=== PATIENT | male | born 1940 | race Caucasian/White ===

== ENCOUNTER → 2016-05-10 | Outpatient (CLI) | payer BC ==
[~2016-05-10] MED LIST: BIMA0.01 OPB; DORZ1SOL6 OP; GABA1CAP5 PO; OXCA300T PO; TIMO0.2528 OPB; TRAM-453 PO
== END | disposition home or self-care (01) ==
LOC: C.LAB 08:26
PROVIDERS: ATTEND Urology
DX: Z00.00 Encounter for general adult medical examination without abnormal findings (principal); R97.20 Elevated prostate specific antigen [PSA]; C61 Malignant neoplasm of prostate

== ENCOUNTER → 2016-10-04 | Outpatient (CLI) | payer BC | END | disposition home or self-care (01) | LOC: C.LAB 07:47 | PROVIDERS: ATTEND Urology | DX: C61 Malignant neoplasm of prostate (principal) ==

== ENCOUNTER 2016-10-20 19:51 | Emergency (ER) | payer BC ==
[~2016-10-20] VITALS: Ht 190.5 cm; Wt 106.5 kg
[~2016-10-20 19:51] MED LIST changes: -BIMA0.01 OPB; -TRAM-453 PO
[2016-10-20 19:54] VITALS: TEMP 36.3; Ht 190.5 cm; Wt 106.5 kg
[2016-10-20] MEDS ORDERED: BIMA0.01 OPB (20:19)
--- NOTE | 2016-10-20 21:03 | DIAGNOSTIC IMAGING REPORT ---
ULTRASOUND LEFT LOWER EXTREMITY VENOUS CLINICAL HISTORY: Left leg pain. COMPARISON STUDY: No priors. TECHNIQUE: Real-time, grayscale, and color Doppler sonography of the deep veins of the left lower extremity was performed from the inguinal crease to the calf. Compression and augmentation were utilized. FINDINGS: There is no sonographic evidence of deep venous thrombosis identified in the left lower extremity. The common femoral, superficial femoral, and popliteal veins are patent and normally compressible. The greater saphenous vein and the profunda femoris vein at the junction with the common femoral vein are clear. The visualized calf veins are patent. IMPRESSION: There is no sonographic evidence of deep venous thrombosis identified in the left lower extremity. Electronically signed by: Osmin Ferguson M.D. 10/20/2016 9:02 PM Dictated Date/Time: 10/20/2016 9:02 PM
--- NOTE | 2016-10-20 21:33 | DIAGNOSTIC IMAGING REPORT ---
LEFT FEMUR 3 VIEWS CLINICAL HISTORY: Atraumatic left leg pain. FINDINGS: AP, frog-leg, and lateral views of the left femur are obtained. No prior studies are available for comparison at the time of dictation. The skeletal structures are osteopenic. There is no radiographic evidence of left femoral fracture. Minimal arthritic change is seen in the left hip. The visualized left hemipelvis appears intact. The overlying soft tissues are within normal limits. Numerous phleboliths are identified in the pelvis. IMPRESSION: Osteopenia with no radiographic evidence of left femoral fracture. Electronically signed by: Osmin Ferguson M.D. 10/20/2016 9:31 PM Dictated Date/Time: 10/20/2016 9:31 PM
--- NOTE | 2016-10-20 21:34 | DIAGNOSTIC IMAGING REPORT ---
LEFT TIBIA AND FIBULA 2 VIEWS CLINICAL HISTORY: Atraumatic left leg pain. FINDINGS: AP and lateral views of the left tibia and fibula are obtained. No prior studies are available for comparison at the time of dictation. The skeletal structures are osteopenic. There is no radiographic evidence of left tibial or fibular fracture. The knee and ankle joints are grossly maintained. The overlying soft tissues are within normal limits. IMPRESSION: There is no radiographic evidence of left tibial or fibular fracture. Electronically signed by: Osmin Ferguson M.D. 10/20/2016 9:32 PM Dictated Date/Time: 10/20/2016 9:32 PM
--- NOTE | 2016-10-20 21:46 | EMERGENCY ROOM VISIT NOTE ---
History First contact with patient: 20:02 Chief Complaint: LEG PAIN,LEG INJURY Stated Complaint: L KNEE PAIN, LEG PAIN History of Present Illness The patient is a 76 year old male who presents to the Emergency Room with complaints of left leg pain. The patient states that he had a sudden onset of left leg pain earlier today. The pain is located in the anterior thigh and radiates down to the calf. He denies any injury, but states that the pain has been gradually worsening throughout the day. He rates his current discomfort is 7/10 and states his pain is worse with weightbearing or walking. He denies any previous history of similar symptoms. The patient has a history of prostate cancer. He denies the pain in the back. He denies any numbness or weakness in the leg. Denies any redness, swelling or warmth. The patient is not a smoker and denies recent travel. Review of Systems A complete 10 point review of systems was reviewed with the patient with pertinent positives and negatives as per history of present illness. All else were negative. Past Medical/Surgical History Medical Problems: (1) Hypertension (2) S/P hernia repair Surgical Problems: (1) H/O hernia repair Family History Cancer Social History Smoking Status: Never Smoker Alcohol Use: occasionally Marital Status: Housing Status: lives with family Occupation Status: employed Current/Historical Medications Scheduled Bimatoprost (Lumigan), 1 DROP OPB HS Dorzolamide Hcl-Timolol Maleat (Cosopt Oph), 1 DROPS OP BID Gabapentin (Neurontin), 400 MG PO BID Oxcarbazepine (Trileptal), 300 MG PO BID Timolol Maleate 0.25% Oph (Timoptic 0.25% Oph), 1 DROP OPB HS Tramadol Hcl (Ultram), 50 MG PO Q4H Physical Exam Vital Signs Date Time Temp Pulse Resp B/P (MAP) Pulse Ox O2 Delivery O2 Flow Rate FiO2 10/20/16 21:49 71 16 147/97 95 Room Air 10/20/16 19:54 36.3 84 16 157/77 97 Room Air Physical Exam VITALS: Vitals are noted on the nurse's note and reviewed by myself. Vital signs stable. GENERAL: This is a 76-year-old male, in no acute distress, nondiaphoretic, well- developed well-nourished. HEART: Regular rate and rhythm without murmurs gallops or rubs. LUNGS: Clear to auscultation bilaterally without wheezes, rales or rhonchi. EXTREMITIES: No erythema, edema or warmth of the left leg. Full range of motion and strength 5/5 in the left leg. Results pedis pulse 2+. The foot is warm and well-perfused. Patient is able to wiggle all toes without difficulty. Sensation is intact. NEURO: Patient was alert and oriented to person place and time. 2+ patellar reflexes bilaterally. Medical Decision & Procedures ER Provider Diagnostic Interpretation: ULTRASOUND LEFT LOWER EXTREMITY VENOUS FINDINGS: There is no sonographic evidence of deep venous thrombosis identified in the left lower extremity. The common femoral, superficial femoral, and popliteal veins are patent and normally compressible. The greater saphenous vein and the profunda femoris vein at the junction with the common femoral vein are clear. The visualized calf veins are patent. IMPRESSION: There is no sonographic evidence of deep venous thrombosis identified in the left lower extremity. LEFT FEMUR 3 VIEWS FINDINGS: AP, frog-leg, and lateral views of the left femur are obtained. No prior studies are available for comparison at the time of dictation. The skeletal structures are osteopenic. There is no radiographic evidence of left femoral fracture. Minimal arthritic change is seen in the left hip. The visualized left hemipelvis appears intact. The overlying soft tissues are within normal limits. Numerous phleboliths are identified in the pelvis. IMPRESSION: Osteopenia with no radiographic evidence of left femoral fracture. LEFT TIBIA AND FIBULA 2 VIEWS FINDINGS: AP and lateral views of the left tibia and fibula are obtained. No prior studies are available for comparison at the time of dictation. The skeletal structures are osteopenic. There is no radiographic evidence of left tibial or fibular fracture. The knee and ankle joints are grossly maintained. The overlying soft tissues are within normal limits. IMPRESSION: There is no radiographic evidence of left tibial or fibular fracture. Medications Administered Medications (Trade) Dose Ordered Sig/Dulce Route Start Time Stop Time Status Last Admin Dose Admin Tramadol HCl (Ultram Home Pack) 1 homepack UD ONCE PO 10/20/16 22:00 10/20/16 22:01 DC 10/20/16 21:58 1 HOMEPACK Medical Decision Differential diagnosis includes DVT, superficial thrombosis, muscular strain, lumbar radiculopathy, arterial occlusion, among others. Patient was evaluated as above. His exam is unremarkable. Ultrasound of the leg was performed and shows no evidence of DVT. X-rays of the femur and tibia/ fibula were performed and were unremarkable. The etiology of the patient's discomfort is unclear. He was very relieved to hear the negative results of his testing. He was given a prescription for tramadol to be taken for more severe pain. He will follow-up with his primary care provider for further evaluation and was encouraged to return here as needed for any worsening or new/ concerning symptoms. He verbalized understanding of my assessment and treatment plan and was discharged home in good condition. The patient was independently evaluated by Dr. Mccarthy, ED attending physician, who agreed with my assessment and treatment plan. Medication Reconcilliation Current Medication List: was personally reviewed by me Blood Pressure Screening Patient's blood pressure: Elevated blood pressure Blood pressure disposition: Elevated BP felt to be situational Impression Primary Impression: Leg pain, left Departure Information Dispostion Home / Self-Care Condition GOOD Prescriptions Tramadol Hcl (ULTRAM) 50 Mg Tab 50 MG PO Q4H for Pain, #12 TABS For Initial Treatment Prov: Elana Brooke .KARUNA 10/20/16 Referrals Rylee Mohr M.D. (PCP) Patient Instructions My [facility] Additional Instructions Tramadol as needed for severe pain. Do not drive or drink alcohol while taking this medication. For pain control, you can use the following [id number] medicines (if >12 yo): - Regular strength (325mg/tab) Tylenol (acetaminophen) 2 tabs every 4-6 hours as needed. Do not exceed 12 tablets in a 24 hour period. Avoid taking more than 4 grams (4000 mg) of Tylenol per day. This includes any other sources of acetaminophen you may take on a regular basis. - Regular strength (200 mg/tab) Advil (ibuprofen) 1-2 tabs every 4-6 hours as needed. Do not exceed a dose of 3200 mg per day. Follow-up with her primary care provider early next week for reevaluation. Return to the emergency with worsening pain or any new/concerning symptoms.
--- NOTE | 2016-10-20 21:47 | EMERGENCY ROOM VISIT NOTE ---
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 I was involved in the patient's care and did evaluate the patient myself. I was involved in the care throughout the ER stay. The patient presents with leg pain, the bones look unremarkable-no lytic lesions or fractures. There is no DVT by ultrasound. There is no evidence for neurovascular compromise. The patient was reassured. The patient is being discharged with outpatient follow-up. If worsening, he can return. The cause for the pain is not clear.
[2016-10-20] MEDS ORDERED: TRAM-453 PO (21:48)
[2016-10-20 21:49] VITALS: BP 147/97; PULSE 71; O2SAT 95
[2016-10-20] MEDS ORDERED: TRAMADOL HCL 50 MG HOME PACK PO ONE (22:00)
== END 2016-10-20 22:00 | disposition home or self-care (01) ==
LOC: C.EDB 19:52 → C.EDD 22:00
DX: M79.605 Pain in left leg (principal); Z85.46 Personal history of malignant neoplasm of prostate; I10 Essential (primary) hypertension; Z80.9 Family history of malignant neoplasm, unspecified; Z79.899 Other long term (current) drug therapy

== ENCOUNTER → 2016-12-04 | Outpatient (CLI) | payer BC ==
[~2016-12-04] MED LIST changes: +BIMA0.01 OPB
[2016-12-04 10:09] LABS: BLOOD UREA NITROGEN 24 mg/dl (7-18); BUN/CREATININE RATIO 20.1 (10-20)
== END | disposition home or self-care (01) ==
LOC: C.LAB 07:56
PROVIDERS: ATTEND Urology
DX: C61 Malignant neoplasm of prostate (principal)

== ENCOUNTER → 2016-12-12 | Outpatient (CLI) | payer BC ==
[~2016-12-12] MED LIST changes: +GADAVIST IV PRN
--- NOTE | 2016-12-12 09:27 | DIAGNOSTIC IMAGING REPORT ---
PROSTATE MRI COMBO CLINICAL HISTORY: 76 years-old Male presenting with ELEVATED PSA, history of PROSTATE CA at the left mid and bilateral apex as well as left anterior gland (Martina 3+3). PSA 7.56 ng/mL. TECHNIQUE: Multisequence, multiplanar MR imaging of the prostate was performed before and after the administration of intravenous contrast. Additional postprocessing was performed on a separate [employer] workstation by the radiologist for 3-D volumetric segmentation of the prostate and contouring of region(s) of interest (ELLEN) for targeting. IV contrast: 10 mL of Gadavist. COMPARISON: None. FINDINGS: Prostate: The prostate measures 5.4 x 4.4 x 4.4 cm (DynaCAD prostate boundary segmentation volume 49 mL). Moderate changes of benign prostatic hyperplasia. Hyperplasia of the interface of the transition or peripheral zones also noted, most prominently along the right posterior lateral aspect at the base. Precontrast T1 weighted imaging demonstrates no evidence of intrinsic T1 hyperintensity to suggest hemorrhage. Seminal vesicles normal. Atrophy of the peripheral zone. Several exophytic BPH nodules noted at the base protruding into the peripheral zone. Suspicious lesion(s) described below: Lesion (DynaCAD ELLEN) 1: Location: Left posterolateral peripheral zone at the base to mid gland. The lesion does not extend across the midline. Size: 18 mm (as measured on ADC for PZ lesion and T2WI for TZ lesion) T2W: 3. Heterogeneous ill-defined hypodensity abutting the surgical capsule. No evidence of extraprostatic extension. DWI: 3. Focal mildly/moderately hypointense on ADC and isointense/mildly hyperintense on high b-value DWI. DCE: Positive. Focal enhancement corresponding to a suspicious finding, earlier or contemporaneous with adjacent normal tissue. PI-RADS: 4. Clinically significant cancer is likely to be present. No additional lesion is evident. Specifically, no focal lesion at the apex or in the transition zone. Bladder: Multiple bladder diverticula noted. Trabeculation of the bladder likely suggests chronic outlet obstruction. Bowel: Visualized portion of the rectum normal. Peritoneum: Small fat-containing right inguinal hernia. No free fluid in the pelvis. Lymph nodes: Few subcentimeter external iliac lymph nodes, nonspecific. No pathologically enlarged lymph nodes in the visualized portion of the pelvis. Vasculature: Iliac vessels patent. Multiple phleboliths noted. Osseous structures: Normal bone marrow signal intensity. IMPRESSION: 1. 18 mm lesion in the left posterolateral peripheral zone at the base to mid gland. PI-RADS 4. Clinically significant cancer is likely to be present. This lesion has been segmented for targeted biopsy. 2. Benign prostatic hyperplasia. Electronically signed by: Roni Cao M.D. 12/12/2016 9:25 AM Dictated Date/Time: 12/12/2016 9:05 AM
== END | disposition home or self-care (01) ==
LOC: C.MRIBC 07:38
PROVIDERS: ATTEND Urology
DX: R97.20 Elevated prostate specific antigen [PSA] (principal); C61 Malignant neoplasm of prostate; N42.89 Other specified disorders of prostate; N40.0 Benign prostatic hyperplasia without lower urinary tract symptoms

== ENCOUNTER → 2017-02-02 | Outpatient (CLI) | payer BC ==
[~2017-02-02] MED LIST changes: -GADAVIST IV PRN
[2017-02-02 12:45] LABS: BLOOD UREA NITROGEN 22 mg/dl (7-18); CREATININE 1.15 mg/dl (0.60-1.40)
== END | disposition home or self-care (01) ==
LOC: C.LAB 09:59
PROVIDERS: ATTEND Psychiatry & Neurology Neurology
DX: H53.469 Homonymous bilateral field defects, unspecified side (principal)

== ENCOUNTER → 2017-02-07 | Outpatient (CLI) | payer BC ==
[~2017-02-07] MED LIST changes: +GADAVIST IV PRN
--- NOTE | 2017-02-07 14:42 | DIAGNOSTIC IMAGING REPORT ---
MRI OF THE BRAIN WITHOUT AND WITH IV CONTRAST CLINICAL HISTORY: CEREBRAL CAVERNOMA, STROKE SYNDROME,HOMONYMOUS HEMIANOPSIA. PROSTATE CARCINOMA. COMPARISON STUDY: 08/06/2015 TECHNIQUE: MRI of the brain was performed from the vertex to the skull base utilizing various T1 and T2 weighted sequences. Following the IV administration of 10 mL of Gadavist contrast, additional enhanced images were obtained. FINDINGS: Sagittal T1, axial diffusion, proton density and T2 weighted axial, coronal FLAIR, and pre and post axial T1-weighted images were acquired. These were supplemented with post gadolinium coronal T1 weighted images. No intra or extra-axial mass lesions are visualized. There is a 4.5 mm focus of restricted water diffusion within the right frontal lobe consistent with acute/subacute infarct. There is equivocal additional punctate focus of restricted water diffusion within the anterior right frontal cortex. There is no evidence of ventricular dilatation. Proton density T2-weighted and FLAIR images reveal scattered foci of increased T2 signal within the white matter, likely on a small vessel basis. There are no abnormal flow voids. There is diffuse dural thickening and enhancement most pronounced frontally. There is a stable developmental venous anomaly within the left cerebellar hemisphere Inflammatory changes are evident within the left maxillary sinus IMPRESSION: 1. Tiny 4.5 mm focus of restricted water diffusion within the right frontal lobe consistent with acute/subacute infarct 2. 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 Probable old 5 mm cavernoma within the left cerebellar peduncle 4. Persistent diffuse dural enhancement. This has a wide differential, including intracranial hypotension, idiopathic pachymeningitis, underlying malignancy, as well as in patients status post subdural hematomas. Electronically signed by: Jhony Snyder M.D. 02/07/2017 2:40 PM Dictated Date/Time: 02/07/2017 2:28 PM
== END | disposition home or self-care (01) ==
LOC: C.MRIBC 13:34
PROVIDERS: ATTEND Psychiatry & Neurology Neurology
DX: Q28.3 Other malformations of cerebral vessels (principal); H53.469 Homonymous bilateral field defects, unspecified side; I63.9 Cerebral infarction, unspecified

== ENCOUNTER → 2017-04-19 | Outpatient (CLI) | payer BC ==
[~2017-04-19] MED LIST changes: +GABA-1220 PO; -GABA1CAP5 PO; -GADAVIST IV PRN
== END | disposition home or self-care (01) ==
LOC: C.PATHSPEC 18:56
PROVIDERS: ATTEND Urology
DX: C61 Malignant neoplasm of prostate (principal)

== ENCOUNTER → 2017-06-19 | Outpatient (CLI) | payer BC ==
[~2017-06-19] MED LIST changes: +ASPCH81X PO; -BIMA0.01 OPB; +GADAVIST IV PRN
--- NOTE | 2017-06-19 11:20 | DIAGNOSTIC IMAGING REPORT ---
PROSTATE MRI COMBO CLINICAL HISTORY: 77 years-old Male presenting with prostate cancer. Preradiation treatment study.. TECHNIQUE: Multisequence, multiplanar MR imaging of the prostate was performed before and after the administration of intravenous contrast. Additional postprocessing was performed on a separate [employer] workstation by the radiologist for 3-D volumetric segmentation of the prostate and contouring of region(s) of interest (ELLEN) for targeting. IV contrast: 10 cc Gadavist. COMPARISON: Prostate MRI 12/12/2016. FINDINGS: Prostate: The prostate measures 5.7 x 4.7 x 4.6 cm (DynaCAD prostate boundary segmentation volume 57.6 mL). Moderate changes of benign prostatic hyperplasia. Precontrast T1 weighted imaging demonstrates few small foci of T1 hyperintensity within the left posterior lateral peripheral zone consistent with sites of hemorrhage. This is likely due to the prior biopsy. Suspicious lesion(s) described below: Lesion (DynaCAD ELLEN) 1: Location: The previously described lesion within the left posterior lateral peripheral zone at the base to the mid gland is not well delineated on this examination and is therefore likely improved. No evidence for extraprostatic extension. Seminal vesicles normal. Bladder: A few small bladder diverticula. Bowel: Visualized portion of the rectum normal. Peritoneum: The hydrogel appears in good position between the prostate gland and the rectum and measures between 6 and 10 mm in thickness. Lymph nodes: No lymphadenopathy in the visualized portion of the pelvis. Vasculature: Iliac vessels patent. Abdominal wall: Small fat-containing right inguinal hernia. Osseous structures: Normal bone marrow signal intensity. Degenerative changes at the lower lumbar spine. IMPRESSION: 1. The previously identified lesion within the left posterior lateral peripheral zone is not well delineated on this examination. This could be due to the lesion being obscured by post biopsy changes or possibly improvement if the patient has had recent treatment. 2. Benign prostatic hyperplasia. 3. The hydrogel appears in good position between the prostate gland and the rectum and measures between 6 and 10 mm in thickness. Electronically signed by: Yasmany Kelly M.D. 06/19/2017 11:19 AM Dictated Date/Time: 06/19/2017 10:55 AM
== END | disposition home or self-care (01) ==
LOC: C.MRIBC 08:53
PROVIDERS: ATTEND Physician Assistant Medical
DX: C61 Malignant neoplasm of prostate (principal)

== ENCOUNTER 2021-06-13 18:14 | Inpatient (IN) ==
[2021-06-13 19:28] LABS: Basophils # (auto) 0.03 K/uL (0-0.2); Basophils % (auto) 0.7 %; Eosinophils # (auto) 0.09 K/uL (0-0.5); Hematocrit (blood only) 41.7 % (42-52); Hemoglobin 14.4 g/dL (14.0-18.0); Immature Granulocytes # (auto) 0.03 K/uL (0.00-0.02); Immature Granulocytes % (auto) 0.7 %; Lymphocytes # (auto) 1.32 K/uL (1.2-3.4); Mean Corpuscular Hemoglobin 31.6 pg (25-34); Mean Corpuscular Hgb Conc 34.5 g/dL (32-36); Mean Corpuscular Volume 91.4 fL (80-100); Mean Platelet Volume 9.1 fL (7.4-10.4); Monocytes # (auto) 0.41 K/uL (0.11-0.59); Neutrophils # (auto) 2.67 K/uL (1.4-6.5); Neutrophils % (auto) 58.6 %; Platelet Count 146 K/uL (130-400); RDW Coefficient of Variation 13.9 % (11.5-14.5); RDW Standard Deviation 46.3 fL (36.4-46.3); Red Blood Count 4.56 M/uL (4.7-6.1); White Blood Count 4.55 K/uL (4.8-10.8)
--- NOTE | 2021-06-13 19:48 | CT Scan Report ---
CT head/brain wo con CLINICAL HISTORY: 81 years-old Male with H/o SDH - now AMS. Acutely altered mental status. Follow-up study in a patient with prior subdural hematoma TECHNIQUE: Multiple axial CT images of the head were obtained without contrast. A dose lowering tech nique was utilized adhering to the principles of ALARA. CT DOSE: 614.27 mGy.cm COMPARISON: Head CT 07/19/2015, brain MRI 01/14/2019, head CT 09/04/2014. FINDINGS: No intra-axial hemorrhage, midline shift, intracranial mass, hydrocephalus, territorial ischemia or a bnormal extra-axial collection. Age-related involutional changes. White matter hypodensities suggest chronic microvascular ischemic disease. Subtle area of increased density within the extra-axial space adjacent to left frontal lobe is seen on image 12 series 2 measuring up to 1.5 mm in transverse dime nsion. 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 The calvarium is intact. Prior left-sided lens repair. The paranasal sinuses, mastoid air cells, and middle ear cavities are clear. IMPRESSION: Subtle increased density within the extra-axial space adjacent to left frontal lobe awa uring up to 1.5 mm may correlate with the chronic pachymeningeal thickening as described on the [facility] brain MRI from 01/14/2019. An acute subdural hemorrhage could appear similarly. As a precaution bonnie measure, a follow-up head CT in 24 hours may be considered. Findings were discussed with Dr. Olivera on 06/13/2021 at 7:43 PM. ACT 112: Negative or not required by law. The above report was generated using voice recognition software. It may contain grammatical, syntax o r spelling errors. Electronically signed by: Reji Yu M.D. 06/13/2021 7:45 PM
[2021-06-13 19:52] LABS: Troponin I < 0.03 ng/ml (0-0.04)
[2021-06-13 19:53] LABS: Alanine Aminotransferase 13 U/L (7-52); Albumin Globulin Ratio 1.6 (0.9-2); Albumin Level 4.1 gm/dl (3.4-5.0); Alkaline Phosphatase 67 U/L (34-104); Anion Gap 6 (3-11); Aspartate Aminotransferase 14 U/L (13-39); BUN Creatinine Ratio 15.7 (10-20); Bilirubin,Total 0.4 mg/dl (0.2-1.0); Blood Urea Nitrogen 18 mg/dl (6-23); Calcium 9.3 mg/dl (8.5-10.1); Carbon Dioxide 26 mmol/L (21-32); Chloride 108 mmol/L (98-107); Creatinine Clr Calc Pharmacy 63.4 ml/min; Est GFR (African American) 69.3 ml/min; Est GFR (Non-African American) 59.8 ml/min; Globulin 2.5 gm/dl (2.5-4.0); Glucose 100 mg/dl (70-99(Fasting)); Magnesium 2.1 mg/dl (1.7-2.4); Potassium 3.7 mmol/L (3.5-5.1); Sodium 140 mmol/L (136-145); Total Protein 6.6 gm/dl (6.0-8.3)
--- NOTE | 2021-06-13 19:54 | XRay Report ---
XR chest 1V portable HISTORY: 81 years-old Male weakness acute weakness COMPARISON: Chest radiograph 09/04/2014, CT thoracic spine 05/09/2019 TECHNIQUE: Portable AP view of the chest FINDINGS: The cardiac silhouette is enlarged. Unchanged mediastinal contours. Mild eventration of the right hem idiaphragm. No pneumothorax, pleural effusion, airspace consolidation or overt pulmonary edema. The b ones appear grossly intact. IMPRESSION: Cardiomegaly without acute process. ACT 112: Negative or not required by law. The above report was generated using voice recognition software. It may contain grammatical, syntax o r spelling errors. Electronically signed by: Reji Yu M.D. 06/13/2021 7:53 PM
[2021-06-13] MEDS ORDERED: hydrALAZINE HCL 20 MG/ML VIAL IV STA (21:59)
[2021-06-13 22:42] LABS: Appearance Urine Clear (Clear); Bilirubin Urine Negative (Negative); Blood Urine Negative (Negative); Color Urine Yellow; Glucose Urine UA Negative (Negative); Ketones Urine Trace (Negative); Leukocyte Esterase Urine Negative (Negative); Nitrite Urine Negative (Negative); Protein Urine Negative (Negative); Specific Gravity Urine 1.023 (1.000-1.030); Urobilinogen Urine Negative (Negative)
--- NOTE | 2021-06-13 23:14 | History & Physical Report ---
Date of Service June 13, 2021 Assessment & Plan (1) Confusion: Plan: 81 y/o M PMHx of prior CVA, prostate cancer in remission, and trigeminal neuralgia who presents w/ acute on chronic confusion and gait instability. He will be admitted for stroke w/o tpa workup. Acute encephalopathy- - There is lower suspicion for htn related symptoms as he denies headache visual changes or chest pain / SOB. - UA not suggestive of uti - cxr reviewed and w/ lung exam overall low suspicion for pneumonia - ecg reassuring - reviewed home medications; oxcarbazepine is chronic med; less likely contributory - check TSH - has hx of migraine, but no recent headache - considered delirium and progression of dementia, but will consider other causes as above - CTA head and neck - defer asa and statin as CT head mentions "chronic pachymeningeal thickening, but acute subdural hematoma could appear similar" - MRI brain w/ and w/o contrast stroke protocol, ordered stat. will f/u w/ [facility] if needed, depending on result. Whether patient has acute subdural hematoma would also affect BP goal - consult neuro - neuro checks (2) Gait instability: Plan: - per my exam, gait was narrow and not wide-based. Plan is for MRI as per above - HPI less consistent w/ vertigo though some nystagmus noted on exam (3) Hypertension: Plan: - not on antihypertensives at home. 132/98 per 06/06/21 outpatient visit w/ me - as per above, lower suspicion for htn-related symptoms 182/114 was max BP while in ED. He has since been given 10mg IV hydralazine. (4) CKD (chronic kidney disease): Plan: - at baseline Cr ~1.2. follow bmp (5) Cerebrovascular disease: Plan: - prior R frontal infarct on imaging. patient had been unaware from a symptom standpoint. - 01/14/19 MRI: Impression:1. No MRI findings to account for trigeminal neuralgia.2. No acute intracranial findings.3. Pachymeningeal dural thickening and enhancement. Although nonspecific, this is unchanged since MRI of February 07, 2017 and therefore not malignant.4. Small interval but old right frontal lobe infarct. 5. No change in a suspected tiny cavernoma within the left cerebellar peduncle. - hold home baby ASA (6) Trigeminal neuralgia: Plan: - chronic, continue home oxycarbazepine Plan: FEN/GI: HH diet ppx: No dvt chemoppx code: full dispo: med tele History of Present Illness Chief Complaint: confusion Primary Care Provider: Pj Montoya MD 81 y/o M PMHx of prior CVA w/o residual deficits, prostate cancer in remission, and trigeminal neuralgia. He has had mild memory problems and mild confusion in past year, worsened in past month, but noticeably worse in the past 2 days. His gait imbalance was much worse than usual today. An example of the confusion was having difficulty putting eyedrops into eye and fumbling with the bottle. He saw neurology on 06/09/21 for trigeminal neuralgia f/u and in conjunction w/ patient's mild confusion which was not as bad as today's, MRI had been scheduled for 06/22/21. No focal weakness of extremities or speech slurring. Some drooling while talking on 06/11/21, transient. Had L eye cataract surgery on 06/07/21. Patient noted similar confusion and memory problems when he had UTI 6 weeks ago. He denies room spinning sensation. He complained of transient dizziness earlier today after several minutes of walking and stated he felt "off." Denies ESTRADA, chest pain, dizziness, blurry vision, GI/urinary symptoms, or rash. Patient lives w/ who has dementia. His sons live nearby and visit often. He denies hx of [place] or VTE. He has had covid booster. He was tested covid negative this visit. Hx obtained from son at bedside. Patient's son states that the confusion was slightly worse at home than currently. ED course: Hydralazine 10mg IV x 1 dose. Per ED exam, patient had some difficulty following complex commands. Head CT: Impression: Subtle increased density within the extra-axial space adjacent to left frontal lobe measuring up to 1.5 mm may correlate with the chronic pachymeningeal thickening as described on the comparison brain MRI from 01/14/2019. An acute subdural hemorrhage could appear similarly. As a precautionary measure, a follow-up head CT in 24 hours may be considered. Allergies Allergy/AdvReac Type Severity Reaction Status Date / Time No Known Allergies Allergy Verified 06/13/21 18:54 Home Medications Medication Instructions Recorded Confirmed Type aspirin 81 mg tablet,delayed 81 mg PO QPM tab 04/13/20 06/13/21 History release oxcarbazepine 300 mg tablet 600 mg PO BID 90 Days #360 tab 04/06/21 06/13/21 Rx timolol maleate 0.5 % eye drops 1 drp OPHTHALMIC (EYE) HS 04/09/21 06/13/21 History Eye Drop For Cataract Surgery 0 drp OPHTHALMIC (EYE) DIRECTED 06/13/21 06/13/21 History Past Med/Surg History Medical History (Updated 06/14/21 @ 08:52 by Jn Omalley MD) Cerebral cavernoma pt denies Chronic lower back pain Chronic subdural hematoma pt denies CKD (chronic kidney disease) History of prostate cancer dx'd 2-3 years ago; s/p radiation History of stroke listed above - pt denies hx stroke; poor historian. denies following with neurology but office visit in [facility] from 12/2020 HTN (hypertension) no meds - PCP monitors Nerve disorder, cranial Poor historian Trigeminal neuralgia Surgical History (Updated 06/14/21 @ 08:44 by Jn Omalley MD) History of prostate biopsy S/P cataract surgery Family History Mother , in her 60s Parkinson's disease Primary Parkinson's disease Father , in his 70's of uncertain cause No problems noted. 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 Trace bloody stool (streaking when wiping), chronic, attributes to s/p radiation therapy for prostate cancer BMs normal. Physical Exam Physical Exam: General: A&O to person and place, not time. NAD. Cooperative. HEENT: Atraumatic, normocephalic. EOMI. Pupils reactive to light, slightly slower on L. Mild horizontal nystagmus when looking towards right. Pulm: CTAB. -wheezes, -rales, -rhonchi. No respiratory distress. Cardiac: RRR, faint 2/6 systolic murmur heard at pulmonic region. Trace RLE edema. Abdominal: Nontender, nondistended, soft. Integ: Warm, dry, intact Msk: Moving all extremities. Neuro: CN II-XII intact. No dysmetria, but motion is slightly less smooth on left [id number]. Strength and sensation of extremities intact. Cautious narrow gait. Neg romberg and neg pronator drift. Was careful during start of Romberg exam. Results & Data Results & Data ([facility]) Vital Signs (Past 12 Hours) Vital Signs Temp Pulse Pulse Resp BP BP Pulse Ox 06/13/21 21:59 63 14 182/114 H 98 06/13/21 20:14 76 15 157/116 H 97 06/13/21 19:00 96 06/13/21 18:21 75 15 159/114 H 96 06/13/21 18:16 36.8 C 88 20 177/96 H 95 Laboratory Results 06/13/21 19:10 06/13/21 19:10 Cardiac Enzymes 06/13/21 Range/Units 19:10 AST 14 (13-39) U/L Troponin I < 0.03 (0-0.04) ng/ml CBC 06/13/21 Range/Units 19:10 WBC 4.55 L (4.8-10.8) K/uL RBC 4.56 L (4.7-6.1) M/uL Hgb 14.4 (14.0-18.0) g/dL Hct 41.7 L (42-52) % Plt Count 146 (130-400) K/uL Neut # (Auto) 2.67 (1.4-6.5) K/uL Lymph # (Auto) 1.32 (1.2-3.4) K/uL Day # (Auto) 0.41 (0.11-0.59) K/uL Eos # (Auto) 0.09 (0-0.5) K/uL Baso # (Auto) 0.03 (0-0.2) K/uL Comprehensive Metabolic Panel 06/13/21 Range/Units 19:10 Sodium 140 (136-145) mmol/L Potassium 3.7 (3.5-5.1) mmol/L Chloride 108 H (98-107) mmol/L Carbon Dioxide 26 (21-32) mmol/L BUN 18 (6-23) mg/dl Creatinine 1.15 (0.6-1.4) mg/dl Glucose 100 H (70-99(Fasting)) mg/dl Calcium 9.3 (8.5-10.1) mg/dl AST 14 (13-39) U/L ALT 13 (7-52) U/L Alkaline Phosphatase 67 (34-104) U/L Total Protein 6.6 (6.0-8.3) gm/dl Albumin 4.1 (3.4-5.0) gm/dl Intake and Output 06/13/21 06/13/21 06/14/21 14:59 22:59 06:59 Other: Weight 98.9 kg Weight Measurement Method Chair Scale Patient Weight 06/14/21 06:59 Weight 98.9 kg Diagnostic Findings Chest X-Ray 06/13/21 18:58 XR chest 1V portable HISTORY: 81 years-old Male weakness acute weakness COMPARISON: Chest radiograph 09/04/2014, CT thoracic spine 05/09/2019 TECHNIQUE: Portable AP view of the chest FINDINGS: The cardiac silhouette is enlarged. Unchanged mediastinal contours. Mild eventration of the right hemidiaphragm. No pneumothorax, pleural effusion, airspace consolidation or overt pulmonary edema. The bones appear grossly intact. IMPRESSION: Cardiomegaly without acute process. ACT 112: Negative or not required by law. The above report was generated using voice recognition software. It may contain grammatical, syntax or spelling errors. Electronically signed by: Reji Yu M.D. 06/13/2021 7:[address] 06/13/21 18:58 CT head/brain wo con CLINICAL HISTORY: 81 years-old Male with H/o SDH - now AMS. Acutely altered mental status. Follow-up study in a patient with prior subdural hematoma TECHNIQUE: Multiple axial CT images of the head were obtained without contrast. A dose lowering technique was utilized adhering to the principles of ALARA. CT DOSE: 614.27 mGy.cm COMPARISON: Head CT 07/19/2015, brain MRI 01/14/2019, head CT 09/04/2014. FINDINGS: No intra-axial hemorrhage, midline shift, intracranial mass, hydrocephalus, territorial ischemia or abnormal extra-axial collection. Age-related in volutional changes. White matter hypodensities suggest chronic microvascular ischemic disease. Subtle area of increased density within the extra-axial space adjacent to left frontal lobe is seen on image 12 series 2 measuring up to 1.5 mm in transverse dimension. 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 The calvarium is intact. Prior left-sided lens repair. The paranasal sinuses, mastoid air cells, and middle ear cavities are clear. IMPRESSION: Subtle increased density within the extra-axial space adjacent to left frontal lobe measuring up to 1.5 mm may correlate with the chronic pachym eningeal thickening as described on the comparison brain MRI from 01/14/2019. An acute subdural hemorrhage could appear similarly. As a precautionary measure, a follow-up head CT in 24 hours may be considered. Findings were discussed with Dr. Olivera on 06/13/2021 at 7:43 PM. ACT 112: Negative or not required by law. The above report was generated using voice recognition software. It may contain grammatical, syntax or spelling errors. Electronically signed by: Reji Yu M.D. 06/13/2021 7:45 PM ECG Additional Comments: 06/13/21 ecg per my read: NSR 72 w/ 1st deg AV block. Normal axis. Poor R wave progression compared to 09/04/14 ecg. Code Status & VTE Plan Code Status full VTE Prophylaxis Plan VTE Prophylaxis will be ordered: Yes Supervising Physician Co-Signing Physician Notes Attending addendum: I have physically seen this patient, have supervised the medical residents activities, and agree with the H&P unless as otherwise noted. Assessment and Plan: Confusion/presumptive encephalopathy/left frontal lobe lesion 1.5 cm, possibly acute subdural CT of head without contrast with report as noted The patient will be admitted to telemetry for serial cardiac enzymes, serial EKG's, cardiac rhythm monitoring and a 2-D echocardiogram with Dopplers. Contact neurology from [facility] [place] further recommendations Order MRI of brain Neurochecks If acute hemorrhage requires significantly lowering of blood pressures N.p.o. Remaining orders and notations as noted Resident Activity Tracking Resident Involvement: Resident Care Provided Care Provided: [facility]
[2021-06-14] MEDS ORDERED: PHARMACIST DISCHARGE MED REC CONSULT PRN (02:44)
[2021-06-14] MEDS ORDERED: GADOBUTROL 65ML VIAL IV ONE (04:39)
[2021-06-14] MEDS ORDERED: OPTIRAY 320 125ml IV ONE (05:20)
--- NOTE | 2021-06-14 07:01 | Communication Note ---
Date of Service: June 14, 2021 statrad read of MRI brain pending. day team to f/u Neftali Go PGY2 night resident
--- NOTE | 2021-06-14 07:30 | CT Scan Report ---
CT ANGIOGRAM OF THE BRAIN CLINICAL HISTORY: Strokelike symptoms. COMPARISON STUDY: Unenhanced CT of the brain dated 06/13/2021. MRI of the brain dated 01/14/2019 and 08/06/2015. TECHNIQUE: Following the IV administration of 117 cc of Optiray 320, CT angiogram of the brain was pe rformed from the skull base to the vertex. Images are reviewed in the axial, sagittal, and coronal pl anes. 3-D MIPS images are created and assessed. IV contrast was administered without complication. A dose lowering technique was utilized adhering to the principles of ALARA. FINDINGS: Brain parenchyma: There is age-related involutional change noting mild microangiopathic disease. Ther e is trace extra-axial thickening along the convexities bilaterally, measuring up to 3 mm on the left and up to 2 mm on the right. No associated mass effect is identified. A small chronic infarct is not ed in the right frontal lobe. There is no evidence of parenchymal hematoma, midline shift, or acute t erritorial ischemia noting angiographic phase technique. There is no evidence of enhancing mass lesio n on the angiogram phase images. Dewitt-white matter differentiation is preserved. Ventricles, sulci, and cisterns: Prominent secondary to involutional change. CT angiogram of the brain: The internal carotid arteries are widely patent, as are the anterior and m iddle cerebral arteries. The vertebrobasilar system and posterior cerebral arteries are widely patent . The left vertebral artery is dominant. There is no aneurysm, high-grade stenosis, or focal vessel c utoff identified throughout the intracranial circulation. Dural sinuses: Clear as visualized. Orbits: The bony orbits are intact. The orbital contents are normal as visualized. Sinuses and mastoids: There is moderate mucosal thickening of the left maxillary antrum. Trace mucosa l thickening is seen in the frontal sinuses. The remaining paranasal sinuses are clear. The mastoid a ir cells are well pneumatized. Calvarium: Unremarkable. IMPRESSION: 1. There is trace extra-axial thickening along the convexity seen bilaterally. Although the appearanc e suggests tiny acute subdural hemorrhages, this was also seen on prior examinations and could repres ent chronic subdural collection versus pachymeningeal thickening. Clinical correlation will be essent ial. No associated mass effect is identified. 2 There is no evidence of parenchymal hematoma, midline shift, or acute territorial noting angiograph ic phase technique. 3. Unremarkable CT angiogram of the brain.. ACT 112: Negative or not required by law. Electronically signed by: Osmin Ferguson M.D. 06/14/2021 7:29 AM
--- NOTE | 2021-06-14 07:57 | CT Scan Report ---
CT angio neck with con CLINICAL HISTORY: r/o stroke COMPARISON STUDY: No previous studies for comparison. CT DOSE: 608.10 mGy.cm TECHNIQUE: CT Angio of the neck was performed.followed by image post processing with coronal, and sa gittal MIP reformats.. Stenosis assessment by NASCET criteria. Contrast Volume: Optiray 320, 117 ml FINDINGS: Vascular findings: Right common carotid artery: Patent without significant stenosis. Minimal atherosclerotic calcificati on is present at the carotid bulb. Right internal carotid artery: Patent without significant stenosis. Right vertebral artery: Patent without significant stenosis. Left common carotid artery: Patent without significant stenosis. Minimal atherosclerotic calcificatio n is present at the carotid bulb. Left internal carotid artery: Patent without significant stenosis. Left vertebral artery: Patent without significant stenosis. The left vertebral artery is mildly domin ant when compared to the right. Nonvascular findings: The parotid and submandibular salivary glands appear normal. There is no enlarged cervical adenopathy noted. The airway appears patent. The thyroid gland appears within normal limits. The lung apices ap pear within normal limits. Impression: Essentially negative CT angiogram of the neck with contrast. ACT 112: Negative or not required by law. Electronically signed by: Jorge Alberto Erazo M.D. 06/14/2021 7:55 AM
[2021-06-14 08:07] LABS: Basophils # (auto) 0.02 K/uL (0-0.2); Basophils % (auto) 0.4 %; Eosinophils # (auto) 0.05 K/uL (0-0.5); Eosinophils % (auto) 0.9 %; Hematocrit (blood only) 42.9 % (42-52); Hemoglobin 14.7 g/dL (14.0-18.0); Immature Granulocytes # (auto) 0.03 K/uL (0.00-0.02); Immature Granulocytes % (auto) 0.5 %; Lymphocytes # (auto) 1.05 K/uL (1.2-3.4); Lymphocytes % (auto) 18.5 %; Mean Corpuscular Hemoglobin 31.3 pg (25-34); Mean Corpuscular Hgb Conc 34.3 g/dL (32-36); Mean Corpuscular Volume 91.3 fL (80-100); Monocytes # (auto) 0.41 K/uL (0.11-0.59); Monocytes % (auto) 7.2 %; Neutrophils # (auto) 4.13 K/uL (1.4-6.5); Neutrophils % (auto) 72.5 %; Platelet Count 138 K/uL (130-400); RDW Coefficient of Variation 13.8 % (11.5-14.5); RDW Standard Deviation 46.4 fL (36.4-46.3); White Blood Count 5.69 K/uL (4.8-10.8)
[2021-06-14 08:11] LABS: INR 1.1 (0.9-1.1); Partial Thromboplastin Time 27.5 Seconds (21.0-31.0); Prothrombin Time 11.7 Seconds (9.0-12.0)
--- NOTE | 2021-06-14 08:54 | Neurology Consultation ---
Date of Consultation June 14, 2021 Assessment & Plan (1) Confusion: (2) Gait instability: (3) Pachymeningitis: (4) Trigeminal neuralgia: (5) Hypertension: (6) Depression with anxiety: This patient has what seem to be the onset of acute confusion and gait disturbance. I believe his symptoms are much more chronic and progressive over time. On physical exam he has an unstable somewhat wide-based gait. This is reminiscent of something you might see with normal pressure hydrocephalus or even a type of cerebellar gait. There is no evidence of Parkinson's disease. His MRI shows chronic meningeal thickening unchanged from 2017. Is most consistent with chronic intracranial hypotension. He has no history of a procedure that would give him a spinal leak. Although he does not have headaches or symptoms consistent with acute intracranial hypotension, cognitive problems and gait disturbance can be seen chronically in this condition. I cannot exclude an early dementia either. He does not have any signs or symptoms consistent with stroke or normal pressure hydrocephalus. I believe his confusion is more consistent with a early dementia. He does not seem delirious. He has a longstanding history of left V2 trigeminal neuralgia which is apparently fairly well controlled. The patient has been on oxcarbazepine which, might give memory problems and gait disturbances, if his level is high. I believe he does have some depression and anxiety superimposed because of dealing with his 's illness. Recommendations: 1. check B12, folate, RPR, and oxcarbazepine level. He has a history of B12 deficiency. This could affect his gait and memory also. 2. physical, occupational, and speech therapy consult. 3. Awaiting echocardiogram and other labs. 4. follow-up in 1-2 weeks with Vilma Erickson PA-C, at the Neurology office. Overall, I spent a total of 100 minutes with this case including review of records, review of MRI films with Dr. Yu, direct evaluation the patient at bedside, and discussion of the case with the patient and RN at bedside as well as doctors Aimee and Emelyn, including differential diagnosis and treatment options. History of Present Illness Reason for Consultation: Patient is an 81-year-old, who I was asked to see the request of Dr. Kennedy, for neurologic consultation regarding acute confusion and gait disturbance. Requesting Physician: Dr. Kennedy Attending Physician: Esteban Dunaway, DO History of Present Illness this patient has a long-standing history of left V2 trigeminal neuralgia, currently followed by Dr. Marcelino. He for saw the patient in 2012 and has been following him ever since. Patient was supposed to be on gabapentin 200 milligrams 3 times a day and oxcarbazepine 600 milligrams twice daily. Unfortunately, he has not been compliant with medication and, at his last visit on June 09, he was told to just take the oxcarbazepine and stop the gabapentin. Patient believes that his facial pain is controlled and he does not have any significant issues currently. According to the most recent note he may have some pain 2 or 3 times a week, triggered by chewing or speaking and sometimes by bending over forward. Patient had an MRI of the brain in February of 2017. There was a tiny right frontal acute stroke at that time. 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 There was persistent dural enhancement present that was unchanged from a previous study of August of 2015. a repeat MRI of the brain in January of 2019 showed no change in any of the findings compared to 2017. the tiny right frontal CVA was now old. Patient tells me that he has had some memory problems recently. According to the chart it has been going on for a year and getting worse in the last couple of months. Patient feels it has just been the last week or so. In addition, the patient says his balance has been poor for the last "4-5 weeks" he has not f ravi. He does not have any pain or headaches. He has no new vision problems ( recent left cataract surgery ), numbness, weakness, swallowing problems, or incontinence of urine. Patient was admitted on June 13, having come to the emergency room at 18:16 with 2 days of increased confusion and gait disturbance. Blood pressure was 177/96, pulse 80s and regular, respiratory rate 20, temperature 36.8, and O2 saturation 90 percent. Blood pressure has been elevated since admission. CBC, Chem profile, and urinalysis were unremarkable. CT scan of the head showed no acute changes and chest x-ray was unremarkable. CT angiography of the head and neck showed no vascular stenoses or anomalies. MRI of the brain showed no change from the previous MRIs. I reviewed these MRIs with Dr. Yu. The meningeal thickening is unchanged. patient has been under considerable stress recently caring for his elderly who has a significant dementia for many years. This gives some anxiety and depression situationally. Allergies Allergy/AdvReac Type Severity Reaction Status Date / Time No Known Allergies Allergy Verified 06/13/21 18:54 Home Medications Medication Instructions Recorded Confirmed Type aspirin 81 mg tablet,delayed 81 mg PO QPM tab 04/13/20 06/13/21 History release oxcarbazepine 300 mg tablet 600 mg PO BID 90 Days #360 tab 04/06/21 06/13/21 Rx timolol maleate 0.5 % eye drops 1 drp OPHTHALMIC (EYE) HS 04/09/21 06/13/21 Hi story Eye Drop For Cataract Surgery 0 drp OPHTHALMIC (EYE) DIRECTED 06/13/21 06/13/21 History Patient History Medical History (Updated 06/14/21 @ 08:52 by Jn Omalley MD) Cerebral cavernoma pt denies Chronic lower back pain Chronic subdural hematoma pt denies CKD (chronic kidney disease) History of prostate cancer dx'd 2-3 years ago; s/p radiation History of stroke listed above - pt denies hx stroke; poor historian. denies following with neurology but office visit in [facility] from 12/2020 HTN (hypertension) no meds - PCP monitors Nerve disorder, cranial Poor historian Trigeminal neuralgia Surgical History (Updated 06/14/21 @ 08:44 by Jn Omalley MD) History of prostate biopsy S/P cataract surgery Family History Mother , in her 60s Parkinson's disease Primary Parkinson's disease Father , in his 70's of uncertain cause No problems noted. 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 [employer] Feels Safe at Home: Yes Assistive Devices: Glasses Review of Systems Constitutional: no fever, no fatigue and no weakness Eyes: no diplopia, no eye pain and no worsening vision Ear, Nose, Mouth, Throat: + hearing loss; no ear pain, no tinnitus, no dizziness, no snoring, no hoarseness and no dysphagia Respiratory: no cough and no dyspnea Cardiovascular: no chest pain, no palpitations and no lightheadedness Gastrointestinal: no abdominal pain, no nausea and no vomiting Musculoskeletal: no back pain, no neck pain, no radicular pain, no joint pain and no myalgia Integumentary: no rash and no lesions Neurologic: + gait abnormality and + memory loss; no localized weakness, no generalized weakness, no tingling, no numbness, no tremor(s), no abnormal movements, no headache(s), no abnormal speech and no confusion Psychiatric: + depression and + anxiety; no irritability, no difficulty concentrating, no confusion and no hallucinations Endocrine: no fatigue and no flushing Hematologic / Lymphatic: no easy bleeding and no easy bruising Allergy / Immunological: no urticaria and no problem reported Exam (Neuro) Physical Exam: The patient is right-handed. The patient is awake, alert, and attentive. Speech is normal without any aphasia or dysarthria. The patient can name objects, repeat phrases, and has normal spontaneous speech. Mentation and thought processes Seem a bit slow to me. Mood is reasonable and affect is appropriate. He is oriented to his name, his age, fact he is in the hospital and the fact that the month is June. He did not know the day, the date, the year and could not give me any details regarding his previous research prior to being at [place]. He did give me some details of where he grew up in [place]. Pupils are 3 mm bilaterally and reactive to light. Extraocular eye muscles are intact without nystagmus. Visual acuity and visual shoemaker seem normal grossly to confrontation. There are no deficits to sensation in the face in all 3 distributions of the fifth cranial nerve bilaterally. Corneal reflexes are positive bilaterally. Facial strength and symmetry was normal bilaterally. Hearing seems Decreased, particularly on the right. Palate moves well without asymmetry. There is normal sternocleidomastoid and trapezius (shoulder shrug) strength bilaterally. Tongue is midline with good strength bilaterally. Neck has a full range of motion without discomfort. There are no cervical bruits bilaterally. There are no cranial or ocular bruits. Heart is without murmur. There is a regular rhythm and rate. Cervical, thoracic, and lumbar spine are nontender to palpation. Gait mildly wide based. He is very slow and liver at. His turns are particularly slow. Arms do swing. With outstretched arms there is no drift. There are no resting, postural, or action tremors. There is no ataxia with finger to nose testing. There is good facility in the hands. No other abnormal involuntary movements are noted. Motor strength is 5/5 diffusely in the arms bilaterally including deltoids, biceps, triceps, brachioradialis, wrist flexors and extensors, support group manager, and intrinsic hand muscles. Motor strength is 5/5 diffusely in the legs bilaterally including hip flexors, quadriceps, hamstrings, gastrocnemius, tibialis anterior, tibialis posterior, and Peroneii muscles. Toe extensors are normal and there is good bulk in the extensor digitorum brevis muscles bilaterally. The limbs have good tone without rigidity or spasticity. There is no atrophy noted in the muscles. Muscle bulk is normal, there is no tenderness to palpation, no myotonia to percussion, and no fasciculations seen. Sensory examination is intact to touch and pin throughout all 4 limbs diffusely. Reflexes are 1/4 in the biceps, triceps, brachioradialis, and quadriceps tendons bilaterally. Achilles tendon reflexes are absent bilaterally. There is no clonus bilaterally. Toes are downgoing with plantar stimulation bilaterally. Peripheral pulses are present and of normal quality distally in all 4 limbs. There is no peripheral edema noted in the limbs. Results & Data ([facility]) Vital Signs (Past 12 Hours) Vital Signs Temp Pulse Pulse Resp BP Pulse Ox 06/14/21 07:39 36.7 C 62 20 145/69 H 98 06/14/21 02:40 36.4 C L 82 89 20 183/118 H 96 06/14/21 01:00 90 19 157/111 H 98 06/13/21 23:00 90 18 158/59 H 98 06/13/21 21:59 63 14 182/114 H 98 PG Care Time/CCT Total # of Minutes Spent Total Time Spent with Patient: Total time spent is greater than 50% in coordination of care (as documented) at patient's floor/unit and/or counseling patient: Coding Level of Care Code 30249 Initial Inpt Care Lvl 3 Diagnoses Confusion R41.0 Gait instability R26.81 Hypertension I10 Pachymeningitis G03.9 Depression with anxiety F41.8 Trigeminal neuralgia G50.0 Time Spent (min) 100 Comment add modifiers as able
[2021-06-14 09:00] LABS: Estimated Average Glucose 111 mg/dl; Hemoglobin A1C 5.5 % (4.5-5.6)
--- NOTE | 2021-06-14 09:27 | Magnetic Resonance Report ---
MR brain wo/w con CLINICAL HISTORY: Confusion. Gait instability. Evaluate for stroke.. Possible subdural hematoma. COMPARISON STUDY: CT brain from 06/13/2021 and previous MR from 01/14/2019 TECHNIQUE: Multiplanar multisequence images of the brain were performed before and after Gadavist, 9 .5 mL of IV contrast. Diffusion weighted imaging and ADC mapping was also performed. FINDINGS: Extra-axial space: There is no evidence for a subdural hematoma, finding seen on CT correlate with ch ronic patchy meningeal thickening. There are no extra-axial fluid collections. Ventricles and cisterns: The ventricles are mildly dilated bilaterally. There is no evidence for mid line shift or mass effect. Parenchyma: On noncontrast images, there is no evidence for an acute hemorrhage or infarct. No acute diffusion abnormalities are noted on diffusion weighted imaging or ADC mapping. There is normal carias -white differentiation. There is moderate cerebral cortical atrophy present. There is bright signal seen on FLAIR weighted se quences within the centrum semiovale and periventricular white matter characteristic of remote small vessel disease. The sulci and gyri appear normal without effacement. The midline structures are unre markable. The posterior fossa structures appear normal. On postcontrast images, there is no evidence for enhancing mass lesion. Osseous structures: The paranasal sinuses are well aerated. The mastoid air cells are well aerated. Soft tissues: No focal soft tissue abnormalities are identified. IMPRESSION: 1. No acute intracranial abnormalities. 2. No evidence for subdural hematoma. The findings seen on CT represent patchy meningeal thickening. 3. Cerebral cortical atrophy and remote small vessel disease. ACT 112: Negative or not required by law. Electronically signed by: Jorge Alberto Erazo M.D. 06/14/2021 9:25 AM
[2021-06-14] MEDS: OXcarbazepine 150 MG TABLET PO SCH ×2 (09:40→20:35)
[2021-06-14 10:05] LABS: BUN Creatinine Ratio 12.6 (10-20); Calcium 9.3 mg/dl (8.5-10.1); Chol HDL Ratio 3.3 (0-5); Creatinine Clr Calc Pharmacy 65.6 ml/min; Est GFR (African American) 72.3 ml/min; Est GFR (Non-African American) 62.4 ml/min; Potassium 4.1 mmol/L (3.5-5.1)
[2021-06-14 10:33] LABS: Folate (Folic Acid) 17.31 ng/ml (>5.38)
[2021-06-14] MEDS: CYANOCOBALAMIN 1000 MCG/ML VIAL IM SCH (16:08)
--- NOTE | 2021-06-14 16:35 | Medical Student Progress Note ---
Date of Service June 14, 2021 Assessment & Plan (1) Confusion: (2) Gait instability: Plan: Assessment: Etiology of the confusion and gait instability include dementia, pseudodementia, and B12 deficiency. Hemorrhagic stroke ruled out in the ED via non-con CT and Ischemic stroke unlikely as MRI showed chronic meningeal thickening consistent with chronic intracranial hypertension. The step-rosenberg progression of his symptoms indicates a vascular dementia being more likely than Alzeimher's. Pseudodementia is also possible because of his ongoing stress care for his , some of which may be ameliorated by changing living situations and having more help with care. His B12 deficiency can also be the cause of confusion and gait instability. (3) CKD (chronic kidney disease): Plan: Creatinine at 1.2. follow bmp (4) Trigeminal neuralgia: Plan: Continue home oxycarbazepine (5) Cerebrovascular disease: Plan: Lipid panel within normal range. Start on atorvastatin 40mg and restart aspirin 81 mg now that bleed has been ruled out. (6) Vitamin B12 deficiency: Plan: 1000 mcg injection daily for hospital stay Switch to oral supplement on discharge Plan: FEN/GI: HH diet ppx: No dvt chemoppx code: full dispo: med tele Admission and Anticipated Discharge Date Admission Date: June 13, 2021 Supervising Attestation I personally examined the patient and verified all aldridge points of history and exam, discussed case, and agree with decision making with Ashkan King MS4 discussed working dx w pt - his answered largely expressed understanding and appreciation but in undefined pronouns. appreciate neuro input vitals noted nad heent nc at mmm breathing unlabored no accessory muscles good effort skin no rashes no pallor or icterus dementia - likely vascular, ?contribution from b12 deficiency. safe environ ent, PT/OT eval and treat, vascular secondary risk reduction, replace B12 otherwise as above Codey Hoyos is an 81 year old male who presented 1 day ago with confusion and gait instability. He has had chronic confusion for the past month noted when he had a UTI 6 weeks ago but this acutely worsened 2 days ago. He does not recall the UTI. He notes he has been unsteady for the past 2-3 weeks but his son noticed this worsened in the past 2 days. With the unsteadiness he does not feel like he is leaning towards a particular side and has no lightheadedness, or vertigo. He does not recall any recent stressors or illnesses. He lives with his who has dementia and is worried for her. This has not happened before. He had his left eye cataract surgery and is supposed to get his right eye done in 10 days. In the ED non-con CT showed chronic pachymeningeal thickening. Blood pressure was 182/114 and he was given 10mg hydralizine. In the afternoon Romain had some confusion about the course of his hospital progress, using nonspecific terms. Plan for his care was discussed with his family about the need for 24 hour care at home with his sons vs. a [facility] care facility. Review of Systems Review of Systems: All systems reviewed & are unremarkable except as noted in HPI & below Physical Exam Physical Exam: General: Alert and oriented x 3. No acute distress Pulm: clear to auscultation, no wheezes/rales/rhonchi, no clubbing Cardiac: regular rate/rhythm, no murmurs/rubs/gallops, pulses strong and equal Abdominal: Nontender, nondistended, soft. Neuro: CN 2-12 intact. No sensory or motor deficits. Gait steady assisted with walker. Results & Data ([facility]) Vital Signs (Past 12 Hours) Vital Signs Temp Pulse Pulse Resp BP Pulse Ox 06/14/21 15:24 78 06/14/21 15:08 36.5 C 62 20 159/88 H 97 06/14/21 11:14 36.6 C 81 20 154/91 H 97 06/14/21 08:27 54 L 06/14/21 07:39 36.7 C 62 20 145/69 H 98 Laboratory Results Normal glucose and electrolytes B12 - 155 Diagnostic Findings Normal
--- NOTE | 2021-06-14 17:58 | Billing Data ---
Date of Service June 14, 2021 Coding Level of Care Code 56611 Subseq Hosp Care Lvl 3
--- NOTE | 2021-06-14 19:51 | Billing Data ---
Date of Service June 14, 2021 Coding Level of Care Code 15399 Initial Inpt Care Lvl 3
[2021-06-14] MEDS: ASPIRIN 81 MG CHEW PO SCH (20:34)
[2021-06-14] MEDS: BIMATOPROST 0.01% OP SOLN 2.5 ML BTL OPB SCH (20:34)
[2021-06-14] MEDS: PROLENSA-NON-FORMULARY PATIENT'S OWN MED OPL SCH (20:36)
[2021-06-14] MEDS: prednisoLONE acetate 1% OP SUSP 5 ML BTL OPL SCH (20:37)
[2021-06-14] MEDS: BRIMONIDINE TARTRATE-P 0.15% 5 ML BTL OPB SCH (20:37)
[2021-06-14] MEDS: TIMOLOL MALEATE 0.25% OP SOLN 5 ML BTL OP SCH (20:38)
[2021-06-14] MEDS ORDERED: PROLENSA-NON-FORMULARY PATIENT'S OWN MED OPL SCH (21:00)
[2021-06-14] MEDS ORDERED: BIMATOPROST 0.01% OP SOLN 2.5 ML BTL OPB SCH (21:00)
--- NOTE | 2021-06-14 22:27 | Electrocardiogram Report ---
Test Reason : Blood Pressure : / mmHG Vent. Rate : 072 BPM Atrial Rate : 072 BPM P-R Int : 212 ms QRS Dur : 090 ms QT Int : 378 ms P-R-T Axes : 108 -13 017 degrees QTc Int : 413 ms Poor data quality, interpretation may be adversely affected Sinus rhythm with 1st degree A-V block Abnormal ECG When compared with ECG of 04-SEP-2014 12:14, [place] interval has increased Confirmed by Konrad Curtis ([id number]) on 06/14/2021 10:27:08 PM Referred By: REFERRED SELF Confirmed By:Konrad Curtis
--- NOTE | 2021-06-15 07:36 | Emergency Department Note ---
Impression & Plan Gait instability, Confusion, Hx of subdural hematoma ED Provider Note CHIEF COMPLAINT: confusion HISTORY OF PRESENT ILLNESS: This 81 yo male patient presents to the emergency department with son stating patient has had an increase in confusion since yesterday afternoon. Patient states he has been having difficulty ambulating today and using the doorways and jean to ambulate. Son believes he has been pulling to be side. Patient does admit to some dizziness. Has been suffering from confusion for the last few weeks and was evaluated by neurology as an outpatient. He was scheduled for an MRI that has yet to be completed. The patient has a remote history of subdural hemorrhage but son states he did not have to have surgical intervention. He is not currently admitted to [facility] on. Patient denies any recent falls or head injury he denies any chest pain, shortness of breath, cough and urinary symptoms. REVIEW OF SYSTEMS: Somewhat unreliable historian but answers most questions appropriately. Please refer to HPI, at least 10 systems reviewed and otherwise negative. ALLERGIES: see below MEDICATIONS: see below PMH: see below SOCIAL HISTORY: see below DDx:Infection, hypoglycemia, electrolyte abnormalities, overdose, toxicologic, cardiac sources, intracerebral event, neurologic, trauma, as well as other pathologies. PHYSICAL EXAM: Vital signs reviewed. Noted to be hypertensive. General: Elderly, generally well-appearing 81-year-old male in no significant d istress. HEENT: No scleral icterus, PERRLA, neck supple. Atraumatic. Cardiovascular: Regular rate and rhythm, no extra sounds. Pulmonary: Clear to auscultation bilaterally, normal work of breathing. Abdomen: Soft, nontender, nondistended, positive bowel sounds. Musculoskeletal: Atraumatic, no peripheral edema. Neurologic: Patient awake alert and oriented x 3, speech is deliberate but clear. Equal senior talent acquisition specialist strength bilaterally. Intact [id number], negative pronator drift. Skin: Warm, dry, no rash EMERGENCY DEPARTMENT COURSE/MDM: This patient was evaluated and appeared to be in no significant distress. IV access was obtained and laboratory work was drawn. Patient was placed to be in a sinus rhythm with a first-degree AV block. CT imaging of the head was performed and reveals a subtle increased density in the extra-axial space in the bilateral frontal lobes that is consistent with p arenchymal-meningeal thickening previous MRI. A repeat CT scan was recommended for consideration 24 hours. Patient's laboratory work is fairly reassuring, UA is negative. EKG reveals no evidence of acute ischemia. Given the patient's complicated history of subdural hematoma, previous stroke and altered mental status, patient will be evaluated by the hospitalist service for further management. Patient and son are aware of the plan and agree. MONITORING: An order for cardiac monitoring was placed and the patient is noted to be in a NSR with first-degree AV block at 63 beats per minute. RADIOLOGY: see below EKG: Sinus rhythm at 72 bpm with a first-degree AV block, AL interval of 212 wit h normal axis, normal ST segments. No PVC, no PAC. When compared to previous dated September 04, 2014, AL interval has increased. DISPOSITION: Admit Past Med/Surg History Medical History Cerebral cavernoma pt denies Chronic lower back pain Chronic subdural hematoma pt denies CKD (chronic kidney disease) History of prostate cancer dx'd 2-3 years ago; s/p radiation History of stroke listed above - pt denies hx stroke; poor historian. denies following with neurology but office visit in [facility] from 12/2020 HTN (hypertension) no meds - PCP monitors Nerve disorder, cranial Poor historian Trigeminal neuralgia Surgical History History of left cataract surgery History of prostate biopsy Family History Mother , in her 60s Parkinson's disease Primary Parkinson's disease Father , in his 70's of uncertain cause No problems noted. 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 [employer] Feels Safe at Home: Yes Assistive Devices: Glasses Allergies Allergies Allergy/AdvReac Type Severity Reaction Status Date / Time No Known Allergies Allergy Verified 06/14/21 21:08 Home Meds Home Medications Medication Instructions Recorded Confirmed aspirin 81 mg tablet,delayed 81 mg PO QPM tab 04/13/20 06/16/21 release timolol maleate 0.5 % eye drops 1 drp OPHTHALMIC (EYE) HS 04/09/21 06/16/21 Eye Drop For Cataract Surgery 0 drp OPHTHALMIC (EYE) DIRECTED 06/13/21 06/16/21 Previous Rx's Medication Instructions Recorded oxcarbazepine 300 mg tablet 600 mg PO BID 90 Days #360 tab 04/06/21 atorvastatin 40 mg tablet 40 mg PO DAILY 30 Days #30 tab 06/16/21 cyanocobalamin (vitamin B-12) 1,000 mcg PO DAILY #30 cap 06/16/21 1,000 mcg capsule Results & Data (ED) Home Medications Current Medication List: was personally reviewed by me Laboratory Data Attestation: I reviewed the patient's lab results. Result diagrams: 06/15/21 07:37 06/15/21 07:37 Lab Results 06/13/21 06/13/21 06/13/21 Range/Units 19:10 19:10 19:50 WBC 4.55 L (4.8-10.8) K/uL RBC 4.56 L (4.7-6.1) M/uL Hgb 14.4 (14.0-18.0) g/dL Hct 41.7 L (42-52) % MCV 91.4 (80-100) fL MCH 31.6 (25-34) pg MCHC 34.5 (32-36) g/dL RDW Std Deviation 46.3 (36.4-46.3) fL RDW Coeff of Chintan 13.9 (11.5-14.5) % Plt Count 146 (130-400) K/uL MPV 9.1 (7.4-10.4) fL Immature Gran % (Auto) 0.7 % Neut % (Auto) 58.6 % Lymph % (Auto) 29.0 % [place] % (Auto) 9.0 % Eos % (Auto) 2.0 % Baso % (Auto) 0.7 % Neut # (Auto) 2.67 (1.4-6.5) K/uL Lymph # (Auto) 1.32 (1.2-3.4) K/uL [place] # (Auto) 0.41 (0.11-0.59) K/uL Eos # (Auto) 0.09 (0-0.5) K/uL Baso # (Auto) 0.03 (0-0.2) K/uL Immature Gran # (Auto) 0.03 H (0.00-0.02) K/uL Sodium 140 (136-145) mmol/L Potassium 3.7 (3.5-5.1) mmol/L Chloride 108 H (98-107) mmol/L Carbon Dioxide 26 (21-32) mmol/L Anion Gap 6 (3-11) BUN 18 (6-23) mg/dl Creatinine 1.15 (0.6-1.4) mg/dl Est Cr Clr Drug Dosing 63.4 ml/min Est GFR ( Amer) 69.3 ml/min Est GFR (Non-Af Amer) 59.8 ml/min BUN/Creatinine Ratio 15.7 (10-20) Glucose 100 H (70-99(Fasting)) mg/dl Calcium 9.3 (8.5-10.1) mg/dl Magnesium 2.1 (1.7-2.4) mg/dl Total Bilirubin 0.4 (0.2-1.0) mg/dl AST 14 (13-39) U/L ALT 13 (7-52) U/L Alkaline Phosphatase 67 (34-104) U/L Troponin I < 0.03 (0-0.04) ng/ml Total Protein 6.6 (6.0-8.3) gm/dl Albumin 4.1 (3.4-5.0) gm/dl Globulin 2.5 (2.5-4.0) gm/dl Albumin/Globulin Ratio 1.6 (0.9-2) Urine Color Urine Appearance (Clear) Urine pH (4.5-7.5) Ur Specific [place] (1.000-1.030) Urine Protein (Negative) Urine Glucose (UA) (Negative) Urine Ketones (Negative) Urine Blood (Negative) Urine Nitrite (Negative) Urine Bilirubin (Negative) Urine Urobilinogen (Negative) Ur Leukocyte Esterase (Negative) SARS-CoV-2, RNA, NAAT NEGATIVE (NEGATIVE) 06/13/21 Range/Units 22:21 WBC (4.8-10.8) K/uL RBC (4.7-6.1) M/uL Hgb (14.0-18.0) g/dL Hct (42-52) % MCV (80-100) fL MCH (25-34) pg MCHC (32-36) g/dL RDW Std Deviation (36.4-46.3) fL RDW Coeff of Chintan (11.5-14.5) % Plt Count (130-400) K/uL MPV (7.4-10.4) fL Immature Gran % (Auto) % Neut % (Auto) % Lymph % (Auto) % [place] % (Auto) % Eos % (Auto) % Baso % (Auto) % Neut # (Auto) (1.4-6.5) K/uL Lymph # (Auto) (1.2-3.4) K/uL [place] # (Auto) (0.11-0.59) K/uL Eos # (Auto) (0-0.5) K/uL Baso # (Auto) (0-0.2) K/uL Immature Gran # (Auto) (0.00-0.02) K/uL Sodium (136-145) mmol/L Potassium (3.5-5.1) mmol/L Chloride (98-107) mmol/L Carbon Dioxide (21-32) mmol/L Anion Gap (3-11) BUN (6-23) mg/dl Creatinine (0.6-1.4) mg/dl Est Cr Clr Drug Dosing ml/min Est GFR ( Amer) ml/min Est GFR (Non-Af Amer) ml/min BUN/Creatinine Ratio (10-20) Glucose (70-99(Fasting)) mg/dl Calcium (8.5-10.1) mg/dl Magnesium (1.7-2.4) mg/dl Total Bilirubin (0.2-1.0) mg/dl AST (13-39) U/L ALT (7-52) U/L Alkaline Phosphatase (34-104) U/L Troponin I (0-0.04) ng/ml Total Protein (6.0-8.3) gm/dl Albumin (3.4-5.0) gm/dl Globulin (2.5-4.0) gm/dl Albumin/Globulin Ratio (0.9-2) Urine Color Yellow Urine Appearance Clear (Clear) Urine pH 5.0 (4.5-7.5) Ur Specific [place] 1.023 (1.000-1.030) Urine Protein Negative (Negative) Urine Glucose (UA) Negative (Negative) Urine Ketones Trace H (Negative) Urine Blood Negative (Negative) Urine Nitrite Negative (Negative) Urine Bilirubin Negative (Negative) Urine Urobilinogen Negative (Negative) Ur Leukocyte Esterase Negative (Negative) SARS-CoV-2, RNA, NAAT (NEGATIVE) Administered Medications Discontinued Medications Aspirin (Aspirin 81 Mg Chew) 81 mg PO HS [facility] Stop: 07/14/21 20:59 Last Admin: 06/15/21 20:35 Dose: 81 mg Documented by: [id number] Admin: 06/14/21 20:34 Dose: 81 mg Documented by: [id number] Atorvastatin Calcium (Atorvastatin 40 Mg Tab) 40 mg PO QAM [facility] Stop: 07/15/21 08:59 Last Admin: 06/16/21 08:54 Dose: 40 mg Documented by: [id number] Admin: 06/15/21 08:25 Dose: 40 mg Documented by: [id number] Bimatoprost (Bimatoprost 0.01% Op Soln 2.5 Ml Btl) 1 drops OPB HS [facility] Stop: 07/14/21 20:59 Last Admin: 06/15/21 20:35 Dose: 1 drops Documented by: [id number] Admin: 06/14/21 20:34 Dose: 1 drops Documented by: [id number] Brimonidine Tartrate (Brimonidine Tartrate-P 0.15% 5 Ml Btl) 1 drops OPB BID [facility] Stop: 07/14/21 20:59 Last Admin: 06/16/21 08:55 Dose: 1 drops Documented by: [id number] Admin: 06/15/21 20:36 Dose: 1 drops Documented by: [id number] Admin: 06/15/21 08:23 Dose: 1 drops Documented by: [id number] Admin: 06/14/21 20:37 Dose: 1 drops Documented by: [id number] Cyanocobalamin (Cyanocobalamin 1000 Mcg/Ml Vial) 1,000 mcg IM QAM [facility] Stop: 07/14/21 14:44 Last Admin: 06/16/21 08:54 Dose: 1,000 mcg Documented by: [id number] Admin: 06/15/21 08:25 Dose: 1,000 mcg Documented by: [id number] Admin: 06/14/21 16:08 Dose: 1,000 mcg Documented by: [id number] Gadobutrol (Gadobutrol 65ml Vial) 9.5 ml IV ONCE ONE Stop: 06/14/21 04:40 Last Admin: 06/14/21 04:39 Dose: 9.5 ml Documented by: [id number] Hydralazine HCl (Hydralazine Hcl 20 Mg/Ml Vial) 10 mg IV NOW STA Stop: 06/13/21 22:00 Last Admin: 06/13/21 22:25 Dose: 10 mg Documented by: [id number] Ioversol (Optiray 320 125ml) 125 ml IV ONCE ONE Stop: 06/14/21 05:21 Last Admin: 06/14/21 05:20 Dose: 117 ml Documented by: [id number] Miscellaneous (Bromfenac Opth Drops-Order Awaiting Action) 1 ea N/A QS MELISSA Stop: 07/14/21 16:14 Last Admin: 06/14/21 16:44 Dose: Not Given Documented by: [id number] Prolensa-Non- Formulary Patient's Own Med 1 ea OPL Q24H MELISSA Stop: 07/14/21 20:59 Last Admin: 06/15/21 20:36 Dose: 1 drops Documented by: [id number] Admin: 06/14/21 20:36 Dose: 1 drops Documented by: [id number] Oxcarbazepine (Oxcarbazepine 150 Mg Tablet) 600 mg PO BID MELISSA Stop: 07/14/21 08:59 Last Admin: 06/16/21 08:54 Dose: 600 mg Documented by: [id number] Admin: 06/15/21 20:37 Dose: 600 mg Documented by: [id number] Admin: 06/15/21 08:25 Dose: 600 mg Documented by: [id number] Admin: 06/14/21 20:35 Dose: 600 mg Documented by: [id number] Admin: 06/14/21 09:40 Dose: 600 mg Documented by: [id number] Prednisolone Acetate (Prednisolone Acetate 1% Op Susp 5 Ml Btl) 1 drops OPL TID MELISSA Stop: 07/14/21 20:59 Last Admin: 06/16/21 13:03 Dose: 1 drops Documented by: [id number] Admin: 06/16/21 08:55 Dose: 1 drops Documented by: [id number] Admin: 06/15/21 20:37 Dose: 1 drops Documented by: [id number] Admin: 06/15/21 13:51 Dose: 1 drops Documented by: [id number] Admin: 06/15/21 08:23 Dose: 1 drops Documented by: [id number] Admin: 06/14/21 20:37 Dose: 1 drops Documented by: [id number] Timolol Maleate (Timolol Maleate 0.25% Op Soln 5 Ml Btl) 1 drops OP HS MELISSA Stop: 07/14/21 20:59 Last Admin: 06/15/21 20:38 Dose: 1 drops Documented by: [id number] Admin: 06/14/21 20:38 Dose: 1 drops Documented by: [id number] Imaging Data Radiologist's Impression: Chest X-Ray 06/13/21 18:58 XR chest 1V portable HISTORY: 81 years-old Male weakness acute weakness COMPARISON: Chest radiograph 09/04/2014, CT thoracic spine 05/09/2019 TECHNIQUE: Portable AP view of the chest FINDINGS: The cardiac silhouette is enlarged. Unchanged mediastinal contours. Mild eventration of the right hemidiaphragm. No pneumothorax, pleural effusion, airspace consolidation or overt pulmonary edema. The bones appear grossly intact. IMPRESSION: Cardiomegaly without acute process. ACT 112: Negative or not required by law. The above report was generated using voice recognition software. It may contain grammatical, syntax or spelling errors. Electronically signed by: Reji Yu M.D. 06/13/2021 7:[address] 06/13/21 18:58 CT head/brain wo con CLINICAL HISTORY: 81 years-old Male with H/o SDH - now AMS. Acutely altered mental status. Follow-up study in a patient with prior subdural hematoma TECHNIQUE: Multiple axial CT images of the head were obtained without contrast. A dose lowering technique was utilized adhering to the principles of ALARA. CT DOSE: 614.27 mGy.cm COMPARISON: Head CT 07/19/2015, brain MRI 01/14/2019, head CT 09/04/2014. FINDINGS: No intra-axial hemorrhage, midline shift, intracranial mass, hydrocephalus, territorial ischemia or abnormal extra-axial collection. Age-related involutional changes. White matter hypodensities suggest chronic microvascular ischemic disease. Subtle area of increased density within the extra-axial space adjacent to left frontal lobe is seen on image 12 series 2 measuring up to 1.5 mm in transverse dimension. 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 The calvarium is intact. Prior left-sided lens repair. The paranasal sinuses, mastoid air cells, and middle ear cavities are clear. IMPRESSION: Subtle increased density within the extra-axial space adjacent to left frontal lobe measuring up to 1.5 mm may correlate with the chronic pachymeningeal thickening as described on the comparison brain MRI from 01/14/2019. An acute subdural hemorrhage could appear similarly. As a precautionary measure, a follow-up head CT in 24 hours may be considered. Findings were discussed with Dr. Olivera on 06/13/2021 at 7:43 PM. ACT 112: Negative or not required by law. The above report was generated using voice recognition software. It may contain grammatical, syntax or spelling errors. Electronically signed by: Reji Yu M.D. 06/13/2021 7:45 PM Blood Pressure Blood Pressure Findings: Elevated blood pressure Blood Pressure Disposition: further management by hospitalist Discharge Plan Visit Data Chief Complaint: Confusion Stated Complaint: CONFUSION/ BALANCE ISSUES ED Provider: Katherine Olivera Discharge Problem: Gait instability, Confusion, Hx of subdural hematoma Patient Disposition: Admitted As Inpatient Discharge Instructions Interventions: ED Discharge Assessment Last Done: 06/14/21 02:06
[2021-06-15 08:21] LABS: Basophils # (auto) 0.04 K/uL (0-0.2); Basophils % (auto) 0.6 %; Eosinophils # (auto) 0.13 K/uL (0-0.5); Eosinophils % (auto) 2.1 %; Hematocrit (blood only) 45.2 % (42-52); Hemoglobin 15.2 g/dL (14.0-18.0); Immature Granulocytes # (auto) 0.02 K/uL (0.00-0.02); Immature Granulocytes % (auto) 0.3 %; Lymphocytes # (auto) 2.05 K/uL (1.2-3.4); Lymphocytes % (auto) 32.6 %; Mean Corpuscular Hemoglobin 31.1 pg (25-34); Mean Corpuscular Hgb Conc 33.6 g/dL (32-36); Mean Corpuscular Volume 92.4 fL (80-100); Mean Platelet Volume 9.4 fL (7.4-10.4); Monocytes # (auto) 0.58 K/uL (0.11-0.59); Monocytes % (auto) 9.2 %; Neutrophils # (auto) 3.46 K/uL (1.4-6.5); Neutrophils % (auto) 55.2 %; Platelet Count 150 K/uL (130-400); RDW Coefficient of Variation 13.8 % (11.5-14.5); RDW Standard Deviation 46.7 fL (36.4-46.3); Red Blood Count 4.89 M/uL (4.7-6.1); White Blood Count 6.28 K/uL (4.8-10.8)
[2021-06-15] MEDS: BRIMONIDINE TARTRATE-P 0.15% 5 ML BTL OPB SCH ×2 (08:23→20:36)
[2021-06-15] MEDS: prednisoLONE acetate 1% OP SUSP 5 ML BTL OPL SCH ×3 (08:23→20:37)
[2021-06-15] MEDS: CYANOCOBALAMIN 1000 MCG/ML VIAL IM SCH (08:25)
[2021-06-15] MEDS: OXcarbazepine 150 MG TABLET PO SCH ×2 (08:25→20:37)
[2021-06-15] MEDS: ATORVASTATIN 40 MG TAB PO SCH (08:25)
[2021-06-15 08:29] LABS: BUN Creatinine Ratio 13.5 (10-20); Calcium 9.4 mg/dl (8.5-10.1); Creatinine Clr Calc Pharmacy 65.7 ml/min; Est GFR (African American) 72.3 ml/min; Est GFR (Non-African American) 62.4 ml/min
--- NOTE | 2021-06-15 09:18 | Neurology Progress Note ---
Date of Service June 15, 2021 Assessment & Plan (1) Confusion: (2) Gait instability: (3) Pachymeningitis: (4) Trigeminal neuralgia: (5) Hypertension: (6) Depression with anxiety: Plan: This patient had what seemed to be the onset of acute confusion and gait dis turbance , however, after review of his history, I believe his symptoms are more chronic and progressive over time. On physical exam, he has an unstable somewhat wide-based gait. This is reminiscent of something you might see with normal pressure hydrocephalus or even a type of cerebellar gait. There is no evidence of Parkinson's disease on examination.. His MRI shows chronic meningeal thickening unchanged from 2017. Is most consistent with chronic intracranial hypotension. He has no history of a procedure that would give him a spinal leak. Although he does not have headaches or symptoms consistent with acute intracranial hypotension, cognitive problems and gait disturbance can be seen chronically in this condition. However, I suspect early dementia. He does not have any signs ( on exam or radiographically) or symptoms consistent with stroke or normal pressure hydrocephalus. He has a longstanding history of left V2 trigeminal neuralgia which is fairly well controlled. The patient has been on oxcarbazepine which might give memory problems and gait disturbances if his level is high. I believe he does have some depression and anxiety superimposed because of dealing with his 's illness. Finally, he does have B12 deficiency which can affect gait and memory. Recommendations: 1. Continue B12 replacement 2. physical, occupational, and speech therapy consult. 3. Awaiting echocardiogram 4. follow-up in 1-2 weeks with Vilma Erickson PA-C, at the Neurology office. Overall, I spent a total of 60 minutes with this case including review of records, direct evaluation the patient at bedside, and discussion of the case with the patient and RN at bedside as well as Dr Dunaway, including differential diagnosis and treatment options. Admission and Anticipated Discharge Date Admission Date: June 13, 2021 Subjective patient feels well and does not have any pain or headache. He is back to his baseline, he believes, physically. He thinks his walking is still bad but not as bad as yesterday. CBC and Chem profile were unremarkable. Oxcarbazepine level is pending. B12 was low at 155. Nursing reports that apparently the patient, despite being told to not get up without assistance, was up walking in the halls by himself. He told me that he knew he was not supposed to do that, but was unsure why he did it. Results & Data ([facility]) Vital Signs (Past 12 Hours) Vital Signs Temp Pulse Pulse Resp BP BP Pulse Ox 06/15/21 07:19 53 L 06/15/21 07:00 36.8 C 62 18 140/76 94 06/15/21 03:28 36.7 C 61 18 126/75 96 06/14/21 23:34 37.1 C 70 18 149/83 H 92 Exam (Neuro) Physical Exam: Patient is oriented to his name but not the year, date, or day. He did say it was June but he did look up at the wall board. He was not able to give me very much in the way of details of his previous work At [employer] [facility] [employer] or where he went to school. Extraocular eye muscles are intact without nystagmus. There is no facial droop. Mood and affect are normal appropriate. Coordination is normal in the arms without tremor or ataxia. He had no rest tremor and no rigidity. Gait was mildly wide-based and very cautious particularly with turns. He did have some arm swing. PG Care Time/CCT Total # of Minutes Spent Total Time Spent with Patient: Total time spent is greater than 50% in coordination of care (as documented) at patient's floor/unit and/or counseling patient: Coding Level of Care Code 69844 Subseq Hosp Care Lvl 3 Diagnoses Confusion R41.0 Gait instability R26.81 Pachymeningitis G03.9 Trigeminal neuralgia G50.0 Hypertension I10 Depression with anxiety F41.8 Time Spent (min) 60 Comment add modifier if able
--- NOTE | 2021-06-15 09:31 | Hospitalist Progress Note ---
Date of Service June 15, 2021 Assessment & Plan (1) Confusion: Plan: Confusion -Suspect his AMS is multifactorial- dementia, pseudodementia, B12 deficiency -MRI brain demonstrating pachymeningitis likely 2/2 chronic intracranial hypertension, evidence of chronic infarct suggesting vascular dementia component -Acute confusion has resolved, though there is chronic cognitive impairment -Continue B12 supplementation -Given pseudodementia element due to depression/stress caring for his , suggested pt and move into assisting living facility. This option is to be discussed with pt's family today -Neurology consulted and agree with above, f/u in 2-3 weeks after discharge -Echocardiogram and speech consult pending Gait instability -Low suspicion for normal pressure hydrocephalus or other CSF leak -B12 deficiency may be involved via subacute combined degeneration of spinal cord -PT/OT ongoing, recommending pt get 24 hour care at assisting living/personal care facility -Will require physical therapy after discharge CKD (chronic kidney disease): Plan: -Creatinine at 1.1, at baseline Trigeminal neuralgia: -Continue home oxycarbazepine -Blood oxycarbazepine level pending Cerebrovascular disease: -Lipid panel within normal range -Continue atorvastatin 40mg (and on discharge) for secondary stroke prevention -Continue aspirin 81 mg Vitamin B12 deficiency: -1000 mcg injection daily for hospital stay -Switch to oral supplementation on discharge FEN/GI: Heart healthy diet ppx: Aspirin code: full dispo: med tele (2) Gait instability: (3) Depression with anxiety: (4) CKD (chronic kidney disease): (5) Chronic subdural hematoma: (6) Trigeminal neuralgia: (7) Cerebrovascular disease: (8) Vitamin B12 deficiency: Admission and Anticipated Discharge Date Admission Date: June 13, 2021 Supervising Physician Co-Signing Physician Notes I personally examined the patient and verified all aldirdge points of history and exam, discussed case, and agree with decision making with Dr Sams feeling better. son at bedside. updated to the best of my ability answered all quetsions to their satisfaction vitals noted nad heent nc at mmm breathing unlabored no accessory muscles good effort skin no rashes no pallor or icterus dementia - likely vascular, ?contribution from b12 deficiency. safe environment, PT/OT eval and treat, vascular secondary risk reduction, continue to replace B12 otherwise as above Subjective No acute events overnight. Pt feels well this morning, no acute complaints. Denies headache, weakness, numbness. Eager to go home, states he feels like himself. Review of Systems Review of Systems: Per Subjective Physical Exam Physical Exam: General: Alert and oriented x 3. No acute distress Pulm: clear to auscultation, no wheezes/rales/rhonchi, no clubbing Cardiac: regular rate/rhythm, no murmurs/rubs/gallops, pulses strong and equal Abdominal: Nontender, nondistended, soft. Neuro: CN 2-12 intact. No sensory or motor deficits. Wide unstable gait but steady assisted with walker. Results & Data Results & Data ([facility]) Vital Signs (Past 12 Hours) Vital Signs Temp Pulse Pulse Resp BP BP Pulse Ox 06/15/21 07:19 53 L 06/15/21 07:00 36.8 C 62 18 140/76 94 06/15/21 03:28 36.7 C 61 18 126/75 96 06/14/21 23:34 37.1 C 70 18 149/83 H 92 Resident Activity Tracking Resident Involvement: Resident Care Provided Care Provided: Adult [facility] Medicine
--- NOTE | 2021-06-15 19:11 | Billing Data ---
Date of Service June 15, 2021 Coding Level of Care Code 21674 Subseq Hosp Care Lvl 2
[2021-06-15] MEDS: BIMATOPROST 0.01% OP SOLN 2.5 ML BTL OPB SCH (20:35)
[2021-06-15] MEDS: ASPIRIN 81 MG CHEW PO SCH (20:35)
[2021-06-15] MEDS: PROLENSA-NON-FORMULARY PATIENT'S OWN MED OPL SCH (20:36)
[2021-06-15] MEDS: TIMOLOL MALEATE 0.25% OP SOLN 5 ML BTL OP SCH (20:38)
--- NOTE | 2021-06-16 06:56 | Discharge Summary ---
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 He has had mild memory problems and mild confusion in past year, worsened in past month, but noticeably worse in the past 2 days. His gait imbalance was much worse than usual today. An example of the confusion was having difficulty putting eyedrops into eye and fumbling with the bottle. He saw neurology on 06/09/21 for trigeminal neuralgia f/u and in conjunction w/ patient's mild confusion which was not as bad as today's, MRI had been scheduled for 06/22/21. No focal weakness of extremities or speech slurring. Some drooling while talking on 06/11/21, transient. Had L eye cataract surgery on 06/07/21. Patient noted similar confusion and memory problems when he had UTI 6 weeks ago. He denies room spinning sensation. He complained of transient dizziness earlier today after several minutes of walking and stated he felt "off." Denies ESTRADA, chest pain, dizziness, blurry vision, GI/urinary symptoms, or rash. Patient lives w/ who has dementia. His sons live nearby and visit often. He denies hx of NH or VTE. He has had covid booster. He was tested covid negative this visit. Hx obtained from son at bedside. Patient's son states that the confusion was slightly worse at home than currently. ED course: Hydralazine 10mg IV x 1 dose. Per ED exam, patient had some difficulty following complex commands. Head CT: Impression: Subtle increased density within the extra-axial space adjacent to left frontal lobe measuring up to 1.5 mm may correlate with the chronic pachymeningeal thickening as described on the comparison brain MRI from 01/14/2019. An acute subdural hemorrhage could appear similarly. As a precautionary measure, a follow-up head CT in 24 hours may be considered. Admission Exam Per Admitting Provider General: A&O to person and place, not time. NAD. Cooperative. HEENT: Atraumatic, normocephalic. EOMI. Pupils reactive to light, slightly slower on L. Mild horizontal nystagmus when looking towards right. Pulm: CTAB. -wheezes, -rales, -rhonchi. No respiratory distress. Cardiac: RRR, faint 2/6 systolic murmur heard at pulmonic region. Trace RLE edema. Abdominal: Nontender, nondistended, soft. Integ: Warm, dry, intact Msk: Moving all extremities. Neuro: CN II-XII intact. No dysmetria, but motion is slightly less smooth on left [id number]-test. Strength and sensation of extremities intact. Cautious narrow gait. Neg romberg and neg pronator drift. Was careful during start of Romberg exam. Principal Diagnosis Dementia, B12 deficiency Discharge Exam General: Alert and oriented x 3. No acute distress Pulm: clear to auscultation, no wheezes/rales/rhonchi, no clubbing Cardiac: regular rate/rhythm, no murmurs/rubs/gallops, pulses strong and equal Abdominal: Nontender, nondistended, soft. Neuro: CN 2-12 intact. No focal sensory or motor deficits. Wide unstable gait but steady assisted with walker. 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 Family agreeable and will begin making arrangements for this after discharge- looking at [facility] and [facility] -Neurology consulted and agree with above, f/u in 2-3 weeks after discharge -Discharged home with case management coordinating home health services/home PT with pt's family. Ultimately plan is to move into assisted living with home health/PT in interim B12 deficiency -155 B12 level, suspect this contributes to his dementia -Began supplementation with cyanocobalamin 1000mcg -Continue cyanocobalamin 1000mcg on discharge, PCP to adjust dosing and recheck B12 level after discharge Gait instability -Low suspicion for normal pressure hydrocephalus or other CSF leak -B12 deficiency may be involved via subacute combined degeneration of spinal cord -PT/OT ongoing, recommending pt get 24 hour care at assisting living/personal care facility -Will require physical therapy after discharge. Case management to discuss with family and set up home PT CKD (chronic kidney disease): Plan: -Creatinine at 1.1, at baseline Trigeminal neuralgia: -Continue home oxycarbazepine -Blood oxycarbazepine level pending at time of discharge Cerebrovascular disease: -Lipid panel within normal range -Have started and will continue atorvastatin 40mg on discharge for secondary stroke prevention -Continue aspirin 81 mg (2) Gait instability: (3) Depression with anxiety: (4) CKD (chronic kidney disease): (5) Chronic subdural hematoma: (6) Trigeminal neuralgia: (7) Cerebrovascular disease: (8) Vitamin B12 deficiency: Total Time Total Time Spent Total Time Spent (In Minutes): <30 Discharge Plan Discharge Items Patient Disposition: Home - Self-Care Reason For Visit: CONFUSION, GAIT INSTABILITY Discharge Diagnosis: Early dementia Activity: Per Instructions section Non-emergency contact: Primary Care Provider and Neurologist Call non-emergency contact if: you have any medication questions, your symptoms worsen and you have a fever Follow-up/Referrals: Jn Omalley MD [Physician] - (F/u in 2 weeks, please schedule) Pj Montoya MD [Primary Care Provider] - 06/20/21 4:10 pm Diet: Regular Addtl Attending Provider Instructions: You were admitted to the hospital for confusion and gait imbalance. We ruled out acute stroke and concluded your symptoms to most likely be due to dementia, which was caused by aging, previous vascular injury to the brain and B12 deficiency. For your long-term health, we believe it is best you and your stay together in an assisted living facility such as [facility] or [facility]. In the interim time while your family makes arrangements for assisted living, we have requested home health and home physical therapy services for you. A discharge summary will be sent to your primary care physician Dr. Montoya and neurologist Dr. Marcelino to ensure continuity of care. Please bring this discharge summary with you to your next office appointment so that your provider can review it at that time. Follow-up appointments: Make a follow-up appointment with your PCP within the next week. It is very important that you follow up with them shortly after discharge from the hospital. We have requested a follow up appointment with neurology. Medications: Your medication list has been reviewed and reconciled upon discharge to ensure accuracy and continuity of care. An updated list of all your medications is included with your hospital discharge paperwork. Please review this list closely, and make note of any changes. We added a new medication called atorvastatin (dose 40 mg daily) to your regimen. This is a medication to help control your cholesterol levels and reduce risk of stroke or other brain injury occurring in the future. We also added a medication called Vitamin B12/cyanocobalamin (dose 1000mcg daily). This medication will treat your B12 deficiency which should also help reduce the progression of your dementia. We encourage moderate intake of meats as well as good intake of fish, chicken, dairy, eggs and almonds to help your nutritional intake of B12 as well. Take your medications as instructed; do not skip a dose of your medicines. Make sure all of your doctors know every medicine you are taking (including rdqu-oas-avckpot medicines, vitamins, and supplements). Call your primary care provider before taking any new medicines (including oeok-lwn-dnmnwei medicines, vitamins, and supplements), because some of these may interact with your current medications, or may make your symptoms worse. Tell your primary care provider if you cannot afford your medications. CONTACT YOUR PRIMARY CARE PROVIDER if you experience any of the following: Lightheadedness Dizziness Nausea Fever Headache Blurry vision Weakness Tingling Difficulty following your treatment plan, or difficulty taking medications CALL 911 OR GO TO THE EMERGENCY DEPARTMENT if you experience any of the following: Sudden, severe abdominal pain or nausea/vomiting Severe chest pain, or chest pain that radiates (moves) to your jaw or arm Sudden, severe shortness of breath or difficulty breathing Thank you for allowing us to participate in your care. Pending Studies at Discharge: No Stand-Alone Forms: [facility] Medications and DC Order Prescriptions: New atorvastatin 40 mg tablet 40 mg PO DAILY 30 Days Qty: 30 RF: 2 cyanocobalamin (vitamin B-12) 1,000 mcg capsule 1,000 mcg PO DAILY Qty: 30 RF: 0 Continued oxcarbazepine 300 mg tablet 600 mg PO BID 90 Days Qty: 360 RF: 1 aspirin 81 mg tablet,delayed release (/EC) 81 mg PO QPM RF: 0 timolol maleate 0.5 % Drops 1 drp OPHTHALMIC (EYE) HS RF: 0 Eye Drop For Cataract Surgery 0 drp ophthalmic (eye) DIRECTED RF: 0 Discharge Orders: Discharge Order (Routine); Ordered 06/16/21 Ordered By: Ana Vargas/Other Patient Handouts: ED Fall Prevention Admission Data Admit Date/Time: 06/13/21 23:57 Attending Provider: Esteban Dunaway Admit Provider: Neftali Howard Primary Care Provider: Pj Montoya Other Providers: Kamlesh Kennedy ; Reji Marcelino ; [facility] ; [facility] Other Interventions: Discharge Summary Assessment (RN) Last Done: 06/16/21 15:14 Supervising Physician Co-Signing Physician Notes I personally examined the patient and verified all aldridge points of history and exam, discussed case, and agree with decision making with Dr Sams feeling ok - for home then [facility] in near future vitals noted nad heent nc at mmm breathing unlabored no accessory muscles good effort skin no rashes no pallor or icterus dementia - likely vascular, ?contribution from b12 deficiency. safe environment - for now home transition to [facility], vascular secondary risk reduction, continue to replace B12 (PO on discharge) otherwise as above Resident Activity Tracking Resident Involvement: Resident Care Provided Care Provided: Adult Hospital Medicine
[2021-06-16 07:52] VITALS: PULSE 59; TEMP 98.2; O2SAT 95
[2021-06-16] MEDS: ATORVASTATIN 40 MG TAB PO SCH (08:54)
[2021-06-16] MEDS: OXcarbazepine 150 MG TABLET PO SCH (08:54)
[2021-06-16] MEDS: CYANOCOBALAMIN 1000 MCG/ML VIAL IM SCH (08:54)
[2021-06-16] MEDS: BRIMONIDINE TARTRATE-P 0.15% 5 ML BTL OPB SCH (08:55)
[2021-06-16] MEDS: prednisoLONE acetate 1% OP SUSP 5 ML BTL OPL SCH ×2 (08:55→13:03)
[2021-06-16 13:10] VITALS: BP 142/88
--- NOTE | 2021-06-16 18:36 | Billing Data ---
Date of Service June 16, 2021 Coding Level of Care Code D/C DAY MANAGEMENT <30 MINS
== END 2021-06-16 16:02 | disposition home health service (06) | DRG 884 ==
LOC: ED 18:14 → 2N 23:57 → SUATTDRO 23:57 → 2N 06-14 02:06 → 3W 06-15 21:19

== ENCOUNTER 2023-03-26 02:31 | Inpatient (IN) ==
--- OUTSIDE RECORDS SUMMARY | 2023-03-26 02:38 | External Medical Summary | Summary of Care ---
Author Name Unknown Organization [facility] Address [address] [place] [address] Phone [phone] Care Team Providers Care Supervisor Furnace Process Name Role Phone Rylee Mohr MD Primary Care Provi savana Encounter Details Date Type Department Care Team Description 11/23/2022 Orders Only Lab Mobile Phlebotomy [facility] [address] [place] [address] Senia Pantoja, DO [address] [place] [id number] Vitamin D deficiency* Allergies No known active allergiesdocumented as of this encounter (statuses as of 11/23/2022) Medications Medication Sig Dispensed Refills Start Date End Date Status GABAPENTIN (PHN) 300 MG PO TABS one pill twice a day 0 Active Aspirin 81 MG Tablet Take 81 mg by mouth at bedtime. 0 Active OXcarbazepine (TRILEPTAL) 300 MG TabletIndications:take 1 tablet in AM and 2 tablets in the evening Take 300 mg by mouth 2 times a day. Indications: take 1 tablet in AM and 2 tablets in the evening 0 Active documented as of this encounter (statuses as of 11/23/2022) Active Problems Problem Noted Date Benign neoplasm of colon 02/13/2007 Overview: hyperplastic repeat colonoscopy in 5 yrs Trigeminal neuralgia 12/18/2006 ADVANCE DIRECTIVE INFORMATION 10/27/2004 Overview: Yes, Patient instructed to provide copy of advance directive for provider to review and to be scanned into Electronic Medical Record documented as of this encounter (statuses as of 11/23/2022) Immunizations Name Administration Dates Next Due COVID-19 mRNA, LNP-s, No Pre serve, 2-Dose Series (Pfizer) 12/01/2020,05/17/2020,04/18/2020 documented as of this encounter Social History Tobacco Use Types Packs/Day Years Used Date Smoking Tobacco: Never Smokeless Tobacco: Never Alcohol Use Standard Drinks/Week Comments Yes 0 (1 standard drink = 0.6 oz pur e alcohol) socially Sex Assigned at Date Recorded Not on file documented as of this encounter Plan of Treatment Upcoming Encounters Date Type Specialty Care Team Description 11/23/2022 Laboratory Laboratory Processing [facility] [address] [place] [address] Scheduled Orders Name Type Priority Associated Diagnoses Orde r Schedule 25-HYDROXY VITAMIN D Lab Routine Vitamin D deficiency Expected: 11/23/2022, Expires: 11/24/2023 Health Maintenance Due Date Last Done Comments Depression Screening 1952 DTaP,Tdap,and Td Vaccines (1 - Tdap) 1959 Pneumococcal Vaccine: 65+ Years (1 - PCV) 2006 COVID-19 Vaccine (4 - Pfizer series) 01/26/2021 12/01/2020, 05/17/2020, 04/18/2020 COLONOSCOPY-EVERY 3 YRS AGES 18-100 04/22/2022 04/22/2019, 04/22/2019, 02/15/2012, Additional history exists Influenza Vaccine (FLU shot) (#1) 2022 11/13/2019, 11/28/2018, 11/16/2017, Additional history exists Zoster Vaccines Completed 02/13/2019, 09/2018, 11/07/2006 GARDASIL-HPV IMMUNIZATION SERIES Aged Out No longer eligible based on patient's age to complete this topic Hepatitis B Aged Out No longer eligi ble based on patient's age to complete this topic MENINGOCOCCAL (MENACTRA/MENVEO) Aged Out No longer eligible based on patient's age to complete this topic documented as of this encounter Medical Devices Not on filedocumented as of this encounter Visit Diagnoses Diagnosis Vitamin D deficiency Unspecified vitamin D deficiency Vitamin D deficiency- Primary Unspecified vitamin D deficiency documented in this encounter Care Teams Supervisor Furnace Process Relationship Specialty Start Date End Date Rylee Mohr MD [address] [place] [address] Dr Veras [address] [place] [id number] PCP - General Family Medicine 04/18/19 documented as of this encounter
--- OUTSIDE RECORDS SUMMARY | 2023-03-26 02:38 | External Medical Summary ---
Author Name Unknown Address Unknown Organization [id number]:[facility] [place] [address] [facility] [place] [address] Laboratory Report Ordering Provider Test Date Status MAYTE SEGURA ADRIANNA 10/26/2022 06:35:00 Fin al Observation Date Value Abnormality Reference (Units ) Status T4, Free 10/26/2022 06:35:00 0.9 0.9-1.7 (n g/dL) Final Performing Location LABORATORY [facility] - [address] [place] [address]
--- OUTSIDE RECORDS SUMMARY | 2023-03-26 02:38 | External Medical Summary ---
Author Name Unknown Address Unknown Organization [id number]:[facility]ORY [facility] [place] - [address] [facility] [address] Laboratory Report Ordering Provider Test Date Status MAYTE SEGURA ADRIANNA 12/07/2022 06:51:21 Fin al Observation Date Value Abnormality Reference (Units ) Status Color of Urine by Auto 12/07/2022 06:51:21 Light Yellow Colorless, Light Yellow, Yellow, Dark Yellow Final Clarity, Urine 12/07/2022 06:51:21 Clear Clear Final Glucose [Mass/volume] in Urine by Automated test strip 12/07/2022 06:51:21 Negative Negative (mg/dL) Final Bilirubin.total [Presence] in Urine by Automated test strip 12/07/2022 06:51:21 Negative Negative Final Ketones [Mass/volume] in Urine by Automated test strip 12/07/2022 06:51:21 Negative Negative (mg/dL) Final Specific gravity, Urine 12/07/2022 06:51:21 1.013 1.003-1.030 Final Hemoglobin [Presence] in Urine by Automated test strip 12/07/2022 06:51:21 Negative Negative Final pH, Urine 12/07/2022 06:51:21 5.5 5.0-7.5 (Units) Final Protein [Mass/volume] in Urine by Automated test strip 12/07/2022 06:51:21 Negative Negative (mg/dL) Final Urobilinogen [Mass/volume] in Urine by Automated test strip 12/07/2022 06:51:21 Normal Normal (mg/dL) Final Nitrite [Presence] in Urine by Automated test strip 12/07/2022 06:51:21 Negative Negative Final Leukocyte esterase [Presence] in Urine by Automated test strip 12/07/2022 06:51:21 Trace Abnormal Negative Final RBC, Urine 12/07/2022 06:51:21 0-2 0-2 (/HPF) Final WBC, Urine 12/07/2022 06:51:21 0-2 0-2 (/HPF) Final Bacteria [#/area] in Urine sediment by Microscopy high power field 12/07/2022 06:51:21 0-25 0-25 (/HPF) Final CULTURE, URINE - [facility] 12/07/2022 06:51:21 Final Culture not indicated by uri nalysis results Performing Location LABORATORY [facility] [place] - [facility] [address] [facility] [address]
--- OUTSIDE RECORDS SUMMARY | 2023-03-26 02:38 | External Medical Summary ---
Author Name Unknown Address Unknown Organization [id number]:LABORATORY [place] [facility] [address] [address] Laboratory Report Ordering Provider Test Date Status MAYTE SEGURA 10/30/2022 12:22:04 Fin al Observation Date Value Abnormality Reference (Units ) Status Thyroperoxidase Ab [Units/volume] in Serum or Plasma by Immunoassay 10/30/2022 12:22:04 11.3 <34.0 (IU/mL) Final Thyroglobulin Ab 10/30/2022 12:22:04 14.2 <115.0 (IU/mL) Final Performing Location LABORATORY [place] - [facility] [place] [address]
--- OUTSIDE RECORDS SUMMARY | 2023-03-26 02:38 | External Medical Summary ---
Author Name Unknown Address Unknown Organization [id number][place] [place] [address] [facility] [place] [address] Laboratory Report Ordering Provider Test Date Status MAYTE SEGURA ADRIANNA 12/04/2022 06:50:00 Fin al Observation Date Value Abnormality Reference (Units ) Status TSH 12/04/2022 06:50:00 4.26 Above high normal 0. 27-4.20 (uIU/mL) Final Performing Location [facility] [address] [facility] [place] [address]
--- OUTSIDE RECORDS SUMMARY | 2023-03-26 02:38 | External Medical Summary | Continuity of Care Document ---
Author Name Unknown Organization [address] Address [address] [place] [address] [phone] Care Team Providers Care Student Specialist Name Role Phone Senia Pantoja Primary Care hysicijacob [phone] Encounter [facility] [id number] Date(s): 10/24/22 - 10/24/[address], [address] [address] [place] [phone] Encounter Diagnosis Elevated TSH(Discharge Diagnosis) - 10/24/22 Vitamin D deficiency(Discharge Diagnosis) - 10/24/22 Discharge Disposition: Home or Self Care Attending Physician: Leonel Wu DO, Mariana Annette Referring Physician: Leonel Wu DO, Mariana Annette Allergies, Adverse Reactions, Alerts No Known Allergies Assessment and Plan Extracted from: Title:Office Visit Note Author:Leonel Wu DO, Mariana Annette Date:10/24/22 1.Elevated TSH STATUS:Acute DATA:Labs reviewed. GOAL:Resolution PLAN:Recheck TSH and T4, if it remains elevated, should check TPO antibodies. Initial dose for patient should be ~120mcg 2.Vitamin D deficiency STATUS:Chronic stable. DATA:Labs reviewed. GOAL:Resolution. PLAN:Cont 5000 IU of D3, recheck in Nov which would be after 3mo of treatment to ensure level is rising. . Immunizations Given and Recorded Vaccine Date Status Refusal Reason SARS-CoV-2 (COVID-19) mRNA BNT-162b2 vax 05/17/20 Recorded SARS-CoV-2 (COVID-19) mRNA BNT-162b2 vax 04/18/20 Recorded influenza virus vaccine, inactivated 11/13/19 Give n influenza virus vaccine, inactivated 11/28/18 Give n influenza virus vaccine, inactivated 11/16/17 Give n influenza virus vaccine, inactivated 12/27/16 Give n influenza virus vaccine, inactivated 11/22/15 [place] rded influenza virus vaccine, inactivated 11/22/14 [place] rded influenza virus vaccine, inactivated 12/24/13 [place] rded zoster vaccine, inactivated 02/13/19 Recorded zoster vaccine, inactivated 12/09/18 Recorded pneumococcal 13-valent vaccine 09/17/15 Given hepatitis A adult vaccine 02/02/14 Given hepatitis A-hepatitis B vaccine 03/05/13 Recorded zoster vaccine live 11/07/06 Recorded pneumococcal 23-valent vaccine 10/03/05 Recorded tetanus toxoids-diphtheria, Td (Adult) 10/03/05 Re corded Medications Alphagan P 0.1% ophthalmic solution Start: 03/21/22 11:56:00 EST, 1 drop, both eyes, bid, Disp# 15 mL, Refills: 0, INSTILL 1 DROP INTO EACH EYE TWICE DAILY, [facility]acy: [facility] Start Date: 03/21/22 Status: Ordered aspirin 81 mg oral tablet Start: 04/17/17 9:40:00, 1 tab, PO, Daily, Start Date: 04/17/17 Status: Ordered atorvastatin 80 mg oral tablet Start: 07/10/22 15:24:00 EDT, 1 tab, PO, qhs, Disp# 90 tab, Refills: 0, [facility] Start Date: 07/10/22 Stop Date: 10/08/22 Status: Ordered cholecalciferol Start: 10/24/22 13:57:00 EDT Start Date: 10/24/22 Status: Ordered donepezil 5 mg oral tablet Start: 10/24/22 13:56:00 EDT, 2 tab, PO, Daily Start Date: 10/24/22 Status: Ordered dorzolamide ophthalmic Start: 10/24/22 13:57:00 EDT Start Date: 10/24/22 Status: Ordered Lumigan 0.01% ophthalmic solution Start: 03/21/22 11:56:00 EST, 1 drop, both eyes, qPM, Disp# 7.5 mL, Refills: 0, Pharmacy: [facility] Start Date: 03/21/22 Status: Ordered memantine 10 mg oral tablet Start: 06/21/22 12:54:00 EDT, 1 tab, PO, bid, Disp# 120 tab, Refills: 2, Note to Pharmacy: Neurologist changed dose, [facility]: [facility] Start Date: 06/21/22 Stop Date: 12/18/22 Status: Ordered OXcarbazepine 150 mg oral tablet Start: 03/22/22 8:53:00 EST, 1 tab, PO, bid Start Date: 03/22/22 Status: Ordered Tylenol 325 mg oral tablet Start: 07/20/15 16:25:00, 2 tab, PO, q4h, PRN: Fever/Mild Pain Start Date: 07/20/15 Status: Ordered Vitamin B12 Start: 01/04/22 14:08:00 EDT Start Date: 01/04/22 Status: Ordered Mental Status 10/24/22 Barriers to Learning one year Hearing de ficit Mandatory Health Literacy Documentation Yes Health Literacy Communication Barriers N ever Primary Language Mohawk Problem List Condition Confirmation Course Effective Dates Status Health St atus Informant Decreased activities of daily living (ADL) Confirmed Active Serrated adenoma of colon Confirmed Active Adenomatous polyp of colon Confirmed Active BCC (basal cell carcinoma) Confirmed Active Vitamin B12 deficiency Confirmed Active Hearing loss Confirmed Active S/P radiation therapy Confirmed Active Hypothyroid Confirmed Active Prostate cancer Confirmed Active Memory dysfunction Confirmed Active Tinea unguium Confirmed Active Prostate cancer screening Confirmed Active Peripheral vascular disease Confirmed Active Trigeminal neuralgia Confirmed Active Weight disorder Confirmed Active Diagnosis Diagnosis Type Effective Dates Health Status Clinical Service Informant Elevated TSH Discharge Diagnosis 10/24/22 Non-Specified Vitamin D deficiency Discharge Diagnosis 10/24/22 Non-Specified Procedures Procedure Date Related Diagnosis Body Site Status Cataract 1 09/06/21 Completed Cataract 2 06/07/21 Completed Mohs surgery 3 02/06/18 Completed Shave biopsy and cauterization of skin 12/24/17 Completed MRI of brain and brain stem 4 02/07/17 Completed Colonoscopy 01/10/17 Completed Colonoscopy 5, 6 01/10/17 Complete d scan of the brain without IV contrast 07/19/15 Completed Biopsy of prostate 7 01/2015 Comp leted Colonoscopy 8, 9, 10 01/08/14 Comp leted Colonoscopy 11 02/15/12 Completed Exercise stress echocardiography 12 07/12/10 Completed ANESTH REPAIR OF HERNIA 13 11/20/05 Completed Colonoscopy 14 02/21/00 Completed Pathology report 15 02/21/00 Compl eted Barium swallow 16 04/05/99 Complet ed Stress test treadmill 17 08/10/95 Completed Sinuses X-ray 18 05/06/86 Complete d Cervical spine X-ray 19 11/18/84 C ompleted Hernia 20 Completed 1right eye 2left cataract 3right ear 4Tiny 4.5 mm focus of restricted water diffusion with the right frontal lobe. 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 Biopsy stage TII cc. 8repeat colonoscopy 3 years 9AC one serrated and one tubular adenoma 10COLO to cecum, AC polyps times two, large internal hemorrhoids likely source of bleeding. 11Four 1 to 4 mm polyps in the sigmoid colon, at the hepatic flexure and in the ascending colon. Resected and retrieved. Angiodysplasia in cecum, venous lakes in rectum Repeat colonoscopy in 3 years. 121. Normal stress echocardiogram at 10.1 METS and a peak heart rate of greater than 101% of p redicted maximum. 2. No exercise-induced chest pain 3. No EKG changes 4. Baseline echocardiogram notes normal left ventricular systolicfunction and mild mitral regurgitation. 13Umbilical hernia repair 14Multiple polyps as shown, removed. If adenomas, 3-year re-exam. If villous, one year. 15A. Colon, 70cm polypectomy: tubular adenoma B Colon, 60cm polypectomy: hyperplastic polyp C Rectum, polypectomy: tubular adenoma 16Normal barium swallow. No definite evidence of reflux or peptic esophagitis. 171. Normal exercise stress test predicting a low probablility of CAD. 2. Good exercise tolerance 3. Normal heart rate and blood pressure response. 4. No chest discomfort 5. No significant arrhythmias. 18PA, arvizu, basal and lateral viewsreveal all of the paranasal sinuses to be fully developedm. No bony abnoramlity is seen. There is no evidence of sinusitis. A faint, smooth, spherical opacity 1 cm in diamter is seen on the roof of the left maxillary sinus.This may represent a polyp 19No pathology is seen in the cervical spine. 20navel Vital Signs Most recent to oldest [Reference Range]: 1 Height 182.0 cm (10/24/22 1:59 PM) Patient Weight 100.6 kg (10/24/22 1:59 PM) Body Mass Index 30.37 kg/m2 (10/24/22 1:59 PM) Temperature [36.5-37.9 DegC] 36.3 DegC *LOW* (10/24/22 1:59 PM) Heart Rate 75 bpm (10/24/22 1:59 PM) Respiratory Rate 16 br/min (10/24/22 1:59 PM) Blood Pressure 120/80mmHg (10/24/22 1:59 PM) Cuff Pulse Pressure 40 mmHg (10/24/22 1:59 PM) Social History Social History Type Response Smoking Status Never smoked cigaret gilmer Sex Male FCM Outpt Note * Leonel Wu DO, Mariana Annette: PERFORM Event Display: FCM Outpt Note Authored Date: [id number] Chief Complaint elevated thyroid and possibly elevated blood pressure History of Present Illness Patient here with his son to discuss elevated TSH. He was recently seen by Neurology at [facility] for worsening mental status. Labs were remarkable to an elevated TSH of 6.1 and patient was referred back to us. Patient has been sleeping more in the past few months and keeps his home at a higher temp (high 70s), but otherwise has been asymptomatic. He denies any neck pain/tenderness, difficulty swallowing or hoarseness. He denies any family history of thyroid disease. Labs were also remarkable for a Vitamin D level of 11, he was started on Vit D3 5000 IU weekly, perneurology in August. At neurology appointment his BP has been elevated as well. His care team at [facility] has been monitoring his BP at home and it has been normal. Review of Systems Per HPI Physical Exam Vitals & Measurements T:36.3C HR:75(Monitored) RR:16 BP:120/80 SpO2:97% HT:182.0cm WT:100.600kg(Dosing) WT:100.6kg BMI:30.37 PHQ2 Data(Data Documented on:10/24/2022 13:59) Emotional health assessment NEGATIVE General: _Alert and oriented, No acute distress Cardiovascular: _Normal rate, Regular rhythm, No murmur, No gallop. Respiratory: _Lungs are clear to auscultation, Respirations are non-labored, Breath sounds are equal Neck: no thyromegaly or thyroid tenderness Psych: Mood-affect congruence. Reports no SI/HI. Speech is of normal pace and content Assessment/Plan 1.Elevated TSH STATUS:Acute DATA:Labs reviewed. GOAL:Resolution PLAN:Recheck TSH and T4, if it remains elevated, should check TPO antibodies. Initial dose for patient should be ~120mcg 2.Vitamin D deficiency STATUS:Chronic stable. DATA:Labs reviewed. GOAL:Resolution. PLAN:Cont 5000 IU of D3, recheck in Nov which would be after 3mo of treatment to ensure level isrising. . Attestation Time spent: Pre-visit plannin Ksto-pa-ioas visit: 20 Post-visit (orders/documentation/coordination of care):5 Total visit time: _35 Problem List/Past Medical History Ongoing Adenomatous polyp of colon BCC (basal cell carcinoma) Decreased activities of daily living (ADL) Hearing loss Hypothyroid Memory dysfunction Peripheral vascular disease Prostate cancer Prostate cancer screening S/P radiation therapy Serrated adenoma of colon Tinea unguium Trigeminal neuralgia Vitamin B12 deficiency Weight disorder Historical Bite wound Colon polyps Elevated blood pressure reading Elevated PSA Encounter for audiology evaluation Fracture of pedicle of thoracic vertebra Iliac crest bone pain Pain in right foot Peripheral vascular failure PVD (peripheral vascular disease) Skin lesion of right ear Syncope Tick bite Procedure/Surgical History Cataract (09/06/2021)Cataract (06/07/2021)Mohs surgery (02/06/2018)Shave biopsy and cauterization of skin (12/24/2017)MRI of brain and brain stem (02/07/2017)Colonoscopy (01/10/2017)Colonoscopy (01/10/2017)scan of the brain without IV contrast (07/19/2015)Biopsy of prostate (01/2015)Colonoscopy (01/08/2014)Colonoscopy (02/15/2012)Exercise stress echocardiography (07/12/2010)ANESTH REPAIR OF HERNIA (11/20/2005)Pathology report (02/21/2000)Colonoscopy ( 02/21/2000)Barium swallow (04/05/1999)Stress test treadmill (08/10/1995)Sinuses X-ray (05/06/1986)Cervical spine X-ray (11/18/1984)Hernia Medications acetaminophen(Tylenol 325 mg oral tablet), 650 mg= 2 tab, PO, q4h, PRN aspirin(aspirin 81 mg oral tablet), 81 mg= 1 tab, PO, Daily atorvastatin(atorvastatin 80 mg oral tablet), 80 mg= 1 tab, PO, qhs bimatoprost ophthalmic(Lumigan 0.01% ophthalmic solution), 1 drop, both eyes, qPM brimonidine ophthalmic(Alphagan P 0.1% ophthalmic solution), 1 drop, both eyes, bid cholecalciferol cyanocobalamin(Vitamin B12) donepezil(donepezil 5 mg oral tablet), 10 mg= 2 tab, PO, Daily dorzolamide ophthalmic melatonin(melatonin 3 mg oral tablet), 3 mg= 1 tab, PO, qhs, PRN memantine(memantine 10 mg oral tablet), 10 mg= 1 tab, PO, bid, 2 refills OXcarbazepine(OXcarbazepine 150 mg oral tablet), 150 mg= 1 tab, PO, bid Allergies NKA Social History Smoking Status Never smoked cigarettes Alcohol Frequency:1-2 times per week Exercise - Occasional exercise Exercise type:Walking Home/Environment Lives with:Spouse Other risks in environment:Pets/Animal exposure - Comments: Single family house. One dog--goldendoodle Tobacco - Denies Tobacco Use Use:Never smoker Family History Cancer: Mother. Parkinson disease: Mother. Skin cancer: Mother. Stroke: Father and PGF. Health Status Family Member(s) Immunizations Vaccine Date Status SARS-CoV-2 (COVID-19) mRNA BNT-162b2 vax 05/17/2020 Recorded SARS-CoV-2 (COVID-19) mRNA BNT-162b2 vax 04/18/2020 Recorded influenza virus vaccine, inactivated 11/13/2019 Given zoster vaccine, inactivated 02/13/2019 Recorded zoster vaccine, inactivated 12/09/2018 Recorded influenza virus vaccine, inactivated 11/28/2018 Given influenza virus vaccine, inactivated 11/16/2017 Given influenza virus vaccine, inactivated 12/27/2016 Given influenza virus vaccine, inactivated 11/22/2015 Recorded pneumococcal 13-valent vaccine 09/17/2015 Given influenza virus vaccine, inactivated 11/22/2014 Recorded hepatitis A adult vaccine 02/02/2014 Given influenza virus vaccine, inactivated 12/24/2013 Recorded hepatitis A-hepatitis B vaccine 03/05/2013 Recorded zoster vaccine live 11/07/2006 Recorded pneumococcal 23-valent vaccine 10/03/2005 Recorded tetanus toxoids-diphtheria, Td (Adult) 10/03/2005 Recorded Recommendations Health Maintenance Pending(in the next year) OverDue Lipid Screening due11/25/20and every 1826 Medicare Annual Wellness Visit due12/22/20and every 1year Adult Influenza Vaccine due09/02/22and every 1year Due Adult COVID-19 Vaccination due10/24/22Unknown Frequency Adult Tdap/Td Vaccine due10/24/22Unknown Frequency Pneumococcal Vaccine Older Adults due10/24/22One-time only Due In Future Body Mass Index not due until10/24/23and every 1year Satisfied(in the past 1 year) Satisfied Body Mass Index on10/24/22.Satisfied by ANNABELLE Herron Sharon Electronic Signature on File Electronically Reviewed/Signed by: Senia Wu DO Author Signature Dt/Tm:10/24/2022 05:35 PM Department of Family Medicine MA[facility] Patient Care team information Care Team Personnel Name: Leonel Wu DO, Mariana Annette Position: Physician - Family Med Member Role: Primary Care Provider Address: Address: [address] [place] [id number] [place] Care Team Related Persons Name: IZABEL TAYLOR Address: home [address] [place] [phone] Name: REVA MARQUEZ Address: [place] [phone]
--- OUTSIDE RECORDS SUMMARY | 2023-03-26 02:38 | External Medical Summary | Summary of Care ---
Author Name Unknown Organization [facility] Address [address] [place] [address] Phone [phone] Care Team Providers Care Saddle And Side Wire Stitcher Name Role Phone Rylee Mohr MD Primary Care Provi savana Encounter Details Date Type Department Care Team Description 12/07/2022 Orders Only Lab Mobile Phlebotomy [facility] [address] [place] [address] Senia Pantoja, DO [address] [place] [id number] Altered mental status* Allergies No known active allergiesdocumented as of this encounter (statuses as of 12/07/2022) Medications Medication Sig Dispensed Refills Start Date [...] as of this encounter (statuses as of 12/07/2022) Active Problems Problem Noted Date Benign neoplasm of colon 02/13/2007 Overview: hyperplastic repeat colonoscopy in 5 yrs Trigeminal neuralgia 12/18/2006 ADVANCE DIRECTIVE INFORMATION 10/27/2004 Overview: Yes, Patient instructed to provide copy of advance directive for provider to review and to be scanned into Electronic Medical Record documented as of this encounter (statuses as of 12/07/2022) Immunizations Name Administration Dates Next Due COVID-19 [...] Encounters Date Type Specialty Care Team Description 12/07/2022 Laboratory Laboratory Processing [facility] [place] [address] [place] [address] Scheduled Orders Name Type Priority Associated Diagnoses Orde r Schedule URINALYSIS, REFLEX TO CULTURE (NOT FOR NEUTROPENIC PATIENTS) Lab Routine Altered mental status Expected: 12/07/2022, Expires: 12/08/2023 Health Maintenance Due Date Last Done Comments Depression Screening 1952 DTaP,Tdap,and Td Vaccines (1 - Tdap) 1959 Pneumococcal Vaccine: 65+ Years (1 - PCV) 2006 COLONOSCOPY-EVERY 3 YRS AGES 18-100 04/22/2022 04/22/2019, 04/22/2019, 02/15/2012, Additional history exists COVID-19 Vaccine ( - 2022- season) 2022 12/01/2020, 05/17/2020, 04/18/2020 Influenza Vaccine (FLU shot) (#1) 2022 11/13/2019, [...] as of this encounter Visit Diagnoses Diagnosis Altered mental status Altered mental status- Primary documented in this encounter Care Teams Saddle And Side Wire Stitcher Relationship Specialty Start Date End Date Rylee Mohr MD [address] [place] [address] [address] [place] [address] PCP - General Family Medicine 04/18/19 documented as of this encounter
--- OUTSIDE RECORDS SUMMARY | 2023-03-26 02:38 | External Medical Summary ---
Author Name Unknown Address Unknown Organization [id number]:[facility] - [address] [facility] [place] [address] Laboratory Report Ordering Provider Test Date Status MAYTE SEGURA ADRIANNA 10/26/2022 06:35:00 Fin al Observation Date Value Abnormality Reference (Units ) Status TSH 10/26/2022 06:35:00 6.75 Above high normal 0. 27-4.20 (uIU/mL) Final Performing Location LAB[facility]ATORY [facility] - [address] [place] [address]
--- OUTSIDE RECORDS SUMMARY | 2023-03-26 02:38 | External Medical Summary | Continuity of Care Document ---
Author Name Unknown Organization [address] Address [address] [place] [phone] Care Team Providers Care Signals Officer Name Role Phone Senia Pantoja Primary Care hysician [phone] Encounter [facility] [id number] Date(s): 03/02/23 - 03/02/[address], [facility] [address] [place] [address] [place] [phone] Encounter Diagnosis Body mass index [BMI] 29.0-29.9, adult(Discharge Diagnosis) - 03/02/23 Dementia(Discharge Diagnosis) - 03/02/23 Bradycardia(Discharge Diagnosis) - 03/02/23 Abrasion(Discharge Diagnosis) - 03/02/23 Need for influenza vaccination(Discharge Diagnosis) - 03/02/23 Fatigue(Discharge Diagnosis) - 03/02/23 Discharge Disposition: Home or Self Care Attending Physician: Leonel Wu DO, Mariana Annette Referring Physician: Leonel Wu DO, Mariana Annette Allergies, Adverse Reactions, Alerts No Known Allergies Assessment and Plan Extracted from: Title:Office Visit Note Author:Leonel Wu DO, Mariana Annette Date:03/02/23 1.Dementia STATUS:Chronic worsening DATA:Labs reviewed. GOAL:Maintain stability. PLAN:planning on transfer to memory care unit next week . 2.Fatigue Due to increased fatigue will repeat TSH and T4, although could be due to progression of dementia 3.Bradycardia Resolved at the end of the visit EKG was NSR HR 74 4.Abrasion Tdap given 5.Need for influenza vaccination Immunizations Given and Recorded Vaccine Date Status Refusal Reason influenza virus vaccine, inactivated 1 03/02/23 Gi clotilde influenza virus vaccine, inactivated 11/13/19 Give n influenza virus vaccine, inactivated 11/28/18 Give n influenza virus vaccine, inactivated 11/16/17 Give n influenza virus vaccine, inactivated 12/27/16 Give n influenza virus vaccine, inactivated 11/22/15 [place] rded influenza virus vaccine, inactivated 11/22/14 [place] rded influenza virus vaccine, inactivated 12/24/13 [place] rded tetanus/diphtheria/pertuss, acel (Tdap) 2 03/02/23 Given SARS-CoV-2 (COVID-19) mRNA BNT-162b2 vax 05/17/20 Recorded SARS-CoV-2 (COVID-19) mRNA BNT-162b2 vax 04/18/20 Recorded zoster vaccine, inactivated 02/13/19 Recorded zoster vaccine, inactivated 12/09/18 Recorded pneumococcal 13-valent vaccine 09/17/15 Given hepatitis A adult vaccine 02/02/14 Given hepatitis A-hepatitis B vaccine 03/05/13 Recorded zoster vaccine live 11/07/06 Recorded pneumococcal 23-valent vaccine 10/03/05 Recorded tetanus toxoids-diphtheria, Td (Adult) 10/03/05 Re corded 1Early/Late Reason: Early/Late Reason: Clinic schedule 2Early/Late Reason: Early/Late Reason: Clinic schedule Medications Alphagan P 0.1% ophthalmic solution Start: 03/21/22 11:56:00 EST, 1 drop, both eyes, bid, Disp# 15 mL, Refills: 0, INSTILL 1 DROP INTO EACH EYE TWICE DAILY, Pharmacy: [facility] Start Date: 03/21/22 Status: Ordered aspirin 81 mg oral tablet Start: 04/17/17 9:40:00, 1 tab, PO, Daily, Start Date: 04/17/17 Status: Ordered atorvastatin 80 mg oral tablet Start: 11/29/22 9:24:00 EDT, 1 tab, PO, qhs, Disp# 90 tab, Refills: 3, Pharmacy: [facility] Start Date: 11/29/22 Stop Date: 11/24/23 Status: Ordered cholecalciferol Start: 10/24/22 13:57:00 EDT Start Date: 10/24/22 Status: Ordered donepezil 5 mg oral tablet Start: 02/08/23 17:07:00 EST, 2 tab, PO, Daily, Disp# 180 tab, Refills: 3, Pharmacy: [facility] Start Date: 02/08/23 Status: Ordered dorzolamide ophthalmic Start: 10/24/22 13:57:00 EDT Start Date: 10/24/22 Status: Ordered levothyroxine 50 mcg (0.05 mg) oral tablet Start: 10/27/22 8:52:00 EDT, 1 tab, PO, Daily, Disp# 30 tab, Refills: 3, Pharmacy: [facility] Start Date: 10/27/22 Status: Ordered Lumigan 0.01% ophthalmic solution Start: 11/29/22 9:24:00 EDT, 1 drop, both eyes, qPM, Disp# 7.5 mL, Refills: 3, Pharmacy: [facility] Start Date: 11/29/22 Status: Ordered memantine 10 mg oral tablet Start: 06/21/22 12:54:00 EDT, 1 tab, PO, bid, Disp# 120 tab, Refills: 2, Note to Pharmacy: Neurologist changed dose, Pharmacy: [facility] Start Date: 06/21/22 Stop Date: 12/18/22 Status: Ordered OXcarbazepine 150 mg oral tablet Start: 03/22/22 8:53:00 EST, 1 tab, PO, bid Start Date: 03/22/22 Status: Ordered Tylenol 325 mg oral tablet Start: 07/20/15 16:25:00, 2 tab, PO, q4h, PRN: Fever/Mild Pain Start Date: 07/20/15 Status: Ordered Vitamin B12 Start: 01/04/22 14:08:00 EDT Start Date: 01/04/22 Status: Ordered Mental Status 03/02/23 Barriers to Learning one year Hearing de ficit Mandatory Health Literacy Documentation Yes Health Literacy Communication Barriers N ever Primary Language Hong Konger Problem List Condition Confirmation Course Effective Dates [...] Effective Dates Health Status Clinical Service Informant Body mass index [BMI] 29.0-29.9, adult Discharge Diagnosis 03/02/23 Non-Specified Abrasion Discharge Diagnosis 03/02/23 Non-Specified Need for influenza vaccination Discharge Diagnosis 03/02/23 Non-Specified Bradycardia Discharge Diagnosis 03/02/23 Non-Specified Dementia Discharge Diagnosis 03/02/23 Fatigue Discharge Diagnosis 03/02/23 Procedures Procedure Date Related Diagnosis Body Site [...] left cerebellar peduncle Persistent diffuse dural enhancement 5Colo to cecum, 4 polyps removed, diverticulosis 6valve hyperplastic, HF sessile serrated, rectal hyperplastic 7Positive for a Martina 3+3 adenocarcinoma. 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 FCM Outpt Note * Leonel Wu DO, Mariana Annette: PERFORM Event Display: FCM Outpt Note Authored Date: [id number] Chief Complaint Eval for memory care [facility]. Son thinks patient had flu shot, unsure about Tdap. History of Present Illness Evaluation for memory care unit He had covid 3 weeks ago, hd minimal symptoms Bradycardic today Son is worried about dehydration as his urine is very concentrated. Also sleeping a lot and not as active. States cognition has declined, not eating much, having difficulty walking and not accepting PT. Due for flu and Tdap Has some scratches on his arms. Physical Exam Vitals & Measurements T:36.3C BP:108/78 SpO2:95% HT:184.2cm WT:101.500kg(Dosing) WT:101.5kg BMI:29.91 PHQ2 Data(Data Documented on:03/02/2023 09:01) Emotional health assessment NEGATIVE General: _Alert and pleasantly confused (year: 2002, place: "here", : correct), No acute distress Cardiovascular: _Normal rate, Regular rhythm, No murmur, No gallop. Respiratory: _Lungs are clear to auscultation, Respirations are non-labored, Breath sounds are equal Psych: Mood-affect congruence. Reports no SI/HI. Speech is of normal pace and content Integumentary: _Warm, Dry, [place]. Bilateral forearm abrasions from scratching Assessment/Plan 1.Dementia STATUS:Chronic worsening DATA:Labs reviewed. GOAL:Maintain stability. PLAN:planning on transfer to memory care unit next week . 2.Fatigue Due to increased fatigue will repeat TSH and T4, although could be due to progression of dementia 3.Bradycardia Resolved at the end of the visit EKG was NSR HR 74 4.Abrasion Tdap given 5.Need for influenza vaccination Attestation Time spent: Pre-visit planning: _10 Xtin-re-fgle visit: _40 Post-visit (orders/documentation/coordination of care): Total visit time: _50 Problem List/Past Medical History Ongoing Adenomatous polyp [...] oral tablet), 80 mg= 1 tab, PO, qhs, 3 refills bimatoprost ophthalmic(Lumigan 0.01% ophthalmic solution), 1 drop, both eyes, qPM, 3 refills brimonidine ophthalmic(Alphagan P 0.1% ophthalmic solution), 1 drop, both eyes, bid cholecalciferol cyanocobalamin(Vitamin B12) donepezil(donepezil 5 mg oral tablet), 10 mg= 2 tab, PO, Daily, 3 refills dorzolamide ophthalmic levothyroxine(levothyroxine 50 mcg (0.05 mg) oral tablet), 50 mcg= 1 tab, PO, Daily, 3 refills memantine(memantine 10 mg oral tablet), 10 mg= [...] Status Family Member(s) Immunizations Vaccine Date Status influenza virus vaccine, inactivated 03/02/2023 Given Comments : Early/Late Reason: Clinic schedule tetanus/diphtheria/pertuss, acel (Tdap) 03/02/2023 Given Comments : Early/Late Reason: Clinic schedule SARS-CoV-2 (COVID-19) mRNA BNT-162b2 vax 05/17/2020 Recorded [...] next year) OverDue Lipid Screening due11/25/20and every 1826day Medicare Annual Wellness Visit due12/22/20and every 1year Due Adult COVID-19 Vaccination due03/02/23Unknown Frequency Adult Social Determinants of Health Screening due03/02/23Unknown Frequency Pneumococcal Vaccine Older Adults due03/02/23One-time only Due In Future Adult Influenza Vaccine not due until09/03/23and every 1year Satisfied(in the past 1 year) Satisfied Adult Influenza Vaccine on03/02/23.Satisfied by RIGOBERTO Jimenes Lori Adult Tdap/Td Vaccine on03/02/23.Satisfied by RIGOBERTO Jimenes Lori Body Mass Index on03/02/23.Satisfied by RIGOBERTO Jimenes Lori Electronic Signature on File Electronically Reviewed/Signed by: Senia Wu DO Author Signature Dt/Tm:03/02/2023 01:00 PM Department of Family Medicine MAF Patient Care team information Care Team Personnel Name: Leonel Wu DO, Mariana Annette Position: Physician - Family Med Member Role: Primary Care Provider Address: Address: [address] [place] [address], [place] [address] Care Team Related Persons Name: IZABEL TAYLOR Address: home [address], [place] [id number] Name: REVA MARQUEZ Address: home [facility], [place] [id number]
--- OUTSIDE RECORDS SUMMARY | 2023-03-26 02:38 | External Medical Summary | Summary of Care ---
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 Name Role Phone Rylee Mohr MD Primary Care Provi savana Encounter Details Date Type Department Care Team Description 12/04/2022 Orders Only Lab Mobile Phlebotomy [facility] [address] [place] [address] Senia Pantoja, DO [address] [place] [id number] Goiter congenital* Allergies No known active allergiesdocumented as of this encounter (statuses as of 12/04/2022) Medications Medication Sig Dispensed Refills Start Date [...] as of this encounter (statuses as of 12/04/2022) Active Problems Problem Noted Date Benign neoplasm of colon 02/13/2007 Overview: hyperplastic repeat colonoscopy in 5 yrs Trigeminal neuralgia 12/18/2006 ADVANCE DIRECTIVE INFORMATION 10/27/2004 Overview: Yes, Patient instructed to provide copy of advance directive for provider to review and to be scanned into Electronic Medical Record documented as of this encounter (statuses as of 12/04/2022) Immunizations Name Administration Dates Next Due COVID-19 [...] Encounters Date Type Specialty Care Team Description 12/04/2022 Laboratory Laboratory Processing [facility] [address] [place] [address] Scheduled Orders Name Type Priority Associated Diagnoses Orde r Schedule TSH Lab Routine Goiter congenital Expected: 12/04/2022, Expires: Health Maintenance Due Date Last Done Comments [...] as of this encounter Visit Diagnoses Diagnosis 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
--- OUTSIDE RECORDS SUMMARY | 2023-03-26 02:38 | External Medical Summary ---
Author Name Unknown Address Unknown Organization [id number]:[facility] [place] [address] [place] [address] Laboratory Report Ordering Provider Test Date Status MAYTE SEGURA ADRIANNA 11/23/2022 05:50:00 Fin al Deficient: <20 ng/mL
Ins ufficient: 20-29 ng/mL
Recommended/Optimum:30-50 ng/mL

Vitamin D intoxication is rare. If suspicious of Vitamin D toxicity, evaluation of serum Calcium and PTH is recommended. Observation Date Value Abnormality Reference (Units ) Status 25-OH Vitamin D total 11/23/2022 05:50:00 29 >19 (ng/mL) Final Performing Location [facility] [place] [address] [id number]
[2023-03-26 03:04] LABS: iSTAT Creatinine 1.2 mg/dl (0.6-1.3); iSTAT Hemoglobin 15.3 g/dl (14.0-18.0); iSTAT Ionized Calcium 1.24 mmol/l (1.12-1.32); iSTAT Potassium 4.2 mmol/L (3.3-5.0)
[2023-03-26 03:15] LABS: Basophils # (auto) 0.05 K/uL (0.00-0.20); Basophils % (auto) 0.4 %; Eosinophils # (auto) 0.04 K/uL (0.00-0.50); Eosinophils % (auto) 0.4 %; Hematocrit (blood only) 46.6 % (42.0-52.0); Immature Granulocytes # (auto) 0.08 K/uL (0.01-0.20); Immature Granulocytes % (auto) 0.7 %; Lymphocytes # (auto) 0.89 K/uL (1.20-3.40); Mean Corpuscular Hemoglobin 30.5 pg (25.0-34.0); Mean Corpuscular Hgb Conc 32.2 g/dL (32.0-36.0); Mean Corpuscular Volume 94.9 fL (80.0-100.0); Mean Platelet Volume 9.4 fL (9.4-12.4); Monocytes # (auto) 0.67 K/uL (0.11-0.59); Neutrophils # (auto) 9.43 K/uL (1.40-6.50); Neutrophils % (auto) 84.5 %; Platelet Count 144 K/uL (130-400); RDW Coefficient of Variation 13.9 % (11.5-14.5); RDW Standard Deviation 48.8 fL (36.4-46.3); Red Blood Count 4.91 M/uL (4.70-6.10); White Blood Count 11.16 K/ul (4.8-10.8)
[2023-03-26] MEDS ORDERED: OPTIRAY 320 125ml IV ONE (03:27)
[2023-03-26 03:30] LABS: Albumin Globulin Ratio 1.4 (0.9-2); BUN Creatinine Ratio 19.4 (10-20); Bilirubin,Total 0.6 mg/dl (0.2-1.0); Calcium 9.7 mg/dl (8.6-10.3); Creatinine Clr Calc Pharmacy 55.9 ml/min; Est GFR (African American) 62.8 ml/min; Est GFR (Non-African American) 54.2 ml/min; Globulin 2.8 gm/dl (2.5-4.0); Magnesium 2.1 mg/dl (1.7-2.4); Potassium 4.3 mmol/L (3.5-5.1); Total Protein 6.8 gm/dl (6.0-8.3)
[2023-03-26 03:46] LABS: Troponin I High Sensitivity 61.5 pg/ml (0-20)
[2023-03-26 03:49] LABS: INR 1.1 (0.9-1.1); Partial Thromboplastin Ratio 0.9; Partial Thromboplastin Time 25 Seconds (21-31); Prothrombin Time 12.2 Seconds (9.0-12.0)
--- NOTE | 2023-03-26 04:54 | CT Scan Report ---
Exam(s): CT HEAD Without Contrast EXAM: CT Head Without Intravenous Contrast CLINICAL HISTORY: Reason for exam: neuro deficit, acute stroke suspected. TECHNIQUE: Axial computed tomography images of the head/brain without intravenous contrast. CTDI is 35.65 mGy and DLP is 624.41 mGy-cm. Automated exposure control was utilized for the study. A dose lowering technique was utilized adhering to the principles of ALARA. COMPARISON: Comparison made to prior head CT from July 30, 2021. 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 No hemorrhage. Mild nonspecific white matter changes. No edema. Ventricles: Mild ventriculomegaly. Bones/joints: Unremarkable. No acute fracture. Soft tissues: Bilateral lens replacements. Sinuses: Chronic left maxillary sinusitis. No acute sinusitis. Mastoid air cells: Unremarkable as visualized. No mastoid effusion. IMPRESSION: No evidence of acute intracranial pathology. Electronically signed by: Valerie Butler MD 03/26/23 04:53 AM
--- NOTE | 2023-03-26 05:02 | CT Scan Report ---
Exam(s): CTA HEAD With Contrast IV Amt: 115 ml optiray 320 EXAM: CT Angiography Head With Intravenous Contrast CLINICAL HISTORY: Reason for exam: neuro deficit, acute stroke suspected. TECHNIQUE: Axial computed tomographic angiography images of the head with intravenous contrast. CTDI is 13.12 mGy and DLP is 479.45 mGy-cm. Automated exposure control was utilized for the study. A dose lowering technique was utilized adhering to the principles of ALARA. MIP reconstructed images were created and reviewed. CONTRAST: Patient received 115 ml optiray 320 of IV contrast COMPARISON: No relevant prior studies available. FINDINGS: The dural venous sinuses are patent. Right internal carotid artery: No acute findings. Intracranial segment is patent with no significant stenosis. No aneurysm. Right anterior cerebral artery: Unremarkable. No occlusion or significant stenosis. No aneurysm. Right middle cerebral artery: There is a high-grade stenosis of 2 proximal right M2 segment with diminished enhancement of the distal vessel. No aneurysm. Right posterior cerebral artery: Unremarkable. No occlusion or significant stenosis. No aneurysm. Right vertebral artery: Unremarkable as visualized. Left internal carotid artery: No acute findings. Intracranial segment is patent with no significant stenosis. No aneurysm. Left anterior cerebral artery: Unremarkable. No occlusion or significant stenosis. No aneurysm. Left middle cerebral artery: Unremarkable. No occlusion or significant stenosis. No aneurysm. Left posterior cerebral artery: Unremarkable. No occlusion or significant stenosis. No aneurysm. Left vertebral artery: Unremarkable as visualized. Basilar artery: Unremarkable. No occlusion or significant stenosis. No aneurysm. IMPRESSION: High-grade stenosis of 2 proximal right M2 segments with diminished enhancement of the distal vessels concerning for acute thromboembolic disease. Communications: Verify Receipt Electronically signed by: Valerie Butler MD 03/26/23 05:01 AM
--- NOTE | 2023-03-26 05:15 | CT Scan Report ---
Exam(s): CTA NECK With Contrast IV Amt: 115 ml optiray 320 EXAM: CT Angiography Neck With Intravenous Contrast CLINICAL HISTORY: Reason for exam: neuro deficit, acute stroke suspected. TECHNIQUE: Routine carotid CT angiography protocol was performed with intravenous contrast. NASCET criteria using the distal ICAs for comparison were used for evaluation of stenoses. CTDI is 13.12 mGy and DLP is 479.45 mGy-cm. Automated exposure control was utilized for the study. A dose lowering technique was utilized adhering to the principles of ALARA. MIP reconstructed images were created and reviewed. CONTRAST: Patient received 115 ml optiray 320 of IV contrast COMPARISON: Comparison made to prior CT angiogram of the neck from June 14, 2021. FINDINGS: VASCULATURE: Right common carotid artery: Unremarkable. No occlusion or significant stenosis. No dissection. Right internal carotid artery: Unremarkable. Extracranial segment is patent with no occlusion or significant stenosis. No dissection. Right external carotid artery: Unremarkable. No occlusion. Right vertebral artery: Unremarkable. No occlusion or significant stenosis. No dissection. Left common carotid artery: Unremarkable. No occlusion or significant stenosis. No dissection. Left internal carotid artery: Unremarkable. Extracranial segment is patent with no occlusion or significant stenosis. No dissection. Left external carotid artery: Unremarkable. No occlusion. Left vertebral artery: Unremarkable. No occlusion or significant stenosis. No dissection. NECK: Bones/joints: Moderate to advanced disc degeneration at C3-4, C4-5, C5- 6 and C6-7. Large dental caries of tooth #17 and pulpitis of tooth #14. Recommend dental consult. No acute fracture. Soft tissues: Prominent mediastinal lymph nodes. Prominent cervical lymph nodes. Lung apices: Bronchitis with pneumonitis, which may be infectious or inflammatory etiologies. CAROTID STENOSIS REFERENCE USING NASCET CRITERIA: % ICA stenosis = (1 - narrowest ICA diameter/diameter of distal cervical ICA) x 100. Mild - <50% stenosis. Moderate - 50-69% stenosis. Severe - 70-94% stenosis. Near occlusion - 95-99% stenosis. Occluded - 100% stenosis. IMPRESSION: Negative CTA neck. Electronically signed by: Valerie Butler MD 03/26/23 05:14 AM
--- NOTE | 2023-03-26 05:45 | Emergency Department Note ---
Impression & Plan Acute cerebrovascular accident (CVA) Admit to the [facility] ED Provider Note NAME: GIULIANO TAYLOR AGE: 82 SEX: Male INFORMANT: Patient ED PROVIDER(S): Echo Crowell DO CHIEF COMPLAINT: Right-sided facial droop and right arm weakness PLAN: Disposition: Admit to the [facility] MEDICAL DECISION MAKING: This is an 82-year-old male patient from [facility] who presents to the emergency department after being found on the ground by staff. His last known well time was unknown. They are unsure when he went to bed but found him on the ground around 1:35 AM. He had right-sided facial droop and was unable to move his right arm. The patient had slurred speech. Laboratory studies revealed normal H&H and normal coagulation studies. White blood cell count was 11.1. BUN was 24 and creatinine was 1.24. Glucose was 136. The troponin was elevated to 61.5. Twelve-lead EKG was unremarkable. CT scan of the brain was unremarkable. However, CTA showed high-grade stenosis of the right M2. I do not feel the patient would be a candidate for TNKase as he has a history of chronic subdurals and his last known well time was unknown. Also, the patient's neurological symptoms have improved since he arrived here in the emergency department. He can now lift the right arm and use it although it still remains uncoordinated. His right-sided facial droop seems to be improving. Patient's family tells me that he has suffered from dementia for the past 2 years. [facility] will [facility] for further inpatient care. Care/management discussed with: industrial safety and health manager [facility] as well as the 2 sons who are at the bedside. Triage Nursing notes: Reviewed and agree with them. Vital Signs: reviewed and remarkable for mild hypertension Additional History obtained from: The patient's sons who are at the bedside Chronic Medical/Social Conditions affecting care: Dementia and chronic subdurals Differential Diagnosis: Acute CVA, acute intracranial hemorrhage, hypoglycemia Diagnostics, independently interpreted by me: ECG: Normal sinus rhythm at a rate of [address] segment elevation or signs of ischemia. There is no ectopy. QTc was 411 ms. Cardiac Monitoring: Normal sinus rhythm at 75. Imaging studies: CT scan of the brain: As per stat rad CTA of the brain: As per stat rad CTA of the neck: As per stat rad HPI: 82 year old Male arrives for evaluation of right arm weakness and right- sided facial droop along with slurred speech. Patient presents from [facility] after he was found on the floor around 1:30 AM. Patient went to bed at an unknown time and therefore his last known well time was unknown. He was noted to have slurred speech and right-sided facial droop when they found him. He was not moving his right arm. PAST MEDICAL HISTORY: See Below, PAST SURGICAL HISTORY: See Below, SOCIAL HISTORY: See Below, HOME MEDICATIONS: See list ALLERGIES: None VITALS: See Below PHYSICAL EXAMINATION: HEENT: Head - normocephalic and atraumatic. Pupils are equal, round, and reactive to light. Extraocular eye muscles are intact and sclera are anicteric. Ears - bilaterally patent canals with noninjected tympanic membranes and no evidence of hemotympanum. Nose - moist nasal mucosa without discharge. Mouth - moist buccal mucosa. Oropharynx is nonerythematous and there is no tonsillar exudate or edema noted. Neck: Supple; no JVD or cervical lymphadenopathy Heart: Regular rate and rhythm. There is a normal S1 and S2 with no murmurs, clicks, or gallops appreciated. Lungs: Clear to auscultation bilaterally with no wheezes, rales, or rhonchi. Abdomen: Soft, completely nontender, nondistended, with good bowel sounds. There are no palpable pulsatile masses or hepatosplenomegaly. There is no guarding, rigidity, or rebound noted. Extremities: No evidence of cyanosis, clubbing, or edema. There are easily palpable peripheral pulses. Neuro:The patient is awake and alert but only oriented to person. Muscle strength is 5/5 in all 4 extremities. The patient has equal pricing clerk strength and equal pedal push and pull. There are no cerebellar signs. The patient is uncoordinated with the right arm. He could not do [id number] with the right upper extremity. Cranial nerves II through XII are grossly intact except for the right sided mouth droop. Emergency department course: The patient was evaluated in room A-3. A complete history and physical was performed. An IV lock was initiated and labs were drawn as above. Patient went for CT scan of the brain and CTA of the head and neck. A twelve-lead EKG was obtained. I kept the patient's sons abreast of the situation. I discussed the case with the [facility] Hospitalist and they will evaluate for further inpatient care. Past Med/Surg History Medical History Cerebral cavernoma Chronic lower back pain Chronic subdural hematoma CKD (chronic kidney disease) History of prostate cancer History of stroke HTN (hypertension) Nerve disorder, cranial Poor historian Trigeminal neuralgia Surgical History History of left cataract surgery History of prostate biopsy Hx of inguinal hernia repair Family History Mother Primary Parkinson's disease Father No problems noted. 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 [employer] Feels Safe at Home: Yes Assistive Devices: None Allergies Allergies Allergy/AdvReac Type Severity Reaction Status Date / Time No Known Allergies Allergy Verified 12/19/22 10:01 Home Meds Home Medications Medication Instructions Recorded Confirmed aspirin 81 mg tablet,delayed 81 mg PO HS 04/13/20 12/19/22 release bimatoprost 0.01 % eye drops 1 drp OPB BID 07/30/21 12/19/22 (Lumigan) brimonidine 0.1 % eye drops 1 drp OPB BID 07/30/21 12/19/22 (Alphagan P) cyanocobalamin (vitamin B-12) 1,000 mcg PO BID 07/30/21 12/19/22 1,000 mcg capsule atorvastatin 80 mg tablet 80 mg PO DAILY 12/19/22 12/19/22 calcium carbonate 400 mg calcium 800 mg PO Q8H PRN 12/19/22 12/19/22 (1,000 mg) chewable tablet famotidine 20 mg tablet 20 mg PO DAILY 12/19/22 12/19/22 levothyroxine 50 mcg tablet 50 mcg PO DAILY 12/19/22 12/19/22 Previous Rx's Medication Instructions Recorded memantine 10 mg tablet 10 mg PO BID #60 tabs 03/31/22 donepezil 5 mg tablet 5 mg PO BID #60 tabs 08/23/22 oxcarbazepine 150 mg tablet 150 mg PO BID #60 tabs 10/09/22 cholecalciferol (vitamin D3) 1,250 50,000 unit PO .weekly #14 caps 12/19/22 mcg (50,000 unit) capsule Results & Data (ED) Vital Signs Vital Signs - 24 hr 03/26/23 02:37 03/26/23 02:38 03/26/23 03:49 Temperature 36.8 C Temperature Source Oral Pulse Rate 79 66 Pulse Rate [Apical] 76 Pulse Strength [Apical] Normal Respiratory Rate 18 18 Respiratory Effort / Characteristics Non-Labored Non-Labored Respiratory Depth Normal Normal Respiratory Pattern Regular Regular Blood Pressure 163/91 H Blood Pressure [Right Arm] 157/86 H Blood Pressure Mean 115 Blood Pressure Mean [Right Arm] 109 Pulse Oximetry 97 99 Oxygen Delivery Method Room Air Room Air Sepsis Recent Fever Within 48 Hours No Sepsis New/Unexplained Change in Mental Status Yes Sepsis Action Taken by Nursing No Action Required 03/26/23 05:00 03/26/23 05:30 Temperature Temperature Source Pulse Rate 75 80 Pulse Rate [Apical] Pulse Strength [Apical] Respiratory Rate 17 Respiratory Effort / Characteristics Respiratory Depth Respiratory Pattern Blood Pressure 150/97 H Blood Pressure [Right Arm] Blood Pressure Mean 114 Blood Pressure Mean [Right Arm] Pulse Oximetry Oxygen Delivery Method Sepsis Recent Fever Within 48 Hours Sepsis New/Unexplained Change in Mental Status Sepsis Action Taken by Nursing Laboratory Data 03/26/23 02:48 03/26/23 02:48 Lab Results 03/26/23 03/26/23 03/26/23 Range/Units 02:36 02:47 02:48 WBC 11.16 H (4.8-10.8) K/ul RBC 4.91 (4.70-6.10) M/uL Hgb 15.0 (14.0-18.0) g/dl POC Hgb 15.3 (14.0-18.0) g/dl Hct 46.6 (42.0-52.0) % POC Hct 45 (42-52) % MCV 94.9 (80.0-100.0) fL MCH 30.5 (25.0-34.0) pg MCHC 32.2 (32.0-36.0) g/dL RDW Std Deviation 48.8 H (36.4-46.3) fL RDW Coeff of Chintan 13.9 (11.5-14.5) % Plt Count 144 (130-400) K/uL MPV 9.4 (9.4-12.4) fL Immature Gran % (Auto) 0.7 % Neut % (Auto) 84.5 % Lymph % (Auto) 8.0 % Hitchcock % (Auto) 6.0 % Eos % (Auto) 0.4 % Baso % (Auto) 0.4 % Neut # (Auto) 9.43 H (1.40-6.50) K/uL Lymph # (Auto) 0.89 L (1.20-3.40) K/uL Hitchcock # (Auto) 0.67 H (0.11-0.59) K/uL Eos # (Auto) 0.04 (0.00-0.50) K/uL Baso # (Auto) 0.05 (0.00-0.20) K/uL Immature Gran # (Auto) 0.08 (0.01-0.20) K/uL PT 12.2 H (9.0-12.0) Seconds INR 1.1 (0.9-1.1) APTT 25 (21-31) Seconds PTT Ratio 0.9 POC Sodium 145 H (135-144) mmol/L Sodium 143 (136-145) mmol/L POC Potassium 4.2 (3.3-5.0) mmol/L Potassium 4.3 (3.5-5.1) mmol/L POC Chloride 109 (101-112) mmol/L Chloride 110 H (98-107) mmol/L Carbon Dioxide 25 (21-32) mmol/L POC Total CO2 23 L (24-31) mmol/L Anion Gap 8 (3-11) POC Anion Gap 19.0 (16-25) mmol/L POC BUN 21 H (7-18) mg/dl BUN 24 H (6-23) mg/dl Creatinine 1.24 (0.6-1.4) mg/dl POC Creatinine 1.2 (0.6-1.3) mg/dl Est Cr Clr Drug Dosing 55.9 ml/min Est GFR ( Amer) 62.8 ml/min Est GFR (Non-Af Amer) 54.2 ml/min BUN/Creatinine Ratio 19.4 (10-20) Glucose 136 H (70-99(Fasting)) mg/dl POC Glucose 125 H (70-99) mg/dl POC Glucose (other) 136 H (70-99) mg/dl Calcium 9.7 (8.6-10.3) mg/dl POC Ioniz Calcium Anamaria 1.24 (1.12-1.32) mmol/l Magnesium 2.1 (1.7-2.4) mg/dl Total Bilirubin 0.6 (0.2-1.0) mg/dl AST 16 (13-39) U/L ALT 14 (7-52) U/L Alkaline Phosphatase 93 (34-104) U/L Troponin I High Sens 61.5 H* (0-20) pg/ml Total Protein 6.8 (6.0-8.3) gm/dl Albumin 4.0 (3.4-5.0) gm/dl Globulin 2.8 (2.5-4.0) gm/dl Albumin/Globulin Ratio 1.4 (0.9-2) Blood Type Antibody Screen 03/26/23 03/26/23 Range/Units 03:37 04:33 WBC (4.8-10.8) K/ul RBC (4.70-6.10) M/uL Hgb (14.0-18.0) g/dl POC Hgb (14.0-18.0) g/dl Hct (42.0-52.0) % POC Hct (42-52) % MCV (80.0-100.0) fL MCH (25.0-34.0) pg MCHC (32.0-36.0) g/dL RDW Std Deviation (36.4-46.3) fL RDW Coeff of Chintan (11.5-14.5) % Plt Count (130-400) K/uL MPV (9.4-12.4) fL Immature Gran % (Auto) % Neut % (Auto) % Lymph % (Auto) % Hitchcock % (Auto) % Eos % (Auto) % Baso % (Auto) % Neut # (Auto) (1.40-6.50) K/uL Lymph # (Auto) (1.20-3.40) K/uL Hitchcock # (Auto) (0.11-0.59) K/uL Eos # (Auto) (0.00-0.50) K/uL Baso # (Auto) (0.00-0.20) K/uL Immature Gran # (Auto) (0.01-0.20) K/uL PT (9.0-12.0) Seconds INR (0.9-1.1) APTT (21-31) Seconds PTT Ratio POC Sodium (135-144) mmol/L Sodium (136-145) mmol/L POC Potassium (3.3-5.0) mmol/L Potassium (3.5-5.1) mmol/L POC Chloride (101-112) mmol/L Chloride (98-107) mmol/L Carbon Dioxide (21-32) mmol/L POC Total CO2 (24-31) mmol/L Anion Gap (3-11) POC Anion Gap (16-25) mmol/L POC BUN (7-18) mg/dl BUN (6-23) mg/dl Creatinine (0.6-1.4) mg/dl POC Creatinine (0.6-1.3) mg/dl Est Cr Clr Drug Dosing ml/min Est GFR ( Amer) ml/min Est GFR (Non-Af Amer) ml/min BUN/Creatinine Ratio (10-20) Glucose (70-99(Fasting)) mg/dl POC Glucose (70-99) mg/dl POC Glucose (other) (70-99) mg/dl Calcium (8.6-10.3) mg/dl POC Ioniz Calcium Anamaria (1.12-1.32) mmol/l Magnesium (1.7-2.4) mg/dl Total Bilirubin (0.2-1.0) mg/dl AST (13-39) U/L ALT (7-52) U/L Alkaline Phosphatase (34-104) U/L Troponin I High Sens 68.0 H* (0-20) pg/ml Total Protein (6.0-8.3) gm/dl Albumin (3.4-5.0) gm/dl Globulin (2.5-4.0) gm/dl Albumin/Globulin Ratio (0.9-2) Blood Type A Positive Antibody Screen NEGATIVE Administered Medications Discontinued Medications Ioversol (Optiray 320 125ml) 125 ml IV ONCE ONE Stop: 03/26/23 03:28 Last Admin: 03/26/23 03:27 Dose: 115 ml Documented By: [facility] Imaging Data Radiologist's Impression: Head CT 03/26/23 02:57 Exam(s): CT HEAD Without Contrast EXAM: CT Head Without Intravenous Contrast CLINICAL HISTORY: Reason for exam: neuro deficit, acute stroke suspected. TECHNIQUE: Axial computed tomography images of the head/brain without intravenous contrast. CTDI is 35.65 mGy and DLP is 624.41 mGy-cm. Automated exposure control was utilized for the study. A dose lowering technique was utilized adhering to the principles of ALARA. COMPARISON: Comparison made to prior head CT from July 30, 2021. 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 No hemorrhage. Mild nonspecific white matter changes. No edema. Ventricles: Mild ventriculomegaly. Bones/joints: Unremarkable. No acute fracture. Soft tissues: Bilateral lens replacements. Sinuses: Chronic left maxillary sinusitis. No acute sinusitis. Mastoid air cells: Unremarkable as visualized. No mastoid effusion. IMPRESSION: No evidence of acute intracranial pathology. Electronically signed by: Valerie Butler MD 03/26/23 04:53 AM Head CTA 03/26/23 02:57 CR Exam(s): CTA HEAD With Contrast IV Amt: 115 ml optiray 320 EXAM: CT Angiography Head With Intravenous Contrast CLINICAL HISTORY: Reason for exam: neuro deficit, acute stroke suspected. TECHNIQUE: Axial computed tomographic angiography images of the head with intravenous contrast. CTDI is 13.12 mGy and DLP is 479.45 mGy-cm. Automated exposure control was utilized for the study. A dose lowering technique was utilized adhering to the principles of ALARA. MIP reconstructed images were created and reviewed. CONTRAST: Patient received 115 ml optiray 320 of IV contrast COMPARISON: No relevant prior studies available. FINDINGS: The dural venous sinuses are patent. Right internal carotid artery: No acute findings. Intracranial segment is patent with no significant stenosis. No aneurysm. Right anterior cerebral artery: Unremarkable. No occlusion or significant stenosis. No aneurysm. Right middle cerebral artery: There is a high-grade stenosis of 2 proximal right M2 segment with diminished enhancement of the distal vessel. No aneurysm. Right posterior cerebral artery: Unremarkable. No occlusion or significant stenosis. No aneurysm. Right vertebral artery: Unremarkable as visualized. Left internal carotid artery: No acute findings. Intracranial segment is patent with no significant stenosis. No aneurysm. Left anterior cerebral artery: Unremarkable. No occlusion or significant stenosis. No aneurysm. Left middle cerebral artery: Unremarkable. No occlusion or significant stenosis. No aneurysm. Left posterior cerebral artery: Unremarkable. No occlusion or significant stenosis. No aneurysm. Left vertebral artery: Unremarkable as visualized. Basilar artery: Unremarkable. No occlusion or significant stenosis. No aneurysm. IMPRESSION: High-grade stenosis of 2 proximal right M2 segments with diminished enhancement of the distal vessels concerning for acute thromboembolic disease. Communications: Verify Receipt Electronically signed by: Valerie Butler MD 03/26/23 05:01 AM Neck CTA 03/26/23 02:57 Exam(s): CTA NECK With Contrast IV Amt: 115 ml optiray 320 EXAM: CT Angiography Neck With Intravenous Contrast CLINICAL HISTORY: Reason for exam: neuro deficit, acute stroke suspected. TECHNIQUE: Routine carotid CT angiography protocol was performed with intravenous contrast. NASCET criteria using the distal ICAs for comparison were used for evaluation of stenoses. CTDI is 13.12 mGy and DLP is 479.45 mGy-cm. Automated exposure control was utilized for the study. A dose lowering technique was utilized adhering to the principles of ALARA. MIP reconstructed images were created and reviewed. CONTRAST: Patient received 115 ml optiray 320 of IV contrast COMPARISON: Comparison made to prior CT angiogram of the neck from June 14, 2021. FINDINGS: VASCULATURE: Right common carotid artery: Unremarkable. No occlusion or significant stenosis. No dissection. Right internal carotid artery: Unremarkable. Extracranial segment is patent with no occlusion or significant stenosis. No dissection. Right external carotid artery: Unremarkable. No occlusion. Right vertebral artery: Unremarkable. No occlusion or significant stenosis. No dissection. Left common carotid artery: Unremarkable. No occlusion or significant stenosis. No dissection. Left internal carotid artery: Unremarkable. Extracranial segment is patent with no occlusion or significant stenosis. No dissection. Left external carotid artery: Unremarkable. No occlusion. Left vertebral artery: Unremarkable. No occlusion or significant stenosis. No dissection. NECK: Bones/joints: Moderate to advanced disc degeneration at C3-4, C4-5, C5- 6 and C6-7. Large dental caries of tooth #17 and pulpitis of tooth #14. Recommend dental consult. No acute fracture. Soft tissues: Prominent mediastinal lymph nodes. Prominent cervical lymph nodes. Lung apices: Bronchitis with pneumonitis, which may be infectious or inflammatory etiologies. CAROTID STENOSIS REFERENCE USING NASCET CRITERIA: % ICA stenosis = (1 - narrowest ICA diameter/diameter of distal cervical ICA) x 100. Mild - <50% stenosis. Moderate - 50-69% stenosis. Severe - 70-94% stenosis. Near occlusion - 95-99% stenosis. Occluded - 100% stenosis. IMPRESSION: Negative CTA neck. Electronically signed by: Valerie Butler MD 03/26/23 05:14 AM Discharge Plan Visit Data Chief Complaint: TIA Symptoms Stated Complaint: TIA SYMPTOMS ED Provider: Echo Crowell Discharge Problem: Acute cerebrovascular accident (CVA) Forms Stand Alone Forms: My [facility] [employer] Prescriptions Prescriptions: No Action oxcarbazepine 150 mg tablet 150 mg PO BID Qty: 60 5RF donepezil 5 mg tablet 5 mg PO BID Qty: 60 2RF memantine 10 mg tablet 10 mg PO BID Qty: 60 5RF atorvastatin 80 mg tablet 80 mg PO DAILY calcium carbonate 400 mg calcium (1,000 mg) tablet,chewable 800 mg PO Q8H PRN famotidine 20 mg tablet 20 mg PO DAILY levothyroxine 50 mcg tablet 50 mcg PO DAILY cholecalciferol (vitamin D3) 1,250 mcg (50,000 unit) capsule 50,000 unit PO .weekly Qty: 14 2RF aspirin 81 mg tablet,delayed release (DR/EC) 81 mg PO HS Patient Comments: Takes on irregular basis cyanocobalamin (vitamin B-12) 1,000 mcg capsule 1,000 mcg PO BID Alphagan P 0.1 % drops 1 drp OPB BID Lumigan 0.01 % drops 1 drp OPB BID Referrals Referrals: Pancho Mohr [Primary Care Provider] -
--- NOTE | 2023-03-26 06:10 | History & Physical Report ---
Date of Service March 26, 2023 History of Present Illness Primary Care Provider: Pancho Mohr Allergies Allergy/AdvReac Type Severity Reaction Status Date / Time No Known Allergies Allergy Verified 12/19/22 10:01 Home Medications Medication Instructions Recorded Confirmed Type aspirin 81 mg tablet,delayed 81 mg PO HS 04/13/20 12/19/22 History release bimatoprost 0.01 % eye drops 1 drp OPB BID 07/30/21 12/19/22 History (Lumigan) brimonidine 0.1 % eye drops 1 drp OPB BID 07/30/21 12/19/22 History (Alphagan P) cyanocobalamin (vitamin B-12) 1,000 mcg PO BID 07/30/21 12/19/22 History 1,000 mcg capsule memantine 10 mg tablet 10 mg PO BID #60 tabs 03/31/22 12/19/22 Rx donepezil 5 mg tablet 5 mg PO BID #60 tabs 08/23/22 12/19/22 Rx oxcarbazepine 150 mg tablet 150 mg PO BID #60 tabs 10/09/22 12/19/22 Rx atorvastatin 80 mg tablet 80 mg PO DAILY 12/19/22 12/19/22 History calcium carbonate 400 mg calcium 800 mg PO Q8H PRN 12/19/22 12/19/22 History (1,000 mg) chewable tablet cholecalciferol (vitamin D3) 1,250 50,000 unit PO .weekly #14 caps 12/19/22 12/19/22 Rx mcg (50,000 unit) capsule famotidine 20 mg tablet 20 mg PO DAILY 12/19/22 12/19/22 History levothyroxine 50 mcg tablet 50 mcg PO DAILY 12/19/22 12/19/22 History Past Med/Surg History Medical History Cerebral cavernoma Chronic lower back pain Chronic subdural hematoma CKD (chronic kidney disease) History of prostate cancer History of stroke HTN (hypertension) Nerve disorder, cranial Poor historian Trigeminal neuralgia Surgical History History of left cataract surgery History of prostate biopsy Hx of inguinal hernia repair Family History Mother Primary Parkinson's disease Father No problems noted. 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 Feels Safe at Home: Yes Assistive Devices: None Results & Data Results & Data Vital Signs (Past 12 Hours) Vital Signs Temp Pulse Pulse Resp BP BP Pulse Ox 03/26/23 05:30 80 17 150/97 H 03/26/23 05:00 75 03/26/23 03:49 76 18 157/86 H 99 03/26/23 02:38 66 03/26/23 02:37 36.8 C 79 18 163/91 H 97 O2 Del Method 03/26/23 05:30 03/26/23 05:00 03/26/23 03:49 Room Air 03/26/23 02:38 03/26/23 02:37 Room Air PG Care Time/CCT Total # of Minutes Spent Total Time Spent with Patient: Total time spent is greater than 50% in coordination of care (as documented) at patient's floor/unit and/or counseling patient: Coding
[2023-03-26] MEDS ORDERED: PHARMACIST DISCHARGE MED REC CONSULT PRN (08:12)
[2023-03-26] MEDS ORDERED: ACETAMINOPHEN 325 MG TAB PO PRN (08:12)
[2023-03-26] MEDS ORDERED: ONDANSETRON INJ 2 MG/ML 2 ML VIAL IV PRN (08:12)
[2023-03-26] MEDS: DONEPEZIL HCL 5 MG TAB PO SCH ×2 (09:01→20:34)
[2023-03-26] MEDS: ATORVASTATIN 40 MG TAB PO SCH (09:01)
[2023-03-26] MEDS: OXcarbazepine 150 MG TABLET PO SCH ×2 (09:02→20:35)
[2023-03-26] MEDS: FAMOTIDINE 20 MG TAB PO SCH (09:02)
[2023-03-26] MEDS: MEMANTINE HCL 10 MG TAB PO SCH ×2 (09:02→20:34)
[2023-03-26] MEDS: LEVOTHYROXINE SODIUM 50 MCG TABLET PO SCH (09:02)
--- NOTE | 2023-03-26 09:39 | History & Physical Report ---
Date of Service March 26, 2023 Assessment & Plan (1) Acute cerebrovascular accident (CVA): Plan: Patient presented with symptoms of stroke including right-arm weakness, right- sided facial droop, slurred speech CT head negative CTA neck negative CTA brain showed right M2 high-grade stenosis MRI brain ordered Neurology consulted Patient is already on aspirin 81 mg and Lipitor 80 mg. Will continue. Stroke workup in progress: Telemetry monitoring, echo pending, MRI brain pending PT/OT consulted Speech therapy consulted (2) Physical deconditioning: Plan: PT/OT consulted (3) Dementia: Plan: Continue Namenda and donepezil (4) Hx of subdural hematoma: Plan: Not a candidate for TKNase due to history of subdural hematoma Continue baby aspirin (5) Trigeminal neuralgia: Plan: Continue Trileptal (6) Elevated troponin: Plan: No chest pain Troponins flat EKG unremarkable Echocardiogram ordered Most likely demand ischemia Plan Full code DVT prophylaxis: Lovenox Admission and Anticipated Discharge Date Admission Date: March 26, 2023 History of Present Illness Chief Complaint: Right facial droop, right arm weakness Primary Care Provider: Pancho Mohr This is an 82-year-old male, resident at [facility], who presented to the ED after being found down by the staff at [facility] with a chief. He was found on the ground at 1:35 AM, per documentation. He was noted to have a right-sided facial droop and was unable to move his right arm. He also was noted to have a slurred speech. And thus he was transferred to the ER. In the ER he had an initial workup. CT brain was unremarkable. CT A neck was unremarkable. CTA brain showed high-grade stenosis of right M2. Troponin was mildly elevated at 61. Twelve-lead EKG was unremarkable. He was deemed to be not a candidate for TNKase because of a history of chronic subdurals and since his last known well time was unknown. Moreover, his symptoms seem to be improving with improving weakness. The patient denies any chest pain, shortness of breath. Past medical history 1. Dementia, on donepezil and Namenda 2. Trigeminal neuralgia 3. Gait instability 4. History of subdural hematoma 5. CKD 6. History of prostate cancer status post radiation Allergies Allergy/AdvReac Type Severity Reaction Status Date / Time No Known Allergies Allergy Verified 12/19/22 10:01 Home Medications Medication Instructions Recorded Confirmed Type aspirin 81 mg tablet,delayed 81 mg PO HS 04/13/20 12/19/22 History release bimatoprost 0.01 % eye drops 1 drp OPB BID 07/30/21 12/19/22 History (Lumigan) brimonidine 0.1 % eye drops 1 drp OPB BID 07/30/21 12/19/22 History (Alphagan P) cyanocobalamin (vitamin B-12) 1,000 mcg PO BID 07/30/21 12/19/22 History 1,000 mcg capsule memantine 10 mg tablet 10 mg PO BID #60 tabs 03/31/22 12/19/22 Rx donepezil 5 mg tablet 5 mg PO BID #60 tabs 08/23/22 12/19/22 Rx oxcarbazepine 150 mg tablet 150 mg PO BID #60 tabs 10/09/22 12/19/22 Rx atorvastatin 80 mg tablet 80 mg PO DAILY 12/19/22 12/19/22 History calcium carbonate 400 mg calcium 800 mg PO Q8H PRN 12/19/22 12/19/22 History (1,000 mg) chewable tablet cholecalciferol (vitamin D3) 1,250 50,000 unit PO .weekly #14 caps 12/19/22 12/19/22 Rx mcg (50,000 unit) capsule famotidine 20 mg tablet 20 mg PO DAILY 12/19/22 12/19/22 History levothyroxine 50 mcg tablet 50 mcg PO DAILY 12/19/22 12/19/22 History Past Med/Surg History Medical History CKD (chronic kidney disease) History of stroke listed above - pt denies hx stroke; poor historian. denies following with neurology but office visit in [facility] from 12/2020 Chronic lower back pain History of prostate cancer dx'd 2-3 years ago; s/p radiation Poor historian HTN (hypertension) no meds - PCP monitors Cerebral cavernoma pt denies Chronic subdural hematoma pt denies Nerve disorder, cranial f/u with Dr. Marcelino--per pt's son Michael Trigeminal neuralgia f/u with Dr. Marcelino--per pt's son Michael Surgical History Hx of inguinal hernia repair History of left cataract surgery History of prostate biopsy Family History Mother Primary Parkinson's disease Father No problems noted. 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 AOx3. Noted to be slightly forgetful. He could not remember the name of the place that he lives in. Pupils: Equally reactive to light and accommodation Neck: No masses, no thyromegaly Respiration: Clear to auscultation bilaterally. Normal effort Cardiovascular: S1-S2/regular rate and rhythm. No murmur, rubs or gallop. No edema. Abdomen: Soft, nontender, nondistended. No hepatosplenomegaly Musculoskeletal: No clubbing, no cyanosis, normal range of motion Skin: No rashes, no nodules Neuro exam:sensation grossly intact. Right upper extremity 4/5. Left upper extremity 5/5. Bilateral lower extremity 5/5. Right-sided facial droop noted Psychiatric: Patient has good judgment and insight. AOx3. Mood and affect appear normal Lymphatics: No cervical or axillary lymphadenopathy noted Results & Data Results & Data Vital Signs (Past 12 Hours) Vital Signs Temp Pulse Pulse Resp BP BP Pulse Ox 03/26/23 08:40 77 12 154/99 H 98 03/26/23 08:10 66 03/26/23 07:29 03/26/23 07:29 36.9 C 80 19 143/67 H 95 03/26/23 07:00 36.8 C 92 H 21 143/67 H 98 03/26/23 06:42 63 03/26/23 06:40 82 21 03/26/23 06:30 68 16 139/92 98 03/26/23 06:00 82 20 147/104 H 99 03/26/23 05:30 80 17 150/97 H 03/26/23 05:00 75 03/26/23 03:49 76 18 157/86 H 99 03/26/23 02:38 66 03/26/23 02:37 36.8 C 79 18 163/91 H 97 O2 Del Method 03/26/23 08:40 Room Air 03/26/23 08:10 03/26/23 07:29 Room Air 03/26/23 07:29 Room Air 03/26/23 07:00 Room Air 03/26/23 06:42 03/26/23 06:40 03/26/23 06:30 03/26/23 06:00 03/26/23 05:30 03/26/23 05:00 03/26/23 03:49 Room Air 03/26/23 02:38 03/26/23 02:37 Room Air Laboratory Results Abnormal lab results 03/26/23 03/26/23 03/26/23 Range/Units 02:36 02:47 02:48 WBC 11.16 H (4.8-10.8) K/ul RDW Std Deviation 48.8 H (36.4-46.3) fL Neut # (Auto) 9.43 H (1.40-6.50) K/uL Lymph # (Auto) 0.89 L (1.20-3.40) K/uL Mariposa # (Auto) 0.67 H (0.11-0.59) K/uL PT 12.2 H (9.0-12.0) Seconds POC Sodium 145 H (135-144) mmol/L Chloride 110 H (98-107) mmol/L POC Total CO2 23 L (24-31) mmol/L POC BUN 21 H (7-18) mg/dl BUN 24 H (6-23) mg/dl Glucose 136 H (70-99(Fasting)) mg/dl POC Glucose 125 H (70-99) mg/dl POC Glucose (other) 136 H (70-99) mg/dl Troponin I High Sens 61.5 H* (0-20) pg/ml 03/26/23 Range/Units 04:33 WBC (4.8-10.8) K/ul RDW Std Deviation (36.4-46.3) fL Neut # (Auto) (1.40-6.50) K/uL Lymph # (Auto) (1.20-3.40) K/uL Mar[place] # (Auto) (0.11-0.59) K/uL PT (9.0-12.0) Seconds POC Sodium (135-144) mmol/L Chloride (98-107) mmol/L POC Total CO2 (24-31) mmol/L POC BUN (7-18) mg/dl BUN (6-23) mg/dl Glucose (70-99(Fasting)) mg/dl POC Glucose (70-99) mg/dl POC Glucose (other) (70-99) mg/dl Troponin I High Sens 68.0 H* (0-20) pg/ml Diagnostic Findings Head CT 03/26/23 02:57 Exam(s): CT HEAD Without Contrast EXAM: CT Head Without Intravenous Contrast CLINICAL HISTORY: Reason for exam: neuro deficit, acute stroke suspected. TECHNIQUE: Axial computed tomography images of the head/brain without intravenous contrast. CTDI is 35.65 mGy and DLP is 624.41 mGy-cm. Automated exposure control was utilized for the study. A dose lowering technique was utilized adhering to the principles of ALARA. COMPARISON: Comparison made to prior head CT from July 30, 2021. 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 No hemorrhage. Mild nonspecific white matter changes. No edema. Ventricles: Mild ventriculomegaly. Bones/joints: Unremarkable. No acute fracture. Soft tissues: Bilateral lens replacements. Sinuses: Chronic left maxillary sinusitis. No acute sinusitis. Mastoid air cells: Unremarkable as visualized. No mastoid effusion. IMPRESSION: No evidence of acute intracranial pathology. Electronically signed by: Valerie Butler MD 03/26/23 04:53 AM Head CTA 03/26/23 02:57 CR Exam(s): CTA HEAD With Contrast IV Amt: 115 ml optiray 320 EXAM: CT Angiography Head With Intravenous Contrast CLINICAL HISTORY: Reason for exam: neuro deficit, acute stroke suspected. TECHNIQUE: Axial computed tomographic angiography images of the head with intravenous contrast. CTDI is 13.12 mGy and DLP is 479.45 mGy-cm. Automated exposure control was utilized for the study. A dose lowering technique was utilized adhering to the principles of ALARA. MIP reconstructed images were created and reviewed. CONTRAST: Patient received 115 ml optiray 320 of IV contrast COMPARISON: No relevant prior studies available. FINDINGS: The dural venous sinuses are patent. Right internal carotid artery: No acute findings. Intracranial segment is patent with no significant stenosis. No aneurysm. Right anterior cerebral artery: Unremarkable. No occlusion or significant stenosis. No aneurysm. Right middle cerebral artery: There is a high-grade stenosis of 2 proximal right M2 segment with diminished enhancement of the distal vessel. No aneurysm. Right posterior cerebral artery: Unremarkable. No occlusion or significant stenosis. No aneurysm. Right vertebral artery: Unremarkable as visualized. Left internal carotid artery: No acute findings. Intracranial segment is patent with no significant stenosis. No aneurysm. Left anterior cerebral artery: Unremarkable. No occlusion or significant stenosis. No aneurysm. Left middle cerebral artery: Unremarkable. No occlusion or significant stenosis. No aneurysm. Left posterior cerebral artery: Unremarkable. No occlusion or significant stenosis. No aneurysm. Left vertebral artery: Unremarkable as visualized. Basilar artery: Unremarkable. No occlusion or significant stenosis. No aneurysm. IMPRESSION: High-grade stenosis of 2 proximal right M2 segments with diminished enhancement of the distal vessels concerning for acute thromboembolic disease. Communications: Verify Receipt Electronically signed by: Valerie Butler MD 03/26/23 05:01 AM Neck CTA 03/26/23 02:57 Exam(s): CTA NECK With Contrast IV Amt: 115 ml optiray 320 EXAM: CT Angiography Neck With Intravenous Contrast CLINICAL HISTORY: Reason for exam: neuro deficit, acute stroke suspected. TECHNIQUE: Routine carotid CT angiography protocol was performed with intravenous contrast. NASCET criteria using the distal ICAs for comparison were used for evaluation of stenoses. CTDI is 13.12 mGy and DLP is 479.45 mGy-cm. Automated exposure control was utilized for the study. A dose lowering technique was utilized adhering to the principles of ALARA. MIP reconstructed images were created and reviewed. CONTRAST: Patient received 115 ml optiray 320 of IV contrast COMPARISON: Comparison made to prior CT angiogram of the neck from June 14, 2021. FINDINGS: VASCULATURE: Right common carotid artery: Unremarkable. No occlusion or significant stenosis. No dissection. Right internal carotid artery: Unremarkable. Extracranial segment is patent with no occlusion or significant stenosis. No dissection. Right external carotid artery: Unremarkable. No occlusion. Right vertebral artery: Unremarkable. No occlusion or significant stenosis. No dissection. Left common carotid artery: Unremarkable. No occlusion or significant stenosis. No dissection. Left internal carotid artery: Unremarkable. Extracranial segment is patent with no occlusion or significant stenosis. No dissection. Left external carotid artery: Unremarkable. No occlusion. Left vertebral artery: Unremarkable. No occlusion or significant stenosis. No dissection. NECK: Bones/joints: Moderate to advanced disc degeneration at C3-4, C4-5, C5- 6 and C6-7. Large dental caries of tooth #17 and pulpitis of tooth #14. Recommend dental consult. No acute fracture. Soft tissues: Prominent mediastinal lymph nodes. Prominent cervical lymph nodes. Lung apices: Bronchitis with pneumonitis, which may be infectious or inflammatory etiologies. CAROTID STENOSIS REFERENCE USING NASCET CRITERIA: % ICA stenosis = (1 - narrowest ICA diameter/diameter of distal cervical ICA) x 100. Mild - <50% stenosis. Moderate - 50-69% stenosis. Severe - 70-94% stenosis. Near occlusion - 95-99% stenosis. Occluded - 100% stenosis. IMPRESSION: Negative CTA neck. Electronically signed by: Valerie Butler MD 03/26/23 05:14 AM PG Care Time/CCT Total # of Minutes Spent Total Time Spent with Patient: Total time spent is greater than 50% in coordination of care (as documented) at patient's floor/unit and/or counseling patient: Coding Level of Care Code 51642 INT INP/OBS CARE 2/55MIN Diagnoses Acute cerebrovascular accident (CVA) I63.9 Physical deconditioning R53.81 Dementia F03.90 Hx of subdural hematoma Z86.79 Trigeminal neuralgia G50.0 Elevated troponin R79.89
--- NOTE | 2023-03-26 11:46 | Neurology Consultation ---
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 He has a history of hypertension and previous small right frontal stroke in the past currently on 81 mg aspirin daily. The patient seems to have had a small left hemispheric stroke involving some right facial droop and right hand clumsiness/weakness. Speech seems unaffected. He has high-grade stenosis in the right M2 segment on CT angiography of the head, which is the opposite side for the stroke. There are no vascular abnormalities on the left. Therefore this is likely small vessel ischemic disease and related to hypertension He has a history of left V2 trigeminal neuralgia completely controlled on oxcarbazepine 150 mg twice daily. 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 Recommendations: 1. Continue memantine 10 mg twice a day and donepezil 5 mg twice a day for his dementia. 2. MRI of the brain to evaluate for acute stroke. Compared to previous MRIs 3. Consider 75 mg clopidogrel instead of 81 mg aspirin to prevent strokes. 4. Awaiting fasting lipid profile, hemoglobin A1c, and echocardiogram. Overall, I spent a total of 75 minutes with this case including review of records, review of previous MRI and CT films, direct evaluation the patient at bedside, report generation, and discussion of the case with the patient, RN, and family at bedside, as well as Dr. Pang including differential diagnosis and treatment options. History of Present Illness Reason for Consultation: Patient is an 82-year-old, who I was asked to see at the request of Dr. Justice, for neurologic evaluation regarding probable stroke. His son Alvaro and niece Emerald are present at bedside to offer history. Requesting Physician: Dr. Thomas Attending Physician: Neel Pang MD History of Present Illness I first saw this patient in June 2021. He was in the hospital and had acute confusion. He was being followed by Dr. Marcelino for left V2 trigeminal neuralgia since 2012. Apparently the patient had a tiny right frontal acute stroke in February 2017 as well as a incidental tiny venous anomalies (cavernomas) in the left cerebellar hemisphere and left cerebellar peduncle. The MRI showed no reasons or changes compared to previous MRIs to explain his acute confusion. I believe the patient had dementia. His face pain was under control. He last was seen in our office in December 2022 and was stable with a diagnosis of dementia on Namenda 10 mg twice a day and donepezil 5 mg a day. For the last 1-1/2 years he has been at [facility]. He is currently in the memory unit. According to family, he has been progressively worse with dementia particularly over the last year. He was found on the floor by his bed at [facility] around 0135 today. He had weakness of the right arm and face and slurred speech. He arrived emergency room at 0237 with a temperature of 36.8, pulse 79 regular, respiratory rate 18, blood pressure 163/91, and O2 saturation 97%. In the emergency room he was noted to have some decreased coordination of the right upper extremity and facial droop. CBC and CHEM profile were unremarkable. Troponin was increased. CT scan of the head was unremarkable. CT angiography of the head showed a significant stenosis in the right M2 segment. CT angiography of the neck was unremarkable. Family feels he is more confused today than he was at baseline typically. He denies pain, headache, dizziness, weakness, numbness, or vision problems. Allergies Allergy/AdvReac Type Severity Reaction Status Date / Time No Known Allergies Allergy Verified 12/19/22 10:01 Home Medications Medication Instructions Recorded Confirmed Type aspirin 81 mg tablet,delayed 81 mg PO HS 04/13/20 12/19/22 History release bimatoprost 0.01 % eye drops 1 drp OPB BID 07/30/21 12/19/22 History (Lumigan) brimonidine 0.1 % eye drops 1 drp OPB BID 07/30/21 12/19/22 History (Alphagan P) cyanocobalamin (vitamin B-12) 1,000 mcg PO BID 07/30/21 12/19/22 History 1,000 mcg capsule memantine 10 mg tablet 10 mg PO BID #60 tabs 03/31/22 12/19/22 Rx donepezil 5 mg tablet 5 mg PO BID #60 tabs 08/23/22 12/19/22 Rx oxcarbazepine 150 mg tablet 150 mg PO BID #60 tabs 10/09/22 12/19/22 Rx atorvastatin 80 mg tablet 80 mg PO DAILY 12/19/22 12/19/22 History calcium carbonate 400 mg calcium 800 mg PO Q8H PRN 12/19/22 12/19/22 History (1,000 mg) chewable tablet cholecalciferol (vitamin D3) 1,250 50,000 unit PO .weekly #14 caps 12/19/22 12/19/22 Rx mcg (50,000 unit) capsule famotidine 20 mg tablet 20 mg PO DAILY 12/19/22 12/19/22 History levothyroxine 50 mcg tablet 50 mcg PO DAILY 12/19/22 12/19/22 History Patient History Medical History CKD (chronic kidney disease) History of stroke listed above - pt denies hx stroke; poor historian. denies following with neurology but office visit in [facility] from 12/2020 Chronic lower back pain History of prostate cancer dx'd 2-3 years ago; s/p radiation Poor historian HTN (hypertension) no meds - PCP monitors Cerebral cavernoma pt denies Chronic subdural hematoma pt denies Nerve disorder, cranial f/u with Dr. Marcelino--per pt's son Michael Trigeminal neuralgia f/u with Dr. Marcelino--per pt's son Michael Surgical History Hx of inguinal hernia repair History of left cataract surgery History of prostate biopsy Family History Mother , in her 60s Parkinson's disease Primary Parkinson's disease Father , in his 70's of uncertain cause No problems noted. 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 [employer] Other Information That Helps Us Care for You: No Feels Safe at Home: Yes Safety Concerns: Feels Safe At This Time Assistive Devices: Glasses Review of Systems Constitutional: no fever, no fatigue and no weakness Eyes: no diplopia, no eye pain and no worsening vision Ear, Nose, Mouth, Throat: no ear pain, no tinnitus, no hearing loss, no dizziness, no snoring, no hoarseness and no dysphagia Respiratory: no cough and no dyspnea Cardiovascular: no chest pain, no palpitations and no lightheadedness Gastrointestinal: no abdominal pain, no nausea and no vomiting Musculoskeletal: no back pain, no neck pain, no radicular pain, no joint pain and no myalgia Integumentary: no rash and no lesions Neurologic: + confusion and + memory loss; no gait a bnormality, no localized weakness, no generalized weakness, no tingling, no numbness, no tremor(s), no abnormal movements, no headache(s) and no abnormal speech Psychiatric: no depression, no irritability, no anxiety, no difficulty concentrating, no confusion and no hallucinations Endocrine: no fatigue and no flushing Hematologic / Lymphatic: no easy bleeding and no easy bruising Allergy / Immunological: no urticaria and no problem reported Exam (Neuro) Physical Exam: The patient is right-handed. The patient is awake, alert, and attentive. Speech is normal without any aphasia or dysarthria. Mood and affect are normal and appropriate. His memory for long and short-term is poor. He knew his name but not his age and could not name his son (called him by his other son's name). He could not identify his niece. Pupils are 3 mm bilaterally and reactive to light. Extraocular eye muscles are intact without nystagmus. Visual acuity and visual shoemaker seem normal grossly to confrontation. There are no deficits to sensation in the face in all 3 distributions of the fifth cranial nerve bilaterally. Corneal reflexes are positive bilaterally. Facial strength and symmetry was normal bilaterally. Hearing is decreased bilaterally. Palate moves well without asymmetry. There is normal sternocleidomastoid and trapezius strength bilaterally. Tongue is midline with good strength bilaterally. Neck has a full range of motion without discomfort. There are no cervical bruits bilaterally. There are no cranial or ocular bruits. Heart is without murmur. There is a regular rhythm and rate. Cervical, thoracic, and lumbar spine are nontender to palpation. Gait was not tested. Stance sitting up in bed is difficult. With outstretched arms there is drift on the right. There are no resting, postural, or action tremors. There is no ataxia with finger to nose testing. There is decreased facility in the right hand compared to the left which is normal.. No other abnormal involuntary movements are noted. Motor strength is 5/5 diffusely in the arms bilaterally including deltoids, biceps, triceps, and brachioradialis muscles. The wrist flexor and extensors and intrinsic hand muscles are 4/5 on the right compared to the left which is 5/5 for age. Motor strength is 5/5 diffusely in the legs bilaterally including hip flexors, quadriceps, hamstrings, gastrocnemius, tibialis anterior, tibialis posterior, and Peroneii muscles bilaterally. Toe extensors are normal and there is good bulk in the extensor digitorum brevis muscles bilaterally. The limbs have good tone without rigidity or spasticity. There is no atrophy noted in the muscles. Muscle bulk is normal, there is no tenderness to palpation, no myotonia to percussion, and no fasciculations seen. Sensory examination is intact to touch and pin throughout all 4 limbs diffusely. Reflexes are 1/4 in the biceps, triceps, brachioradialis, and quadriceps tendons bilaterally. Achilles tendon reflexes are absent bilaterally. Toes are downgoing with plantar stimulation bilaterally. Peripheral pulses are present and of normal quality distally in all 4 limbs. There is no peripheral edema noted in the limbs. Results & Data Vital Signs (Past 12 Hours) Vital Signs Temp Pulse Pulse Resp BP BP Pulse Ox 03/26/23 08:40 77 12 154/99 H 98 03/26/23 08:10 66 03/26/23 07:29 03/26/23 07:29 36.9 C 80 19 143/67 H 95 03/26/23 07:00 36.8 C 92 H 21 143/67 H 98 03/26/23 06:42 63 03/26/23 06:40 82 21 03/26/23 06:30 68 16 139/92 98 03/26/23 06:00 82 20 147/104 H 99 03/26/23 05:30 80 17 150/97 H 03/26/23 05:00 75 03/26/23 03:49 76 18 157/86 H 99 03/26/23 02:38 66 03/26/23 02:37 36.8 C 79 18 163/91 H 97 O2 Del Method 03/26/23 08:40 Room Air 03/26/23 08:10 03/26/23 07:29 Room Air 03/26/23 07:29 Room Air 03/26/23 07:00 Room Air 03/26/23 06:42 03/26/23 06:40 03/26/23 06:30 03/26/23 06:00 03/26/23 05:30 03/26/23 05:00 03/26/23 03:49 Room Air 03/26/23 02:38 03/26/23 02:37 Room Air PG Care Time/CCT Total # of Minutes Spent Total Time Spent with Patient: Total time spent is greater than 50% in coordination of care (as documented) at patient's floor/unit and/or counseling patient: Coding Level of Care Code 18641 INT INP/OBS CARE 3/75MIN Diagnoses Acute cerebrovascular accident (CVA) I63.9 Dementia F03.90 Hypertension I10 Trigeminal neuralgia G50.0
[2023-03-26] MEDS ORDERED: GADOBUTROL 65ML VIAL IV ONE (12:15)
--- NOTE | 2023-03-26 13:22 | Magnetic Resonance Report ---
MR brain wo/w con CLINICAL HISTORY: Concern for stroke TECHNIQUE: Multiplanar and multisequence MR images of the brain were obtained prior to and following administration of gadolinium contrast. Comparison: Comparison is made to MRI brain 06/14/[address] head 03/26/2023 FINDINGS: There is a small focus of restricted diffusion in the left frontal lobe. Foci of T2 and FLAIR hyperin tensity are noted in the paraventricular areas consistent with chronic small vessel ischemic disease. Ex vacuo ventriculomegaly and sulcal enlargement is noted compatible with diffuse volume loss. No ma ss or abnormal enhancement is seen. There is no mass effect or midline shift. There is cortical susce ptibility artifact which may represent residua of prior hemorrhage. No extra axial fluid collections are seen. The corpus callosum, pituitary gland, and cerebellar tonsils appear grossly unremarkable. Flow voids of the major intracranial arterial vessels are identified. Partial opacification of the le ft maxillary sinus. IMPRESSION: Acute infarct of the left frontal lobe. No evidence of hemorrhage. ACT 112: Negative or not required by law. Electronically signed by: Jasper Dubose M.D. 03/26/2023 1:21 PM
--- NOTE | 2023-03-26 16:35 | Electrocardiogram Report ---
Test Reason : Blood Pressure : / mmHG Vent. Rate : 069 BPM Atrial Rate : 069 BPM P-R Int : 198 ms QRS Dur : 088 ms QT Int : 384 ms P-R-T Axes : 022 -11 027 degrees QTc Int : 411 ms Normal sinus rhythm Normal ECG When compared with ECG of 30-JUL-2021 11:58, No significant change was found Confirmed by Arnaldo Gonsalez ([id number]) on 03/26/2023 4:34:44 PM Referred By: [facility] Confirmed By:Francisco Gonsalez
[2023-03-26] MEDS ORDERED: ASPIRIN 81 MG ECTAB PO SCH (21:00)
[2023-03-26] MEDS ORDERED: MELATONIN 3 MG TAB PO PRN (21:16)
--- NOTE | 2023-03-26 22:33 | XCELERA ---
[id number] \\[id number]
[2023-03-27] MEDS: LEVOTHYROXINE SODIUM 50 MCG TABLET PO SCH (06:12)
[2023-03-27 07:26] LABS: Basophils # (auto) 0.05 K/uL (0.00-0.20); Basophils % (auto) 0.7 %; Eosinophils # (auto) 0.15 K/uL (0.00-0.50); Hematocrit (blood only) 43.2 % (42.0-52.0); Immature Granulocytes # (auto) 0.05 K/uL (0.01-0.20); Immature Granulocytes % (auto) 0.7 %; Lymphocytes # (auto) 1.84 K/uL (1.20-3.40); Mean Corpuscular Hemoglobin 30.3 pg (25.0-34.0); Mean Corpuscular Hgb Conc 32.4 g/dL (32.0-36.0); Mean Corpuscular Volume 93.5 fL (80.0-100.0); Mean Platelet Volume 9.9 fL (9.4-12.4); Monocytes # (auto) 0.74 K/uL (0.11-0.59); Monocytes % (auto) 10.1 %; Neutrophils # (auto) 4.52 K/uL (1.40-6.50); Neutrophils % (auto) 61.5 %; Platelet Count 140 K/uL (130-400); RDW Coefficient of Variation 14.2 % (11.5-14.5); Red Blood Count 4.62 M/uL (4.70-6.10); White Blood Count 7.35 K/ul (4.8-10.8)
[2023-03-27 07:45] LABS: BUN Creatinine Ratio 18.5 (10-20); Calcium 9.2 mg/dl (8.6-10.3); Creatinine Clr Calc Pharmacy 64.1 ml/min; Est GFR (African American) 74.2 ml/min; Potassium 3.8 mmol/L (3.5-5.1)
[2023-03-27 08:08] LABS: Estimated Average Glucose 111 mg/dl; Hemoglobin A1C 5.5 % (4.5-5.6)
[2023-03-27] MEDS: CLOPIDOGREL BISULFATE 75 MG TAB PO SCH (08:55)
[2023-03-27] MEDS: ATORVASTATIN 40 MG TAB PO SCH (08:55)
[2023-03-27] MEDS: DONEPEZIL HCL 5 MG TAB PO SCH ×2 (08:55→20:15)
[2023-03-27] MEDS: FAMOTIDINE 20 MG TAB PO SCH (08:55)
[2023-03-27] MEDS: MEMANTINE HCL 10 MG TAB PO SCH ×2 (08:55→20:15)
[2023-03-27] MEDS: OXcarbazepine 150 MG TABLET PO SCH ×2 (08:55→20:15)
[2023-03-27] MEDS: ENOXAPARIN INJ 40 MG/0.4 ML SYR SQ SCH (08:56)
--- NOTE | 2023-03-27 09:15 | Pharmacy Report ---
- Date of Service March 27, 2023 - Pharmacy CVA/TIA Medication Review Medications to Prevent Stroke handout has been added to the patients discharge packet. Antiplatelet(s) * Clopidogrel 75 mg PO daily Cholesterol * High intensity statin: atorvastatin 80 mg daily DVT Prophylaxis * SCD knee Therapeutic Anticoagulation * No history of Afib/Aflutter noted Type 2 Diabetes * Patient does not have T2DM
--- NOTE | 2023-03-27 09:22 | Neurology Progress Note ---
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 He has a history of hypertension and previous small right frontal stroke in the past, currently on 81 mg aspirin daily. The patient has a relatively small left frontal acute stroke, involving right facial droop and right hand clumsiness/weakness. Speech seems unaffected. He has high-grade stenosis in the right M2 segment on CT angiography of the head, which is the opposite side for the stroke. There are no vascular abnormalities on the left. Therefore the stroke is likely due to small vessel ischemic disease and related to hypertension He has a history of left V2 trigeminal neuralgia completely controlled on oxcarbazepine 150 mg twice daily. 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 Current MRI seems to show the left cerebellar hemispheric cavernoma after contrast was given Overall, he is mildly improving clinically with the small stroke. I predict that he will do well with this. Recommendations: 1. Continue memantine 10 mg twice a day and donepezil 5 mg twice a day for his dementia. 2. Physical, occupational, and speech therapy consults. 3. Continue clopidogrel 75 mg daily (and keep off aspirin). 4. Lipid parameters are very well-controlled (perhaps overcontrolled). Consider backing off on atorvastatin to 40 mg a day, to avoid PROTOTYPER hemorrhage risk in this elderly patient on high-dose steroids. 5. When medically stable, he could go back to [facility]. I have no further neurologic testing or treatment recommendations to make at this time. Please contact I can be of further assistance on this case. Overall, I spent a total of 35 minutes with this case including review of records, review of MRI films, direct evaluation the patient at bedside, report generation, and discussion of the case with the patient and RN at bedside, as well as Dr. Pang including differential diagnosis and treatment options. Admission and Anticipated Discharge Date Admission Date: March 26, 2023 Subjective Patient has no complaint of pain or headache. He feels "well". Nursing reports no new issues or problems overnight. Echocardiogram revealed some moderate left ventricular hypertrophy but no other significant findings MRI of the brain showed a small acute left frontal stroke with significant generalized atrophy and small vessel ischemic disease. He had hydrocephalus ex vacuo from the atrophy. Reviewed these films. Triglycerides were 76 and total cholesterol 123. CBC and CHEM profile were unremarkable although troponins were elevated. Hemoglobin A1c was 5.5. Results & Data Vital Signs (Past 12 Hours) Vital Signs Temp Pulse Pulse Resp BP Pulse Ox O2 Del Method 03/27/23 07:31 36.9 C 65 18 138/77 94 Room Air 03/26/23 23:47 36.5 C 79 20 141/69 H 96 Room Air 03/26/23 23:22 72 Exam (Neuro) Physical Exam: He is awake and alert. Speech is without obvious aphasia or dysarthria. Mood and affect seem normal and appropriate although he is a little more subdued today than he was yesterday. He is quite interactive and follows commands well. Extraocular eye muscles are intact without nystagmus. There is a facial droop at the corner of the mouth on the right but voluntarily he can move that up into a smile. This is an improvement from yesterday. Motor strength is symmetrical being 5/5 diffusely in all major muscle groups of the leg both proximally distally except the right hand which is 4/5. There is some drift and clumsiness of the right hand compared to the left. This is similar to yesterday. PG Care Time/CCT Total # of Minutes Spent Total Time Spent with Patient: Total time spent is greater than 50% in coordination of care (as documented) at patient's floor/unit and/or counseling patient: Coding Level of Care Code 29901 SUB INP/OBS CARE 2/35MIN Diagnoses Acute cerebrovascular accident (CVA) I63.9 Dementia F03.90 Hypertension I10 Trigeminal neuralgia G50.0
--- NOTE | 2023-03-27 15:30 | Hospitalist Progress Note ---
Date of Service March 27, 2023 Assessment & Plan (1) Acute cerebrovascular accident (CVA): Plan: Patient presented with symptoms of stroke including right-arm weakness, right- sided facial droop, slurred speech CT head negative CTA neck negative CTA brain showed right M2 high-grade stenosis MRI brain confirmed a left frontal lobe infarct Neurology on board, recommended switching from aspirin to Plavix Neurology recommended decreasing the dose of Lipitor to 40 mg Stroke workup in progress: Telemetry monitoring, echo. So far negative. PT/OT consulted. Recommended rehab Case management working on placement (2) Physical deconditioning: Plan: PT/OT recommended rehab (3) Dementia: Plan: Continue Namenda and donepezil (4) Hx of subdural hematoma: Plan: Not a candidate for TKNase due to history of subdural hematoma Switch from aspirin to Plavix per neurology recommendation Decrease the dose of Lipitor to 40 mg (5) Trigeminal neuralgia: Plan: Continue Trileptal (6) Elevated troponin: Plan: No chest pain Troponins flat EKG unremarkable Echocardiogram ordered Most likely demand ischemia Plan Full code DVT prophylaxis: Lovenox Admission and Anticipated Discharge Date Admission Date: March 26, 2023 Subjective Patient feels well. Denies chest pain or shortness of breath. Accompanied by 3 sons in his room. Review of Systems Review of Systems: All systems reviewed & are unremarkable except as noted in Subjective Physical Exam Physical Exam: General: Awake, conversant. Facial droop noted on the right side Heart: S1, S2/regular rate and rhythm, no murmur rubs or gallops Lungs: Clear to auscultation bilaterally. Normal effort Abdomen: Soft/nontender/nondistended. No hepatosplenomegaly Extremities: No clubbing/cyanosis. No edema Behavior: Appropriate, cooperative Results & Data Results & Data Vital Signs (Past 12 Hours) Vital Signs Temp Pulse Pulse Resp BP Pulse Ox O2 Del Method 03/27/23 11:07 36.5 C 66 18 158/72 H 95 Room Air 03/27/23 07:31 36.9 C 65 18 138/77 94 Room Air 03/27/23 07:30 56 L Laboratory Results Abnormal lab results 03/26/23 03/26/23 03/27/23 Range/Units 16:41 22:45 06:22 RBC 4.62 L (4.70-6.10) M/uL RDW Std Deviation 49.0 H (36.4-46.3) fL [place] # (Auto) 0.74 H (0.11-0.59) K/uL Chloride 110 H (98-107) mmol/L Troponin I High Sens 72.8 H* D 66.8 H* (0-20) pg/ml PG Care Time/CCT Total # of Minutes Spent Total Time Spent with Patient: Total time spent is greater than 50% in coordination of care (as documented) at patient's floor/unit and/or counseling patient: Coding Level of Care Code 61314 SUB INP/OBS CARE 2/35MIN Diagnoses Acute cerebrovascular accident (CVA) I63.9 Physical deconditioning R53.81 Dementia F03.90 Hx of subdural hematoma Z86.79 Trigeminal neuralgia G50.0 Elevated troponin R79.89
[2023-03-28] MEDS: LEVOTHYROXINE SODIUM 50 MCG TABLET PO SCH (05:58)
[2023-03-28 07:01] LABS: Basophils # (auto) 0.04 K/uL (0.00-0.20); Basophils % (auto) 0.6 %; Eosinophils # (auto) 0.14 K/uL (0.00-0.50); Hemoglobin 14.3 g/dl (14.0-18.0); Immature Granulocytes # (auto) 0.04 K/uL (0.01-0.20); Immature Granulocytes % (auto) 0.6 %; Lymphocytes # (auto) 1.53 K/uL (1.20-3.40); Lymphocytes % (auto) 21.5 %; Mean Corpuscular Hemoglobin 31.3 pg (25.0-34.0); Mean Corpuscular Volume 91.9 fL (80.0-100.0); Mean Platelet Volume 9.7 fL (9.4-12.4); Monocytes % (auto) 9.9 %; Neutrophils # (auto) 4.65 K/uL (1.40-6.50); Neutrophils % (auto) 65.4 %; Platelet Count 136 K/uL (130-400); RDW Standard Deviation 47.2 fL (36.4-46.3); Red Blood Count 4.57 M/uL (4.70-6.10)
[2023-03-28 07:32] LABS: Calcium 9.2 mg/dl (8.6-10.3); Potassium 3.7 mmol/L (3.5-5.1)
[2023-03-28 07:37] LABS: BUN Creatinine Ratio 20.5 (10-20); Creatinine Clr Calc Pharmacy 60.4 ml/min; Est GFR (Non-African American) 61.3 ml/min
[2023-03-28] MEDS: OXcarbazepine 150 MG TABLET PO SCH ×2 (08:47→20:10)
[2023-03-28] MEDS: ATORVASTATIN 40 MG TAB PO SCH (08:47)
[2023-03-28] MEDS: MEMANTINE HCL 10 MG TAB PO SCH ×2 (08:47→20:10)
[2023-03-28] MEDS: ENOXAPARIN INJ 40 MG/0.4 ML SYR SQ SCH (08:47)
[2023-03-28] MEDS: CLOPIDOGREL BISULFATE 75 MG TAB PO SCH (08:47)
[2023-03-28] MEDS: FAMOTIDINE 20 MG TAB PO SCH (08:47)
[2023-03-28] MEDS: DONEPEZIL HCL 5 MG TAB PO SCH ×2 (08:47→20:10)
--- NOTE | 2023-03-28 09:03 | Neurology Progress Note ---
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 He has a history of hypertension and previous small right frontal stroke in the past, on 81 mg aspirin daily, prior to admission. The patient has a relatively small left frontal acute stroke noted on MRI of the brain, which has created mild leg, greater than arm, greater than face weakness. The weakness in his arm and leg is distal and proximal spared. The face still has a bit of a droop but moves voluntarily. Speech seems unaffected. Overall, he is stable today compared to yesterday (although his leg is a little weaker than it was on admission). He has high-grade stenosis in the right M2 segment on CT angiography of the head, which is the opposite side for the stroke. There are no vascular abnormalities on the left. This stroke is likely due to small vessel ischemic disease and related to hypertension He has a history of left V2 trigeminal neuralgia completely controlled on oxcarbazepine 150 mg twice daily. 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 Current, postcontrast MRI shows the left cerebellar hemispheric cavernoma likely unchanged from previous Recommendations: 1. Continue memantine 10 mg twice a day and donepezil 5 mg twice a day for his dementia. 2. Continue physical, occupational, and speech therapy 3. Continue clopidogrel 75 mg daily (and keep off aspirin). 4. Consider decreasing atorvastatin to 40 mg a day. There is data to suggest that if total cholesterol is driven to low (less than 150) in an elderly patient, there may be an increased EXECUTIVE CHEF hemorrhage risk. 5. Control blood pressure as you are doing, aiming for mean arterial pressure of 95-100. 6. When medically stable, he could go back to [facility]. Overall, I spent a total of 60 minutes with this case including review of records, review of MRI films, direct evaluation the patient at bedside, report generation, and discussion of the case with the patient and RN at bedside, as well as Dr. Pang including differential diagnosis and treatment options. Admission and Anticipated Discharge Date Admission Date: March 26, 2023 Subjective Patient has no complaint of pain or headache. He is not dizzy. Nursing reports no new issues with the patient does have a significant dementia. Blood pressure is 160/96 and he is afebrile at 36.9. CBC and CHEM profile were largely unremarkable. Results & Data Vital Signs (Past 12 Hours) Vital Signs Temp Pulse Pulse Pulse Resp BP Pulse Ox 03/28/23 08:09 36.9 C 69 16 160/96 H 95 03/28/23 04:54 72 03/28/23 04:19 36.6 C 51 L 18 153/92 H 95 03/28/23 00:06 36.6 C 57 L 18 168/97 H 96 O2 Del Method 03/28/23 08:09 Room Air 03/28/23 04:54 03/28/23 04:19 Room Air 03/28/23 00:06 Room Air Exam (Neuro) Physical Exam: The patient is right-handed. The patient is awake, alert, and attentive. Speech is normal without any aphasia or dysarthria. Mood was unremarkable and affect seen with mildly flat. Appearance and grooming are normal. Short and long-term memory are quite poor in all modalities tested. He did not know his birthdate but he did not know his age and his name. He did not know where he was specifically or how long he was here. Pupils are 4 mm bilaterally and reactive to light. Extraocular eye muscles are intact without nystagmus. Visual acuity and visual shoemaker seem normal grossly to confrontation. There are no deficits to sensation in the face in all 3 distributions of the fifth cranial nerve bilaterally. Corneal reflexes are positive bilaterally. There was an asymmetry with droop at the corner of the mouth on the right but it did move voluntarily with command. Hearing was decreased bilaterally. Palate moves well without asymmetry. There is normal sternocleidomastoid and trapezius strength bilaterally. Tongue is midline with good strength bilaterally. Neck has a full range of motion without discomfort. There are no cervical bruits bilaterally. There are no cranial or ocular bruits. With outstretched arms there is drift on the right. There are no resting, postural, or action tremors. There is no ataxia with finger to nose testing. There is decreased facility and clumsiness in the right hand compared to the left which was normal. No other abnormal involuntary movements are noted. Motor strength is 5/5 diffusely in the left arm and leg both proximally and distally. Proximal strength was 5/5 in the arm and leg on the right but 4/5 distally. The limbs have good tone without rigidity or spasticity. There is no atrophy noted in the muscles. Muscle bulk is normal, there is no tenderness to palpation, no myotonia to percussion, and no fasciculations seen. Sensory examination is intact to touch and pin throughout the arms. Distal leg sensation is likely decreased bilaterally. Reflexes are 1/4 in the biceps, triceps and brachioradialis tendons bilaterally. Quadriceps tendon reflexes were 2/4 bilaterally but Achilles tendon reflexes were absent bilaterally. Toes are downgoing with plantar stimulation on the left and upgoing with plantar stimulation on the right. Peripheral pulses are present and of normal quality distally in all 4 limbs. There is no peripheral edema noted in the limbs. PG Care Time/CCT Total # of Minutes Spent Total Time Spent with Patient: Total time spent is greater than 50% in coordination of care (as documented) at patient's floor/unit and/or counseling patient: Coding Level of Care Code 74898 SUB INP/OBS CARE 3/50MIN Diagnoses Acute cerebrovascular accident (CVA) I63.9 Acute right hemiparesis G81.91 Dementia F03.90 Hypertension I10 Trigeminal neuralgia G50.0 Time Spent (min) 60
--- NOTE | 2023-03-28 14:01 | Hospitalist Progress Note ---
Date of Service March 28, 2023 Assessment & Plan (1) Acute cerebrovascular accident (CVA): Plan: Patient presented with symptoms of stroke including right-arm weakness, right- sided facial droop, slurred speech. His right lower extremity is weaker today which could be a progression of his stroke. CT head negative CTA neck negative CTA brain showed right M2 high-grade stenosis MRI brain confirmed a left frontal lobe infarct Neurology on board, recommended switching from aspirin to Plavix Neurology recommended decreasing the dose of Lipitor to 40 mg Stroke workup in progress: Telemetry monitoring, echo. So far negative. PT/OT consulted. Recommended rehab Case management working on placement (2) Physical deconditioning: Plan: PT/OT recommended rehab (3) Dementia: Plan: Continue Namenda and donepezil (4) Hx of subdural hematoma: Plan: Not a candidate for TKNase due to history of subdural hematoma Switch from aspirin to Plavix per neurology recommendation Decrease the dose of Lipitor to 40 mg (5) Trigeminal neuralgia: Plan: Continue Trileptal (6) Elevated troponin: Plan: No chest pain Troponins flat EKG unremarkable Echocardiogram ordered Most likely demand ischemia Plan Full code DVT prophylaxis: Lovenox Admission and Anticipated Discharge Date Admission Date: March 26, 2023 Subjective Patient feels well today. Per PT, his right lower extremity is slightly weaker today. Review of Systems Review of Systems: All systems reviewed & are unremarkable except as noted in Subjective Physical Exam Physical Exam: General: Awake, conversant. Facial droop noted on the right side Heart: S1, S2/regular rate and rhythm, no murmur rubs or gallops Lungs: Clear to auscultation bilaterally. Normal effort Abdomen: Soft/nontender/nondistended. No hepatosplenomegaly Extremities: No clubbing/cyanosis. No edema Behavior: Appropriate, cooperative Results & Data Results & Data Vital Signs (Past 12 Hours) Vital Signs Temp Pulse Pulse Pulse Resp BP Pulse Ox 03/28/23 11:51 36.6 C 64 16 163/88 H 97 03/28/23 11:20 60 03/28/23 08:51 65 03/28/23 08:09 36.9 C 69 16 160/96 H 95 03/28/23 06:31 59 L 03/28/23 04:54 72 03/28/23 04:19 36.6 C 51 L 18 153/92 H 95 O2 Del Method 03/28/23 11:51 Room Air 03/28/23 11:20 03/28/23 08:51 03/28/23 08:09 Room Air 03/28/23 06:31 03/28/23 04:54 03/28/23 04:19 Room Air Laboratory Results Abnormal lab results 03/28/23 Range/Units 06:33 RBC 4.57 L (4.70-6.10) M/uL RDW Std Deviation 47.2 H (36.4-46.3) fL [place] # (Auto) 0.70 H (0.11-0.59) K/uL Chloride 109 H (98-107) mmol/L BUN/Creatinine Ratio 20.5 H (10-20) PG Care Time/CCT Total # of Minutes Spent Total Time Spent with Patient: Total time spent is greater than 50% in coordination of care (as documented) at patient's floor/unit and/or counseling patient: Coding Level of Care Code 17039 SUB INP/OBS CARE 2/35MIN Diagnoses Acute cerebrovascular accident (CVA) I63.9 Physical deconditioning R53.81 Dementia F03.90 Hx of subdural hematoma Z86.79 Trigeminal neuralgia G50.0 Elevated troponin R79.89
[2023-03-29] MEDS: LEVOTHYROXINE SODIUM 50 MCG TABLET PO SCH (05:25)
[2023-03-29 07:26] LABS: Basophils # (auto) 0.04 K/uL (0.00-0.20); Basophils % (auto) 0.5 %; Eosinophils # (auto) 0.16 K/uL (0.00-0.50); Eosinophils % (auto) 2.2 %; Hematocrit (blood only) 41.9 % (42.0-52.0); Hemoglobin 14.1 g/dl (14.0-18.0); Immature Granulocytes # (auto) 0.05 K/uL (0.01-0.20); Immature Granulocytes % (auto) 0.7 %; Lymphocytes # (auto) 1.48 K/uL (1.20-3.40); Lymphocytes % (auto) 20.1 %; Mean Corpuscular Hemoglobin 30.9 pg (25.0-34.0); Mean Corpuscular Hgb Conc 33.7 g/dL (32.0-36.0); Mean Corpuscular Volume 91.7 fL (80.0-100.0); Monocytes # (auto) 0.71 K/uL (0.11-0.59); Monocytes % (auto) 9.6 %; Neutrophils # (auto) 4.94 K/uL (1.40-6.50); Neutrophils % (auto) 66.9 %; Platelet Count 134 K/uL (130-400); RDW Coefficient of Variation 14.1 % (11.5-14.5); RDW Standard Deviation 47.8 fL (36.4-46.3); Red Blood Count 4.57 M/uL (4.70-6.10); White Blood Count 7.38 K/ul (4.8-10.8)
[2023-03-29 07:40] LABS: BUN Creatinine Ratio 17.7 (10-20); Calcium 9.2 mg/dl (8.6-10.3); Creatinine Clr Calc Pharmacy 58.2 ml/min; Est GFR (African American) 70.3 ml/min; Est GFR (Non-African American) 60.6 ml/min; Potassium 4.1 mmol/L (3.5-5.1)
[2023-03-29 08:02] VITALS: O2SAT 96
--- NOTE | 2023-03-29 08:36 | Neurology Progress Note ---
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 He has a history of hypertension and previous small right frontal stroke in the past, on 81 mg aspirin daily, prior to admission. The patient now has a relatively small left frontal acute stroke noted on MRI of the brain (likely occurred March 26, 2023), which has created mild leg greater than arm, greater than face, weakness. The weakness in his arm and leg is distal and proximal is spared. The face still has a bit of a droop but moves voluntarily. Speech seems unaffected. Overall, he is stable today compared to yesterday He has high-grade stenosis in the right M2 segment on CT angiography of the head, which is the opposite side for the stroke. There are no vascular abnormalities on the left. This stroke is likely due to small vessel ischemic disease and related to hypertension He has a history of left V2 trigeminal neuralgia completely controlled on oxcarbazepine 150 mg twice daily. 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 Current, postcontrast MRI shows the left cerebellar hemispheric cavernoma, likely unchanged from previous Recommendations: 1. Continue memantine 10 mg twice a day and donepezil 5 mg twice a day for his dementia. 2. Continue physical, occupational, and speech therapy 3. Continue clopidogrel 75 mg daily (and keep off aspirin). 4. Continue atorvastatin 40 mg daily. There is data to suggest that if total cholesterol is driven too low (less than 150) in an elderly patient, there is an increased ELECTRONIC SEMICONDUCTOR PROCESSOR hemorrhage risk. 5. Control blood pressure as you are doing, aiming for mean arterial pressure of 95-100. 6. When medically stable, he could go back to [facility]. Overall, I spent a total of 35 minutes with this case including review of records, direct evaluation the patient at bedside, report generation, and discussion of the case with the patient and RN at bedside, as well as Dr. Pang including differential diagnosis and treatment options. Admission and Anticipated Discharge Date Admission Date: March 26, 2023 Subjective Patient has no complaint of pain or headache. He is lying in bed comfortably, pleasant and cooperative. Nursing reports no new issues overnight. Physical and Occupational Therapy reports state that the patient has some difficulty ambulating because of his right lower extremity and has clumsiness of the right hand. He can transfer reasonably well with assistance. CHEM profile and CBC were unremarkable today. Blood pressure was 143/73 and he is afebrile. Results & Data Vital Signs (Past 12 Hours) Vital Signs Temp Pulse Pulse Pulse Resp BP BP 03/29/23 07:59 36.5 C 57 L 12 143/73 H 03/29/23 04:02 36.8 C 82 20 141/64 H 03/29/23 02:40 69 03/28/23 23:27 36.6 C 73 20 156/82 H Pulse Ox O2 Del Method 03/29/23 07:59 96 Room Air 03/29/23 04:02 94 Room Air 03/29/23 02:40 03/28/23 23:27 94 Room Air Exam (Neuro) Physical Exam: He is awake and alert. Speech is without aphasia or dysarthria. Mood is reasonable and affect is slightly flat but he is pleasant and cooperative. He follows one-step commands fairly well. He is a little hard of hearing which can hinder the perception of his cognitive status. Nevertheless, he is significantly demented and has poor long and short-term memory. Coordination of it is reasonable in the arms without obvious ataxia. There is no abnormal involuntary movements. There is a droop at the corner of the mouth on the right but he moves it with voluntary smile. The right hand is clumsy compared to the left but does not seem as much as on admission. The right foot is weak and clumsy compared to the left. This is somewhat worse than I noted on admission but is the same to possibly slightly better compared to yesterday March 28. PG Care Time/CCT Total # of Minutes Spent Total Time Spent with Patient: Total time spent is greater than 50% in coordination of care (as documented) at patient's floor/unit and/or counseling patient: Coding Level of Care Code 88399 SUB INP/OBS CARE 2/35MIN Diagnoses Acute cerebrovascular accident (CVA) I63.9 Acute right hemiparesis G81.91 Dementia F03.90 Hypertension I10 Trigeminal neuralgia G50.0
[2023-03-29] MEDS ORDERED: ATORVASTATIN 40 MG TAB PO SCH (09:00)
[2023-03-29] MEDS: FAMOTIDINE 20 MG TAB PO SCH (09:13)
[2023-03-29] MEDS: OXcarbazepine 150 MG TABLET PO SCH (09:13)
[2023-03-29] MEDS: MEMANTINE HCL 10 MG TAB PO SCH (09:13)
[2023-03-29] MEDS: ENOXAPARIN INJ 40 MG/0.4 ML SYR SQ SCH (09:13)
[2023-03-29] MEDS: DONEPEZIL HCL 5 MG TAB PO SCH (09:13)
[2023-03-29] MEDS: CLOPIDOGREL BISULFATE 75 MG TAB PO SCH (09:59)
--- NOTE | 2023-03-29 10:28 | Discharge Summary ---
Date of Service March 29, 2023 Admission HPI Per Admitting Provider This is an 82-year-old male, resident at [facility], who presented to the ED after being found down by the staff at [facility] with a chief. He was found on the ground at 1:35 AM, per documentation. He was noted to have a right-sided facial droop and was unable to move his right arm. He also was noted to have a slurred speech. And thus he was transferred to the ER. In the ER he had an initial workup. CT brain was unremarkable. CT A neck was unremarkable. CTA brain showed high-grade stenosis of right M2. Troponin was mildly elevated at 61. Twelve-lead EKG was unremarkable. He was deemed to be not a candidate for TNKase because of a history of chronic subdurals and since his last known well time was unknown. Moreover, his symptoms seem to be improving with improving weakness. The patient denies any chest pain, shortness of breath. Past medical history 1. Dementia, on donepezil and Namenda 2. Trigeminal neuralgia 3. Gait instability 4. History of subdural hematoma 5. CKD 6. History of prostate cancer status post radiation Admission Exam Per Admitting Provider General appearance: Awake, conversant, able to answer questions appropriately. AOx3. Noted to be slightly forgetful. He could not remember the name of the place that he lives in. Pupils: Equally reactive to light and accommodation Neck: No masses, no thyromegaly Respiration: Clear to auscultation bilaterally. Normal effort Cardiovascular: S1-S2/regular rate and rhythm. No murmur, rubs or gallop. No edema. Abdomen: Soft, nontender, nondistended. No hepatosplenomegaly Musculoskeletal: No clubbing, no cyanosis, normal range of motion Skin: No rashes, no nodules Neuro exam:sensation grossly intact. Right upper extremity 4/5. Left upper extremity 5/5. Bilateral lower extremity 5/5. Right-sided facial droop noted Psychiatric: Patient has good judgment and insight. AOx3. Mood and affect appear normal Lymphatics: No cervical or axillary lymphadenopathy noted Principal Diagnosis Acute stroke with right sided weakness Ambulatory dysfunction Discharge Exam General: Awake, conversant. Facial droop noted on the right side Heart: S1, S2/regular rate and rhythm, no murmur rubs or gallops Lungs: Clear to auscultation bilaterally. Normal effort Abdomen: Soft/nontender/nondistended. No hepatosplenomegaly Extremities: No clubbing/cyanosis. No edema Behavior: Appropriate, cooperative Discharge Data Allergies Allergy/AdvReac Type Severity Reaction Status Date / Time No Known Allergies Allergy Verified 12/19/22 10:01 Consultations 03/26/23 05:51 ED Decision to Admit Stat 03/26/23 08:12 Consult Neurology Routine Ordered Studies 03/26/23 02:57 CT angio head w con Stat CT angio neck with con Stat CT head/brain wo con Stat 03/26/23 08:12 MR brain wo/w con Routine Hospital Course (1) Acute cerebrovascular accident (CVA): Patient presented with symptoms of stroke including right-arm weakness, right- sided facial droop, slurred speech. His right lower extremity is weaker today which could be a progression of his stroke. CT head negative CTA neck negative CTA brain showed right M2 high-grade stenosis MRI brain confirmed a left frontal lobe infarct Neurology on board, recommended switching from aspirin to Plavix Neurology recommended decreasing the dose of Lipitor to 40 mg Stroke workup in progress: Telemetry monitoring, echo. So far negative. PT/OT consulted. Recommended rehab (2) Physical deconditioning: PT/OT recommended rehab (3) Dementia: Continue Namenda and donepezil (4) Hx of subdural hematoma: Not a candidate for TKNase due to history of subdural hematoma Switched from aspirin to Plavix per neurology recommendation Decreased the dose of Lipitor to 40 mg (5) Trigeminal neuralgia: Continue Trileptal (6) Elevated troponin: No chest pain Troponins flat EKG unremarkable Echocardiogram ordered Most likely demand ischemia Plan Full code DVT prophylaxis: Lovenox Total Time Total Time Spent Total Time Spent (In Minutes): 35 Discharge Plan Discharge Items Patient Disposition: Transfer Nursing Home Fac Reason For Visit: POSSIBLE STROKE Discharge Diagnosis: Acute stroke with right sided weakness Activity: As commented below Activity Comment: per PT/OT recommendations Non-emergency contact: Primary Care Provider Call non-emergency contact if: you have any medication questions and your symptoms worsen Follow-up/Referrals: Pancho Mohr [Primary Care Provider] - Diet: Heart Healthy Addtl Attending Provider Instructions: Advised to follow-up with PCP in 1 week Pending Studies at Discharge: No Stand-Alone Forms: [facility], Medications to Prevent Stroke Skilled Items Patient informed of condition?: Yes DNR: No Discharge Level of Care: Skilled Communicable Disease: No Discharge Prognosis: Stable Lines: None Urinary Catheter: No Medications and DC Order Prescriptions: New clopidogrel 75 mg Tablet 75 mg PO QAM Qty: 30 0RF atorvastatin [Lipitor] 40 mg tablet 40 mg PO HS Qty: 30 0RF Continued oxcarbazepine 150 mg tablet 150 mg PO BID Qty: 60 5RF donepezil 5 mg tablet 5 mg PO BID Qty: 60 2RF memantine 10 mg tablet 10 mg PO BID Qty: 60 5RF calcium carbonate 400 mg calcium (1,000 mg) tablet,chewable 800 mg PO Q8H famotidine 20 mg tablet 20 mg PO DAILY levothyroxine 50 mcg tablet 50 mcg PO DAILY cholecalciferol (vitamin D3) 1,250 mcg (50,000 unit) capsule 50,000 unit PO .weekly Qty: 14 2RF Rx Instructions: fridays acetaminophen [Acetaminophen Extra Strength] 500 mg Tablet 1,000 mg PO Q8H PRN (Reason: fever>100) acetaminophen [Acetaminophen Extra Strength] 500 mg Tablet 1,000 mg PO Q8H PRN (Reason: Pain) dorzolamide-timolol 22.3-6.8 mg/mL drops 1 drp ophthalmic (eye) BID mecobalamin (vitamin B12) [B12 Active] 1,000 mcg Tablet,Chewable 1,000 mcg PO BID sertraline See Rx Instructions .ROUTE .COMPLEX Rx Instructions: 25 mg daily for one week, then 50 mg after brimonidine [Alphagan P] 0.1 % drops 1 drp OPB BID Lumigan 0.01 % drops 1 drp OPB HS Discontinued aspirin 81 mg tablet,delayed release (DR/EC) 81 mg PO HS Patient Comments: Takes on irregular basis Discharge Orders: Discharge Order (Routine); Ordered 03/29/23 Ordered By: Neel Pang Admission Data Admit Date/Time: 03/26/23 06:09 Attending Provider: Neel Pang Admit Provider: Roopa Justice Primary Care Provider: Pancho Mohr Other Providers: Roopa Justice; Reji Marcelino Other Interventions: Discharge Summary Assessment (RN) Last Done: 03/29/23 12:08 Coding Level of Care Code 53124 INP/OBS DISCH >30 MIN Diagnoses Acute cerebrovascular accident (CVA) I63.9 Physical deconditioning R53.81 Dementia F03.90 Hx of subdural hematoma Z86.79 Trigeminal neuralgia G50.0 Elevated troponin R79.89
[2023-03-29 12:13] VITALS: BP 148/81; PULSE 61; RESP 18; TEMP 97.5
== END 2023-03-29 12:15 | DRG 65 ==
LOC: SUATTDRO → ED 02:31 → EDINP 06:09 → 2N 08:12

== ENCOUNTER 2023-04-03 12:59 | Inpatient (IN) ==
[2023-04-03] MEDS ORDERED: OPTIRAY 320 125ml IV ONE (13:12)
--- NOTE | 2023-04-03 13:25 | CT Scan Report ---
CT ANGIOGRAM OF THE NECK CLINICAL HISTORY: Strokelike symptoms. Neurological deficit. COMPARISON STUDY: CT angiogram of the neck dated 03/26/2023. TECHNIQUE: Following the IV administration of 119 of Optiray 320, CT angiogram of the neck was perfor med from the aortic arch to the skull base. Images are reviewed in the axial, sagittal, and coronal p lanes. 3-D MIPS images are created and assessed. IV contrast was administered without complication. A ll measurements were calculated based on NASCET criteria. A dose lowering technique was utilized adh ering to the principles of ALARA. FINDINGS: Thoracic aorta: Visualized portions of the thoracic aorta are normal in caliber. The aortic arch demo nstrates bovine variant anatomy. Right carotid arterial system: The right common carotid artery is widely patent, as are the right int ernal and external carotid arteries. Calcified plaque is noted in the carotid bulb. Left carotid arterial system: The left common carotid artery is widely patent, as are the left internal auditor al and external carotid arteries. Calcified plaque is noted in the carotid bulb. Vertebral arteries: Widely patent bilaterally noting left-sided dominance. Subclavian arteries: Widely patent bilaterally. Intracranial vasculature: The visualized intracranial vessels at the skull base are patent. Jugular veins: Widely patent bilaterally. Brain parenchyma: The visualized brain parenchyma the skull base is within normal limits. Lung apices: Partially visualized upper lobe lung parenchyma appears clear. Soft tissues: The visualized pharyngeal soft tissues are normal in appearance noting angiographic pha se technique. The oropharyngeal airway appears widely patent. The salivary and thyroid glands are nor mal in appearance. No cervical lymphadenopathy is seen. Skeletal structures: The visualized calvarium at the skull base appears intact. The imaged cervical s pine is maintains noting multilevel spondylosis. Sinuses and mastoids: There is moderate mucosal thickening in the left maxillary antrum. The mastoid air cells are well-pneumatized. IMPRESSION: Unremarkable CT angiogram of the neck. ACT 112: Negative or not required by law. Electronically signed by: Osmin Ferguson M.D. 04/03/2023 1:24 PM
--- NOTE | 2023-04-03 13:27 | CT Scan Report ---
CT head/brain wo con CLINICAL HISTORY: 82 years-old Male with neuro deficit, acute stroke suspected. Acute stroke like sy mptoms TECHNIQUE: Multiple axial CT images of the head were obtained without contrast. A dose lowering tech nique was utilized adhering to the principles of ALARA. COMPARISON: CTA head and neck of same day, head CT 03/26/2023 brain MRI 03/24/2023. FINDINGS: No acute intracranial hemorrhage, midline shift, intracranial mass, hydrocephalus, acute territorial infarct or abnormal extra-axial collection. Involutional changes with chronic microvascular ischemic disease. Unchanged mild ventriculomegaly. Encephalomalacia of the right frontal lobe, likely secondar y to chronic infarct on image 19 series 2. 2.2 cm acute subacute left frontal lobe infarct on image 1 7 series 2 redemonstrated. The calvarium is intact. Moderate mucosal thickening with volume loss and air fluid level noted with in the left maxillary sinus. IMPRESSION: 1. Small acute to subacute appearing left frontal lobe infarct redemonstrated which is similar in siz e to the recent brain MRI. 2. Involutional changes with chronic microvascular ischemic disease. 3. Chronic right frontal lobe infarct. ACT 112: Negative or not required by law. The above report was generated using voice recognition software. It may contain grammatical, syntax o r spelling errors. Electronically signed by: Reji Yu M.D. 04/03/2023 1:26 PM
[2023-04-03 13:38] LABS: iSTAT Creatinine 1.3 mg/dl (0.6-1.3); iSTAT Hemoglobin 14.3 g/dl (14.0-18.0); iSTAT Ionized Calcium 1.17 mmol/l (1.12-1.32); iSTAT Potassium 4.5 mmol/L (3.3-5.0)
--- NOTE | 2023-04-03 13:38 | CT Scan Report ---
HEAD CTA HISTORY: Acute left frontal lobe infarct. Follow-up. neuro deficit, acute stroke suspected TECHNIQUE: Multiaxial CT images of the head were performed both before and after the intravenous admi nistration of contrast to evaluate the major cerebral vessels. 3D/MIP images were also obtained. Sag ittal and coronal reformats were reviewed. A dose lowering technique was utilized adhering to the rashi Hernandez. COMPARISON: Head CT 03/26/2023. FINDINGS: The small left frontal lobe acute to subacute infarct is better appreciated on the same day head CT. There is an old small right frontal lobe infarct again noted. Partial opacification of the left maxillary sinus. The mastoid air cells are clear. The calvarium and skull base are intact. The m ajor dural venous sinuses are patent. Visualized intracranial internal carotid arteries, distal verte bral arteries, and basilar artery are widely patent. There is no significant stenosis, occlusion, or aneurysm seen within the bilateral ACAs, MCAs, or ear specialist. IMPRESSION: 1. No significant stenosis, occlusion, or aneurysm within the [place] of [place]. 2. The small left frontal lobe acute to subacute infarct is better appreciated on the same day head C T. ACT 112: Negative or not required by law. Electronically signed by: Yasmany Kelly M.D. 04/03/2023 1:36 PM
[2023-04-03 13:41] LABS: Basophils # (auto) 0.05 K/uL (0.00-0.20); Basophils % (auto) 0.5 %; Eosinophils # (auto) 0.03 K/uL (0.00-0.50); Eosinophils % (auto) 0.3 %; Hematocrit (blood only) 48.4 % (42.0-52.0); Hemoglobin 15.6 g/dl (14.0-18.0); Immature Granulocytes % (auto) 0.9 %; Lymphocytes # (auto) 0.78 K/uL (1.20-3.40); Lymphocytes % (auto) 7.1 %; Mean Corpuscular Hgb Conc 32.2 g/dL (32.0-36.0); Mean Platelet Volume 9.5 fL (9.4-12.4); Monocytes # (auto) 0.63 K/uL (0.11-0.59); Monocytes % (auto) 5.7 %; Neutrophils # (auto) 9.43 K/uL (1.40-6.50); Neutrophils % (auto) 85.5 %; Platelet Count 138 K/uL (130-400); RDW Coefficient of Variation 14.4 % (11.5-14.5); RDW Standard Deviation 50.6 fL (36.4-46.3); Red Blood Count 5.04 M/uL (4.70-6.10); White Blood Count 11.02 K/ul (4.8-10.8)
[2023-04-03 13:52] LABS: INR 1.2 (0.9-1.1); Partial Thromboplastin Ratio 0.8; Partial Thromboplastin Time 23 Seconds (21-31); Prothrombin Time 12.8 Seconds (9.0-12.0)
[2023-04-03 14:04] LABS: Albumin Globulin Ratio 1.5 (0.9-2); Albumin Level 3.8 gm/dl (3.4-5.0); BUN Creatinine Ratio 19.4 (10-20); Bilirubin,Total 0.9 mg/dl (0.2-1.0); Calcium 10.2 mg/dl (8.6-10.3); Creatinine Clr Calc Pharmacy 51.3 ml/min; Est GFR (African American) 62.8 ml/min; Est GFR (Non-African American) 54.2 ml/min; Globulin 2.5 gm/dl (2.5-4.0); Magnesium 2.1 mg/dl (1.7-2.4); Potassium 4.5 mmol/L (3.5-5.1); Total Protein 6.3 gm/dl (6.0-8.3)
[2023-04-03 14:10] LABS: Troponin I High Sensitivity 8.7 pg/ml (0-20)
--- NOTE | 2023-04-03 14:26 | History & Physical Report ---
Date of Service April 03, 2023 Assessment & Plan (1) Stroke-like symptoms: Plan: New CVA vs recrudescence of recent stroke from infection/exertion etc... Brain MRI, will defer stroke order set pending result of this given major current symptom is confusion (2) Acute encephalopathy: Plan: CXR and UA, prolactin, blood culture for infection workup (3) Trigeminal neuralgia: Plan: Continue Oxcarbazepine 150mg PO BID (4) Hx of subdural hematoma: Plan: Previously noted, although questioned whether this is a true diagnosis per his son (5) Hypothyroidism: Plan: TSH with AM labs COntinue levothyroxine Plan VTE Prophylaxis - deferred pending brain MRI Diet - NPO pending SLT assessment Disposition - observation status to med/tele Admission and Anticipated Discharge Date Admission Date: April 03, 2023 History of Present Illness Chief Complaint: Stroke like symptoms Primary Care Provider: Pancho Mohr MD Romain Lim is an 82 year old right handed male with recent stroke who presents to the ER with after recent discharge for acute CVA to [facility] for rehabilitation. Unable to get any history from patient and daughter in law was not present at the time of event. History taken from Maddie Biswas PA-C at [facility] (both from her note and phone call). Patient did well with speech and language therapy this morning and occuptation therapy for 40 minutes. She was called urgently to see him around noon by nursing for acute sudden change in condition. She patient was slurring speech slumped on left side and reportedly new right lower extremity immobility. Blod glucose 140. No fever, hypoxia, hypotension, hypertension or recent fall. He received his morning medications. At most recent baseline he had clear speech, some right sided weakness and clumsiness but was able to move all 4 extremities and right lower extremity was flaccid when initially seen. His daughter in law reports he appears more just confused than his baseline in the emergency room although this does tend to fluctuate with his dementia. He is also just more restless. He was recently hospitalized from March 26 - 2023 due to acute left frontal CVA causing right sided facial droop and unable to move his right arm. No right lower extremity weakness was noted at time of admission. He was switched from aspirin to clopidogrel and discharged to [facility] for rehabilitation. Allergies Allergy/AdvReac Type Severity Reaction Status Date / Time No Known Allergies Allergy Verified 12/19/22 10:01 Home Medications Medication Instructions Recorded Confirmed Type bimatoprost 0.01 % eye drops 1 drp OPB HS 07/30/21 04/03/23 History (Lumigan) brimonidine 0.1 % eye drops 1 drp OPB BID 07/30/21 04/03/23 History (Alphagan P) memantine 10 mg tablet 10 mg PO BID #60 tabs 03/31/22 04/03/23 Rx donepezil 5 mg tablet 5 mg PO BID #60 tabs 08/23/22 04/03/23 Rx oxcarbazepine 150 mg tablet 150 mg PO BID #60 tabs 10/09/22 04/03/23 Rx calcium carbonate 400 mg calcium 800 mg PO Q8H 12/19/22 04/03/23 History (1,000 mg) chewable tablet cholecalciferol (vitamin D3) 1,250 50,000 unit PO .weekly #14 caps 12/19/22 04/03/23 Rx mcg (50,000 unit) capsule famotidine 20 mg tablet 20 mg PO DAILY 12/19/22 04/03/23 History levothyroxine 50 mcg tablet 50 mcg PO DAILY 12/19/22 04/03/23 History acetaminophen 500 mg tablet 1,000 mg PO Q8H PRN Pain 03/26/23 04/03/23 History (Acetaminophen Extra Strength) acetaminophen 500 mg tablet 1,000 mg PO Q8H PRN fever>100 03/26/23 04/03/23 History (Acetaminophen Extra Strength) dorzolamide 22.3 mg-timolol 6.8 1 drp ophthalmic (eye) BID 03/26/23 04/03/23 History mg/mL eye drops mecobalamin (vitamin B12) 1,000 1,000 mcg PO BID 03/26/23 04/03/23 History mcg chewable tablet (B12 Active) sertraline See Rx Instructions .Route .COMPLEX 03/26/23 04/03/23 History atorvastatin 40 mg tablet (Lipitor) 40 mg PO HS #30 tabs 03/27/23 04/03/23 Rx clopidogrel 75 mg tablet 75 mg PO QAM #30 tabs 03/27/23 04/03/23 Rx Past Med/Surg History Medical History (Updated 04/04/23 @ 06:51 by Jaguar Lin MD) Hypothyroidism CKD (chronic kidney disease) History of stroke listed above - pt denies hx stroke; poor historian. denies following with neurology but office visit in [facility] from 12/2020 Chronic lower back pain History of prostate cancer dx'd 2-3 years ago; s/p radiation Poor historian HTN (hypertension) no meds - PCP monitors Cerebral cavernoma pt denies Chronic subdural hematoma pt denies Nerve disorder, cranial f/u with Dr. Marcelino--per pt's son Michael Trigeminal neuralgia f/u with Dr. Marcelino--per pt's son Michael Surgical History Hx of inguinal hernia repair History of left cataract surgery History of prostate biopsy Family History Mother , in her 60s Parkinson's disease Primary Parkinson's disease Father , in his 70's of uncertain cause No problems noted. Social History Smoking Status: Never smoker Second Hand Exposure: No; Do You Dip or Chew Tobacco: No; Hx Alcohol Use: Yes Alcohol Intake Frequency Comment: rare Hx Substance Use: No Preferred Language: Thai Communication Ability: Effective Clinical Cytogeneticist Required: No Beliefs That Will Affect Care: None Current Living Situation: Personal Care Facility current occupational status: retired current occupation: retired [employer] of [employer] CURRENT of [employer] Feels Safe at Home: Yes Assistive Devices: Glasses Review of Systems Review of Systems: Unobtainable due to cognitive status (patient reports no complaints but unreliable due to acute confusion) Physical Exam Constitutional: WD/WN, vitals as above Eyes: PERRL, conjunctivae normal, anicteric sclerae ENMT: Mouth: + dry oral mucous membranes Neck: trachea midline, no thyromegaly Respiratory: normal respiratory effort, lungs clear to auscultation Cardiovascular: Rate/Rhythm: regular rate and regular rhythm Heart Sounds: no murmur Extremities: normal capillary refill and + pedal edema (trace pitting); no calf tenderness Right leg circumference > 2cm than left Gastrointestinal (Abdomen): normal bowel sounds, soft, nontender, no hepatosplenomegaly Skin: no rashes, warm and dry Neurologic: moves all extremities, + focal motor deficit (RLE weakness 4/5 hip flex, otherwise equal to left), awake and + confused Speech / Cognition: normal speech Motor/Sensory: no tremor, no pronator drift and no sensory deficit Cranial Nerves: PERRL, EOM intact bilaterally, tongue midline, able to rotate head bilaterally, able to elevate shoulders bilaterally, no nystagmus and symmetric palate elevation; + abnormal facial strength (mild right facial droop) Coordination: + abnormal [id number] test (decreased right sided) Psychiatric: Orientation: alert, oriented to person (self only, does not recognize daughter in law in room) and oriented to place (aware he is in [facility]); + not oriented to time Genitourinary: no CVA tenderness Results & Data Results & Data Vital Signs (Past 12 Hours) Vital Signs Temp Pulse Resp BP Pulse Ox O2 Del Method 04/03/23 14:04 61 18 97 04/03/23 14:04 154/90 H 04/03/23 14:00 52 L 16 04/03/23 13:45 148/89 H 04/03/23 13:45 60 17 04/03/23 13:31 151/84 H 04/03/23 13:31 63 19 97 04/03/23 13:30 64 18 97 04/03/23 13:13 36.5 C 56 L 20 156/84 H 97 Room Air 04/03/23 13:10 67 17 93 04/03/23 13:10 156/84 H Laboratory Results Abnormal lab results 04/03/23 04/03/23 04/03/23 Range/Units 13:21 13:26 13:31 WBC 11.02 H (4.8-10.8) K/ul RDW Std Deviation 50.6 H (36.4-46.3) fL Neut # (Auto) 9.43 H (1.40-6.50) K/uL Lymph # (Auto) 0.78 L (1.20-3.40) K/uL Blount # (Auto) 0.63 H (0.11-0.59) K/uL PT 12.8 H (9.0-12.0) Seconds INR 1.2 H (0.9-1.1) Chloride 108 H (98-107) mmol/L POC Total CO2 23 L (24-31) mmol/L POC BUN 24 H (7-18) mg/dl BUN 24 H (6-23) mg/dl Glucose 140 H (70-99(Fasting)) mg/dl POC Glucose 116 H (70-99) mg/dl POC Glucose (other) 124 H (70-99) mg/dl Diagnostic Findings CT head/brain wo con CLINICAL HISTORY: 82 years-old Male with neuro deficit, acute stroke suspected. Acute stroke like symptoms TECHNIQUE: Multiple axial CT images of the head were obtained without contrast. A dose lowering technique was utilized adhering to the principles of ALARA. COMPARISON: CTA head and neck of same day, head CT 03/26/2023 brain MRI 03/24/2023. FINDINGS: No acute intracranial hemorrhage, midline shift, intracranial mass, hydrocephalu s, acute territorial infarct or abnormal extra-axial collection. Involutional changes with chronic microvascular ischemic disease. Unchanged mild ventriculomegaly. Encephalomalacia of the right frontal lobe, likely secondary to chronic infarct on image 19 series 2. 2.2 cm acute subacute left frontal lobe infarct on image 17 series 2 redemonstrated. The calvarium is intact. Moderate mucosal thickening with volume loss and air fluid level noted within the left maxillary sinus. IMPRESSION: 1. Small acute to subacute appearing left frontal lobe infarct redemonstrated which is similar in size to the recent brain MRI. 2. Involutional changes with chronic microvascular ischemic disease. 3. Chronic right frontal lobe infarct. HEAD CTA HISTORY: Acute left frontal lobe infarct. Follow-up. neuro deficit, acute stroke suspected TECHNIQUE: Multiaxial CT images of the head were performed both before and after the intravenous administration of contrast to evaluate the major cerebral vessels. 3D/MIP images were also obtained. Sagittal and coronal reformats were reviewed. A dose lowering technique was utilized adhering to the principles of ALARA. COMPARISON: Head CT 03/26/2023. FINDINGS: The small left frontal lobe acute to subacute infarct is better appreciated on the same day head CT. There is an old small right frontal lobe infarct again noted. Partial opacification of the left maxillary sinus. The mastoid air cells are clear. The calvarium and skull base are intact. The major dural venous sinuses are patent. Visualized intracranial internal carotid arteries, distal vertebral arteries, and basilar artery are widely patent. There is no significant stenosis, occlusion, or aneurysm seen within the bilateral ACAs, MCAs, or prick stitcher. IMPRESSION: 1. No significant stenosis, occlusion, or aneurysm within the [place] of [place]. 2. The small left frontal lobe acute to subacute infarct is better appreciated on the same day head CT. CT ANGIOGRAM OF THE NECK CLINICAL HISTORY: Strokelike symptoms. Neurological deficit. COMPARISON STUDY: CT angiogram of the neck dated 03/26/2023. TECHNIQUE: Following the IV administration of 119 of Optiray 320, CT angiogram of the neck was performed from the aortic arch to the skull base. Images are reviewed in the axial, sagittal, and coronal planes. 3-D MIPS images are created and assessed. IV contrast was administered without complication. All measurements were calculated based on NASCET criteria. A dose lowering technique was utilized adhering to the principles of ALARA. FINDINGS: Thoracic aorta: Visualized portions of the thoracic aorta are normal in caliber. The aortic arch demonstrates bovine variant anatomy. Right carotid arterial system: The right common carotid artery is widely patent, as are the right internal and external carotid arteries. Calcified plaque is noted in the carotid bulb. Left carotid arterial system: The left common carotid artery is widely patent, as are the left internal and external carotid arteries. Calcified plaque is noted in the carotid bulb. Vertebral arteries: Widely patent bilaterally noting left-sided dominance. Subclavian arteries: Widely patent bilaterally. Intracranial vasculature: The visualized intracranial vessels at the skull base are patent. Jugular veins: Widely patent bilaterally. Brain parenchyma: The visualized brain parenchyma the skull base is within normal limits. Lung apices: Partially visualized upper lobe lung parenchyma appears clear. Soft tissues: The visualized pharyngeal soft tissues are normal in appearance noting angiographic phase technique. The oropharyngeal airway appears widely patent. The salivary and thyroid glands are normal in appearance. No cervical lymphadenopathy is seen. Skeletal structures: The visualized calvarium at the skull base appears intact. The imaged cervical spine is maintains noting multilevel spondylosis. Sinuses and mastoids: There is moderate mucosal thickening in the left maxillary antrum. The mastoid air cells are well-pneumatized. IMPRESSION: Unremarkable CT angiogram of the neck. Medications Administered ER medications given: None ECG Rate (beats per minute): 65 Rhythm: normal sinus Findings: + PVC Comparison ECG Date: from (March 26, 2023) Change: the following changes noted (PVCs now present, T wave flattening in anterior lateral leads) Code Status & VTE Plan Code Status Full VTE Prophylaxis Plan VTE Prophylaxis will be ordered: Yes PG Care Time/CCT Total # of Minutes Spent Total Time Spent with Patient: Total time spent is greater than 50% in coordination of care (as documented) at patient's floor/unit and/or counseling patient: Coding Level of Care Code 75966 INT INP/OBS CARE 3/75MIN Diagnoses Stroke-like symptoms R29.90 Acute encephalopathy G93.40 Trigeminal neuralgia G50.0 Hx of subdural hematoma Z86.79 Hypothyroidism E03.9
--- NOTE | 2023-04-03 14:29 | Electrocardiogram Report ---
Test Reason : Blood Pressure : / mmHG Vent. Rate : 065 BPM Atrial Rate : 065 BPM P-R Int : 186 ms QRS Dur : 100 ms QT Int : 418 ms P-R-T Axes : 031 -13 045 degrees QTc Int : 434 ms Sinus rhythm with frequent Premature ventricular complexes Nonspecific T wave abnormality Abnormal ECG When compared with ECG of 26-MAR-2023 02:38, Premature ventricular complexes are now Present Nonspecific T wave abnormality now evident in Anterolateral leads Confirmed by Pj Mcdaniel ([id number]) on 04/03/2023 2:29:13 PM Referred By: Confirmed By:Pj Mcdaniel
--- NOTE | 2023-04-03 14:32 | XRay Report ---
XR chest 1V portable HISTORY: neuro deficit, acute stroke suspected COMPARISON: Chest 07/30/2021. FINDINGS: No pneumothorax. No pleural effusions. The heart remains mildly enlarged. There is a tortuo us thoracic aorta, unchanged. No focal lung consolidations to suggest a pneumonia. No evidence for pu lmonary edema. No acute fractures identified. IMPRESSION: No significant change compared to the prior study. No acute process. ACT 112: Negative or not required by law. Electronically signed by: Yasmany Kelly M.D. 04/03/2023 2:31 PM
[2023-04-03] MEDS ORDERED: SODIUM CHLORIDE 0.9% 500 ML IV ONE (14:33)
--- NOTE | 2023-04-03 14:33 | Emergency Department Note ---
Impression & Plan Brain TIA, Acute confusion ED Provider Note NAME: GIULIANO TAYLOR AGE: 82 SEX: M : 1940 ARRIVES VIA: Ambulance INFORMANT: Patient, EMS ED PROVIDER(S): Esteban Brunson DO CHIEF COMPLAINT: left sided weakness and confusion HPI: Patient is an 82-year-old gentleman with a past medical history of dementia, CVA, bradycardia, dizziness, cognitive impairment, chronic subdurals, who was just recently admitted and discharged following acute CVA with right- sided deficit and left-sided stroke. Per EMS last known well was around 12:00 today. He was found to be confused and leaning to the left with a left-sided facial droop and left arm weakness. He was brought in by EMS. They note the symptoms improved significantly. Patient currently has no complaints. No headache or change in vision. No chest pain or shortness of breath. No nausea, vomiting, or diarrhea. No other exacerbating or remitting factors. Additional history provided by daughter who is at bedside who notes that he was recently admitted. ADDITIONAL HISTORY OBTAINED: Per HPI Chronic Medical/Social Conditions Affecting Care: Per HPI PAST MEDICAL HISTORY:See Below PAST SURGICAL HISTORY:See Below FAMILY HISTORY:See Below SOCIAL HISTORY:See Below HOME MEDICATIONS:See Below ALLERGIES:See Below VITALS:See Below PHYSICAL EXAMINATION: GENERAL: Sitting up in bed, alert, well appearing, well nourished, no distress, non-toxic EYE EXAM: normal conjunctiva. PERRL and EOM's intact. OROPHARYNX: no exudate, no erythema, lips, buccal mucosa, and tongue normal and mucous membranes are moist NECK: supple, no nuchal rigidity, no adenopathy, non-tender LUNGS: Clear to auscultation. Normal chest wall mechanics HEART: no murmurs, S1 normal and S2 normal ABDOMEN: abdomen soft, non-tender, normo-active bowel sounds, no masses, no rebound or guarding. BACK: Back is symmetrical on inspection and there is no deformity, no midline tenderness, no CVA tenderness. SKIN: no rashes and no bruising UPPER EXTREMITIES: upper extremities are grossly normal. LOWER EXTREMITIES: No pitting edema. NEURO EXAM: Normal sensorium, cranial nerves II-XII intact, normal speech, no weakness of arms, no weakness of legs. No drift. Finger to nose intact. Gross sensation intact. MEDICAL DECISION MAKING: Patient is a 82-year-old male who presents to the ER for the above-stated complaint. IV was established blood work is obtained. Is brought in as a stroke alert. Taken directly to CAT scan. On my evaluation he had no deficit. He was completely awake alert and oriented. IVs were established blood work is obtained. He is not a TNK candidate with the previous subdurals and recent stroke. Labs show no significant leukocytosis or anemia. BMP was unremarkable. INR at 1.2. LFTs bilirubin was unremarkable. Troponin was negative. Patient was completely back to baseline. CT angios of the head and neck are has not significantly changed from previous. Updated at bedside and discussed with Dr. Lin for further evaluation management treatment. With the presentation I do favor that this is likely a seizure but cannot be certain and will need to complete workup. Consults/Care Managements Discussions: Per [facility] Triage Nursing notes reviewed. Limited review of prior medical records performed Vital Signs: reviewed and remarkable for no significant abnormalities Differential diagnosis: Differential Diagnosis includes but is not limited to ischemic Stroke, hemorrhagic stroke, bells palsy, mass, neoplasm, migraine headache, seizure, subarachnoid hemorrhage, TIA, and transient global amnesia. ER treatment provided: See below Diagnostics interpreted by me include EKG and cardiac monitoring as listed below: -Cardiac Monitoring: An order was placed for continuous cardiac monitoring. The monitor shows a rate of 80 with sinus rhythm. -ECG: Sinus rhythm rate of 65 PVCs Normal axis QTc 434 -Laboratory studies:Interpreted by me as stated above in MDM and shown below. Imaging studies: Xrays: As interpreted by me: Portable AP upright 1 view chest shows no focal infiltrate CTs show: CT angio of the head and neck was negative Procedures:none Critical Care: None Past Med/Surg History Medical History CKD (chronic kidney disease) History of stroke listed above - pt denies hx stroke; poor historian. denies following with neurology but office visit in [employer] from 12/2020 Chronic lower back pain History of prostate cancer dx'd 2-3 years ago; s/p radiation Poor historian HTN (hypertension) no meds - PCP monitors Cerebral cavernoma pt denies Chronic subdural hematoma pt denies Nerve disorder, cranial f/u with Dr. Marcelino--per pt's son Michael Trigeminal neuralgia f/u with Dr. Marcelino--per pt's son Michael Surgical History Hx of inguinal hernia repair History of left cataract surgery History of prostate biopsy Family History Mother , in her 60s Parkinson's disease Primary Parkinson's disease Father , in his 70's of uncertain cause No problems noted. 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 [employer] Feels Safe at Home: Yes Assistive Devices: Glasses and Walker Allergies Allergies Allergy/AdvReac Type Severity Reaction Status Date / Time No Known Allergies Allergy Verified 12/19/22 10:01 Home Meds Home Medications Medication Instructions Recorded Confirmed bimatoprost 0.01 % eye drops 1 drp OPB HS 07/30/21 04/03/23 (Lumigan) brimonidine 0.1 % eye drops 1 drp OPB BID 07/30/21 04/03/23 (Alphagan P) calcium carbonate 400 mg calcium 800 mg PO Q8H 12/19/22 04/03/23 (1,000 mg) chewable tablet famotidine 20 mg tablet 20 mg PO DAILY 12/19/22 04/03/23 levothyroxine 50 mcg tablet 50 mcg PO DAILY 12/19/22 04/03/23 acetaminophen 500 mg tablet 1,000 mg PO Q8H PRN Pain 03/26/23 04/03/23 (Acetaminophen Extra Strength) acetaminophen 500 mg tablet 1,000 mg PO Q8H PRN fever>100 03/26/23 04/03/23 (Acetaminophen Extra Strength) dorzolamide 22.3 mg-timolol 6.8 1 drp ophthalmic (eye) BID 03/26/23 04/03/23 mg/mL eye drops mecobalamin (vitamin B12) 1,000 1,000 mcg PO BID 03/26/23 04/03/23 mcg chewable tablet (B12 Active) sertraline See Rx Instructions .Route .COMPLEX 03/26/23 04/03/23 Previous Rx's Medication Instructions Recorded memantine 10 mg tablet 10 mg PO BID #60 tabs 03/31/22 donepezil 5 mg tablet 5 mg PO BID #60 tabs 08/23/22 oxcarbazepine 150 mg tablet 150 mg PO BID #60 tabs 10/09/22 cholecalciferol (vitamin D3) 1,250 50,000 unit PO .weekly #14 caps 12/19/22 mcg (50,000 unit) capsule atorvastatin 40 mg tablet (Lipitor) 40 mg PO HS #30 tabs 03/27/23 clopidogrel 75 mg tablet 75 mg PO QAM #30 tabs 03/27/23 Results & Data (ED) Vital Signs Vital Signs - 24 hr 04/03/23 13:10 04/03/23 13:10 04/03/23 13:13 Temperature 36.5 C Temperature Source Oral Pulse Rate 67 56 L Pulse Rate from SpO2 Sensor 46 L Respiratory Rate 17 20 Blood Pressure 156/84 H 156/84 H Blood Pressure Mean 95 108 Pulse Oximetry 93 97 Oxygen Delivery Method Room Air Sepsis Recent Fever Within 48 Hours No Sepsis New/Unexplained Change in Mental Status No Sepsis Action Taken by Nursing No Action Required 04/03/23 13:30 04/03/23 13:31 04/03/23 13:31 Temperature Temperature Source Pulse Rate 64 63 Pulse Rate from SpO2 Sensor 58 L 56 L Respiratory Rate 18 19 Blood Pressure 151/84 H Blood Pressure Mean 106 Pulse Oximetry 97 97 Oxygen Delivery Method Sepsis Recent Fever Within 48 Hours Sepsis New/Unexplained Change in Mental Status Sepsis Action Taken by Nursing 04/03/23 13:45 04/03/23 13:45 04/03/23 14:00 Temperature Temperature Source Pulse Rate 60 52 L Pulse Rate from SpO2 Sensor Respiratory Rate 17 16 Blood Pressure 148/89 H Blood Pressure Mean 114 Pulse Oximetry Oxygen Delivery Method Sepsis Recent Fever Within 48 Hours Sepsis New/Unexplained Change in Mental Status Sepsis Action Taken by Nursing 04/03/23 14:04 04/03/23 14:04 Temperature Temperature Source Pulse Rate 61 Pulse Rate from SpO2 Sensor Respiratory Rate 18 Blood Pressure 154/90 H Blood Pressure Mean 119 Pulse Oximetry 97 Oxygen Delivery Method Sepsis Recent Fever Within 48 Hours Sepsis New/Unexplained Change in Mental Status Sepsis Action Taken by Nursing Laboratory Data 04/03/23 13:31 04/03/23 13:31 Lab Results 04/03/23 04/03/23 04/03/23 Range/Units 13:21 13:26 13:31 WBC 11.02 H (4.8-10.8) K/ul RBC 5.04 (4.70-6.10) M/uL Hgb 15.6 (14.0-18.0) g/dl POC Hgb 14.3 (14.0-18.0) g/dl Hct 48.4 (42.0-52.0) % POC Hct 42 (42-52) % MCV 96.0 (80.0-100.0) fL MCH 31.0 (25.0-34.0) pg MCHC 32.2 (32.0-36.0) g/dL RDW Std Deviation 50.6 H (36.4-46.3) fL RDW Coeff of Chintan 14.4 (11.5-14.5) % Plt Count 138 (130-400) K/uL MPV 9.5 (9.4-12.4) fL Immature Gran % (Auto) 0.9 % Neut % (Auto) 85.5 % Lymph % (Auto) 7.1 % Woodruff % (Auto) 5.7 % Eos % (Auto) 0.3 % Baso % (Auto) 0.5 % Neut # (Auto) 9.43 H (1.40-6.50) K/uL Lymph # (Auto) 0.78 L (1.20-3.40) K/uL Woodruff # (Auto) 0.63 H (0.11-0.59) K/uL Eos # (Auto) 0.03 (0.00-0.50) K/uL Baso # (Auto) 0.05 (0.00-0.20) K/uL Immature Gran # (Auto) 0.10 (0.01-0.20) K/uL PT 12.8 H (9.0-12.0) Seconds INR 1.2 H (0.9-1.1) APTT 23 (21-31) Seconds PTT Ratio 0.8 POC Sodium 142 (135-144) mmol/L Sodium 142 (136-145) mmol/L POC Potassium 4.5 (3.3-5.0) mmol/L Potassium 4.5 (3.5-5.1) mmol/L POC Chloride 109 (101-112) mmol/L Chloride 108 H (98-107) mmol/L Carbon Dioxide 27 (21-32) mmol/L POC Total CO2 23 L (24-31) mmol/L Anion Gap 7 (3-11) POC Anion Gap 17.0 (16-25) mmol/L POC BUN 24 H (7-18) mg/dl BUN 24 H (6-23) mg/dl Creatinine 1.24 (0.6-1.4) mg/dl POC Creatinine 1.3 (0.6-1.3) mg/dl Est Cr Clr Drug Dosing 51.3 ml/min Est GFR ( Amer) 62.8 ml/min Est GFR (Non-Af Amer) 54.2 ml/min BUN/Creatinine Ratio 19.4 (10-20) Glucose 140 H (70-99(Fasting)) mg/dl POC Glucose 116 H (70-99) mg/dl POC Glucose (other) 124 H (70-99) mg/dl Calcium 10.2 (8.6-10.3) mg/dl POC Ioniz Calcium Anamaria 1.17 (1.12-1.32) mmol/l Magnesium 2.1 (1.7-2.4) mg/dl Total Bilirubin 0.9 (0.2-1.0) mg/dl AST 17 (13-39) U/L ALT 27 (7-52) U/L Alkaline Phosphatase 91 (34-104) U/L Troponin I High Sens 8.7 (0-20) pg/ml Total Protein 6.3 (6.0-8.3) gm/dl Albumin 3.8 (3.4-5.0) gm/dl Globulin 2.5 (2.5-4.0) gm/dl Albumin/Globulin Ratio 1.5 (0.9-2) Administered Medications Discontinued Medications Ioversol (Optiray 320 125ml) 119 ml IV ONCE ONE Stop: 04/03/23 13:13 Last Admin: 04/03/23 13:12 Dose: 119 ml Documented By: NEYMAR Imaging Data Radiologist's Impression: Head CT 04/03/23 12:54 CT head/brain wo con CLINICAL HISTORY: 82 years-old Male with neuro deficit, acute stroke suspected. Acute stroke like symptoms TECHNIQUE: Multiple axial CT images of the head were obtained without contrast. A dose lowering technique was utilized adhering to the principles of ALARA. COMPARISON: CTA head and neck of same day, head CT 03/26/2023 brain MRI 03/24/2023. FINDINGS: No acute intracranial hemorrhage, midline shift, intracranial mass, hydrocephalus, acute territorial infarct or abnormal extra-axial collection. Involutional changes with chronic microvascular ischemic disease. Unchanged mild ventriculomegaly. Encephalomalacia of the right frontal lobe, likely secondary to chronic infarct on image 19 series 2. 2.2 cm acute subacute left frontal lobe infarct on image 17 series 2 redemonstrated. The calvarium is intact. Moderate mucosal thickening with volume loss and air fluid level noted within the left maxillary sinus. IMPRESSION: 1. Small acute to subacute appearing left frontal lobe infarct redemonstrated which is similar in size to the recent brain MRI. 2. Involutional changes with chronic microvascular ischemic disease. 3. Chronic right frontal lobe infarct. ACT 112: Negative or not required by law. The above report was generated using voice recognition software. It may contain grammatical, syntax or spelling errors. Electronically signed by: Reji Yu M.D. 04/03/2023 1:26 PM Head CTA 04/03/23 12:54 HEAD CTA HISTORY: Acute left frontal lobe infarct. Follow-up. neuro deficit, acute stroke suspected TECHNIQUE: Multiaxial CT images of the head were performed both before and after the intravenous administration of contrast to evaluate the major cerebral vessels. 3D/MIP images were also obtained. Sagittal and coronal reformats were reviewed. A dose lowering technique was utilized adhering to the principles of ALARA. COMPARISON: Head CT 03/26/2023. FINDINGS: The small left frontal lobe acute to subacute infarct is better appreciated on the same day head CT. There is an old small right frontal lobe infarct again noted. Partial opacification of the left maxillary sinus. The mastoid air cells are clear. The calvarium and skull base are intact. The major dural venous sinuses are patent. Visualized intracranial internal carotid arteries, distal vertebral arteries, and basilar artery are widely patent. There is no significant stenosis, occlusion, or aneurysm seen within the bilateral ACAs, MCAs, or early childhood educator aide. IMPRESSION: 1. No significant stenosis, occlusion, or aneurysm within the washoe of Sharma. 2. The small left frontal lobe acute to subacute infarct is better appreciated on the same day head CT. ACT 112: Negative or not required by law. Electronically signed by: Yasmany Kelly M.D. 04/03/2023 1:36 PM Neck CTA 04/03/23 12:54 CT ANGIOGRAM OF THE NECK CLINICAL HISTORY: Strokelike symptoms. Neurological deficit. COMPARISON STUDY: CT angiogram of the neck dated 03/26/2023. TECHNIQUE: Following the IV administration of 119 of Optiray 320, CT angiogram of the neck was performed from the aortic arch to the skull base. Images are reviewed in the axial, sagittal, and coronal planes. 3-D MIPS images are created and assessed. IV contrast was administered without complication. All measurements were calculated based on NASCET criteria. A dose lowering technique was utilized adhering to the principles of ALARA. FINDINGS: Thoracic aorta: Visualized portions of the thoracic aorta are normal in caliber. The aortic arch demonstrates bovine variant anatomy. Right carotid arterial system: The right common carotid artery is widely patent, as are the right internal and external carotid arteries. Calcified plaque is noted in the carotid bulb. Left carotid arterial system: The left common carotid artery is widely patent, as are the left internal and external carotid arteries. Calcified plaque is noted in the carotid bulb. Vertebral arteries: Widely patent bilaterally noting left-sided dominance. Subclavian arteries: Widely patent bilaterally. Intracranial vasculature: The visualized intracranial vessels at the skull base are patent. Jugular veins: Widely patent bilaterally. Brain parenchyma: The visualized brain parenchyma the skull base is within normal limits. Lung apices: Partially visualized upper lobe lung parenchyma appears clear. Soft tissues: The visualized pharyngeal soft tissues are normal in appearance noting angiographic phase technique. The oropharyngeal airway appears widely patent. The salivary and thyroid glands are normal in appearance. No cervical lymphadenopathy is seen. Skeletal structures: The visualized calvarium at the skull base appears intact. The imaged cervical spine is maintains noting multilevel spondylosis. Sinuses and mastoids: There is moderate mucosal thickening in the left maxillary antrum. The mastoid air cells are well-pneumatized. IMPRESSION: Unremarkable CT angiogram of the neck. ACT 112: Negative or not required by law. Electronically signed by: Osmin Ferguson M.D. 04/03/2023 1:24 PM Discharge Plan Visit Data Chief Complaint: Stroke Alert ED Provider: Esteban Brunson Discharge Problem: Brain TIA, Acute confusion Forms Stand Alone Forms: My [facility] [facility] Prescriptions Prescriptions: No Action oxcarbazepine 150 mg tablet 150 mg PO BID Qty: 60 5RF donepezil 5 mg tablet 5 mg PO BID Qty: 60 2RF memantine 10 mg tablet 10 mg PO BID Qty: 60 5RF calcium carbonate 400 mg calcium (1,000 mg) tablet,chewable 800 mg PO Q8H famotidine 20 mg tablet 20 mg PO DAILY levothyroxine 50 mcg tablet 50 mcg PO DAILY cholecalciferol (vitamin D3) 1,250 mcg (50,000 unit) capsule 50,000 unit PO .weekly Qty: 14 2RF Rx Instructions: fridays acetaminophen [Acetaminophen Extra Strength] 500 mg Tablet 1,000 mg PO Q8H PRN (Reason: fever>100) acetaminophen [Acetaminophen Extra Strength] 500 mg Tablet 1,000 mg PO Q8H PRN (Reason: Pain) dorzolamide-timolol 22.3-6.8 mg/mL drops 1 drp ophthalmic (eye) BID mecobalamin (vitamin B12) [B12 Active] 1,000 mcg Tablet,Chewable 1,000 mcg PO BID sertraline See Rx Instructions .ROUTE .COMPLEX Rx Instructions: 25 mg daily for one week, then 50 mg after clopidogrel 75 mg Tablet 75 mg PO QAM Qty: 30 0RF atorvastatin [Lipitor] 40 mg tablet 40 mg PO HS Qty: 30 0RF brimonidine [Alphagan P] 0.1 % drops 1 drp OPB BID Lumigan 0.01 % drops 1 drp OPB HS Referrals Referrals: Pancho Mohr MD [Primary Care Provider] -
[2023-04-03 16:39] LABS: Influenza A virus by PCR Negative (Neg); Influenza B virus by PCR Negative (Neg); RSV by PCR Negative (Neg); SARS CoV2 RNA(COVID-19) Ceph NEGATIVE (Negative)
--- NOTE | 2023-04-03 17:37 | Ultrasound Report ---
US venous doppler LE RT HISTORY: 82 years-old Male Right leg swelling acute pain and swelling of the lower extremity COMPARISON: None TECHNIQUE: Multiple real-time sonographic images of the right lower extremity deep venous structures were obtained assessing grayscale appearance, color and spectral flow. FINDINGS: Occlusive DVT noted within one of the duplicated posterior tibial veins and also within both of the d uplicated peroneal veins. Otherwise normal flow, compressibility, phasicity and augmentation. IMPRESSION: Likely acute DVT as above. ACT 112: Negative or not required by law. The above report was generated using voice recognition software. It may contain grammatical, syntax o r spelling errors. Electronically signed by: Reji Yu M.D. 04/03/2023 5:35 PM
--- NOTE | 2023-04-03 18:12 | Magnetic Resonance Report ---
MR brain wo con HISTORY: 82 years-old Male Left facial weakness, left arm drift acute stroke like symptoms COMPARISON: Head CT of same day, brain MRI 03/26/2023 TECHNIQUE: Multiplanar multisequence MRI of the brain was obtained without the use of IV contrast. FINDINGS: Motion degraded exam. 2 cm focus of restricted diffusion within the left frontal lobe redemonstrated with isointense signal on ADC map. New from a prior is a focus of restricted diffusion within the lef t occipital lobe measuring 3.5 x 2.7 cm with an additional 2.3 cm focus in the superior left frontal lobe on image 22 series 4. Both of these areas demonstrate decreased signal on the ADC map. Degenerat devyn changes of the cervical spine. Midline structures appear unremarkable. No acute intracranial hemorrhage, midline shift, abnormal extra-axial collection, hydrocephalus or in tra-axial mass. Involutional changes with moderate T2/FLAIR hyperintense foci throughout the white ma tter. Chronic right frontal lobe infarct with encephalomalacia and gliosis. Cerebral venous sinuses a nd major arterial flow voids appear patent. Prior bilateral lens repair. Because of thickening with v olume loss of the left maxillary sinus. Mastoid air cells are clear. IMPRESSION: 1. There are new left occipital and superior left frontal lobe acute infarcts with subacute left fron sammy lobe infarct. Based on the multiple vascular territory distribution of these findings, a proximal thromboembolic source is considered most likely. 2. No acute intracranial hemorrhage or midline shift. 3. Involutional changes with moderate chronic microvascular ischemic disease. 4. Chronic right frontal lobe infarct. ACT 112: Negative or not required by law. The above report was generated using voice recognition software. It may contain grammatical, syntax o r spelling errors. Electronically signed by: Reji Yu M.D. 04/03/2023 6:09 PM
[2023-04-03] MEDS ORDERED: PHARMACIST DISCHARGE MED REC CONSULT PRN (18:44)
[2023-04-03] MEDS ORDERED: Heparin IV Adult Wt-Based Standard w/ INITIAL Bolus Protocol IV SCH (18:45)
[2023-04-03] MEDS ORDERED: HEPARIN SOD (PORCINE) 1000 UNIT/ML IV ONE (18:50)
[2023-04-03] MEDS ORDERED: HEPARIN SODIUM/DEXTROSE 25,000 UNITS/500 ML BAG IV SCH (19:00)
[2023-04-03] MEDS: LACTATED RINGER'S 1,000 ML IV SCH (20:07)
--- OUTSIDE RECORDS SUMMARY | 2023-04-03 20:53 | External Medical Summary | Summary of Care ---
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 0 03/29/2023 Active Clopidogrel Bisulfate 75 MG Oral Tablet (pLAVix) Take 1 Tablet by mouth in the morning. 0 03/29/2023 Active OXcarbazepine 150 MG Oral Tablet (Trileptal)Indication s:take 1 tablet in AM and 2 tablets in the evening Take 1 Tablet by mouth in the morning and 1 Tablet before bedtime. 0 03/29/2023 Active Lumigan 0.01 % Ophthalmic Solution (Bimatoprost) Instill 1 Drop into both eyes at bedtime. 0 03/29/2023 Active Brimonidine Tartrate 0.1 % Ophthalmic Solution (Alphagan P) Instill 1 Drop into both eyes in the morning and 1 Drop before bedtime. 0 03/29/2023 Active Memantine HCl 10 MG Oral Tablet (Namenda) Take 1 Tablet by mouth 2 times a day with morning and evening meals. 0 03/29/2023 Active Donepezil HCl 5 MG Oral Tablet (Aricept) Take 1 Tablet by mouth in the morning and 1 Tablet before bedtime. Take with largest meal of the day.. 0 03/29/2023 Active Calcium Carbonate 800 MG/2GM Oral Powder Take 800 mg by mouth in the morning and 800 mg at noon and 800 mg before bedtime. 0 03/29/2023 Active Famotidine 20 MG Oral Tablet (Pepcid) Take 1 Tablet by mouth in the morning. 0 03/29/2023 Active Levothyroxine Sodium 50 MCG Oral Tablet (Levoxyl) Take 1 Tablet by mouth in the morning. (at least 30 min prior to breakfast or other meds). 0 03/29/2023 Active Cholecalciferol 1.25 MG (17613 UT) Oral Tablet Take 50,000 Units by mouth once a week. Fridays 0 03/29/2023 Active Vitamin B-12 1000 MCG Sublingual Tablet Sublingual Place 1 Tablet under the tongue in the morning. 0 03/29/2023 Active Dorzolamide HCl-Timolol Mal 2-0.5 % Ophthalmic Solution (Cosopt Ocumeter Plus) Instill 1 Drop into both eyes in the morning and 1 Drop before bedtime. 0 03/29/2023 Active Sertraline HCl 50 MG Oral Tablet (Zoloft) Take 1 Tablet by mouth in the morning. 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 2023 Overview: Left frontal lobe infarct And remote ischemic injury in right frontal lobe with encephalomalacia Stenosis of right middle cerebral artery 024 Left ventricular hypertrophy 03/29/2023 Right hemiparesis 03/29/2023 Depressive disorder 03/29/2023 Moderate vascular dementia with mood disturbance 03/29/2023 Hypertension goal BP (blood pressure) < 140/90 0 03/29/2023 Benign neoplasm of colon 02/13/2007 Overview: hyperplastic repeat colonoscopy in 5 yrs Trigeminal neuralgia 12/18/2006 ADVANCE DIRECTIVE INFORMATION 10/27/2004 Overview: Yes, Patient instructed to provide copy of advance directive for provider to review and to be scanned into Electronic Medical Record documented as of this encounter (statuses as of 04/02/2023) Immunizations Name Administration Dates Next Due COVID-19 mRNA, LNP-s, No Pre serve, 2-Dose Series (Mofibo) 12/01/2020,05/17/2020,04/18/2020 documented as of this encounter Social History Tobacco Use Types Packs/Day Years Used Date Smoking Tobacco: Never Smokeless Tobacco: Never Alcohol Use Standard Drinks/Week Comments Yes 0 (1 standard drink = 0.6 oz pur e alcohol) socially Sex and Gender Information Value Date Recorded Sex Assigned at Not on file Gender Identity Not on file Sexual Orientation Not on file documented as of this encounter Last Filed Vital Signs Vital Sign Reading Time Taken Comments Blood Pressure 138/82 04/02/2023 2:48 PM EST Pulse 61 04/02/2023 2:48 PM EST Temperature 36.4 C (97.5 F) 04/02/2023 2:48 PM ES T Respiratory Rate 16 04/02/2023 2:48 PM EST Oxygen Saturation 95% 04/02/2023 2:48 PM EST room air Inhaled Oxygen Concentration - - Weight 95.9 kg (211 lb 6.4 oz) 04/02/2023 2:48 P M EST Height 182.9 cm (6') 04/02/2023 2:48 PM EST Body Mass Index 28.67 04/02/2023 2:48 PM EST documented in this encounter Progress Notes * Maddie Biswas PA-C - 04/02/2023 11:30 AM EST Name: Romain Lim Date of : 1940 This note pertains to care provided at [facility]. Please see facility record for original note. This note is not to be edited or addended in [employer]. Editing or addending needs to occur in the facility's medical record. Chief Complaint Patient presents with Skilled Visit TRANSITION EVENT: Type: Skilled visit Date: April 02 Code Status: Full Code SUBJECTIVE: Romain Lim is a 82 year old male HPI: short-term rehab pt recently hospitalized with acute CVA is seen today in follow up. Staff reports no acute events over the past few days. He denies current complaint, though history is limited due to underlying dementia. He is participating with PT/OT/ST. Currently requires frequent cueing for meals, and hands-on assistance with ADLs. He is ambulating short distances with a walker. 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) G30.1, F02.B3 History of subdural hematoma Z86.79 Primary open angle glaucoma (POAG) of both eyes, indeterminate stage H40.1134 History of prostate cancer Z85.46 Dyslipidemia, goal LDL below 70 E78.5 Acquired hypothyroidism E03.9 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 Z86.73 Stenosis of right middle cerebral artery I66.01 Left ventricular hypertrophy I51.7 Right hemiparesis (HCC) G81.91 Depressive disorder F32.A 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 Review of Systems: Per HPI, limited from pt due to dementia OBJECTIVE: BP 138/82 | Pulse 61 | Temp 36.4 C (97.5 F) | Resp 16 | Ht 1.829 m (6') | Wt 95.9 kg(211 lb 6.4 oz) | SpO2 95% Comment: room air | BMI 28.67 kg/m | BSA 2.21 m General: alert and no distress Head: Normocephalic Heart: regular rate & rhythm Lungs: chest symmetric with normal AP diameter, no chest deformities noted, no chest wall tenderness, lungs clear to auscultation Extremities: less than 2 second capillary refill, no joint deformities, effusion, or inflammation, no edema Neuro Exam: alert & oriented x 2 with fluent speech, right sided weakness and some poor coordination of the right hand/arm ASSESSMENT/PLAN: correction chart (outside system) reviewed for vital signs, nursing notes, CODE STATUS, and most up to date medication list Discussed management with other clinician during the visit (facility RN, occupational therapy) Assessment required independent historian that was not the patient due to dementia Right sided weakness (Primary) 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 Electronically signed by: Maddie Biswas PA-C documented in this encounter Plan of Treatment Health Maintenance Due Date Last Done Comments Depression Screening 1952 Albumin/Creatinine Ratio 05/13/1959 DTaP,Tdap,and Td Vaccines (1 - Tdap) 1959 Hepatitis B (2 of 3 - Hep B Twinrix 3-dose series) 04/02/2013 03/05/2013 Pneumococcal Vaccine: 65+ Years (3 - PPSV23 or PCV20) 09/16/2020 09/17/2015, 10/03/2005 COLONOSCOPY-EVERY 3 YRS AGES 18-100 04/22/2022 04/22/2019, 04/22/2019, 02/15/2012, Additional history exists COVID-19 Vaccine (2022-24 season) 2022 12/01/2020, 05/17/2020, 04/18/2020 Influenza Vaccine (FLU shot) (#1) 2022 11/13/2019, 11/28/2018, 11/16/2017, Additional history exists TSH 12/05/2023 12/04/2022, 10/26/2022 GFR 03/30/2024 03/30/2023, 02/07/2022 Zoster Vaccines Completed 02/13/2019, 09/2018, 11/07/2006 GARDASIL-HPV IMMUNIZATION SERIES Aged Out No longer eligible based on patient's age to complete this topic MENINGOCOCCAL (MENACTRA/MENVEO) Aged Out No longer eligible based on patient's age to complete this topic documented as of this encounter Medical Devices Not on filedocumented as of this encounter Visit Diagnoses Diagnosis Right sided weakness- Primary Muscle weakness (generalized) 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
--- OUTSIDE RECORDS SUMMARY | 2023-04-03 20:54 | External Medical Summary ---
Author Name Unknown Address Unknown Organization [id number] [address] [place] [id number] Laboratory Report Ordering Provider Test Date Status MAYRA SORENSON 03/30/2023 06:00:00 Final Observation Date Value Abnormality Reference (Units ) Status BUN 03/30/2023 06:00:00 19 6-20 (mg/dL) Final Creatinine 03/30/2023 06:00:00 1.1 0.6-1.2 (mg/dL) Final Glomerular filtration rate/1.73 sq M.predicted [Volume Rate/Area] in Serum, Plasma or Blood by Creatinine-based formula (CKD-EPI) 03/30/2023 06:00:00 65 >=60 (mL/min) Final eGFR is calculated based on the CKD-EPI 2020 equation SODIUM 03/30/2023 06:00:00 141 135-146 (m mol/L) Final Potassium 03/30/2023 06:00:00 4.2 3.5-5.1 (m mol/L) Final Cl 03/30/2023 06:00:00 109 Above high normal 98 -107 (mmol/L) Final CO2 03/30/2023 06:00:00 24 22-32 (mmo l/L) Final Anion gap 03/30/2023 06:00:00 8 7-15 (mmol /L) Final Glucose 03/30/2023 06:00:00 91 70-120 (mg /dL) Final Calcium 03/30/2023 06:00:00 8.8 8.4-10.2 ( mg/dL) Final Performing Location [facility] [address] [place] [id number]
--- OUTSIDE RECORDS SUMMARY | 2023-04-03 20:54 | External Medical Summary | Summary of Care ---
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 0 03/29/2023 Active Cholecalciferol 1.25 MG (75366 UT) Oral Tablet Take 50,000 Units by [...] as of this encounter (statuses as of 03/30/2023) Active Problems Problem Noted Date Diagnosed Date [...] as of this encounter (statuses as of 03/30/2023) Immunizations Name Administration Dates Next Due COVID-19 mRNA, LNP-s, No Pre serve, 2-Dose Series (Page Mage) 12/01/2020,05/17/2020,04/18/2020 documented as of this encounter Social [...] Sign Reading Time Taken Comments Blood Pressure 112/67 03/30/2023 12:13 PM EST Pulse 52 03/30/2023 12:13 PM EST Temperature 36.6 C (97.8 F) 03/30/2023 12:[address] Respiratory Rate 18 03/30/2023 12:13 PM EST Oxygen Saturation 96% 03/30/2023 12:13 PM EST room air Inhaled Oxygen Concentration - - Weight - - Height - - Body Mass Index - - documented in this encounter Progress Notes * Maddie Biswas PA-C - 03/30/2023 8:30 AM EST Name: Romain Lim Date of : 1940 This note pertains to care provided at [facility]. Please see facility record for original note. This note is not to be edited or addended in [employer]. Editing or addending needs to occur in the facility's medical record. Chief Complaint Patient presents with Skilled Visit TRANSITION EVENT: Type: Skilled visit Date: March 30 Code Status: Full Code SUBJECTIVE: Romain Lim is a 82 year old male HPI: short-term rehab pt admitted to facility 03/29/23 after being hospitalized with acute CVA. No acute events reported overnight. He denies headache, dizziness, chest pain, dyspnea, cough, fever, chills, nausea, vomiting, diarrhea, though history is limited due to dementia. Started on plavix/lipitor post CVA. Plt slightly low on routine lab draw today. No reports of bleeding or new/worsening bruising. PMH: Patient Active Problem List Diagnosis Code [...] Pt's current medication list is maintained at [facility] and was reviewed at this visit. Review of Systems: Per HPI OBJECTIVE: BP 112/67 | Pulse 52 | Temp 36.6 C (97.8 F) | Resp 18 | SpO2 96% Comment: room air General: alert and no distress Head: Normocephalic with slight right sided facial droop Eye Exam: PERRLA, extraocular movements intact, conjunctiva are pink and non- injected, sclera clear Oropharynx: lips, buccal mucosa, and tongue normal and mucous membranes are moist Heart: regular rate & rhythm Lungs: chest symmetric with normal AP diameter, no chest deformities noted, no chest wall tenderness, lungs clear to auscultation Abdomen: abdomen soft, non-tender, normal bowel sounds, no masses or organomegaly, and no rebound or guarding Extremities: less than 2 second capillary refill, no edema Neuro Exam: alert & oriented x 1-2 with fluent speech, right sided weakness with poor coordination of the right hand, slight right facial droop, tongue protrudes to midline, equal shoulder shrug Skin: pink, warm, dry Results for orders placed or performed in visit on 03/30/23 BASIC METABOLIC PANEL Result Value Ref Range BUN 19 6 - 20 mg/dL Creatinine 1.1 0.6 - 1.2 mg/dL Estimated Glomerular Filtration Rate 65 >=60 mL/min Sodium 141 135 - 146 mmol/L Potassium 4.2 3.5 - 5.1 mmol/L Chloride 109 (H) 98 - 107 mmol/L CO2 24 22 - 32 mmol/L Anion Gap 8 7 - 15 mmol/L Glucose 91 70 - 120 mg/dL Calcium 8.8 8.4 - 10.2 mg/dL CBC Result Value Ref Range WBC 7.79 4.00 - 10.80 K/uL RBC 4.59 4.50 - 5.25 M/uL HGB 14.5 14.0 - 16.8 g/dL HCT 44.5 40.0 - 48.4 % MCV 96.9 82.0 - 99.5 fL MCH 31.6 27.0 - 34.0 pg MCHC 32.6 32.0 - 36.0 g/dL RDW 14.5 11.5 - 15.5 % PLT 130 (L) 140 - 400 K/uL MPV 10.2 6.6 - 11.1 fL DIFFERENTIAL, AUTOMATED Result Value Ref Range WBC 7.79 4.00 - 10.80 K/uL Neutrophils % 66.8 40.0 - 75.0 % Lymphocytes % 19.6 18.0 - 42.0 % Monocytes % 10.9 1.0 - 11.0 % Eosinophils % 2.4 0.0 - 6.0 % Basophils % 0.3 0.0 - 2.0 % Absolute Neutrophils 5.20 1.80 - 7.70 K/uL Absolute Lymphocytes 1.53 1.00 - 4.80 K/ul Absolute Monocytes 0.85 0.00 - 1.10 K/uL Absolute Eosinophils 0.19 0.00 - 0.70 K/uL Absolute Basophils 0.02 0.00 - 0.20 K/uL ASSESSMENT/PLAN: [facility] chart (outside system) reviewed for vital signs, nursing notes, CODE STATUS, and most up to date medication list Discussed management with other clinician during the visit (facility ASSISTANT UNIT FORESTER) Assessment required independent historian that was not the patient due to dementia 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 (Primary) Right sided weakness Continue PT/OT/ST Continue plavix/statin 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) Continue interventions as above Generally resides in memory care facility Discharge planning per social sciences department chair Thrombocytopenia (HCC) Recheck CBC in 1 week No current reports of bleeding Follow up: next week and as needed I spent a total of 32 minutes coordinating, documenting, and providing care for [...] Additional history exists COVID-19 Vaccine ( - 2022-24 season) 2022 12/01/2020, 05/17/2020, 04/18/2020 Influenza Vaccine [...] as of this encounter Visit Diagnoses Diagnosis 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
--- OUTSIDE RECORDS SUMMARY | 2023-04-03 20:54 | External Medical Summary | Summary of Care ---
Author Name Unknown Organization [facility] Address [address] [place] [address] Phone [phone] Care Team Providers Care Leaf Conditioner Helper Name Role Phone Rylee Mohr MD Primary Care Provi savana Reason for Visit * Reason Onset Date Comments Custodial Visit - Admission 03/29/2023 Encounter Details Date Type Department Care Team (Latest Contact Info) Description 03/29/2023 1:30 PM EST Custodial Visit [facility] [place] [address] [place] [address] Cathryn Morelos MD [address] [place] [address] [place] [address] 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*; Stenosis of right middle cerebral artery; Right hemiparesis (HCC); 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); 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 0 03/29/2023 Active Clopidogrel Bisulfate 75 MG Oral Tablet (pLAVix) Take 1 Tablet by mouth in the morning. 0 03/29/2023 Active OXcarbazepine 150 MG Oral Tablet (Trileptal)Indic ations:take 1 tablet in AM and 2 tablets [...] meds). 0 03/29/2023 Active Cholecalciferol 1.25 MG (14163 UT) Oral Tablet Take 50,000 Units by [...] mouth in the morning. 0 03/29/2023 Active GABAPENTIN (PHN) 300 MG PO TABS one pill twice a day 0 4 Discontinued Aspirin 81 MG Tablet Take 81 mg by mouth at bedtime. 0 4 Discontinued OXcarbazepine (TRILEPTAL) 300 MG TabletIndication s:take 1 tablet in AM and 2 tablets in the evening Take 300 mg by mouth 2 times a day. Indications: take 1 tablet in AM and 2 tablets in the evening 0 4 Discontinued(Refi ll) documented as of this encounter (statuses as of 03/29/2023) Active Problems Problem Noted Date Diagnosed Date [...] as of this encounter (statuses as of 03/29/2023) Immunizations Name Administration Dates Next Due COVID-19 mRNA, LNP-s, No Pre serve, 2-Dose Series (Timetric) 12/01/2020,05/17/2020,04/18/2020 documented as of this encounter Social [...] on file documented as of this encounter Progress Notes * Cathryn Morelos MD - 03/29/2023 2:57 PM EST ADMISSION HISTORY and PHYSICAL TRANSITION EVENT: Type: SNF admission Date: March 29 Code Status: Full Code Name: Romain Lim Date of : 1940 This note pertains to care provided at [facility] [place]. Please see facility medical record for original note. This note is not to be edited or addended in [employer]. Editing or addending needs to occur in the facilities medical record. S: Romain Lim had been admitted to [facility] from [facility] for PT, OT, and stroke rehabilitation. Recently admitted to [facility] on 03/26/23 because of right sided weakness and was transferred here and admitted on 03/29/2023. Patient who is a resident at [facility] with PMH of Alzheimer's dementia, trigeminal neuralgia, hypothyroidism, h/o subdural hematomas, dyslipidemia, left ventricular hypertrophy, glaucoma, and depression who was found on the ground by staff with a right sided facial droop and inability to move the right arm. He also had slurred speech. He was transferred to ED for further evaluation. In the ED, initial head CT was negative for acute changes but did show remote ischemic injury of the right frontal lobe with encephalomalacia and gliosis.. CTA of the neck was unremarkable. CTA of the brain showed high-grade stenosis of the right M2 segment of middle cerebral artery. Troponin was mildly elevated at 61 but remained flat on trend. EKG was normal. He was not a candidate for tPA due to chronic subdural hematomas and unknown last known well time. His right sided weakness improved somewhat while in the ED. He was admitted and neurology was consulted. He had an MRI of the brain done, which showed acute infarct of the left frontal lobe and no evidence of hemorrhage. His aspirin was changed to Plavix and he was begun on atorvastatin 40 mg daily. Neurology felt dementia was Alzheimer's type plus vascularin nature. Echocardiogram was done, which was technically difficult and showed moderate concentric left ventricular hypertrophy and negative for shunt with injected contrast. He was noted to have some mild right sided weakness but did improve from time of presentation to the ED. He was noted to have hypertension but is not on any antihypertensives. BP on admission here is 150/90. Patient is now admitted for PT/OT with plans to return to [facility] if possible. Patient is seen in his room. He is oriented only to person. He states he knows he was in the hospital but is unable to say why. He denies having had a stroke or having any right sided weakness. He states he was havingtrouble getting food to his mouth and that is why he was admitted. He denies any pain, cough, or congestion. Past Medical History: Patient Active Problem List Diagnosis Code ADVANCE [...] goal BP (blood pressure) < 140/90 I10 Current Outpatient Medications Medication Sig Dispense Refill Atorvastatin Calcium 40 MG Oral Tablet (Lipitor) Take 1 Tablet by mouth every night at bedtime. Clopidogrel Bisulfate 75 MG Oral Tablet (pLAVix) Take 1 Tablet by mouth in the morning. OXcarbazepine 150 MG Oral Tablet (Trileptal) Take 1 Tablet by mouth in the morning and 1 Tablet before bedtime. Lumigan 0.01 % Ophthalmic Solution (Bimatoprost) Instill 1 Drop into both eyes at bedtime. Brimonidine Tartrate 0.1 % Ophthalmic Solution (Alphagan P) Instill 1 Drop into both eyes in the morning and 1 Drop before bedtime. Memantine HCl 10 MG Oral Tablet (Namenda) Take 1 Tablet by mouth 2 times a day with morning and evening meals. Donepezil HCl 5 MG Oral Tablet (Aricept) Take 1 Tablet by mouth in the morning and 1 Tablet before bedtime. Take with largest meal of the day.. Calcium Carbonate 800 MG/2GM Oral Powder Take 800 mg by mouth in the morning and 800 mg at noon [id number] mg before bedtime. Famotidine 20 MG Oral Tablet (Pepcid) Take 1 Tablet by mouth in the morning. Levothyroxine Sodium 50 MCG Oral Tablet (Levoxyl) Take 1 Tablet by mouth in the morning. (at least 30 min prior to breakfast or other meds). Cholecalciferol 1.25 MG (53819 UT) Oral Tablet Take 50,000 Units by mouth once a week. Fridays Vitamin B-12 1000 MCG Sublingual Tablet Sublingual Place 1 Tablet under the tongue in the morning. Dorzolamide HCl-Timolol Mal 2-0.5 % Ophthalmic Solution (Cosopt Ocumeter Plus) Instill 1 Drop into both eyes in the morning and 1 Drop before bedtime. Sertraline HCl 50 MG Oral Tablet (Zoloft) Take 1 Tablet by mouth in the morning. No current facility-administered medications for this visit. Review of patient's allergies indicates: No Known Allergies Social History Tobacco Use Smoking status: Never Smokeless tobacco: Never Substance Use Topics Alcohol use: Yes Comment: socially Vaping/E-Cigarette Use Vaping/E-Cigarette Substances Vaping/E-Cigarette Devices Past Surgical History: Procedure Laterality Date COLONOSCOPY W/ BIOPSY (RECTUM) 02/13/07 hyperplastic repeat in 5 yrs COLONOSCOPY, DIAGNOSTIC (RECTUM) 02/15/2012 COLONOSCOPY FLEXIBLE PROXIMAL DIAGNOSTIC performed by Jose Longoria MD at [facility] shows adenomatous polyp repeat in 3 years COLONOSCOPY, DIAGNOSTIC (RECTUM) 04/22/2019 radiation proctitis, diverticulosis / COLONOSCOPY FLEXIBLE PROXIMAL DIAGNOSTIC performed by Jose Longoria MD at END[facility]COPY [facility] No family history on file. No family status information on file. Review of Systems: Unable to obtain reliably due to dementia. ADL skills: dependent Ambulates non ambulating OBJECTIVE: PHYSICAL EXAM: I reviewed the most recent facilities vitals. Refer to vital signs flowsheet in penitentiary chart.General: alert, no distress, well nourished, and well developed Head: Normocephalic, +mild right facial droop Eye Exam: PERRLA, extraocular movements intact, conjunctiva are pink and non- injected, sclera clear Ears: External ears normal Nose: no mucosal erythema, no mucosal edema, no purulent discharge Oropharynx: no exudate, no erythema, lips, buccal mucosa, and tongue normal, and mucous membranes are moist Neck: supple, no adenopathy, no bruits Heart: regular rate & rhythm, no murmur, and no gallops Lungs: chest symmetric with normal AP diameter, no chest deformities noted, no chest wall tenderness, lungs clear to auscultation Abdomen: abdomen soft, non-tender, normal bowel sounds, and no masses or organomegaly Extremities: no edema, no clubbing, no cyanosis Neuro Exam: alert, oriented x 1. Pleasant and cooperative. +right facial droop. +mildly reduced right upper and lower extremity strength when compared to left. ASSESSMENT: 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 (Primary)--patient with recent CVA of left frontal lobe due to stenosis of the right middle cerebral artery. Continue Plavix 75 mg daily. Atorvastatin 40 mg daily was added. Stenosis of right middle cerebral artery--Plavix and statin as above. Right hemiparesis (HCC)--mild and improved compared to presentation to ED. Also with right facial droop. Poor safety awareness and is not aware of his new deficits. 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 Continue Plavix 75 mg daily. Dyslipidemia, goal LDL below 70--continue atorvastatin 40 mg daily. History of subdural hematoma--chronic Depressive disorder--Sertraline 50 mg daily Trigeminal neuralgia--continue oxcarbazepine 150 mg twice daily. Hypertension goal BP (blood pressure) < 140/90--not currently on medication. Monitor BP and start if needed. Left ventricular hypertrophy Primary open angle glaucoma (POAG) of both eyes, indeterminate stage--continue numerous drops as athome. History of prostate cancer--s/p radiation. Acquired hypothyroidism--continue levothyroxine 50 mcg daily. PLAN: 1. Continue present medication(s): Change dose of medication(s) to Make sertraline 50 mg daily. Schedule labs: CBC w/diff, BMP 2. Admission orders, medications, labs, hospital records and care plan reviewed. 3. Air Valve Mechanic consult, Physical Therapy, Occupational Therapy, and Speech Therapy ordered. 4. Care plan reviewed. 5. Advance Directives were discussed: Full Code 6. Mcc Home Treatment Given: n/a Electronically signed by: Cathryn Morelos MD I spent a total of 50 minutes coordinating, documenting, and providing care for this patient excluding time spent in the performance of separately billed services or time spent by another provider/QHP. 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) Dyslipidemia, goal LDL below 70 Other and unspecified hyperlipidemia History of subdural hematoma Depressive disorder Depressive disorder, not elsewhere classified Trigeminal neuralgia Hypertension goal BP (blood pressure) < 140/90 Unspecified essential hypertension Left ventricular hypertrophy Cardiomegaly Primary open angle glaucoma (POAG) of both eyes, indeterminate stage History of prostate cancer Personal history of malignant neoplasm of prostate Acquired hypothyroidism Unspecified hypothyroidism documented in this encounter Care Teams Leaf Conditioner Helper Relationship Specialty Start Date End Date Rylee Mohr MD [address] [facility] [address], [place] [address] PCP - General Family Medicine 04/18/19 documented as of this encounter
--- OUTSIDE RECORDS SUMMARY | 2023-04-03 20:54 | External Medical Summary | Summary of Care ---
Author Name Unknown Organization [facility] Address [address] [place] [address] Phone [phone] Care Team Providers Care Ash Conveyor Operator Name Role Phone Rylee Mohr MD Primary Care Provi savana Encounter Details Date Type Department Care Team (Late st Contact Info) Description 03/30/2023 Orders Only Lab Mobile Phlebotomy [facility] [address] [place] [address] Maddie Biswas PA-C [address] [place] [address] Aphasia, post-stroke*; HTN, goal to be determined Allergies No known active allergiesdocumented as of [...] meds). 0 03/29/2023 Active Cholecalciferol 1.25 MG (88493 UT) Oral Tablet Take 50,000 Units by [...] mRNA, LNP-s, No Pre serve, 2-Dose Series (Your Tribute) 12/01/2020,05/17/2020,04/18/2020 documented as of this encounter Social [...] as of this encounter Plan of Treatment Scheduled Orders Name Type Priority Associated Diagnoses Orde r Schedule BASIC METABOLIC PANEL Lab Routine Aphasia, post-stroke HTN, goal to be determined Expected: 03/30/2023, Expires: 03/30/2024 CBC WITH WBC DIFFERENTIAL Lab Routine Aphasia, post-stroke HTN, goal to be determined Expected: 03/30/2023, Expires: 03/30/2024 Health Maintenance Due Date Last Done Comments [...] as of this encounter Visit Diagnoses Diagnosis Aphasia, post-stroke- Primary Unspecified cerebral artery occlusion with cerebral infarction HTN, goal to be determined Unspecified essential hypertension documented in this encounter Care Teams Ash Conveyor Operator Relationship Specialty Start Date End Date Rylee Mohr MD [address] [facility] [address] [facility] [address] [place] [address], [place] [address] PCP - General Family Medicine 04/18/19 documented as of this encounter
--- OUTSIDE RECORDS SUMMARY | 2023-04-03 20:54 | External Medical Summary ---
Author Name Unknown Address Unknown Organization [id number] [address] [place] [id number] Laboratory Report Ordering Provider Test Date Status MAYRA SORENSON 03/30/2023 06:00:00 Final Observation Date Value Abnormality Reference (Units ) Status WBC, Total 03/30/2023 06:00:00 7.79 4.00-10.8 0 (K/uL) Final RBC 03/30/2023 06:00:00 4.59 4.50-5.25 (M/uL) Final Hemoglobin 03/30/2023 06:00:00 14.5 14.0-16.8 (g/dL) Final HCT 03/30/2023 06:00:00 44.5 40.0-48.4 (%) Final MCV 03/30/2023 06:00:00 96.9 82.0-99.5 (fL) Final MCH 03/30/2023 06:00:00 31.6 27.0-34.0 (pg) Final MCHC 03/30/2023 06:00:00 32.6 32.0-36.0 (g/dL) Final RDW 03/30/2023 06:00:00 14.5 11.5-15.5 (%) Final Platelets 03/30/2023 06:00:00 130 Below low normal 140 -400 (K/uL) Final MPV 03/30/2023 06:00:00 10.2 6.6-11.1 ( fL) Final Performing Location [facility] [address] [place] [id number]
--- OUTSIDE RECORDS SUMMARY | 2023-04-03 20:54 | External Medical Summary ---
Author Name Unknown Address Unknown Organization [id number] [address] [place] [address] Laboratory Report Ordering Provider Test Date Status MAYRA SORENSON 03/30/2023 06:00:00 Final Observation Date Value Abnormality Reference (Units ) Status SYNC LEUKOCYTES IN BLOOD BY AUTOMATED COUNT 03/30/2023 06:00:00 7.79 4.00-10.80 (K/uL) Final Segs 03/30/2023 06:00:00 66.8 40.0-75.0 (%) Final Lymphs % 03/30/2023 06:00:00 19.6 18.0-42.0 (%) Final Monos 03/30/2023 06:00:00 10.9 1.0-11.0 (%) Final Eosinophils 03/30/2023 06:00:00 2.4 0.0-6.0 (%) Final Basos 03/30/2023 06:00:00 0.3 0.0-2.0 (%) Final Absolute Segs 03/30/2023 06:00:00 5.20 1.80-7.70 (K/uL) Final Lymphs, absolute 03/30/2023 06:00:00 1.53 1.00-4.80 (K/ul) Final Monos, Abs 03/30/2023 06:00:00 0.85 0.00-1.10 (K/uL) Final Eos, Abs 03/30/2023 06:00:00 0.19 0.00-0.70 (K/uL) Final Basos, Abs 03/30/2023 06:00:00 0.02 0.00-0.20 (K/uL) Final Performing Location [facility] [address] [place] [id number]
[2023-04-03] MEDS: DORZOLAMIDE/TIMOLOL 22.3/6.8MG/ML 10 ML BTL OP SCH (21:05)
--- NOTE | 2023-04-03 23:11 | Communication Note ---
Date of Service: April 03, 2023 Brain MRI consistent with new left occipital and super left frontal lobe infarcts. US doppler showing DVT. Updated patient and son at bedside. Stroke ord er set placed. Patient will be transferred to PCU as higher risk of deterioration given new onset strokes. Discussed care with Dr Pablo and will start Heparin IV bolus and drip, can discontinue clopidogrel. UA pending for ongoing infection workup since his major symptom remains generalized confusion but seems less likely given confirmed new acute strokes.
[2023-04-04] MEDS: BIMATOPROST 0.01% OP SOLN 2.5 ML BTL OP SCH ×2 (01:55→21:03)
[2023-04-04] MEDS: ATORVASTATIN 40 MG TAB PO SCH ×2 (01:55→21:02)
[2023-04-04] MEDS: OXcarbazepine 150 MG TABLET PO SCH ×3 (01:56→21:03)
[2023-04-04] MEDS: MEMANTINE HCL 10 MG TAB PO SCH ×3 (01:56→21:02)
[2023-04-04] MEDS: DONEPEZIL HCL 5 MG TAB PO SCH ×3 (01:56→21:02)
[2023-04-04] MEDS: CYANOCOBALAMIN (B-12) 500 MCG TABLET PO SCH ×3 (01:56→21:02)
[2023-04-04 03:35] LABS: ANTI-Xa, UFH(UnfractionatedHep 1.18 IU/ml (0.3-0.7)
[2023-04-04] MEDS: LACTATED RINGER'S 1,000 ML IV SCH ×3 (05:00→22:04)
[2023-04-04] MEDS: LEVOTHYROXINE SODIUM 50 MCG TABLET PO SCH (05:37)
[2023-04-04 06:23] LABS: Basophils # (auto) 0.05 K/uL (0.00-0.20); Basophils % (auto) 0.6 %; Eosinophils # (auto) 0.13 K/uL (0.00-0.50); Eosinophils % (auto) 1.5 %; Hemoglobin 14.1 g/dl (14.0-18.0); Immature Granulocytes # (auto) 0.06 K/uL (0.01-0.20); Immature Granulocytes % (auto) 0.7 %; Lymphocytes # (auto) 1.53 K/uL (1.20-3.40); Mean Corpuscular Hemoglobin 30.7 pg (25.0-34.0); Mean Corpuscular Volume 95.7 fL (80.0-100.0); Mean Platelet Volume 9.6 fL (9.4-12.4); Monocytes # (auto) 0.65 K/uL (0.11-0.59); Monocytes % (auto) 7.6 %; Neutrophils # (auto) 6.08 K/uL (1.40-6.50); Neutrophils % (auto) 71.6 %; Platelet Count 125 K/uL (130-400); RDW Coefficient of Variation 14.1 % (11.5-14.5); RDW Standard Deviation 49.1 fL (36.4-46.3)
[2023-04-04 06:30] LABS: BUN Creatinine Ratio 20.8 (10-20); Calcium 9.6 mg/dl (8.6-10.3); Creatinine Clr Calc Pharmacy 63.1 ml/min; Est GFR (African American) 75.9 ml/min; Est GFR (Non-African American) 65.5 ml/min; Potassium 3.8 mmol/L (3.5-5.1)
[2023-04-04 06:49] LABS: ANTI-Xa, UFH(UnfractionatedHep 0.48 IU/ml (0.3-0.7)
[2023-04-04 08:02] LABS: Thyroid Stimulating Hormone 4.123 uIu/ml (0.300-4.500)
[2023-04-04] MEDS ORDERED: CLOPIDOGREL BISULFATE 75 MG TAB PO SCH (09:00)
--- NOTE | 2023-04-04 09:21 | Neurology Consultation ---
Date of Consultation April 04, 2023 Assessment & Plan (1) Acute cerebrovascular accident (CVA): History of Present Illness Attending Physician: Casandra Winchester MD History of Present Illness pt this morning alert and following command well. not in distress and pt found on MRI with new multiple ischemic strokes including left occipital and frontal and also DVT on rt leg. admission HPI: Romain Lim is an 82 year old right handed male with recent stroke who presents to the ER with after recent discharge for acute CVA to [facility] for rehabilitation. Unable to get any history from patient and daughter in law was not present at the time of event. History taken from Maddie Biswas PA-C at [facility] (both from her note and phone call). Patient did well with speech and language therapy this morning and occuptation therapy for 40 minutes. She was called urgently to see him around noon by nursing for acute sudden change in condition. She patient was slurring speech slumped on left side and reportedly new right lower extremity immobility. Blod glucose 140. No fever, hypoxia, hypotension, hypertension or recent fall. He received his morning medications. At most recent baseline he had clear speech, some right sided weakness and clumsiness but was able to move all 4 extremities and right lower extremity was flaccid when initially seen. His daughter in law reports he appears more just confused than his baseline in the emergency room although this does tend to fluctuate with his dementia. He is also just more restless. He was recently hospitalized from March 26 - 2023 due to acute left frontal CVA causing right sided facial droop and unable to move his right arm. No right lower extremity weakness was noted at time of admission. He was switched from aspirin to clopidogrel and discharged to [facility] for rehabilitation. Allergies Allergy/AdvReac Type Severity Reaction Status Date / Time No Known Allergies Allergy Verified 12/19/22 10:01 Home Medications Medication Instructions Recorded Confirmed Type bimatoprost 0.01 % eye drops 1 drp OPB HS 07/30/21 04/03/23 History (Lumigan) brimonidine 0.1 % eye drops 1 drp OPB BID 07/30/21 04/03/23 History (Alphagan P) memantine 10 mg tablet 10 mg PO BID #60 tabs 03/31/22 04/03/23 Rx donepezil 5 mg tablet 5 mg PO BID #60 tabs 08/23/22 04/03/23 Rx oxcarbazepine 150 mg tablet 150 mg PO BID #60 tabs 10/09/22 04/03/23 Rx calcium carbonate 400 mg calcium 800 mg PO Q8H 12/19/22 04/03/23 History (1,000 mg) chewable tablet cholecalciferol (vitamin D3) 1,250 50,000 unit PO .weekly #14 caps 12/19/22 04/03/23 Rx mcg (50,000 unit) capsule famotidine 20 mg tablet 20 mg PO DAILY 12/19/22 04/03/23 History levothyroxine 50 mcg tablet 50 mcg PO DAILY 12/19/22 04/03/23 History acetaminophen 500 mg tablet 1,000 mg PO Q8H PRN Pain 03/26/23 04/03/23 History (Acetaminophen Extra Strength) acetaminophen 500 mg tablet 1,000 mg PO Q8H PRN fever>100 03/26/23 04/03/23 History (Acetaminophen Extra Strength) dorzolamide 22.3 mg-timolol 6.8 1 drp ophthalmic (eye) BID 03/26/23 04/03/23 History mg/mL eye drops mecobalamin (vitamin B12) 1,000 1,000 mcg PO BID 03/26/23 04/03/23 History mcg chewable tablet (B12 Active) sertraline See Rx Instructions .Route .COMPLEX 03/26/23 04/03/23 History atorvastatin 40 mg tablet (Lipitor) 40 mg PO HS #30 tabs 03/27/23 04/03/23 Rx clopidogrel 75 mg tablet 75 mg PO QAM #30 tabs 03/27/23 04/03/23 Rx Patient History Medical History (Updated 04/04/23 @ 06:51 by Jaguar Lin MD) Hypothyroidism CKD (chronic kidney disease) History of stroke listed above - pt denies hx stroke; poor historian. denies following with neurology but office visit in [facility] from 12/2020 Chronic lower back pain History of prostate cancer dx'd 2-3 years ago; s/p radiation Poor historian HTN (hypertension) no meds - PCP monitors Cerebral cavernoma pt denies Chronic subdural hematoma pt denies Nerve disorder, cranial f/u with Dr. Marcelino--per pt's son Michael Trigeminal neuralgia f/u with Dr. Marcelino--per pt's son Michael Surgical History Hx of inguinal hernia repair History of left cataract surgery History of prostate biopsy Family History Mother , in her 60s Parkinson's disease Primary Parkinson's disease Father , in his 70's of uncertain cause No problems noted. 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 [employer] Toppr Feels Safe at Home: Yes Assistive Devices: Glasses Review of Systems Review of Systems: All systems reviewed & are unremarkable except as noted in Subjective Constitutional: as per Subjective / HPI Eyes: as per Subjective / HPI Ear, Nose, Mouth, Throat: as per Subjective / HPI Respiratory: as per Subjective / HPI Cardiovascular: as per Subjective / HPI Gastrointestinal: as per Subjective / HPI Musculoskeletal: as per Subjective / HPI Integumentary: as per Subjective / HPI Neurologic: as per Subjective / HPI Psychiatric: as per Subjective / HPI Endocrine: as per Subjective / HPI Hematologic / Lymphatic: as per Subjective / HPI Allergy / Immunological: as per Subjective / HPI Exam (Neuro) Physical Exam: HEENT: normocephalic Neuro: Mental: alert, not sure of name of location (pt with baseline dementia), fluent speech, normal comprehension, no apraxia, no L/R confusion, no neglect CN: PERRL, Full EOM, symmetric face, intact sensation t/o face, midline T/U/P, 5/5 SCM/traps. Motor: No abnormal movements, normal tone and bulk, 4/5 RLE t/o and 5-/5 LLE t/o. 5-/5 b/l upper limbs. Sens: intact to touch b/l grossly Coord: intact grossly upper limbs. DTR: 2+ sym b/l Impression: 82 yo male with dementia, noted for multiple ischemic stroke at left occipital, left frontal areas and with rt leg DVT. pt likely with hypercoagulable state and along with DVT likely contributed to his multiple embolic appearing stroke. pt clinically stable at this point. Recommendations: 1. Standard stroke work up as planned 2. pt on heparin drip, recommend transition to OAC, eliquis 5mg po bid today. no need to add antiplatelet. 3 recent echo done, essentially negative . 4. Permissive Hypertension for next 24-4 8 hrs. Keep SBP goal range less than 220. Avoid hypotension. Do not stop beta-russel if on it. 5. If noted for large intracranial vesse l stenosis, slow reduction of BP and allowing permissive HTN next 5-7 days. 6. Long-term SBP goal less than 130. 7. Plenty of hydration including IV flui d if possible (use isotonic solution) next 1-2 days. Avoid hypovolemia and hypotension. 8. Initiate DVT prevention therapy. 9. Avoid hypoglycemia, serum glucose goa l during hospitalization: 140-180. 10. Long-term HgA1c goal less than 7. 11. Start statin if not on it and no abs olute contraindication, long-term LDL goal less than 70. 12. Head of bed up 30 degrees if possibl e. 13. Stroke education by nursing and appr opriate staff. 14. Telemetry monitoring. Consider half-way cardiac monitoring, i.e. MCOT (mobile cardiac outpatient telemetry) or ICM (insertable monitor tech, e.g. 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 And if found to have atrial flutter or fibrillation, should consider anticoagulation therapy if no contraindication. 15. Fall precaution and aspiration preca ution. 16. Consult physical and occupational th erapy and speech path evaluation. 17. consider nutritional consult, pt cur rently NPO, based on his stroke area, he should have no problem eating, recommend changing his diet so he can eat. DVT treatment Chart reviewed I have spent more than 50% educating patient about potential diagnosis and neurological evaluation and coordinating care with patient's treatment team. Total time spent (including chart review and coordination of care): 60 min (this includes chart review). Results & Data Vital Signs (Past 12 Hours) Vital Signs Temp Pulse Resp BP Pulse Ox O2 Del Method 04/04/23 08:16 36.8 C 44 L 19 181/87 H 98 Room Air 04/04/23 02:41 36.5 C 50 L 16 167/90 H 97 Room Air 04/03/23 23:49 36.4 C L 52 L 20 157/87 H 94 Room Air PG Care Time/CCT Total # of Minutes Spent Total Time Spent with Patient: Total time spent is greater than 50% in coordination of care (as documented) at patient's floor/unit and/or counseling patient: Coding Level of Care Code 68724 IN/OBS CONSULT LVL 4,60M Diagnoses Acute cerebrovascular accident (CVA) I63.9
[2023-04-04] MEDS: FAMOTIDINE 20 MG TAB PO SCH (10:52)
[2023-04-04] MEDS: SERTRALINE HCL 50 MG TABLET PO SCH (10:54)
[2023-04-04] MEDS: DORZOLAMIDE/TIMOLOL 22.3/6.8MG/ML 10 ML BTL OP SCH ×2 (10:55→21:03)
--- NOTE | 2023-04-04 11:30 | Hospitalist Progress Note ---
Date of Service April 04, 2023 Assessment & Plan (1) Acute cerebrovascular accident (CVA): Plan: 82-year-old male with dementia and history of multiple ischemic strokes, brought from rehab on account of slurred speech weakness. Found to have another new stroke. MRI showed new left occipital and superior left frontal lobe acute stroke. Etiology of his multiple embolic stroke could be from a hypercoagulable state given recent acute DVT. Has been started on Eliquis 10 mg twice daily for 10 days Continue statin, discontinue aspirin and Plavix Permissive hypertension PT OT (2) DVT (deep venous thrombosis): Plan: Acute left lower extremity DVT Could have been the source of his embolic stroke Although 2D echo did not show any evidence of shunt Initially on heparin drip, this has been discontinued Has been started on Eliquis 10 mg twice daily for 10 days (3) Stroke-like symptoms: Plan: New CVA vs recrudescence of recent stroke from infection/exertion etc... Brain MRI, will defer stroke order set pending result of this given major current symptom is confusion (4) Acute encephalopathy: Plan: CXR and UA, prolactin, blood culture for infection workup (5) Trigeminal neuralgia: Plan: Continue Oxcarbazepine 150mg PO BID (6) Hx of subdural hematoma: Plan: Previously noted, although questioned whether this is a true diagnosis per his son (7) Hypothyroidism: Plan: TSH with AM labs COntinue levothyroxine (8) Cerebrovascular disease: Plan VTE Prophylaxis - deferred pending brain MRI Diet - NPO pending SLT assessment Disposition -continue to monitor, hopefully discharge back to rehab when accept ed Admission and Anticipated Discharge Date Admission Date: April 03, 2023 Subjective Patient seen and examined, son by the bedside, states last speech is better and loss of strength is beginning to come back Physical Exam Physical Exam: The patient is awake, alert and oriented 3, some slurred speech HEENT--PERRL, EOMI, mucous membranes and oropharynx mildly dry Neck--supple. No JVD. No bruits. Thyroid normal, trachea midline, no adenopathy. Heart--normal S1 and S2. No murmurs, rubs or gallops. Lungs--clear bilaterally, no respiratory distress, no accessory muscle use. Abdomen--normal bowel sounds and soft. Mild epigastric and left sided abdominal pain Extremities--no cyanosis or clubbing. No edema. Dermatologic--normal skin turgor, normal color, no abnormal lymph nodes, no rash. Neurologic--cranial nerves II through XII grossly intact. Rheumatologic--normal range of motion. Psychiatric--normal affect. Results & Data Results & Data Vital Signs (Past 12 Hours) Vital Signs Temp Pulse Resp BP Pulse Ox O2 Del Method 04/04/23 08:16 98.2 F 44 L 19 181/87 H 98 Room Air 04/04/23 02:41 97.7 F 50 L 16 167/90 H 97 Room Air 04/03/23 23:49 97.5 F L 52 L 20 157/87 H 94 Room Air PG Care Time/CCT Total # of Minutes Spent Total Time Spent with Patient: Total time spent is greater than 50% in coordination of care (as documented) at patient's floor/unit and/or counseling patient: Coding Level of Care Code 88894 SUB INP/OBS CARE 2/35MIN Diagnoses Acute cerebrovascular accident (CVA) I63.9 DVT (deep venous thrombosis) I82.409 Stroke-like symptoms R29.90 Acute encephalopathy G93.40 Trigeminal neuralgia G50.0 Hx of subdural hematoma Z86.79 Hypothyroidism E03.9 Cerebrovascular disease I67.9 Time Spent (min) 35
[2023-04-04] MEDS: APIXABAN 5 MG TABLET PO SCH ×2 (13:00→21:04)
[2023-04-04] MEDS ORDERED: APIXABAN 5 MG TABLET PO SCH (21:00)
[2023-04-05] MEDS: LACTATED RINGER'S 1,000 ML IV SCH ×3 (06:05→20:32)
[2023-04-05] MEDS: LEVOTHYROXINE SODIUM 50 MCG TABLET PO SCH (06:06)
[2023-04-05 06:49] LABS: Appearance Urine Cloudy (Clear); Bacteria Urine Automated Negative (Negative); Bilirubin Urine Negative (Negative); Blood Urine 1+ (Negative); Cast Urine Automated 0 /lpf (0-5); Color Urine Yellow; Glucose Urine UA Negative (Negative); Ketones Urine Negative (Negative); Leukocyte Esterase Urine Negative (Negative); Nitrite Urine Negative (Negative); Protein Urine Negative (Negative); Specific Gravity Urine 1.017 (1.000-1.030); Urobilinogen Urine Negative (Negative)
[2023-04-05 06:54] LABS: BUN Creatinine Ratio 21.3 (10-20); Calcium 9.2 mg/dl (8.6-10.3); Creatinine Clr Calc Pharmacy 84.4 ml/min; Est GFR (African American) 97.1 ml/min; Est GFR (Non-African American) 83.8 ml/min; Potassium 3.9 mmol/L (3.5-5.1)
[2023-04-05 07:03] LABS: Basophils # (auto) 0.05 K/uL (0.00-0.20); Basophils % (auto) 0.6 %; Eosinophils # (auto) 0.19 K/uL (0.00-0.50); Eosinophils % (auto) 2.5 %; Hematocrit (blood only) 42.5 % (42.0-52.0); Hemoglobin 13.8 g/dl (14.0-18.0); Immature Granulocytes # (auto) 0.05 K/uL (0.01-0.20); Immature Granulocytes % (auto) 0.6 %; Lymphocytes # (auto) 1.16 K/uL (1.20-3.40); Mean Corpuscular Hemoglobin 30.7 pg (25.0-34.0); Mean Corpuscular Hgb Conc 32.5 g/dL (32.0-36.0); Mean Corpuscular Volume 94.4 fL (80.0-100.0); Mean Platelet Volume 10.4 fL (9.4-12.4); Monocytes # (auto) 0.58 K/uL (0.11-0.59); Monocytes % (auto) 7.5 %; Neutrophils # (auto) 5.71 K/uL (1.40-6.50); Neutrophils % (auto) 73.8 %; Platelet Count 121 K/uL (130-400); RDW Coefficient of Variation 13.9 % (11.5-14.5); RDW Standard Deviation 47.8 fL (36.4-46.3); White Blood Count 7.74 K/ul (4.8-10.8)
[2023-04-05] MEDS: DONEPEZIL HCL 5 MG TAB PO SCH ×2 (08:49→20:04)
[2023-04-05] MEDS: APIXABAN 5 MG TABLET PO SCH ×2 (08:49→20:04)
[2023-04-05] MEDS: OXcarbazepine 150 MG TABLET PO SCH ×2 (08:49→20:04)
[2023-04-05] MEDS: CYANOCOBALAMIN (B-12) 500 MCG TABLET PO SCH ×2 (08:50→20:04)
[2023-04-05] MEDS: MEMANTINE HCL 10 MG TAB PO SCH ×2 (08:50→20:04)
[2023-04-05] MEDS: FAMOTIDINE 20 MG TAB PO SCH (08:50)
[2023-04-05] MEDS: DORZOLAMIDE/TIMOLOL 22.3/6.8MG/ML 10 ML BTL OP SCH ×2 (08:52→20:05)
[2023-04-05] MEDS: SERTRALINE HCL 50 MG TABLET PO SCH (10:10)
--- OUTSIDE RECORDS SUMMARY | 2023-04-05 11:35 | External Medical Summary | Summary of Care ---
Author Name Unknown Organization [facility] Address [address] [place] [address] Phone [phone] Care Team Providers Care Residential Solar Sales Consultant Name Role Phone Rylee Mohr MD Primary Care Provi savana Reason for Visit * Reason Onset Date Comments Skilled Visit 04/03/2023 [facility] Visit - Transfer to ER 04/03/2023 Encounter Details Date Type Department Care Team (Late st Contact Info) Description 04/03/2023 12:00 PM EST [facility] Visit [address] [address] Maddie Biswas PA-C [address] [place] [id number] Right sided weakness*; Garbled speech; History of CVA (cerebrovascular accident) Allergies No known active allergiesdocumented as of this encounter (statuses as of 04/03/2023) Medications Medication Sig Dispensed Refills Start Date [...] meds). 0 03/29/2023 Active Cholecalciferol 1.25 MG (33968 UT) Oral Tablet Take 50,000 Units by [...] as of this encounter (statuses as of 04/03/2023) Active Problems Problem Noted Date Diagnosed Date [...] as of this encounter (statuses as of 04/03/2023) Immunizations Name Administration Dates Next Due COVID-19 mRNA, LNP-s, No Pre serve, 2-Dose Series (Mixwit) 12/01/2020,05/17/2020,04/18/2020 documented as of this encounter Social [...] Sign Reading Time Taken Comments Blood Pressure 102/70 04/03/2023 12:23 PM EST Pulse 63 04/03/2023 12:23 PM EST Temperature 36.7 C (98 F) 04/03/2023 12:23 PM EST Respiratory Rate 16 04/03/2023 12:23 PM EST Oxygen Saturation 94% 04/03/2023 12:23 PM EST Inhaled Oxygen Concentration - - Weight - - Height - - Body Mass Index - - documented in this encounter Plan of Treatment [...] 04/22/2019, 02/15/2012, Additional history exists COVID-19 Vaccine (4 - 2022- season) 2022 12/01/2020, 05/17/2020, 04/18/2020 [...] Right sided weakness- Primary Muscle weakness (generalized) Garbled speech Other speech disturbance History of CVA (cerebrovascular accident) Transient ischemic attack (TIA), and cerebral infarction without residual deficits documented in this encounter Care Teams Residential Solar Sales Consultant Relationship Specialty Start Date End Date Rylee Mohr MD [facility] [address] [place] [address] PCP - General Family Medicine 04/18/19 documented as of this encounter
--- NOTE | 2023-04-05 12:03 | Hospitalist Progress Note ---
Date of Service April 05, 2023 Assessment & Plan (1) Acute cerebrovascular accident (CVA): Plan: 82-year-old male with dementia and history of multiple ischemic strokes, brought from rehab on account of slurred speech weakness. Found to have another new stroke. MRI showed new left occipital and superior left frontal lobe acute stroke. Etiology of his multiple embolic stroke could be from a hypercoagulable state given recent acute DVT. Has been started on Eliquis 10 mg twice daily for 10 days Continue statin, discontinue aspirin and Plavix Permissive hypertension PT OT Patient will need rehab, awaiting preauthorization (2) DVT (deep venous thrombosis): Plan: Acute left lower extremity DVT Could have been the source of his embolic stroke Although 2D echo did not show any evidence of shunt Initially on heparin drip, this has been discontinued Has been started on Eliquis 10 mg twice daily for 10 days (3) Stroke-like symptoms: Plan: New CVA vs recrudescence of recent stroke from infection/exertion etc... Brain MRI, will defer stroke order set pending result of this given major current symptom is confusion (4) Acute encephalopathy: Plan: CXR and UA, prolactin, blood culture for infection workup (5) Trigeminal neuralgia: Plan: Continue Oxcarbazepine 150mg PO BID (6) Hx of subdural hematoma: Plan: Previously noted, although questioned whether this is a true diagnosis per his son (7) Hypothyroidism: Plan: TSH with AM labs COntinue levothyroxine (8) Cerebrovascular disease: Plan VTE Prophylaxis - deferred pending brain MRI Diet - NPO pending SLT assessment Disposition -hopefully discharge back to rehab when preauthorization is approved Admission and Anticipated Discharge Date Admission Date: April 04, 2023 Subjective Patient seen and examined, states his strength has come back, awaiting evaluation by physical therapy, willing to participate, awaiting preauthorization Review of Systems Review of Systems: All systems reviewed are negative, apart from the ones contained in the history. Physical Exam Physical Exam: The patient is awake, alert and oriented 3, some slurred speech HEENT--PERRL, EOMI, mucous membranes and oropharynx mildly dry Neck--supple. No JVD. No bruits. Thyroid normal, trachea midline, no adenopathy. Heart--normal S1 and S2. No murmurs, rubs or gallops. Lungs--clear bilaterally, no respiratory distress, no accessory muscle use. Abdomen--normal bowel sounds and soft. Mild epigastric and left sided abdominal pain Extremities--no cyanosis or clubbing. No edema. Dermatologic--normal skin turgor, normal color, no abnormal lymph nodes, no rash. Neurologic--cranial nerves II through XII grossly intact. Rheumatologic--normal range of motion. Psychiatric--normal affect. Results & Data Results & Data Vital Signs (Past 12 Hours) Vital Signs Temp Pulse Pulse Pulse Resp BP Pulse Ox 04/05/23 11:58 98.1 F 43 L 16 160/92 H 97 04/05/23 07:53 97.7 F 42 L 18 159/75 H 97 04/05/23 06:11 42 L 04/05/23 04:00 97.3 F L 46 L 18 167/83 H 96 O2 Del Method 04/05/23 11:58 Room Air 04/05/23 07:53 Room Air 04/05/23 06:11 04/05/23 04:00 Room Air PG Care Time/CCT Total # of Minutes Spent Total Time Spent with Patient: Total time spent is greater than 50% in coordination of care (as documented) at patient's floor/unit and/or counseling patient: Coding Level of Care Code 46635 SUB INP/OBS CARE 2/35MIN Diagnoses Acute cerebrovascular accident (CVA) I63.9 DVT (deep venous thrombosis) I82.409 Stroke-like symptoms R29.90 Acute encephalopathy G93.40 Trigeminal neuralgia G50.0 Hx of subdural hematoma Z86.79 Hypothyroidism E03.9 Cerebrovascular disease I67.9 Time Spent (min) 35
[2023-04-05] MEDS: ATORVASTATIN 40 MG TAB PO SCH (20:04)
[2023-04-05] MEDS: BIMATOPROST 0.01% OP SOLN 2.5 ML BTL OP SCH (20:05)
[2023-04-05] MEDS: ACETAMINOPHEN 325 MG TAB PO PRN (20:32)
[2023-04-06] MEDS: LEVOTHYROXINE SODIUM 50 MCG TABLET PO SCH (06:04)
[2023-04-06 06:28] LABS: Basophils # (auto) 0.03 K/uL (0.00-0.20); Basophils % (auto) 0.4 %; Eosinophils # (auto) 0.19 K/uL (0.00-0.50); Eosinophils % (auto) 2.4 %; Hematocrit (blood only) 41.6 % (42.0-52.0); Hemoglobin 13.9 g/dl (14.0-18.0); Immature Granulocytes # (auto) 0.09 K/uL (0.01-0.20); Immature Granulocytes % (auto) 1.1 %; Lymphocytes % (auto) 18.7 %; Mean Corpuscular Hemoglobin 30.7 pg (25.0-34.0); Mean Corpuscular Hgb Conc 33.4 g/dL (32.0-36.0); Mean Corpuscular Volume 91.8 fL (80.0-100.0); Mean Platelet Volume 9.7 fL (9.4-12.4); Monocytes # (auto) 0.71 K/uL (0.11-0.59); Monocytes % (auto) 8.8 %; Neutrophils # (auto) 5.52 K/uL (1.40-6.50); Neutrophils % (auto) 68.6 %; Platelet Count 137 K/uL (130-400); RDW Coefficient of Variation 13.7 % (11.5-14.5); RDW Standard Deviation 45.7 fL (36.4-46.3); Red Blood Count 4.53 M/uL (4.70-6.10); White Blood Count 8.04 K/ul (4.8-10.8)
[2023-04-06 06:32] LABS: BUN Creatinine Ratio 16.1 (10-20); Creatinine Clr Calc Pharmacy 77.6 ml/min; Est GFR (African American) 93.8 ml/min; Est GFR (Non-African American) 80.9 ml/min; Potassium 3.4 mmol/L (3.5-5.1)
[2023-04-06 08:00] VITALS: RESP 16; TEMP 97.2
[2023-04-06] MEDS ORDERED: ERGOCALCIFEROL 1250 MCG (50,000 UNITS) CAP PO SCH ×2 (09:00)
[2023-04-06] MEDS ORDERED: ONDANSETRON INJ 2 MG/ML 2 ML VIAL IV PRN (09:07)
[2023-04-06] MEDS: APIXABAN 5 MG TABLET PO SCH (09:10)
[2023-04-06] MEDS: CYANOCOBALAMIN (B-12) 500 MCG TABLET PO SCH (09:10)
[2023-04-06] MEDS: MEMANTINE HCL 10 MG TAB PO SCH (09:10)
[2023-04-06] MEDS: FAMOTIDINE 20 MG TAB PO SCH (09:11)
[2023-04-06] MEDS: OXcarbazepine 150 MG TABLET PO SCH (09:11)
[2023-04-06] MEDS: DONEPEZIL HCL 5 MG TAB PO SCH (09:12)
[2023-04-06] MEDS: DORZOLAMIDE/TIMOLOL 22.3/6.8MG/ML 10 ML BTL OP SCH (09:12)
[2023-04-06] MEDS: SERTRALINE HCL 50 MG TABLET PO SCH (09:12)
[2023-04-06] MEDS: ACETAMINOPHEN 325 MG TAB PO PRN (11:13)
[2023-04-06 11:25] VITALS: BP 184/105; O2SAT 95
--- NOTE | 2023-04-06 11:48 | Discharge Summary ---
Date of Service April 06, 2023 Admission HPI Per Admitting Provider Romain Lim is an 82 year old right handed male with recent stroke who presents to the ER with after recent discharge for acute CVA to [facility] for rehabilitation. Unable to get any history from patient and daughter in law was not present at the time of event. History taken from Maddie Biswas PA-C at [facility] (both from her note and phone call). Patient did well with speech and language therapy this morning and occuptation therapy for 40 minutes. She was called urgently to see him around noon by nursing for acute sudden change in condition. She patient was slurring speech slumped on left side and reportedly new right lower extremity immobility. Blod glucose 140. No fever, hypoxia, hypotension, hypertension or recent fall. He received his morning medications. At most recent baseline he had clear speech, some right sided weakness and clumsiness but was able to move all 4 extremities and right lower extremity was flaccid when initially seen. His daughter in law reports he appears more just confused than his baseline in the emergency room although this does tend to fluctuate with his dementia. He is also just more restless. He was recently hospitalized from March 26 - 2023 due to acute left frontal CVA causing right sided facial droop and unable to move his right arm. No right lower extremity weakness was noted at time of admission. He was switched from aspirin to clopidogrel and discharged to [facility] for rehabilitation. Principal Diagnosis Acute DVT, acute stroke Discharge Exam The patient is awake, alert and oriented 3, some slurred speech HEENT--PERRL, EOMI, mucous membranes and oropharynx mildly dry Neck--supple. No JVD. No bruits. Thyroid normal, trachea midline, no adenopathy. Heart--normal S1 and S2. No murmurs, rubs or gallops. Lungs--clear bilaterally, no respiratory distress, no accessory muscle use. Abdomen--normal bowel sounds and soft. Mild epigastric and left sided abdominal pain Extremities--no cyanosis or clubbing. No edema. Dermatologic--normal skin turgor, normal color, no abnormal lymph nodes, no rash. Neurologic--cranial nerves II through XII grossly intact. Rheumatologic--normal range of motion. Psychiatric--normal affect. Discharge Data Allergies Allergy/AdvReac Type Severity Reaction Status Date / Time No Known Allergies Allergy Verified 10/17/23 10:01 Consultations 04/03/23 13:48 ED Decision to Admit Stat 04/03/23 18:44 Consult Neurology Routine Ordered Studies 04/03/23 12:54 CT angio head w con Stat CT angio neck with con Stat CT head/brain wo con Stat 04/03/23 14:46 MRI Brain [MR brain wo con] Urgent 04/03/23 15:10 US venous doppler LE RT Stat Hospital Course (1) Acute cerebrovascular accident (CVA): 82-year-old male with dementia and history of multiple ischemic strokes, brought from rehab on account of slurred speech weakness. Found to have another new stroke. MRI showed new left occipital and superior left frontal lobe acute stroke. Etiology of his multiple embolic stroke could be from a hypercoagulable state given recent acute DVT. Has been started on Eliquis 10 mg twice daily for 10 days, then subsequently 5 mg twice daily Continue statin, discontinue aspirin and Plavix Permissive hypertension PT OT Patient will need rehab, awaiting preauthorization (2) DVT (deep venous thrombosis): Acute left lower extremity DVT Could have been the source of his embolic stroke Although 2D echo did not show any evidence of shunt Initially on heparin drip, this has been discontinued Has been started on Eliquis 10 mg twice daily for 10 days, then subsequently 5 mg twice daily (3) Stroke-like symptoms: New CVA vs recrudescence of recent stroke from infection/exertion etc... Brain MRI, will defer stroke order set pending result of this given major current symptom is confusion (4) Acute encephalopathy: CXR and UA, prolactin, blood culture for infection workup (5) Trigeminal neuralgia: Continue Oxcarbazepine 150mg PO BID (6) Hx of subdural hematoma: Previously noted, although questioned whether this is a true diagnosis per his son (7) Hypothyroidism: TSH with AM labs COntinue levothyroxine (8) Cerebrovascular disease: Plan VTE Prophylaxis - deferred pending brain MRI Diet - NPO pending SLT assessment Disposition -hopefully discharge back to rehab when preauthorization is approved Total Time Total Time Spent Total Time Spent (In Minutes): 35 Discharge Plan Discharge Items Patient Disposition: Transfer Residential Fac Reason For Visit: ACUTE CONFUSION, SLUMPED OVER Discharge Diagnosis: Acute DVT, acute stroke Activity: Resume your previous activity Non-emergency contact: Primary Care Provider and Neurologist Call non-emergency contact if: you have any medication questions Follow-up/Referrals: Pancho Mohr MD [Primary Care Provider] - Diet: Regular Addtl Attending Provider Instructions: Please make appointment to follow-up with a neurologist and also your regular PCP Pending Studies at Discharge: No Stand-Alone Forms: My [facility] Skilled Items Patient informed of condition?: Yes DNR: No Discharge Level of Care: Skilled Communicable Disease: No Discharge Prognosis: Stable Lines: None Urinary Catheter: No Medications and DC Order Prescriptions: New Eliquis 5 mg Tablet 10 mg PO BID 8 Days Qty: 32 0RF Eliquis 5 mg Tablet 5 mg PO BID 30 Days Qty: 60 0RF Continued oxcarbazepine 150 mg tablet 150 mg PO BID Qty: 60 5RF donepezil 5 mg tablet 5 mg PO BID Qty: 60 2RF memantine 10 mg tablet 10 mg PO BID Qty: 60 5RF calcium carbonate 400 mg calcium (1,000 mg) tablet,chewable 800 mg PO Q8H famotidine 20 mg tablet 20 mg PO DAILY levothyroxine 50 mcg tablet 50 mcg PO DAILY cholecalciferol (vitamin D3) 1,250 mcg (50,000 unit) capsule 50,000 unit PO .weekly Qty: 14 2RF Rx Instructions: fridays acetaminophen [Acetaminophen Extra Strength] 500 mg Tablet 1,000 mg PO Q8H PRN (Reason: fever>100) acetaminophen [Acetaminophen Extra Strength] 500 mg Tablet 1,000 mg PO Q8H PRN (Reason: Pain) dorzolamide-timolol 22.3-6.8 mg/mL drops 1 drp ophthalmic (eye) BID mecobalamin (vitamin B12) [B12 Active] 1,000 mcg Tablet,Chewable 1,000 mcg PO BID sertraline See Rx Instructions .ROUTE .COMPLEX Rx Instructions: 25 mg daily for one week, then 50 mg after atorvastatin [Lipitor] 40 mg tablet 40 mg PO HS Qty: 30 0RF brimonidine [Alphagan P] 0.1 % drops 1 drp OPB BID Lumigan 0.01 % drops 1 drp OPB HS Discontinued clopidogrel 75 mg Tablet 75 mg PO QAM Qty: 30 0RF Discharge Orders: Discharge Order (Routine); Ordered 04/06/23 Ordered By: Casandra Winchester Admission Data Admit Date/Time: 04/04/23 16:37 Attending Provider: Casandra Winchester Admit Provider: Jaguar Lin Primary Care Provider: Pancho Mohr Other Providers: Jaguar Lin; Alvaro Pablo; Debi Preciado [facility] Coding Level of Care Code 41690 INP/OBS DISCH >30 MIN Diagnoses Acute cerebrovascular accident (CVA) I63.9 DVT (deep venous thrombosis) I82.409 Stroke-like symptoms R29.90 Acute encephalopathy G93.40 Trigeminal neuralgia G50.0 Hx of subdural hematoma Z86.79 Hypothyroidism E03.9 Cerebrovascular disease I67.9 Time Spent (min) 35
[2023-04-06 15:32] VITALS: PULSE 60
[2023-04-11] MEDS ORDERED: APIXABAN 5 MG TABLET PO SCH (09:00)
== END 2023-04-06 16:01 | DRG 65 ==
LOC: 2N 12:59 → ED 12:59 → SUATTDRO 15:48 → 2N 18:33 → 4W 19:32 → SUATTDRO 04-04 16:37 → 2N 04-04 21:56

== ENCOUNTER 2024-04-16 00:27 | Inpatient (IN) ==
--- NOTE | 2024-04-16 00:37 | Emergency Department Note ---
Impression & Plan Acute upper gastrointestinal bleeding, Abdominal pain, Anemia, DIRK (acute kidney injury) ED Provider Note NAME: GIULIANO TAYLOR AGE: 83 SEX: M : 1940 ARRIVES VIA: Ambulance INFORMANT: Patient ED PROVIDER(S): Esteban Brunson DO CHIEF COMPLAINT: Nausea vomiting HPI: Patient is an 83-year-old male with a past medical history of dementia, CVA who presents ER from [facility] complaining that he does not feel well combination with nausea and vomiting. Symptoms started tonight. Patient denies all other complaints but history is limited secondary to the dementia. There was concern per EMS who provided additional history that his vomit was a little dark and they were concerned that there could be blood present. None was witnessed. ADDITIONAL HISTORY OBTAINED: Per HPI Chronic Medical/Social Conditions Affecting Care: Per HPI PAST MEDICAL HISTORY:See Below PAST SURGICAL HISTORY:See Below FAMILY HISTORY:See Below SOCIAL HISTORY:See Below HOME MEDICATIONS:See Below ALLERGIES:See Below VITALS:See Below PHYSICAL EXAMINATION: GENERAL: Sitting up in bed, alert, vomited on towels EYE EXAM: normal conjunctiva. PERRL and EOM's grossly intact. OROPHARYNX: no exudate, no erythema, lips, buccal mucosa, and tongue normal and mucous membranes are moist NECK: supple, no nuchal rigidity, no adenopathy, non-tender LUNGS: Clear to auscultation. Normal chest wall mechanics HEART: no murmurs, S1 normal and S2 normal ABDOMEN: abdomen soft, non-tender, normo-active bowel sounds, no masses, no rebound or guarding. UPPER EXTREMITIES: upper extremities are grossly normal. LOWER EXTREMITIES: No pitting edema. NEURO EXAM: Awake alert oriented to person but not place or time. MEDICAL DECISION MAKING: Patient is an 83-year-old male who presents ER for the below stated complaint. IV was established and blood work was obtained. Labs show mild leukocytosis of 13,000. Mild anemia at 12 down from baseline of 13.8. Last hemoglobin was over a year ago. BMP with a creatinine of 1.5 up from a baseline of 1. LFTs bilirubin was unremarkable. Patient vomit was Gastroccult positive. Was placed on Protonix drip and bolus. He was typed and screened. He was initially hypotensive on his first blood pressure but remainders were in the 120s. He was given IV fluids. CT was obtained and was being read by radiology reads online. Due to this delay did consult general surgery as I was initially concerned of a small bowel obstruction. Patient was seen and evaluated by general surgery. CT was eventually resulted and showed no bowel obstruction. I did discuss the case with Dr. Romano for further evaluation management treatment. Son is present at bedside and notes that patient is a DNR/DNI. Held on reversal as vitals were stable with the exception of the first blood pressure and hemoglobin was 12. Consults/Care Managements Discussions: Per MDM Triage Nursing notes reviewed. Limited review of prior medical records performed Vital Signs: reviewed and remarkable for no significant abnormalities Differential diagnosis: Differential diagnoses includes but is not limited to gastritis, peptic ulcer disease, GERD, gallbladder disease, pancreatitis, small bowel obstruction, appendicitis, diverticulitis, hernia, urinary tract infection, torsion, perforation, trauma, infectious. ER treatment provided: See below Diagnostics interpreted by me include EKG and cardiac monitoring as listed below: -Cardiac Monitoring: An order was placed for continuous cardiac monitoring. The monitor shows a rate of 90 with sinus rhythm. -ECG: none -Laboratory studies:Interpreted by me as stated above in MDM and shown below. Imaging studies: Xrays: As interpreted by me:none CTs show: CT abdomen pelvis per my pleurae interpretation showed multiple air- fluid levels CT abdomen pelvis per radiology shows distention of the colon Procedures:none Critical Care: None Past Med/Surg History Problem List (Updated 04/16/24 @ 02:32 by Esteban Brunson DO) DIRK (acute kidney injury) (Acute) Anemia (Acute) Abdominal pain (Acute) Acute upper gastrointestinal bleeding (Acute) Nausea and vomiting Nephrolithiasis Renal cyst Weight loss Elevated LFTs Rapidly progressive dementia Physical deconditioning Dementia DVT (deep venous thrombosis) Acute encephalopathy Hypothyroidism Stroke-like symptoms Acute confusion (Acute) Brain TIA (Acute) Acute right hemiparesis Elevated troponin Acute cerebrovascular accident (CVA) (Acute) Elevated TSH Physical deconditioning Hypertension (Chronic) H/O hernia repair (Chronic) Bradycardia (Acute) Leg pain, left (Acute) Prostate cancer (Chronic 01/17/15) Syncope (Acute) Vitamin B12 deficiency (Chronic) H/O stroke associated with blood clotting tendency (Chronic) Dizziness (Chronic) Common migraine without aura (Chronic) Cerebrovascular disease Insomnia Low back pain Encounter for pre-operative examination Confusion (Acute) Gait instability (Acute) Pachymeningitis Depression with anxiety Hx of subdural hematoma (Acute) Mild cognitive impairment COVID-19 (Acute) CKD (chronic kidney disease) Cerebral cavernoma (Chronic) pt denies Chronic subdural hematoma (Chronic) pt denies Nerve disorder, cranial (Chronic) f/u with Dr. Marcelino--per pt's son Michael Trigeminal neuralgia (Chronic) f/u with Dr. Marcelino--per pt's son Michael Medical History (Updated 04/16/24 @ 02:32 by Esteban Brunson DO) History of stroke listed above - pt denies hx stroke; poor historian. denies following with neurology but office visit in [facility] from 12/2020 Chronic lower back pain History of prostate cancer dx'd 2-3 years ago; s/p radiation Poor historian HTN (hypertension) no meds - PCP monitors Surgical History (Updated 04/29/23 @ 00:11 by Debbie Bro) Hx of inguinal hernia repair History of left cataract surgery History of prostate biopsy Family History Mother , in her 60s Parkinson's disease Primary Parkinson's disease Father , in his 70's of uncertain cause No problems noted. Social History Smoking Status: Unknown if ever smoked Second Hand Exposure: No; Do You Dip or Chew Tobacco: No; Hx Alcohol Use: Yes Alcohol Intake Frequency Comment: rare Hx Substance Use: No Preferred Language: Bengali Communication Ability: Impaired Pleater Required: No Beliefs That Will Affect Care: None Current Living Situation: Personal Care Facility current occupational status: retired current occupation: retired [employer]el[employer] of [employer] Feels Safe at Home: Yes Assistive Devices: Walker Allergies Allergies Allergy/AdvReac Type Severity Reaction Status Date / Time No Known Allergies Allergy Verified 02/25/24 10:27 Home Meds Home Medications Medication Instructions Recorded Confirmed bimatoprost 0.01 % eye drops 1 drp OPB HS 07/30/21 04/16/24 (Lumigan) brimonidine 0.1 % eye drops 1 drp OPB AMHS 07/30/21 04/16/24 (Alphagan P) famotidine 20 mg tablet 20 mg PO QAM 12/19/22 04/16/24 levothyroxine 50 mcg tablet 50 mcg PO DAILY 12/19/22 04/16/24 dorzolamide 22.3 mg-timolol 6.8 1 drp OPB AMHS 03/26/23 04/16/24 mg/mL eye drops mecobalamin (vitamin B12) 1,000 1,000 mcg PO BID 03/26/23 04/16/24 mcg chewable tablet (B12 Active) calcium carbonate (Tums Ultra) 400 mg PO TID 07/17/23 04/16/24 nitroglycerin 0.4 mg sublingual 0.4 mg sublingual Q5M PRN Chest 07/17/23 04/16/24 tablet Pain apixaban 5 mg tablet (Eliquis) 5 mg PO BID 01/25/24 04/16/24 cholecalciferol (vitamin D3) 1,250 1,250 mcg PO WK 01/25/24 04/16/24 mcg (50,000 unit) capsule ferrous sulfate 300 mg (60 mg See Rx Instructions PO DAILY 01/25/24 04/16/24 iron)/5 mL oral liquid multivitamin 1 tab PO DAILY 01/25/24 04/16/24 acetaminophen 325 mg tablet 975 mg PO QID PRN temperature 04/16/24 04/16/24 bisacodyl 10 mg rectal suppository 10 mg VA DAILY PRN Constipation 04/16/24 04/16/24 docusate sodium 100 mg capsule 100 mg PO DAILY PRN Constipation 04/16/24 04/16/24 (Colace) escitalopram oxalate 10 mg tablet 10 mg PO DAILY 04/16/24 04/16/24 (Lexapro) hydrocortisone acetate 25 mg 25 mg VA Q12 PRN rectal bleeding 04/16/24 04/16/24 rectal suppository mineral oil-hydrophil petrolat 1 applic topical BID 04/16/24 04/16/24 topical ointment polyethylene glycol 3350 17 gram 17 g PO DAILY PRN Constipation 04/16/24 04/16/24 oral powder packet Results & Data (ED) Vital Signs Vital Signs - 24 hr 04/16/24 00:48 04/16/24 00:48 04/16/24 01:15 Temperature 36.8 C Temperature Source Oral Pulse Rate 83 94 H 78 Pulse Rhythm Irregular Respiratory Rate 15 14 16 Respiratory Effort / Characteristics Non-Labored Spontaneous Respiratory Depth Normal Respiratory Pattern Regular Blood Pressure 86/71 L 121/66 Blood Pressure Mean 76 84 Pulse Oximetry 96 95 92 Oxygen Delivery Method Room Air Room Air Sepsis Recent Fever Within 48 Hours No Sepsis New/Unexplained Change in Mental Status No Sepsis Action Taken by Nursing No Action Required 04/16/24 01:30 04/16/24 01:54 Temperature Temperature Source Pulse Rate 74 74 Pulse Rhythm Respiratory Rate 15 17 Respiratory Effort / Characteristics Respiratory Depth Respiratory Pattern Blood Pressure 125/81 111/81 Blood Pressure Mean 95 91 Pulse Oximetry 98 97 Oxygen Delivery Method Sepsis Recent Fever Within 48 Hours Sepsis New/Unexplained Change in Mental Status Sepsis Action Taken by Nursing Laboratory Data 04/16/24 00:44 04/16/24 00:44 Lab Results 04/16/24 04/16/24 Range/Units 00:44 00:47 WBC 13.21 H (4.8-10.8) K/ul RBC 3.86 L (4.70-6.10) M/uL Hgb 12.0 L (14.0-18.0) g/dl POC Hgb 12.6 L (14.0-18.0) g/dl Hct 35.4 L (42.0-52.0) % POC Hct 37 L (42-52) % MCV 91.7 (80.0-100.0) fL MCH 31.1 (25.0-34.0) pg MCHC 33.9 (32.0-36.0) g/dL RDW Std Deviation 51.8 H (36.4-46.3) fL RDW Coeff of Chintan 15.7 H (11.5-14.5) % Plt Count 152 (130-400) K/uL MPV 9.0 L (9.4-12.4) fL Immature Gran % (Auto) 0.5 % Neut % (Auto) 82.5 % Lymph % (Auto) 10.3 % Tyler % (Auto) 5.4 % Eos % (Auto) 1.2 % Baso % (Auto) 0.1 % Neut # (Auto) 10.90 H (1.40-6.50) K/uL Lymph # (Auto) 1.36 (1.20-3.40) K/uL Tyler # (Auto) 0.71 H (0.11-0.59) K/uL Eos # (Auto) 0.16 (0.00-0.50) K/uL Baso # (Auto) 0.01 (0.00-0.20) K/uL Immature Gran # (Auto) 0.07 (0.01-0.20) K/uL POC Sodium 140 (135-144) mmol/L Sodium 139 (136-145) mmol/L POC Potassium 4.0 (3.3-5.0) mmol/L Potassium 4.0 (3.5-5.1) mmol/L POC Chloride 106 (101-112) mmol/L Chloride 107 (98-107) mmol/L Carbon Dioxide 26 (21-32) mmol/L POC Total CO2 22 L (24-31) mmol/L Anion Gap 6 (3-11) POC Anion Gap 16.0 (16-25) mmol/L POC BUN 26 H (7-18) mg/dl BUN 28 H (6-23) mg/dl Creatinine 1.50 H (0.6-1.4) mg/dl POC Creatinine 1.6 H (0.6-1.3) mg/dl Est Cr Clr Drug Dosing 38.6 ml/min eGFR 46.19 BUN/Creatinine Ratio 18.7 (10-20) Glucose 114 H (70-99(Fasting)) mg/dl POC Glucose (other) 112 H (70-99) mg/dl Calcium 9.6 (8.6-10.3) mg/dl POC Ioniz Calcium Anmaaria 1.29 (1.12-1.32) mmol/l Total Bilirubin 0.4 (0.2-1.0) mg/dl AST 21 (13-39) U/L ALT 19 (7-52) U/L Alkaline Phosphatase 62 (34-104) U/L Total Protein 6.6 (6.0-8.3) gm/dl Albumin 3.3 L (3.4-5.0) gm/dl Globulin 3.3 (2.5-4.0) gm/dl Albumin/Globulin Ratio 1.0 (0.9-2) Lipase 79 (11-82) U/L Administered Medications Pantoprazole Sodium 40 mg/ (Dextrose) 100 mls @ 20 mls/hr IV Q5H MELISSA Stop: 05/16/24 01:14 Last Admin: 04/16/24 02:14 Dose: 8 mg/hr, 20 mls/hr Documented By: HUGO Discontinued Medications Sodium Chloride (Nss) 1,000 mls @ 999 mls/hr IV .Q1H1M ONE Stop: 04/16/24 01:34 Last Admin: 04/16/24 00:46 Dose: 999 mls/hr Documented By: HUGO Pantoprazole Sodium 80 mg/ (Dextrose) 120 mls @ 480 mls/hr IV NOW ONE Stop: 04/16/24 01:08 Last Admin: 04/16/24 01:58 Dose: 480 mls/hr Documented By: HUGO Ioversol (Optiray 320 100ml) 100 ml IV ONCE ONE Stop: 04/16/24 01:04 Last Admin: 04/16/24 01:03 Dose: 93 ml Documented By: VIKTORIYA Ondansetron HCl (Ondansetron Inj 2 Mg/Ml 2 Ml Vial) Confirm Administered Dose 4 mg .ROUTE .K-MED ONE Stop: 04/16/24 02:08 Last Admin: 04/16/24 02:14 Dose: Not Given Documented By: HUGO Ondansetron HCl (Ondansetron Inj 2 Mg/Ml 2 Ml Vial) 4 mg IV NOW STA Stop: 04/16/24 02:09 Last Admin: 04/16/24 02:14 Dose: 4 mg Documented By: HUGO Imaging Data Radiologist's Impression: Abdomen/Pelvis CT 04/16/24 00:34 EXAM: CT abd pelvis IV con only CLINICAL HISTORY: abd pain TECHNIQUE: Contiguous axial images were obtained from the level of the diaphragm to the pubic symphysis with intravenous contrast. Coronal and sagittal reconstructions were likewise performed and indicated to increase the sensitivity for detecting clinically relevant pathology. If IV contrast material had not been administered, the likelihood of detecting abnormalities relevant to the patient's condition would have been substantially decreased. CT scan was performed according to ALARA (as low as reasonable achievable). COMPARISON: 19 feb 2024. FINDINGS: The visualized lung bases few subpleural atelectatic bands with pleural thickening. The liver is normal in size and attenuation. No focal liver lesions are seen. There is no intra or extrahepatic biliary ductal dilatation. Hepatic vasculature is patent. The gallbladder is present. The spleen, pancreas, and adrenal glands are unremarkable. The kidneys are normal in size and attenuation. There is no hydronephrosis or perinephric fat stranding. No renal calculi or renal masses are identified. A large cortical simple cyst of size 9.6 x 9.6 cm is noted involving interpolar region of right kidney. Few tiny gravels are noted involving upper pole calyx of left kidney. The ureters are normal in caliber and no ureteral calculi are seen. The bladder is distended and shows mild concentric wall thickening predominantly at the posterior aspect (maximum wall thickness measures 8 mm) - suggestive of cystitis changes. Two small bladder diverticuli arising from bilateral lateral jean of urinary bladder. Pelvic viscera are unremarkable. No focal or diffuse bowel wall thickening or evidence of bowel obstruction is identified. Abdominal and pelvic vasculature is patent. No adenopathy or fluid collections are seen. No aggressive appearing osseous lesions are identified. The sigmoid colon and rectum is distended with fecal matter and shows concentric wall thickening with subtle adjacent fat stranding - suggest possibility of stercoral coliits. Small fat containing umbilical hernia IMPRESSION: 1. A large cortical simple cyst of size 9.6 x 9.6 cm is noted involving interpolar region of right kidney.-stable. 2. The bladder is distended and shows mild concentric wall thickening predominantly at the posterior aspect (maximum wall thickness measures 8 mm) - suggestive of cystitis changes. Two small bladder diverticuli arising from bilateral lateral jean of urinary bladder. 3. The sigmoid colon and rectum is distended with fecal matter and shows concentric wall thickening with subtle adjacent fat stranding - suggest possibility of stercoral coliits. 4. Few tiny gravels are noted involving upper pole calyx of left kidney.-stable. 5. Cystitis changes with few bladder diverticuli. 6. The sigmoid colon and rectum is distended with fecal matter and shows concentric wall thickening with subtle adjacent fat stranding - suggest possibility of stercoral coliits. Electronically signed by Cricket Espana 04-16-2024 02:08 AM Discharge Plan Visit Data Chief Complaint: GI Assessment Stated Complaint: GI ASSESSMENT ED Provider: Esteban Brunson Discharge Problem: Acute upper gastrointestinal bleeding, Abdominal pain, Anemia, DIRK (acute kidney injury) Forms Stand Alone Forms: [facility] Prescriptions Prescriptions: No Action famotidine 20 mg tablet 20 mg PO QAM levothyroxine 50 mcg tablet 50 mcg PO DAILY nitroglycerin 0.4 mg tablet, sublingual 0.4 mg sublingual Q5M PRN (Reason: Chest Pain) Rx Instructions: do not exceed 3 doses per episode calcium carbonate [Tums Ultra] 400 mg calcium (1,000 mg) tablet,chewable 400 mg PO TID cholecalciferol (vitamin D3) 1,250 mcg (50,000 unit) capsule 1,250 mcg PO WK Rx Instructions: every sunday MORNING Eliquis 5 mg tablet 5 mg PO BID ferrous sulfate 300 mg (60 mg iron)/5 mL liquid See Rx Instructions PO DAILY Rx Instructions: 7ml orally daily; at lunch multivitamin Tablet 1 tab PO DAILY dorzolamide-timolol 22.3-6.8 mg/mL drops 1 drp OPB AMHS mecobalamin (vitamin B12) [B12 Active] 1,000 mcg Tablet,Chewable 1,000 mcg PO BID brimonidine [Alphagan P] 0.1 % drops 1 drp OPB AMHS Rx Instructions: 1 drop in both eyes every morning and bedtime Lumigan 0.01 % drops 1 drp OPB HS bisacodyl 10 mg Suppository 10 mg VA DAILY PRN (Reason: Constipation) polyethylene glycol 3350 17 gram Powder In Packet 17 g PO DAILY PRN (Reason: Constipation) hydrocortisone acetate 25 mg Suppository 25 mg VA Q12 PRN (Reason: rectal bleeding) acetaminophen 325 mg Tablet 975 mg PO QID PRN (Reason: temperature) Aquaphor Ointment 1 applic TOPICAL BID docusate sodium [Colace] 100 mg Capsule 100 mg PO DAILY PRN (Reason: Constipation) escitalopram oxalate [Lexapro] 10 mg Tablet 10 mg PO DAILY Referrals Referrals: Pancho Mohr MD [Outside Practitioners] - Discharge Problem: Abdominal pain Qualifiers: Abdominal location: unspecified location Qualified Code(s): R10.9 - Unspecified abdominal pain Anemia Qualifiers: Anemia type: unspecified type Qualified Code(s): D64.9 - Anemia, unspecified
[2024-04-16] MEDS: SODIUM CHLORIDE 0.9% 1,000 ML IV ONE (00:46)
[2024-04-16 01:01] LABS: Basophils # (auto) 0.01 K/uL (0.00-0.20); Basophils % (auto) 0.1 %; Eosinophils # (auto) 0.16 K/uL (0.00-0.50); Eosinophils % (auto) 1.2 %; Hematocrit (blood only) 35.4 % (42.0-52.0); Immature Granulocytes # (auto) 0.07 K/uL (0.01-0.20); Immature Granulocytes % (auto) 0.5 %; Lymphocytes # (auto) 1.36 K/uL (1.20-3.40); Lymphocytes % (auto) 10.3 %; Mean Corpuscular Hemoglobin 31.1 pg (25.0-34.0); Mean Corpuscular Hgb Conc 33.9 g/dL (32.0-36.0); Mean Corpuscular Volume 91.7 fL (80.0-100.0); Monocytes # (auto) 0.71 K/uL (0.11-0.59); Monocytes % (auto) 5.4 %; Neutrophils % (auto) 82.5 %; Platelet Count 152 K/uL (130-400); RDW Coefficient of Variation 15.7 % (11.5-14.5); RDW Standard Deviation 51.8 fL (36.4-46.3); Red Blood Count 3.86 M/uL (4.70-6.10); White Blood Count 13.21 K/ul (4.8-10.8)
[2024-04-16] MEDS: OPTIRAY 320 100ml IV ONE (01:03)
[2024-04-16 01:05] LABS: iSTAT Creatinine 1.6 mg/dl (0.6-1.3); iSTAT Hemoglobin 12.6 g/dl (14.0-18.0); iSTAT Ionized Calcium 1.29 mmol/l (1.12-1.32)
[2024-04-16 01:17] LABS: Albumin Level 3.3 gm/dl (3.4-5.0); BUN Creatinine Ratio 18.7 (10-20); Bilirubin,Total 0.4 mg/dl (0.2-1.0); Calcium 9.6 mg/dl (8.6-10.3); Creatinine Clr Calc Pharmacy 38.6 ml/min; Globulin 3.3 gm/dl (2.5-4.0); Total Protein 6.6 gm/dl (6.0-8.3)
[2024-04-16] MEDS: PANTOPRAZOLE BOLUS/DRIP IV STA (01:30)
[2024-04-16] MEDS: PANTOprazole 80 MG in DEXTROSE 5% 100 ML IV ONE (01:58)
--- NOTE | 2024-04-16 02:09 | CT Scan Report ---
EXAM: CT abd pelvis IV con only CLINICAL HISTORY: abd pain TECHNIQUE: Contiguous axial images were obtained from the level of the diaphragm to the pubic symphysis with intravenous contrast. Coronal and sagittal reconstructions were likewise performed and indicated to increase the sensitivity for detecting clinically relevant pathology. If IV contrast material had not been administered, the likelihood of detecting abnormalities relevant to the patient's condition would have been substantially decreased. CT scan was performed according to ALARA (as low as reasonable achievable). COMPARISON: 19 feb 2024. FINDINGS: The visualized lung bases few subpleural atelectatic bands with pleural thickening. The liver is normal in size and attenuation. No focal liver lesions are seen. There is no intra or extrahepatic biliary ductal dilatation. Hepatic vasculature is patent. The gallbladder is present. The spleen, pancreas, and adrenal glands are unremarkable. The kidneys are normal in size and attenuation. There is no hydronephrosis or perinephric fat stranding. No renal calculi or renal masses are identified. A large cortical simple cyst of size 9.6 x 9.6 cm is noted involving interpolar region of right kidney. Few tiny gravels are noted involving upper pole calyx of left kidney. The ureters are normal in caliber and no ureteral calculi are seen. The bladder is distended and shows mild concentric wall thickening predominantly at the posterior aspect (maximum wall thickness measures 8 mm) - suggestive of cystitis changes. Two small bladder diverticuli arising from bilateral lateral jean of urinary bladder. Pelvic viscera are unremarkable. No focal or diffuse bowel wall thickening or evidence of bowel obstruction is identified. Abdominal and pelvic vasculature is patent. No adenopathy or fluid collections are seen. No aggressive appearing osseous lesions are identified. The sigmoid colon and rectum is distended with fecal matter and shows concentric wall thickening with subtle adjacent fat stranding - suggest possibility of stercoral coliits. Small fat containing umbilical hernia IMPRESSION: 1. A large cortical simple cyst of size 9.6 x 9.6 cm is noted involving interpolar region of right kidney.-stable. 2. The bladder is distended and shows mild concentric wall thickening predominantly at the posterior aspect (maximum wall thickness measures 8 mm) - suggestive of cystitis changes. Two small bladder diverticuli arising from bilateral lateral jean of urinary bladder. 3. The sigmoid colon and rectum is distended with fecal matter and shows concentric wall thickening with subtle adjacent fat stranding - suggest possibility of stercoral coliits. 4. Few tiny gravels are noted involving upper pole calyx of left kidney.-stable. 5. Cystitis changes with few bladder diverticuli. 6. The sigmoid colon and rectum is distended with fecal matter and shows concentric wall thickening with subtle adjacent fat stranding - suggest possibility of stercoral coliits. Electronically signed by Cricket Espana 04-16-2024 02:08 AM
--- NOTE | 2024-04-16 02:12 | Surgery Consultation ---
Date of Consultation April 16, 2024 Assessment & Plan (1) Nausea and vomiting: I discussed with the treating emergency room physician and the patient is being admitted on the hospitalist service. From surgery perspective we recommend the following: There is no definite bowel obstruction noted on the patient's CT scan but due to his active nausea and vomiting would recommend placing an NG tube to help curtail aspiration It does appear that the patient has sterile coral colitis but does not have signs of peritonitis or intra peritoneal free air and therefore I do not feel an emergent operation is required at this time IV fluids should be provided for hydration I discussed with the admitting service and they are going to place the patient on antibiotics in the form of Zosyn Consideration be given to trying gentle enemas or rectal stimulation in order to facilitate bowel movements Additional recommendations with forthcoming based on his clinical course as unfolds Supervising Physician Co-Signing Physician Notes Having BM's ABX for stercoral colitis No need for any surgical intervention Will follow History of Present Illness Reason for Consultation: Abdominal pain with nausea and vomiting History of Present Illness This is an 83-year-old male who presented to the emergency department secondary to nausea and vomiting. Patient has underlying dementia and therefore could not provide much in the way of meaningful history. His son was present at bedside who did help supplement the patient's history. According to the patient's son his father has suffered multiple strokes in the recent past and currently lives at [facility]. He was notified by the staff at this facility that his father was having nausea and vomiting therefore presented to the emergency department. There is also concern the patient had some coffee-ground/blood in his emesis. At the time of my interview the patient did not complain of any abdominal pain but he did have active nausea and vomiting. I did asked the patient and his son if he has had any prior abdominal surgeries and they note that he has had an inguinal hernia repair with to the best of the nausea but no additional surgeries. To the best of his son's knowledge his father has never had a small bowel obstruction. It is noteworthy to mention that the patient does take Eliquis as an outpatient with his most recent dose being taken on 04/15/2024. The emergency department the patient had labs and imaging which I independent reviewed. CBC revealed white blood cell count was elevated 13.2. His hemoglobin and hematocrit were 12.0 and 35.4. Platelet count was normal. Chemistry profile showed sodium and potassium are normal. BUN and creatinine were both slightly elevated 21.5. Lipase and LFTs were not elevated. A CT scan of the abdomen pelvis was performed. This showed that the sigmoid colon and rectum was distended with fecal matter concerning for sterile coral colitis. There is no definite evidence of bowel obstruction. Allergies Allergy/AdvReac Type Severity Reaction Status Date / Time No Known Allergies Allergy Verified 02/25/24 10:27 Home Medications Medication Instructions Recorded Confirmed Type bimatoprost 0.01 % eye drops 1 drp OPB HS 07/30/21 04/16/24 History (Lumigan) brimonidine 0.1 % eye drops 1 drp OPB [facility] 07/30/21 04/16/24 History (Alphagan P) famotidine 20 mg tablet 20 mg PO QAM 12/19/22 04/16/24 History levothyroxine 50 mcg tablet 50 mcg PO DAILY 12/19/22 04/16/24 History dorzolamide 22.3 mg-timolol 6.8 1 drp OPB [facility] 03/26/23 04/16/24 History mg/mL eye drops mecobalamin (vitamin B12) 1,000 1,000 mcg PO BID 03/26/23 04/16/24 History mcg chewable tablet (B12 Active) calcium carbonate (Tums Ultra) 400 mg PO TID 07/17/23 04/16/24 History nitroglycerin 0.4 mg sublingual 0.4 mg sublingual Q5M PRN Chest 07/17/23 04/16/24 History tablet Pain apixaban 5 mg tablet (Eliquis) 5 mg PO BID 01/25/24 04/16/24 History cholecalciferol (vitamin D3) 1,250 1,250 mcg PO WK 01/25/24 04/16/24 History mcg (50,000 unit) capsule ferrous sulfate 300 mg (60 mg See Rx Instructions PO DAILY 01/25/24 04/16/24 History iron)/5 mL oral liquid multivitamin 1 tab PO DAILY 01/25/24 04/16/24 History acetaminophen 325 mg tablet 975 mg PO QID PRN temperature 04/16/24 04/16/24 History bisacodyl 10 mg rectal suppository 10 mg AL DAILY PRN Constipation 04/16/24 04/16/24 History docusate sodium 100 mg capsule 100 mg PO DAILY PRN Constipation 04/16/24 04/16/24 History (Colace) escitalopram oxalate 10 mg tablet 10 mg PO DAILY 04/16/24 04/16/24 History (Lexapro) hydrocortisone acetate 25 mg 25 mg AL Q12 PRN rectal bleeding 04/16/24 04/16/24 History rectal suppository mineral oil-hydrophil petrolat 1 applic topical BID 04/16/24 04/16/24 History topical ointment polyethylene glycol 3350 17 gram 17 g PO DAILY PRN Constipation 04/16/24 04/16/24 History oral powder packet Patient History Medical History (Updated 04/16/24 @ 04:08 by Kamlesh Kennedy MD) History of stroke listed above - pt denies hx stroke; poor historian. denies following with neurology but office visit in [facility] from 12/2020 Chronic lower back pain History of prostate cancer dx'd 2-3 years ago; s/p radiation Poor historian HTN (hypertension) no meds - PCP monitors Surgical History (Updated 04/29/23 @ 00:11 by Debbie Bro) Hx of inguinal hernia repair History of left cataract surgery History of prostate biopsy Family History Mother , in her 60s Parkinson's disease Primary Parkinson's disease Father , in his 70's of uncertain cause No problems noted. 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 There did not appear to be any rebound tenderness or guarding but patient did appear to have pain elicited with palpation of his abdomen in a generalized fashion. Musculoskeletal: No calf tenderness Skin: no rashes Neurologic: moves all extremities Results & Data Vital Signs (Past 12 Hours) Vital Signs Temp Pulse Resp BP Pulse Ox O2 Del Method 04/16/24 01:54 74 17 111/81 97 04/16/24 01:30 74 15 125/81 98 04/16/24 01:15 78 16 121/66 92 04/16/24 00:48 94 H 14 95 Room Air 04/16/24 00:48 36.8 C 83 15 86/71 L 96 Room Air PG Care Time/CCT Total # of Minutes Spent Total Time Spent with Patient: Total time spent is greater than 50% in coordination of care (as documented) at patient's floor/unit and/or counseling patient: Coding Level of Care Code 59667 INT INP/OBS CARE 3/75MIN Diagnoses Nausea and vomiting R11.2
[2024-04-16] MEDS: PANTOprazole 40 MG in DEXTROSE 5% MINI-B 100 ML IV SCH (02:14)
[2024-04-16] MEDS: ONDANSETRON INJ 2 MG/ML 2 ML VIAL IV STA ×2 (02:14→03:28)
[2024-04-16] MEDS: ONDANSETRON INJ 2 MG/ML 2 ML VIAL ONE (02:14)
--- NOTE | 2024-04-16 02:24 | History & Physical Report ---
Date of Service April 16, 2024 Assessment & Plan (1) DIRK (acute kidney injury): (2) Acute upper gastrointestinal bleeding: (3) Stercoral colitis: (4) Cystitis: (5) Chronic anticoagulation: (6) Dementia: (7) Nausea and vomiting: Plan The patient is a an 83-year-old male with past medical history including rapidly progressive dementia, DVT, history of encephalopathy, hypothyroidism, cerebrovascular disease/TIA, hypertension, history of hernia repair, prostate cancer, history of common migraine, gait instability, history of subdural hematoma, CKD, cerebral cavernoma, and trigeminal neuralgia.The patient presents to the emergency department via ambulance from [facility], where he was noted to have nausea, vomiting and worsening confusion on top of his baseline dementia. EMS reports that his vomit appeared to be somewhat dark, and they were concerned about the possibility of blood in his vomitus. The patient himself not able to contribute to significant HPI or ROS due to his dementia. While in the emergency department, the patient had a number of episodes of active vomiting. CT scan of abdomen pelvis did not show bowel obstruction, but did show findings suggestive of stercoral colitis. #Nausea vomiting/upper GI bleeding/stercoral colitis- NPO Continue Protonix bolus and drip begun in the ED Will not reverse Eliquis at this time unless persistent GI bleeding Zofran 4 mg IV every 6 hours as needed Zosyn 4.5 g IV every 8 hours Status post 1 L normal saline bolus from the ED NSS 80 mL/h x 2 L Hemoglobin 12.0, with base 13.9, and will follow every 6 hours Dulcolax suppository daily to twice daily as needed Acetaminophen 1 g IV every 8 hours as needed for mild pain or fever Consult gastroenterology Dr. Ordonez Acute kidney injury- Creatinine 1.50, with base 0.87 IV fluids as noted above repeat laboratories in the a.m. History of DVT- On chronic Eliquis, which will be held for now Chronic medical conditions: History of CVA/TIA/aphasia-n.p.o. for now Glaucoma-continue usual eyedrops Hypothyroidism-temporarily holding levothyroxine B12 deficiency-Temporarily holding supplement CODE STATUS: DNR/DNI is verified with family History of Present Illness Chief Complaint: The patient presents to the emergency department via ambulance from [facility], where he was noted to have nausea, vomiting and worsening confusion on top of his baseline dementia. EMS reports that his vomit appeared to be somewhat dark, and they were concerned about the possibility of blood in his vomitus. The patient himself not able to contribute to significant HPI or ROS due to his dementia Primary Care Provider: Ilana Carrera at [place] The patient is a an 83-year-old male with past medical history including rapidly progressive dementia, DVT, history of encephalopathy, hypothyroidism, cerebrovascular disease/TIA, hypertension, history of hernia repair, prostate cancer, history of common migraine, gait instability, history of subdural hematoma, CKD, cerebral cavernoma, and trigeminal neuralgia.The patient presents to the emergency department via ambulance from [facility], where he was no tato to have nausea, vomiting and worsening confusion on top of his baseline dementia. EMS reports that his vomit appeared to be somewhat dark, and they were concerned about the possibility of blood in his vomitus. The patient himself not able to contribute to significant HPI or ROS due to his dementia. While in the emergency department, the patient had a number of episodes of active vomiting. Allergies Allergy/AdvReac Type Severity Reaction Status Date / Time No Known Allergies Allergy Verified 02/25/24 10:27 Home Medications Medication Instructions Recorded Confirmed Type bimatoprost 0.01 % eye drops 1 drp OPB 07/30/21 04/16/24 History (Lumigan) brimonidine 0.1 % eye drops 1 drp OPB [facility] 07/30/21 04/16/24 History (Alphagan P) famotidine 20 mg tablet 20 mg PO QAM 12/19/22 04/16/24 History levothyroxine 50 mcg tablet 50 mcg PO DAILY 12/19/22 04/16/24 History dorzolamide 22.3 mg-timolol 6.8 1 drp OPB [facility] 03/26/23 04/16/24 History mg/mL eye drops mecobalamin (vitamin B12) 1,000 1,000 mcg PO BID 03/26/23 04/16/24 History mcg chewable tablet (B12 Active) calcium carbonate (Tums Ultra) 400 mg PO TID 07/17/23 04/16/24 History nitroglycerin 0.4 mg sublingual 0.4 mg sublingual Q5M PRN Chest 07/17/23 04/16/24 History tablet Pain apixaban 5 mg tablet (Eliquis) 5 mg PO BID 01/25/24 04/16/24 History cholecalciferol (vitamin D3) 1,250 1,250 mcg PO WK 01/25/24 04/16/24 History mcg (50,000 unit) capsule ferrous sulfate 300 mg (60 mg See Rx Instructions PO DAILY 01/25/24 04/16/24 History iron)/5 mL oral liquid multivitamin 1 tab PO DAILY 01/25/24 04/16/24 History acetaminophen 325 mg tablet 975 mg PO QID PRN temperature 04/16/24 04/16/24 History bisacodyl 10 mg rectal suppository 10 mg CA DAILY PRN Constipation 04/16/24 04/16/24 History docusate sodium 100 mg capsule 100 mg PO DAILY PRN Constipation 04/16/24 04/16/24 History (Colace) escitalopram oxalate 10 mg tablet 10 mg PO DAILY 04/16/24 04/16/24 History (Lexapro) hydrocortisone acetate 25 mg 25 mg CA Q12 PRN rectal bleeding 04/16/24 04/16/24 History rectal suppository mineral oil-hydrophil petrolat 1 applic topical BID 04/16/24 04/16/24 History topical ointment polyethylene glycol 3350 17 gram 17 g PO DAILY PRN Constipation 04/16/24 04/16/24 History oral powder packet Past Med/Surg History Problem List (Updated 04/16/24 @ 04:08 by Kamlesh Kennedy MD) Chronic anticoagulation Stercoral colitis DIRK (acute kidney injury) (Acute) Anemia (Acute) Abdominal pain (Acute) Acute upper gastrointestinal bleeding (Acute) Nausea and vomiting Nephrolithiasis Renal cyst Weight loss Elevated LFTs Rapidly progressive dementia Physical deconditioning Dementia DVT (deep venous thrombosis) Acute encephalopathy Hypothyroidism Stroke-like symptoms Acute confusion (Acute) Brain TIA (Acute) Acute right hemiparesis Elevated troponin Acute cerebrovascular accident (CVA) (Acute) Elevated TSH Physical deconditioning Hypertension (Chronic) H/O hernia repair (Chronic) Bradycardia (Acute) Leg pain, left (Acute) Prostate cancer (Chronic 01/17/15) Syncope (Acute) Vitamin B12 deficiency (Chronic) H/O stroke associated with blood clotting tendency (Chronic) Dizziness (Chronic) Common migraine without aura (Chronic) Cerebrovascular disease Insomnia Low back pain Encounter for pre-operative examination Confusion (Acute) Gait instability (Acute) Pachymeningitis Depression with anxiety Hx of subdural hematoma (Acute) Mild cognitive impairment COVID-19 (Acute) CKD (chronic kidney disease) Cerebral cavernoma (Chronic) pt denies Chronic subdural hematoma (Chronic) pt denies Nerve disorder, cranial (Chronic) f/u with Dr. Marcelino--per pt's son Michael Trigeminal neuralgia (Chronic) f/u with Dr. Marcelino--per pt's son Michael Medical History (Updated 04/16/24 @ 04:08 by Kamlesh Kennedy MD) History of stroke listed above - pt denies hx stroke; poor historian. denies following with neurology but office visit in [place] from 12/2020 Chronic lower back pain History of prostate cancer dx'd 2-3 years ago; s/p radiation Poor historian HTN (hypertension) no meds - PCP monitors Surgical History (Updated 04/29/23 @ 00:11 by Debbie Bro) Hx of inguinal hernia repair History of left cataract surgery History of prostate biopsy Family History Mother , in her 60s Parkinson's disease Primary Parkinson's disease Father , in his 70's of uncertain cause No problems noted. 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 Physical Exam Physical Exam: The patient is awake, confused, normocephalic and atraumatic. Had 3-4 episodes of active vomiting of bilious material while in ED HEENT--PERRL, EOMI, mucous membranes and oropharynx dry. Neck--supple. No JVD. No bruits. Thyroid normal, trachea midline, no adenopathy. Heart--normal S1 and S2. No murmurs, rubs or gallops. Lungs--clear bilaterally, no respiratory distress, no accessory muscle use. Abdomen--decreased bowel sounds. Mildly distended and tympanitic. Extremities--no cyanosis or clubbing. No edema. Dermatologic--normal skin turgor, normal color, no abnormal lymph nodes, no rash. Neurologic--cranial nerves II through XII grossly intact. Rheumatologic--normal range of motion. Psychiatric--normal affect. Results & Data Results & Data Vital Signs (Past 12 Hours) Vital Signs Temp Pulse Resp BP Pulse Ox O2 Del Method 04/16/24 01:54 74 17 111/81 97 04/16/24 01:30 74 15 125/81 98 04/16/24 01:15 78 16 121/66 92 04/16/24 00:48 94 H 14 95 Room Air 04/16/24 00:48 36.8 C 83 15 86/71 L 96 Room Air Laboratory Results Laboratory Results WBC 13.21 K/ul (4.8-10.8) H 04/16/24 00:44 RBC 3.86 M/uL (4.70-6.10) L 04/16/24 00:44 Hgb 12.0 g/dl (14.0-18.0) L 04/16/24 00:44 POC Hgb 12.6 g/dl (14.0-18.0) L 04/16/24 00:47 Hct 35.4 % (42.0-52.0) L 04/16/24 00:44 POC Hct 37 % (42-52) L 04/16/24 00:47 MCV 91.7 fL (80.0-100.0) 04/16/24 00:44 MCH 31.1 pg (25.0-34.0) 04/16/24 00:44 MCHC 33.9 g/dL (32.0-36.0) 04/16/24 00:44 RDW Std Deviation 51.8 fL (36.4-46.3) H 04/16/24 00:44 RDW Coeff of Chintan 15.7 % (11.5-14.5) H 04/16/24 00:44 Plt Count 152 K/uL (130-400) 04/16/24 00:44 MPV 9.0 fL (9.4-12.4) L 04/16/24 00:44 Immature Gran % (Auto) 0.5 % 04/16/24 00:44 Neut % (Auto) 82.5 % 04/16/24 00:44 Lymph % (Auto) 10.3 % 04/16/24 00:44 [place] % (Auto) 5.4 % 04/16/24 00:44 Eos % (Auto) 1.2 % 04/16/24 00:44 Baso % (Auto) 0.1 % 04/16/24 00:44 Neut # (Auto) 10.90 K/uL (1.40-6.50) H 04/16/24 00:44 Lymph # (Auto) 1.36 K/uL (1.20-3.40) 04/16/24 00:44 [place] # (Auto) 0.71 K/uL (0.11-0.59) H 04/16/24 00:44 Eos # (Auto) 0.16 K/uL (0.00-0.50) 04/16/24 00:44 Baso # (Auto) 0.01 K/uL (0.00-0.20) 04/16/24 00:44 Immature Gran # (Auto) 0.07 K/uL (0.01-0.20) 04/16/24 00:44 POC Sodium 140 mmol/L (135-144) 04/16/24 00:47 Sodium 139 mmol/L (136-145) 04/16/24 00:44 POC Potassium 4.0 mmol/L (3.3-5.0) 04/16/24 00:47 Potassium 4.0 mmol/L (3.5-5.1) 04/16/24 00:44 POC Chloride 106 mmol/L (101-112) 04/16/24 00:47 Chloride 107 mmol/L (98-107) 04/16/24 00:44 Carbon Dioxide 26 mmol/L (21-32) 04/16/24 00:44 POC Total CO2 22 mmol/L (24-31) L 04/16/24 00:47 Anion Gap 6 (3-11) 04/16/24 00:44 POC Anion Gap 16.0 mmol/L (16-25) 04/16/24 00:47 POC BUN 26 mg/dl (7-18) H 04/16/24 00:47 BUN 28 mg/dl (6-23) H 04/16/24 00:44 Creatinine 1.50 mg/dl (0.6-1.4) H 04/16/24 00:44 POC Creatinine 1.6 mg/dl (0.6-1.3) H 04/16/24 00:47 Est Cr Clr Drug Dosing 38.6 ml/min 04/16/24 00:44 eGFR 46.19 04/16/24 00:44 BUN/Creatinine Ratio 18.7 (10-20) 04/16/24 00:44 Glucose 114 mg/dl (70-99(Fasting)) H 04/16/24 00:44 POC Glucose (other) 112 mg/dl (70-99) H 04/16/24 00:47 Calcium 9.6 mg/dl (8.6-10.3) 04/16/24 00:44 POC Ioniz Calcium [place] 1.29 mmol/l (1.12-1.32) 04/16/24 00:47 Total Bilirubin 0.4 mg/dl (0.2-1.0) 04/16/24 00:44 AST 21 U/L (13-39) 04/16/24 00:44 ALT 19 U/L (7-52) 04/16/24 00:44 Alkaline Phosphatase 62 U/L (34-104) 04/16/24 00:44 Total Protein 6.6 gm/dl (6.0-8.3) 04/16/24 00:44 Albumin 3.3 gm/dl (3.4-5.0) L 04/16/24 00:44 Globulin 3.3 gm/dl (2.5-4.0) 04/16/24 00:44 Albumin/Globulin Ratio 1.0 (0.9-2) 04/16/24 00:44 Lipase 79 U/L (11-82) 04/16/24 00:44 Impressions Abdomen/Pelvis CT 04/16/24 00:34 EXAM: CT abd pelvis IV con only CLINICAL HISTORY: abd pain TECHNIQUE: Contiguous axial images were obtained from the level of the diaphragm to the pubic symphysis with intravenous contrast. Coronal and sagittal reconstructions were likewise performed and indicated to increase the sensitivity for detecting clinically relevant pathology. If IV contrast material had not been administered, the likelihood of detecting abnormalities relevant to the patient's condition would have been substantially decreased. CT scan was performed according to ALARA (as low as reasonable achievable). COMPARISON: 19 feb 2024. FINDINGS: The visualized lung bases few subpleural atelectatic bands with pleural thickening. The liver is normal in size and attenuation. No focal liver lesions are seen. There is no intra or extrahepatic biliary ductal dilatation. Hepatic vasculature is patent. The gallbladder is present. The spleen, pancreas, and adrenal glands are unremarkable. The kidneys are normal in size and attenuation. There is no hydronephrosis or perinephric fat stranding. No renal calculi or renal masses are identified. A large cortical simple cyst of size 9.6 x 9.6 cm is noted involving interpolar region of right kidney. Few tiny gravels are noted involving upper pole calyx of left kidney. The ureters are normal in caliber and no ureteral calculi are seen. The bladder is distended and shows mild concentric wall thickening predominantly at the posterior aspect (maximum wall thickness measures 8 mm) - suggestive of cystitis changes. Two small bladder diverticuli arising from bilateral lateral jean of urinary bladder. Pelvic viscera are unremarkable. No focal or diffuse bowel wall thickening or evidence of bowel obstruction is identified. Abdominal and pelvic vasculature is patent. No adenopathy or fluid collections are seen. No aggressive appearing osseous lesions are identified. The sigmoid colon and rectum is distended with fecal matter and shows concentric wall thickening with subtle adjacent fat stranding - suggest possibility of stercoral coliits. Small fat containing umbilical hernia IMPRESSION: 1. A large cortical simple cyst of size 9.6 x 9.6 cm is noted involving interpolar region of right kidney.-stable. 2. The bladder is distended and shows mild concentric wall thickening predominantly at the posterior aspect (maximum wall thickness measures 8 mm) - suggestive of cystitis changes. Two small bladder diverticuli arising from bilateral lateral jean of urinary bladder. 3. The sigmoid colon and rectum is distended with fecal matter and shows concentric wall thickening with subtle adjacent fat stranding - suggest possibility of stercoral coliits. 4. Few tiny gravels are noted involving upper pole calyx of left kidney.-stable. 5. Cystitis changes with few bladder diverticuli. 6. The sigmoid colon and rectum is distended with fecal matter and shows concentric wall thickening with subtle adjacent fat stranding - suggest possibility of stercoral coliits. Electronically signed by Cricket Espana 04-16-2024 02:08 AM Code Status & VTE Plan Code Status DNR/DNI VTE Prophylaxis Plan VTE Prophylaxis will be ordered: Yes PG Care Time/CCT Total # of Minutes Spent Total Time Spent with Patient: Total time spent is greater than 50% in coordination of care (as documented) at patient's floor/unit and/or counseling patient: Coding Level of Care Code 47621 INT INP/OBS CARE 3/75MIN Diagnoses DIRK (acute kidney injury) N17.9 Acute upper gastrointestinal bleeding K92.2 Stercoral colitis K52.89 Cystitis N30.90 Chronic anticoagulation Z79.01 Dementia F03.90 Nausea and vomiting R11.2
[2024-04-16] MEDS: SODIUM CHLORIDE 0.9% 1,000 ML IV SCH (02:58)
[2024-04-16] MEDS: 4.5GM X1 IV STA (03:29)
[2024-04-16] MEDS ORDERED: bisacodyL 10 MG SUPP PR PRN (04:00)
[2024-04-16 04:15] LABS: Appearance Urine Cloudy (Clear); Bacteria Urine Automated None Seen (None Seen); Bilirubin Urine Negative (Negative); Blood Urine 2+ (Negative); Calcium Oxalate Crystals Urine Present (None Prsent); Color Urine Yellow; Glucose Urine UA Negative (Negative); Ketones Urine Trace (Negative); Leukocyte Esterase Urine 1+ (Negative); Nitrite Urine Negative (Negative); Protein Urine Trace (Negative); RBC Urine Automated >20 /hpf (0-2); Specific Gravity Urine 1.034 (1.000-1.030); Urobilinogen Urine Negative (Negative); pH Urine 5.5 (4.5-7.5)
[2024-04-16] MEDS ORDERED: ALBUT/IPRATROP 3MG/0.5MG NEB 3 ML VIAL NEB PRN (05:09)
[2024-04-16 06:23] LABS: Hemoglobin 10.9 g/dl (14.0-18.0)
--- OUTSIDE RECORDS SUMMARY | 2024-04-16 06:53 | External Medical Summary ---
Author Name Unknown Address Unknown Organization [id number]:[facility] [address] [place] [id number] Laboratory Report Ordering Provider Test Date Status MAYRA SORENSON 03/26/2024 06:05:00 Final Observation Date Value Abnormality Reference (Units ) Status Albumin 03/26/2024 06:05:00 2.8 Below low normal 3.8-5.0 (g/dL) Final AST (Aspartate aminotransferase) 03/26/2024 06:05:00 23 10-50 (U/L) Final Results may be falsely eleva tato due to hemolysis. Alk Phos 03/26/2024 06:05:00 64 35-130 (U/ L) Final ALT (Alanine aminotransferase) 03/26/2024 06:05:00 18 10-50 (U/L) Final Bilirubin, Total 03/26/2024 06:05:00 0.4 <=1 .2 (mg/dL) Final Bilirubin, Direct 03/26/2024 06:05:00 0.1 0. 0-0.3 (mg/dL) Final Result may be falsely decrea sed due to hemolysis. Protein 03/26/2024 06:05:00 5.2 Below low normal 6.0 -8.3 (g/dL) Final Performing Location [facility] [address] [place] [address]
--- OUTSIDE RECORDS SUMMARY | 2024-04-16 06:53 | External Medical Summary | Summary of Care ---
Author Name Unknown Organization [facility] Address [address] [place] [address] Phone [phone] Care Team Providers Care Investment Accountant Name Role Phone Unavailable Primary Care Provider Unavailabl e Reason for Visit * Reason Onset Date Comments [facility] Visit 03/03/2024 Encounter Details Date Type Department Care Team (Late st Contact Info) Description 03/03/2024 1:00 PM EST M[facility] Visit [address] [place] [address] Maddie Biswas PA-C [address] [place] [address] Balanitis* Allergies No known active allergiesdocumented as of this encounter (statuses as of 03/03/2024) Medications Hydrocortisone Acetate 25 MG Rectal Suppository (Anusol-HC)Indicat ions:Rectal bleeding Administer into the rectum 2 times a day in the morning and at bedtime as needed for Hemorrhoids or Other (bleeding). Up to 2 weeks. 12 Suppository 05/07/19 24 Active Vitamin B-12 1000 MCG Sublingual Tablet Sublingual Place 1 Tablet under the tongue in the morning. 30 Tablet 05/07/19 24 Active Brimonidine Tartrate 0.1 % Ophthalmic Solution (Alphagan P)Indications:Prim bonnie open angle glaucoma (POAG) of both eyes, indeterminate stage Instill 1 Drop into both eyes in the morning and 1 Drop before bedtime. 5 mL 05/07/19 24 Active Cholecalciferol 1.25 MG (39905 UT) Oral Tablet Take 50,000 Units by mouth once a week. Fridays 4 Tablet 05/07/19 24 Active Dorzolamide HCl-Timolol Mal 2-0.5 % Ophthalmic Solution (Cosopt Ocumeter Plus)Indications:P rimary open angle glaucoma (POAG) of both eyes, indeterminate stage Instill 1 Drop into both eyes in the morning and 1 Drop before bedtime. 10 mL 05/07/19 24 Active Apixaban 5 MG Oral Tablet (Eliquis)Indicatio ns:Acute deep vein thrombosis (DVT) of calf muscle vein of right lower extremity (HCC) Take 1 Tablet by mouth in the morning and 1 Tablet before bedtime. 60 Tablet 05/07/19 24 Active Famotidine 20 MG Oral Tablet (Pepcid)Indication s:Gastroesophageal reflux disease without esophagitis Take 1 Tablet by mouth in the morning. 30 Tablet 05/07/19 24 Active Levothyroxine Sodium 50 MCG Oral Tablet (Levoxyl)Indicatio ns:Acquired hypothyroidism Take 1 Tablet by mouth in the morning. (at least 30 min prior to breakfast or other meds). 30 Tablet 05/07/19 24 Active Lumigan 0.01 % Ophthalmic Solution (Bimatoprost)Indic ations:Primary open angle glaucoma (POAG) of both eyes, indeterminate stage Instill 1 Drop into both eyes at bedtime. 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 45 Tablet 05/07/19 24 Active Additional Information Patient taking differently: 100 mgOral Daily(AM), Reported on 01/22/2024 Tums Ultra 1000 1000 MG Oral Tablet Chewable (Calcium Carbonate Antacid)Indication s:Gastroesophageal reflux disease without esophagitis Take 2 Tablets by mouth in the morning and 2 Tablets at noon and 2 Tablets before bedtime. 180 Tablet 05/07/19 24 Active Nitroglycerin 0.4 MG Sublingual Tablet Sublingual (Nitrostat) Place 1 Tablet under the tongue as needed for Pain, Chest. May repeat 3 times. If chest pain continues, call 911. 09/27/19 24 Active Multivitamin Adults Oral Tablet Take 1 Tablet by mouth in the morning. Active Ferrous Sulfate 300 MG/6.8ML Oral Solution Take 7 mL by mouth daily at noon. Active documented as of this encounter (statuses as of 03/03/2024) Active Problems Problem Noted Date Diagnosed Date Iron deficiency anemia 12/18/2023 Elevated liver enzymes 12/18/2023 Radiation proctitis 05/22/2023 AVM (arteriovenous malformation) of colon 2023 Internal hemorrhoid 05/22/2023 Acute deep vein thrombosis ( DVT) of calf muscle vein of right lower extremity 04/12/2023 Moderate late onset Alzheime r's dementia with mood disturbance 03/29/2023 History of subdural hematoma 03/29/2023 Primary open angle glaucoma (POAG) of both eyes, indeterminate stage 03/29/2023 History of prostate cancer 03/29/2023 Overview (03/29/2023): S/p radiation Dyslipidemia, goal LDL below 70 03/29/2023 Acquired hypothyroidism 03/29/2023 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 2023 Overview (03/29/2023): Left frontal lobe infarct And remote ischemic injury in right frontal lobe with encephalomalacia Stenosis of right middle cerebral artery 024 Left ventricular hypertrophy 03/29/2023 Right hemiparesis 03/29/2023 Depressive disorder 03/29/2023 Moderate vascular dementia with mood disturbance 03/29/2023 HTN, goal below 140/90 03/29/2023 Benign neoplasm of colon 02/13/2007 Overview (02/15/2007): hyperplastic repeat colonoscopy in 5 yrs Trigeminal neuralgia 12/18/2006 documented as of this encounter (statuses as of 03/03/2024) Resolved Problems Problem Noted Date Diagnosed Date Resolved Date ADVANCE DIRECTIVE INFORMATION 10/27/2004 01/07/2024 Overview (10/27/2004): Yes, Patient instructed to provide copy of advance directive for provider to review and to be scanned into Electronic Medical Record documented as of this encounter (statuses as of 03/03/2024) Immunizations Name Administration Dates Next Due COVID-19 mRNA, LNP-s, No Pre serve, 2-Dose Series ([employer]) 12/01/2020,05/17/2020,04/18/2020 COVID-19, MRNA-LNP, 24-25, P F, 3 MCG/0.3 mL, 6M- 4YRS, IM (Pf[employer]) 12/04/2023 COVID-19, MRNA-LNP, PF, 30 M CG/0.3 mL, 12 YRS AND ABOVE, IM ([facility]) 05/24/2023 Pneumococcal Conjugate Vacci ne, 20-valent ([id number]) 04/16/2023 RSV Vac., Bivalent, Perfusio n F, Pf,0.5 Ml (Abrysvo) 04/30/2023 Seasonal Influenza Virus Vac cine, Unspecified Formulation 12/04/2023 documented as of this encounter Social History Tobacco Use Types Packs/Day Years Used Date Smoking Tobacco: Never Smokeless Tobacco: Never Alcohol Use Standard Drinks/Week Comments Yes 0 (1 standard drink = 0.6 oz pur e alcohol) socially Utilities Answer Date Recorded Do you have trouble paying y our heating, water, or electric bill? (Adult - for ages 18 years and over) Not on file 08/21/2023 Is your family able to pay t he heat, water, or electric bill? (Household - for ages 0-17 years) Not on file 08/21/2023 Does your family have access to good internet? (Household - for ages 0-17 years) Not on file 08/21/2023 Social Connections Answer Date Recorded How often do you feel lonely or isolated from those around you? (Adult - for ages 18 years and over) Not on file 08/21/2023 Sex and Gender Information Value Date Recorded Sex Assigned at Not on file Legal Sex Male 6:20 AM EST Gender Identity Not on file Sexual Orientation Not on file documented as of this encounter Last Filed Vital Signs Vital Sign Reading Time Taken Comments Blood Pressure - - Pulse - - Temperature 36.6 C (97.8 F) 03/03/2024 3:39 PM ES T Respiratory Rate - - Oxygen Saturation 96% 03/03/2024 3:39 PM EST room air Inhaled Oxygen Concentration - - Weight - - Height - - Body Mass Index - - documented in this encounter Plan of Treatment Upcoming Encounters Date Type Department Care Team (Late st Contact Info) Description 04/15/2024 10:20 AM EST Office Visit Hepatology, [facility] [address] [place] [address] Poppy Najera MD [address] [place] [address] Health Maintenance Due Date Last Done Comments Depression Monitoring 1952 Albumin/Creatinine Ratio 05/13/1959 DTap/Tdap Vaccines (1 - Tdap) 10/04/2005 10/03/2005 Hepatitis B Vaccine (2 of 3 - Hep B Twinrix 3-dose series) 04/02/2013 03/05/2013 Colonoscopy 04/22/2022 04/22/2019, 04/05, 02/15/2012, Additional history exists COVID-19 Vaccine ( season) 2024 12/04/2023, 05/24/2023, 12/01/2020, Additional history exists TSH 12/04/2024 12/05/2023, 04/2022, 10/26/2022 GFR 01/29/2025 01/30/2024, 01/03, 01/08/2024, Additional history exists Zoster Vaccines Completed 02/08/2021, 02/02, 12/09/2018, Additional history exists Pneumococcal Vaccine: 50+ Years Completed 04/16/2023, 09/17/2015, 10/03/2005 Influenza Vaccine (FLU shot) Completed 03/2023, 11/13/2019, 11/28/2018, Additional history exists HPV (Gardasil) Vaccine Aged Out No lo nger eligible based on patient's age to complete this topic MENINGOCOCCAL (MENACTRA/MENVEO) Aged Out No longer eligible based on patient's age to complete this topic documented as of this encounter Medical Devices Not on filedocumented as of this encounter Visit Diagnoses Diagnosis Balanitis- Primary Balanoposthitis documented in this encounter
--- OUTSIDE RECORDS SUMMARY | 2024-04-16 06:53 | External Medical Summary ---
Author Name Unknown Address Unknown Organization [id number]:[facility] [address] [place] [address] Laboratory Report Ordering Provider Test Date Status MAYRA SORENSON 03/26/2024 06:05:00 Final Observation Date Value Abnormality Reference (Units ) Status WBC, Total 03/26/2024 06:05:00 7.16 4.00-10.8 0 (K/uL) Final RBC 03/26/2024 06:05:00 3.54 4.50-5.25 (M/uL) Final Hemoglobin 03/26/2024 06:05:00 10.8 Below low normal 14 .0-16.8 (g/dL) Final HCT 03/26/2024 06:05:00 33.9 Below low normal 40. 0-48.4 (%) Final MCV 03/26/2024 06:05:00 95.8 82.0-99.5 (fL) Final MCH 03/26/2024 06:05:00 30.5 27.0-34.0 (pg) Final MCHC 03/26/2024 06:05:00 31.9 32.0-36.0 (g/dL) Final RDW 03/26/2024 06:05:00 14.8 11.5-15.5 (%) Final Platelets 03/26/2024 06:05:00 112 Below low normal 140 -400 (K/uL) Final MPV 03/26/2024 06:05:00 9.7 6.6-11.1 ( fL) Final Performing Location [facility] [address] [place] [address]
--- OUTSIDE RECORDS SUMMARY | 2024-04-16 06:53 | External Medical Summary ---
Author Name Unknown Address Unknown Organization [id number]:[facility]ORY [facility] [place] - [address] [facility] [place] [address] Laboratory Report Ordering Provider Test Date Status MAYRA SORENSON 03/26/2024 06:05:00 Final Observation Date Value Abnormality Reference (Units ) Status TSH 03/26/2024 06:05:00 6.45 Above high normal 0. 27-4.20 (uIU/mL) Final Performing Location [facility] [place] - [address] [facility] [address]
--- OUTSIDE RECORDS SUMMARY | 2024-04-16 06:53 | External Medical Summary | Summary of Care ---
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); History of subdural hematoma; History of stroke; History of DVT (deep vein thrombosis); Loss of weight; Poor appetite; Acquired hypothyroidism; HTN, goal below 140/90; Transaminitis; Dyslipidemia, goal LDL below 70; Trigeminal neuralgia; Medication monitoring encounter Allergies No known active allergiesdocumented as of this encounter (statuses as of 03/25/2024) Medications Hydrocortisone Acetate 25 MG Rectal Suppository [...] mL 05/07/19 24 Active Cholecalciferol 1.25 MG (30661 UT) Oral Tablet Take 50,000 Units by [...] 24 Active Additional Information Patient taking differently: 25 mgOral Daily(AM),Until 03/29/24 then STOP, Reported on 03/25/2024 Tums Ultra 1000 1000 MG Oral Tablet Chewable (Calcium Carbonate Antacid)Indication s:Gastroesophageal reflux disease without esophagitis Take 2 Tablets by mouth in the morning and 2 Tablets at noon and 2 Tablets before bedtime. 180 Tablet 05/07/19 Active Nitroglycerin 0.4 MG Sublingual Tablet Sublingual (Nitrostat) Place 1 Tablet under the tongue as needed for Pain, Chest. May repeat 3 times. If chest pain continues, call 911. 09/27/19 24 Active Multivitamin Adults Oral Tablet Take 1 Tablet by mouth in the morning. Active Ferrous Sulfate 300 MG/6.8ML Oral Solution Take 7 mL by mouth daily at noon. Active Escitalopram Oxalate 10 MG Oral Tablet (Lexapro) Take 1 Tablet by mouth in the morning. Active documented as of this encounter (statuses as of 03/25/2024) Active Problems Problem Noted Date Diagnosed Date [...] as of this encounter (statuses as of 03/25/2024) Resolved Problems Problem Noted Date Diagnosed Date Resolved Date ADVANCE DIRECTIVE INFORMATION 10/27/2004 01/07/2024 Overview (10/27/2004): Yes, Patient instructed to provide copy of advance directive for provider to review and to be scanned into Electronic Medical Record documented as of this encounter (statuses as of 03/25/2024) Immunizations Name Administration Dates Next Due COVID-19 mRNA, LNP-s, No Pre serve, 2-Dose Series ([employer]) 12/01/2020,05/17/2020,04/18/2020 COVID-19, MRNA-LNP, 24-25, P F, 3 MCG/0.3 mL, 6M- 4YRS, IM ([employer]) 12/04/2023 COVID-19, MRNA-LNP, PF, 30 M CG/0.3 mL, 12 YRS AND ABOVE, IM ([employer]Comirnat[employer]) 09/10/2023,05/24/2023 Pneumococcal Conjugate Vacci ne, 20-valent ([id number]) 04/16/2023 RSV Vac., Bivalent, Perfusio n F, [...] Pressure - - Pulse - - Temperature 36.4 C (97.6 F) 03/25/2024 3:45 PM ES T Respiratory Rate 18 03/25/2024 3:45 PM EST Oxygen Saturation 93% 03/25/2024 3:45 PM EST room air Inhaled Oxygen Concentration - - Weight 75.5 kg (166 lb 6.4 oz) 03/25/2024 3:45 P M EST Height - - Body Mass Index 22.57 04/02/2023 2:48 PM EST documented in this encounter Progress Notes * Maddie Biswas PA-C - 03/25/2024 3:43 PM EST Provider Visit TRANSITION EVENT: Type: Regulatory visit Date: March 25 Code Status: No Code Name: Romain Lim Date of : 1940 This note pertains to care provided at [facility]. Please see facility medical record for original note. This note is not to be edited or addended in [facility]. Editing or addending needs to occur in the facilities medical record. S: Romain Lim is seen today as part of a regulatory visit. LTC pt seen in routine follow up today - with history of advancing mixed dementia (likely Alzheimer's/vascular with history of CVA), DVT, hypothyroidism, recent issues with transaminitis having improved after discontinuation of numerous medications with no significant findings on imaging of the liver, recent significant weight loss of approximately 40 lbs in the past 6 months, 13 lbs in past 2 weeks, and other history noted below. He denies acute complaints today, though history from the patient is limited due to advancing dementia. In regards to his weight loss: he is currently on fortified diet. Meal intakes are generally 50% orless, with occasional refusals of meals. 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) HTN, goal below 140/90 Acute deep vein thrombosis (DVT) of calf muscle vein of right lower extremity (HCC) Radiation proctitis AVM (arteriovenous malformation) of colon Internal hemorrhoid Iron deficiency anemia Elevated liver enzymes Past Medical History: Diagnosis Date Benign neoplasm of colon 02/13/07 hyperplastic repeat colonoscopy in 5 yrs Benign neoplasm of colon 02/15/2012 COLONOSCOPY FLEXIBLE PROXIMAL DIAGNOSTIC performed by Jose Longoria MD at [facility] shows adenomatous polyp repeat in 3 years Past Surgical History: Procedure Laterality Date COLONOSCOPY W/ BIOPSY (RECTUM) 02/13/07 hyperplastic repeat in 5 yrs COLONOSCOPY, DIAGNOSTIC (RECTUM) 02/15/2012 COLONOSCOPY FLEXIBLE PROXIMAL DIAGNOSTIC performed by Jose Longoria MD at [facility]risti shows adenomatous polyp repeat in 3 years COLONOSCOPY, DIAGNOSTIC (RECTUM) 04/22/2019 radiation proctitis, diverticulosis / COLONOSCOPY FLEXIBLE PROXIMAL DIAGNOSTIC performed by Jose Longoria MD at ENDOSCOPY [facility] No family history on file. No family status information on file. Social History Social History Narrative Not on file Review of patient's allergies indicates: No Known Allergies Patient is now having acute problem(s). Current problems include weight loss, poor meal intakes, combativeness, refusal of medications and care. Is not having pain issues. Is having current behavioral problems. Including medication refusal, combativeness, refusal of careand is being treated with medications, redirection, comforting patient by the nursing staff, and food. ROS: Unable to obtain from pt due to advanced dementia O: I reviewed the most recent facilities vitals. 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) Declining over the recent months History of subdural hematoma No acute issues History of stroke No new issues aside from cognitive/functional decline History of DVT (deep vein thrombosis) He continues on eliquis 5 mg twice daily Loss of weight Poor appetite Psychiatry involved Had been on Remeron in the past, which had to be stopped due to transaminitis Current cross-tapering off sertraline and onto escitalopram Check labs: TSHR, BMP, LFTs, CBC Acquired hypothyroidism Check TSH in light of recent weight loss HTN, goal below 140/90 Stable off meds at the present time Transaminitis Update LFTs Dyslipidemia, goal LDL below 70 Off statin due to recent transaminitis Trigeminal neuralgia Off tegretol due to recent transaminitis, no apparent pain at this time Medication monitoring encounter Check vitamin D level as he has been on high dose replacement x nearly 1 year P: Medications reviewed. Please refer to MAR in the facility's medical record for the most up-to-date medication list. Continue present medication(s): Reviewed detention record for: vital signs, weight, bowel, and bladder function, and ADLs. Labs reviewed Continue current treatment plan as ordered Continue to follow up as needed and as scheduled 35 total minutes were spent in this visit. This total time includes pre-visit chart review, obtaining / reviewing separately obtained medical history, and performing the medically appropriate historyand exam. It also includes patient / family education and counseling, placing the appropriate orders, placing referrals and communicating with other medical providers, documenting clinical information in the EHR, interpreting / communicating results, and coordinating patient care. documented in this encounter Plan of Treatment Upcoming Encounters Date Type Department Care Team (Late st Contact Info) Description 04/15/2024 10:20 AM EST [facility] [place] [address] Poppy Najera MD [address] [place] [address] Health Maintenance Due Date Last Done Comments Depression Monitoring 1952 Albumin/Creatinine Ratio 05/13/1959 DTap/Tdap Vaccines (1 - Tdap) 10/04/2005 10/03/2005 Hepatitis B Vaccine (2 of 3 - Hep B Twinrix 3-dose series) 04/02/2013 03/05/2013 Colonoscopy 04/22/2022 04/22/2019, 04/05, 02/15/2012, Additional history exists COVID-19 Vaccine ( season) 2024 12/04/2023, 09/10/2023, 05/24/2023, Additional history exists TSH 12/04/2024 12/05/2023, 04/2022, [...] as of this encounter Visit Diagnoses Diagnosis 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)- Primary 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) History of subdural hematoma History of stroke Transient ischemic attack (TIA), and cerebral infarction without residual deficits History of DVT (deep vein thrombosis) Personal history of venous thrombosis and embolism Loss of weight Poor appetite Anorexia Acquired hypothyroidism Unspecified hypothyroidism HTN, goal below 140/90 Unspecified essential hypertension Transaminitis Nonspecific elevation of levels of transaminase or lactic acid dehydrogenase (LDH) Dyslipidemia, goal LDL below 70 Other and unspecified hyperlipidemia Trigeminal neuralgia Medication monitoring encounter Encounter for therapeutic drug monitoring documented in this encounter
--- OUTSIDE RECORDS SUMMARY | 2024-04-16 06:53 | External Medical Summary ---
Author Name Unknown Address Unknown Organization [id number]:LABORATORY [facility] [place] - [address] [facility] [address] Laboratory Report Ordering Provider Test Date Status MAYRA SORENSON 03/26/2024 06:05:00 Final Deficient: <20 ng/mL
Ins ufficient: 20-29 ng/mL
Recommended/Optimum:30-50 ng/mL

Vitamin D intoxication is rare. If suspicious of Vitamin D toxicity, evaluation of serum Calcium and PTH is recommended. Observation Date Value Abnormality Reference (Units ) Status 25-OH Vitamin D total 03/26/2024 06:05:00 71 >19 (ng/mL) Final Performing Location LABORATORY [facility] [place] - [address] [place] [address]
--- OUTSIDE RECORDS SUMMARY | 2024-04-16 06:53 | External Medical Summary | Summary of Care ---
Author Name Unknown Organization [facility] Address [address] [place] [address] Phone [phone] Care Team Providers Care Shed Boss Name Role Phone Unavailable Primary Care Provider Unavailabl e Reason for Visit * Reason Comments NEW PATIENT Abnormal LFT's Pt's son reports jarad t pt has had a 40 pound weight loss in 6 months * Evaluate & Treat - Unlimited Visits (Within 10 days (routine)) - Authorized Specialty Diagnoses / Procedures Referred By Sadi elizabeth Referred To Contact Gastroenterology Diagnoses Elevated liver enzymes Maddie Biswas PA-C [address] [place] [address] Phone: tel: fax: Referral ID Status Reason Start Date Expiration Date Visits Requested Visits Authorized [id number] Authorized Specialty Services Required 12/12/[phone] Encounter Details Date Type Department Care Team (Late st Contact Info) Description 04/15/2024 10:20 AM EST Office Visit Hepatology, [facility] [address] [facility] [place] [address] Poppy Najera MD [address] [facility] [place] [phone] Low serum albumin*; Liver cyst; Elevated LFTs Allergies No known active allergiesdocumented as of this encounter (statuses as of 04/15/2024) Medications Hydrocortisone Acetate 25 MG Rectal Suppository [...] mL 05/07/19 24 Active Cholecalciferol 1.25 MG (13360 UT) Oral Tablet Take 50,000 Units by [...] Tablet 05/07/19 24 Active Additional Information Patient not taking.Reported on 04/15/2024 Tums Ultra 1000 1000 MG Oral Tablet [...] If chest pain continues, call 911. 09/27/19 Active Multivitamin Adults Oral Tablet Take 1 Tablet by mouth in the morning. Active Ferrous Sulfate 300 MG/6.8ML Oral Solution Take 7 mL by mouth daily at noon. Active Escitalopram Oxalate 10 MG Oral Tablet (Lexapro) Take 1 Tablet by mouth in the morning. Active Acetaminophen 500 MG Oral Tablet (Tylenol) 1 Tablet. 03/26/19 Active Docusate Sodium 100 MG Oral Capsule (Colace) Take 1 Capsule by mouth in the morning and 1 Capsule before bedtime. Active Bisacodyl 10 MG Rectal Suppository (Dulcolax) Administer 1 Suppository into the rectum in the morning. Active Polyethylene Glycol 3350 17 GM Oral Packet Take 1 Packet by mouth in the morning. Active documented as of this encounter (statuses as of 04/15/2024) Active Problems Problem Noted Date Diagnosed Date [...] as of this encounter (statuses as of 04/15/2024) Resolved Problems Problem Noted Date Diagnosed Date Resolved Date ADVANCE DIRECTIVE INFORMATION 10/27/2004 01/07/2024 Overview (10/27/2004): Yes, Patient instructed to provide copy of advance directive for provider to review and to be scanned into Electronic Medical Record documented as of this encounter (statuses as of 04/15/2024) Immunizations Name Administration Dates Next Due COVID-19 mRNA, LNP-s, No Pre serve, 2-Dose Series ([employer]) 12/01/2020,05/17/2020,04/18/2020 COVID-19, MRNA-LNP, 24-25, P F, 3 MCG/0.3 mL, 6M- 4YRS, IM (Pfizer) 12/04/2023 COVID-19, MRNA-LNP, PF, 30 M CG/0.3 mL, 12 YRS AND ABOVE, IM (PFIZER-[facility]) 09/10/2023,05/24/2023 Pneumococcal Conjugate Vacci ne, 20-valent ([id number]) 04/16/2023 RSV Vac., Bivalent, Perfusio n F, Pf,0.5 Ml (Abrysvo) 04/30/2023 Seasonal Influenza Virus Vac cine, Unspecified Formulation 12/04/2023 documented as of this encounter Social History Tobacco Use Types Packs/Day Years Used Date Smoking Tobacco: Never Smokeless Tobacco: Never Alcohol Use Standard Drinks/Week Comments Not Currently 0 (1 standard drink = 0.6 oz pur e alcohol) socially Sex and Gender Information Value Date Recorded Sex Assigned at Not on file Legal Sex Male 6:20 AM EST Gender Identity Not on file Sexual Orientation Not on file documented as of this encounter Last Filed Vital Signs Vital Sign Reading Time Taken Comments Blood Pressure 102/71 04/15/2024 10:55 AM EST Pulse 83 04/15/2024 10:55 AM EST Temperature 36.6 C (97.9 F) 04/15/2024 10:[address] Respiratory Rate - - Oxygen Saturation - - Inhaled Oxygen Concentration - - Weight - - Height - - Body Mass Index - - documented in this encounter Progress Notes * Poppy Najera MD - 04/15/2024 10:58 AM EST Hepatology Cory Singh CC: elevated lft's - now normal Referred by Maddie Biswas HPI: 83 yo male with a history of prostate cancer with radiation proctitis treated last endoscopically in 2019. Here today with his son for reportedly elevated lft's. Patient had a stroke- wheelchair bound, left sided paralysis, on eliquis for a history of dvt/pe. He has significant dementia, strokes and the patient's son is more communicative about the patient. Lives in [facility]. He had elevated lft's from 12-26 to 01-26 - ast/alt/alk phos elevation. At that time, he was at [facility] - he was on a medication and then stopped it in 01/26 - his lft's have normalized - he thinks it was an antidepressant. His son reports he did not have covid at that time or heart failure that they know. The patient is limited in terms of his converation - he will look at you nod, but not directly answer questions. His son filled in most of the history. The other main issue is that the patient has lost weight and they are reporting his caloric intake is not optimal. He is drinking milk shakes. He is not eating food much. He is trying boost and ensure. His albumin is low. His wishes are to not have a feeding tube. No reports of bleeding noted, belly pain. 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 Past Medical History: Diagnosis Date Benign neoplasm of colon 02/13/07 hyperplastic repeat colonoscopy in 5 yrs Benign neoplasm of colon 02/15/2012 COLONOSCOPY FLEXIBLE PROXIMAL DIAGNOSTIC performed by Jose Longoria MD at [facility] shows adenomatous polyp repeat in 3 years Current Outpatient Medications Medication Sig Dispense Refill Hydrocortisone Acetate 25 MG Rectal Suppository (Anusol-HC) Administer into the rectum 2 times a day in the morning and at bedtime as needed for Hemorrhoids or Other (bleeding). Up to 2 weeks. 12 Suppository 0 Vitamin B-12 1000 MCG Sublingual Tablet Sublingual Place 1 Tablet under the tongue in the morning. 30 Tablet 0 Brimonidine Tartrate 0.1 % Ophthalmic Solution (Alphagan P) Instill 1 Drop into both eyes in the morning and 1 Drop before bedtime. 5 mL 0 Cholecalciferol 1.25 MG (37141 UT) Oral Tablet Take 50,000 Units by mouth once a week. Fridays 4 Tablet 0 Dorzolamide HCl-Timolol Mal 2-0.5 % Ophthalmic Solution (Cosopt Ocumeter Plus) Instill 1 Drop into both eyes in the morning and 1 Drop before bedtime. 10 mL 0 Apixaban 5 MG Oral Tablet (Eliquis) Take 1 Tablet by mouth in the morning and 1 Tablet before bedtime. 60 Tablet 0 Famotidine 20 MG Oral Tablet (Pepcid) Take 1 Tablet by mouth in the morning. 30 Tablet 0 Levothyroxine Sodium 50 MCG Oral Tablet (Levoxyl) Take 1 Tablet by mouth in the morning. (at least 30 min prior to breakfast or other meds). 30 Tablet 0 Lumigan 0.01 % Ophthalmic Solution (Bimatoprost) Instill 1 Drop into both eyes at bedtime. 2.5 mL 0 Tums Ultra 1000 1000 MG Oral Tablet Chewable (Calcium Carbonate Antacid) Take 2 Tablets by mouth inthe morning and 2 Tablets at noon and 2 Tablets before bedtime. 180 Tablet 0 Nitroglycerin 0.4 MG Sublingual Tablet Sublingual (Nitrostat) Place 1 Tablet under the tongue as needed for Pain, Chest. May repeat 3 times. If chest pain continues, call 911. Multivitamin Adults Oral Tablet Take 1 Tablet by mouth in the morning. Escitalopram Oxalate 10 MG Oral Tablet (Lexapro) Take 1 Tablet by mouth in the morning. Acetaminophen 500 MG Oral Tablet (Tylenol) 1 Tablet. Docusate Sodium 100 MG Oral Capsule (Colace) Take 1 Capsule by mouth in the morning and 1 Capsule before bedtime. Bisacodyl 10 MG Rectal Suppository (Dulcolax) Administer 1 Suppository into the rectum in the morning. Polyethylene Glycol 3350 17 GM Oral Packet Take 1 Packet by mouth in the morning. Sertraline HCl 50 MG Oral Tablet (Zoloft) Take 1.5 Tablets by mouth in the morning. (Patient not taking: Reported on 04/15/2024) 45 Tablet 0 Ferrous Sulfate 300 MG/6.8ML Oral Solution Take 7 mL by mouth daily at noon. (Patient not taking: Reported on 04/15/2024) No current facility-administered medications for this visit. Review of patient's allergies indicates: No Known Allergies Social History Socioeconomic History Marital status: Spouse name: Not on file Number of children: Not on file Years of education: Not on file Highest education level: Not on file Occupational History Not on file Tobacco Use Smoking status: Never Smokeless tobacco: Never Vaping Use Vaping status: Never Used Substance and Sexual Activity Alcohol use: Not Currently Comment: socially Drug use: Never Sexual activity: Not on file Other Topics Concern Not on file Social History Narrative Not on file Social Needs Financial Resource Strain: Not on file Food Insecurity: Not on file Transportation Needs: Not on file Social Connections: Unknown (08/21/2023) Social Connections How often do you feel lonely or isolated from those around you? (Adult - for ages 18 years and over): Not on file Housing Stability: Not on file No family history on file. ROS: Constitutional: No report of fever, chills, night sweats. There have been no non-intentional weightchanges. Eyes: No recent changes in visual acuity or blurring of vision. ENT: No change in auditory acuity, sense of smell or taste. CV: No chest pain, palpitations, dyspnea on exertion. Respiratory: No wheezing, cough, sputum production. : No dysuria, polyuria, change in urinary frequency. GI: Per HPI, otherwise negative. Psychiatric: No chronic changes in mood, affect or sensorium. Musculoskeletal: No myalgias, arthralgias, or joint pains. Neurological: No change in gait, change in maintenance of balance, neurologic injuries. Physical Exam Constitutional: BP 102/71 | Pulse 83 | Temp 36.6 C (97.9 F) Elderly male in nad, wheelchair bound Eyes: Conjunctivae and sclerae are clear and non-icteric. Pupils are equally round and reactive to light, extra-ocular movements intact. Resp: normal, no audible wheezing CV: normal GI: Abdomen is soft nt nd Psychiatric: The patient is alert and oriented in all four spheres. Mood is euthymic. Affect is appropriate for the situation. Skin: No rashes were noted on his face Musculoskeletal: Wheelchair bound Latest Reference Range & Units 02/07/22 06:10 12/05/23 07:28 12/10/23 05:38 12/18/23 05:44 12/20/23 05:40 12/25/23 08:52 01/01/24 06:15 01/08/24 05:35 01/21/24 05:50 01/30/24 05:43 03/26/24 06:05 Albumin 3.8 - 5.0 g/dL 3.7 (L) 2.6 (L) 2.4 (L) 2.6 (L) 2.6 (L) 2.7 (L) 2.8 (L) 2.8 (L) 2.9 (L) 2.8 (L) 2.8 (L) AST 10 - 50 U/L 23 124 (H) 165 (H) 249 (H) 236 (H) 171 (H) 217 (H) 258 (H) 63 (H) 32 23 ALT 10 - 50 U/L 31 86 (H) 106 (H) 185 (H) 193 (H) 166 (H) 183 (H) 225 (H) 100 (H) 48 18 Alkaline Phosphatase 35 - 130 U/L 101 139 (H) 161 (H) 158 (H) 152 (H) 145 (H) 154 (H) 180 (H) 121 97 64 Bilirubin, Total <=1.2 mg/dL 0.4 0.3 0.2 0.2 0.3 0.3 0.3 0.4 0.4 0.3 0.4 Bilirubin, Direct 0.0 - 0.3 mg/dL 0.1 (L): Data is abnormally low (H): Data is abnormally high CT scan of the abdomen from [facility] (02/25) that the radiologist wrote conflicting things - stating inthe impression- normal liver no lesions, renal cyst, however in the body of the report it states liver cyst (1.5 cm) A/P: Elevated lft's that have now normalized - in - at this same time per history obtained fromthe son - had been on a medication he thinks an antidepressant that was started for mood and appetite reasons (improved appetite on it) but then stopped due to rise in lft's, they normalized once stopping it Consider an alternative antidepressant with a lower hepatotoxic profile if using it for mood/appetite issues Given last ct liver was slightly confusing in terms of the reports thru [facility], consider an abd kirit Also consider an echo to rule out chf as a contributor to elevated lft's They will discuss that with their pcp and the pcp can order those tests per the discussion with thepatient and his son Low albumin - we spoke about trying egg white, protein shakes The son stated the patient does not want a feeing tube Caloric intake per juniper- consider a softer diet as perhaps he has some component of oropharyngeal dysphagia from his prior strokes that makes eating regular food harder ?liver cyst- consider a repeat abd kirit. Fup prn. Poppy Najera MD documented in this encounter Nursing Notes * Johanna Pickering LPN - 04/15/2024 10:54 AM EST Chief Complaint Patient presents with NEW PATIENT Abnormal LFT's Pt's son reports that pt has had a 40 pound weight loss in 6 months documented in this encounter Plan of Treatment Health Maintenance Due Date Last Done Comments Depression Monitoring 1952 Albumin/Creatinine Ratio 05/13/1958 DTap/Tdap Vaccines (1 - Tdap) 10/04/2005 10/03/2005 Hepatitis B Vaccine (2 of 3 - Hep B Twinrix 3-dose series) 04/02/2013 03/05/2013 Colonoscopy 04/22/2022 04/22/2019, 04/05, 02/15/2012, Additional history exists COVID-19 Vaccine (7 - 2024-25 season) 2024 12/04/2023, 09/10/2023, 05/24/2023, Additional history exists GFR 03/26/2025 03/26/2024, 01/04, 01/21/2024, Additional history exists TSH 03/26/2025 03/26/2024, 04/2023, 12/04/2022, Additional history exists Zoster Vaccines Completed 02/08/2021, [...] as of this encounter Visit Diagnoses Diagnosis Low serum albumin- Primary Liver cyst Other specified disorders of liver Elevated LFTs Other abnormal blood chemistry documented in this encounter Additional Health Concerns Infection Onset Date Last Indicated Resolved Time Cystic fibrosis 03/26/2024 03/26/2024 documented as of this encounter"
--- OUTSIDE RECORDS SUMMARY | 2024-04-16 06:53 | External Medical Summary ---
Author Name Unknown Address Unknown Organization [id number]:[facility] [place] [address] [place] [id number] Laboratory Report Ordering Provider Test Date Status MAYRA SORENSON 03/26/2024 06:05:00 Final Observation Date Value Abnormality Reference (Units ) Status BUN 03/26/2024 06:05:00 28 Above high normal 6-20 (mg/dL) Final Creatinine 03/26/2024 06:05:00 1.6 Above high normal 0.6-1.2 (mg/dL) Final Glomerular filtration rate/1.73 sq M.predicted [Volume Rate/Area] in Serum, Plasma or Blood by Creatinine-based formula (CKD-EPI) 03/26/2024 06:05:00 43 Below low normal >=60 (mL/min) Final eGFR is calculated based on the CKD-EPI 2020 equation. Sodium 03/26/2024 06:05:00 144 135-146 (m mol/L) Final Potassium 03/26/2024 06:05:00 3.9 3.5-5.1 (m mol/L) Final Cl 03/26/2024 06:05:00 109 Above high normal 98 -107 (mmol/L) Final CO2 03/26/2024 06:05:00 26 22-32 (mmo l/L) Final Anion gap 03/26/2024 06:05:00 9 7-15 (mmol /L) Final Glucose 03/26/2024 06:05:00 80 70-120 (mg /dL) Final Calcium 03/26/2024 06:05:00 9.5 8.4-10.2 ( mg/dL) Final Performing Location [facility] [address] [place] [id number]
--- OUTSIDE RECORDS SUMMARY | 2024-04-16 06:53 | External Medical Summary ---
Author Name Unknown Address Unknown Organization [id number]:[facility] [place] [address] [facility] [id number] Laboratory Report Ordering Provider Test Date Status MAYRA SORENSON 03/26/2024 06:05:00 Final Observation Date Value Abnormality Reference (Units ) Status T4, Free 03/26/2024 06:05:00 0.8 Below low normal 0.9 -1.7 (ng/dL) Final Performing Location [facility] - [address] [facility] [id number]
[2024-04-16] MEDS: ONDANSETRON INJ 2 MG/ML 2 ML VIAL IV PRN (07:36)
[2024-04-16] MEDS: DORZOLAMIDE/TIMOLOL 22.3/6.8MG/ML 10 ML BTL OPB SCH (07:39)
[2024-04-16] MEDS: PIPERACILLIN/TAZOBACTAM 4.5 GM/100 ML BAG IV SCH (07:39)
--- NOTE | 2024-04-16 07:53 | Hospitalist Progress Note ---
Date of Service April 16, 2024 Assessment & Plan (1) Stercoral colitis: (2) DIRK (acute kidney injury): (3) Acute upper gastrointestinal bleeding: (4) Chronic anticoagulation: (5) Dementia: (6) Nausea and vomiting: Plan The patient is a an 83-year-old male with past medical history including rapidly progressive dementia, DVT, history of encephalopathy, hypothyroidism, cerebrovascular disease/TIA, hypertension, history of hernia repair, prostate cancer, history of common migraine, gait instability, history of subdural hematoma, CKD, cerebral cavernoma, and trigeminal neuralgia.The patient presents to the emergency department via ambulance from [place], where he was noted to have nausea, vomiting and worsening confusion on top of his baseline dementia. EMS reports that his vomit appeared to be somewhat dark, and they were concerned about the possibility of blood in his vomitus. The patient himself not able to contribute to significant HPI or ROS due to his dementia. While in the emergency department, the patient had a number of episodes of active vomiting. CT scan of abdomen pelvis did not show bowel obstruction, but did show findings suggestive of stercoral colitis. #Nausea vomiting/upper GI bleeding/stercoral colitis- NORovirus +-supporitve care, contact isolation Continue Protonix bolus and drip begun in the ED Will not reverse Eliquis at this time unless persistent GI bleeding Zosyn 4.5 g IV every 8 hours Fluid resusitated then NSS 80 mL/h x 2 L Hemoglobin 13.9->11 Acetaminophen 1 g IV every 8 hours as needed for mild pain or fever Consult gastroenterology Dr. Ordonez Acute kidney injury- Creatinine 1.50, with base 0.87 IV fluids as noted above repeat laboratories in the a.m. History of DVT- On chronic Eliquis, which will be held for now Chronic medical conditions: History of CVA/TIA/aphasia-n.p.o. for now Glaucoma-continue usual eyedrops Hypothyroidism-temporarily holding levothyroxine B12 deficiency-Temporarily holding supplement CODE STATUS: DNR/DNI is verified with family Admission and Anticipated Discharge Date Admission Date: April 16, 2024 Subjective this pt is pleasantly confused, he is not oriented only answers y/n, resulted in am that has norovirus, and has dark stong smelling urine in berry bag Physical Exam Physical Exam: no significant distress anxious abd is normal bowel sounds, no guarding or focal tenderness no rebound Results & Data Results & Data Vital Signs (Past 12 Hours) Vital Signs Temp Pulse Resp BP BP Pulse Ox O2 Del Method 04/16/24 04:30 99.1 F 18 116/80 96 Room Air 04/16/24 03:33 110 H 24 122/81 94 04/16/24 03:15 122 H 27 H 113/82 90 04/16/24 02:55 96 H 04/16/24 02:30 94 H 16 113/85 94 04/16/24 02:03 79 15 111/81 96 04/16/24 01:54 74 17 111/81 97 04/16/24 01:30 74 15 125/81 98 04/16/24 01:15 78 16 121/66 92 04/16/24 00:48 94 H 14 95 Room Air 04/16/24 00:48 98.2 F 83 15 86/71 L 96 Room Air PG Care Time/CCT Total # of Minutes Spent Total Time Spent with Patient: Total time spent is greater than 50% in coordination of care (as documented) at patient's floor/unit and/or counseling patient: Coding Level of Care Code None Diagnoses Stercoral colitis K52.89 DIRK (acute kidney injury) N17.9 Acute upper gastrointestinal bleeding K92.2 Chronic anticoagulation Z79.01 Dementia F03.90 Nausea and vomiting R11.2
[2024-04-16 10:29] LABS: Adenovirus F 40/41 PCR Not Detected (NotDetected); Astrovirus PCR Not Detected (NotDetected); Campylobacter PCR Not Detected (NotDetected); Cryptosporidium PCR Not Detected (NotDetected); Cyclospora cayetanensis PCR Not Detected (NotDetected); Entamoeba histolytica PCR Not Detected (NotDetected); Enteroaggregative E.coli(EAEC) Not Detected (NotDetected); Enteropathogenic E.coli (EPEC) Not Detected (NotDetected); Enterotoxigenic E.coli (ETEC) Not Detected (NotDetected); Giardia lamblia PCR Not Detected (NotDetected); Plesiomonas shigelloides PCR Not Detected (NotDetected); Rotavirus A PCR Not Detected (NotDetected); Salmonella PCR Not Detected (NotDetected); Sapovirus PCR Not Detected (NotDetected); Shiga-like Toxin E.coli (STEC) Not Detected (NotDetected); Shigella/Enteroinvasive E.coli Not Detected (NotDetected); Vibrio cholerae PCR Not Detected (NotDetected); Vibrio species PCR Not Detected (NotDetected); Yersinia enterocolitica PCR Not Detected (NotDetected)
[2024-04-16 10:49] LABS: Norovirus GI/GII PCR DETECTED (NotDetected)
[2024-04-16 11:46] LABS: Hemoglobin 10.2 g/dl (14.0-18.0)
--- NOTE | 2024-04-16 12:23 | Gastrointestinal Consultation ---
Date of Consultation April 16, 2024 Assessment & Plan (1) Stercoral colitis: CT imaging shows concern for fecal impaction. Patient has been NPO. Discussed with family. Keep NPO and plan for fecal disimpaction under anesthesia. (2) Anemia: H/H 10.2/31.0 No overt GI bleeding. Per RN, patient had a dark brown stool this AM. -Continue Pantoprazole -Continue to monitor H/H & monitor for overt GI bleeding (3) Norovirus: Patient's stool studies returned positive for Norovirus since admission. Likely the cause of his nausea/vomiting. Would advise antiemetics & supportive care Supervising Physician Co-Signing Physician Notes CT findings clinical presentation consistent with fecal impaction. X-rays from March did show fecal loading at that time. His acute presentation was likely precipitated by norovirus. Patient has a issues with cognition and mental decline. Is not likely will be able to cooperate or understand the need for a fecal disimpaction. I discussed with the family at the bedside. Benefits of disimpaction. There are potential for bleeding here with a history of radiation proctitis and blood thinners. I think he would benefit from sedation to fa cilitate disimpaction. Son is prepared to give consent. Will do so today. History of Present Illness Reason for Consultation: UGI bleed, N/V, stercoral colitis Requesting Physician: Hospitalist team Attending Physician: Nando Doty MD History of Present Illness Patient is an 83 yo male with past medical history including rapidly progressive dementia, DVT, history of encephalopathy, hypothyroidism, cerebrovascular disease/TIA, hypertension, history of hernia repair, prostate cancer, history of common migraine, gait instability, history of subdural hematoma, CKD, cerebral cavernoma, and trigeminal neuralgia. He was transferred to the ED from [facility] where he was noted to have nausea, vomiting, and confusion reportedly worse than his baseline dementia. EMS reported dark emesis while transferring him. Patient had a CT scan that showed a stercoral colitis. H/H 10.2/31.0. BUN 28, Cr 1.5. Last colonoscopy 2019 with [employer] showed radiation proctitis treated with APC at that time. CT this admission as follows: IMPRESSION: 1. A large cortical simple cyst of size 9.6 x 9.6 cm is noted involving interpolar region of right kidney.-stable. 2. The bladder is distended and shows mild concentric wall thickening predominantly at the posterior aspect (maximum wall thickness measures 8 mm) - suggestive of cystitis changes. Two small bladder diverticuli arising from bilateral lateral jean of urinary bladder. 3. The sigmoid colon and rectum is distended with fecal matter and shows concentric wall thickening with subtle adjacent fat stranding - suggest possibility of stercoral coliits. 4. Few tiny gravels are noted involving upper pole calyx of left kidney.-stable. 5. Cystitis changes with few bladder diverticuli. 6. The sigmoid colon and rectum is distended with fecal matter and shows concentric wall thickening with subtle adjacent fat stranding - suggest possibility of stercoral coliits. Allergies Allergy/AdvReac Type Severity Reaction Status Date / Time No Known Allergies Allergy Verified 02/25/24 10:27 Home Medications Medication Instructions Recorded Confirmed Type bimatoprost 0.01 % eye drops 1 drp OPB 07/30/21 04/16/24 History (Lumigan) brimonidine 0.1 % eye drops 1 drp OPB [facility] 07/30/21 04/16/24 History (Alphagan P) famotidine 20 mg tablet 20 mg PO QAM 12/19/22 04/16/24 History levothyroxine 50 mcg tablet 50 mcg PO DAILY 12/19/22 04/16/24 History dorzolamide 22.3 mg-timolol 6.8 1 drp OPB [facility] 03/26/23 04/16/24 History mg/mL eye drops mecobalamin (vitamin B12) 1,000 1,000 mcg PO BID 03/26/23 04/16/24 History mcg chewable tablet (B12 Active) calcium carbonate (Tums Ultra) 400 mg PO TID 07/17/23 04/16/24 History nitroglycerin 0.4 mg sublingual 0.4 mg sublingual Q5M PRN Chest 07/17/23 04/16/24 History tablet Pain apixaban 5 mg tablet (Eliquis) 5 mg PO BID 01/25/24 04/16/24 History cholecalciferol (vitamin D3) 1,250 1,250 mcg PO WK 01/25/24 04/16/24 History mcg (50,000 unit) capsule ferrous sulfate 300 mg (60 mg See Rx Instructions PO DAILY 01/25/24 04/16/24 History iron)/5 mL oral liquid multivitamin 1 tab PO DAILY 01/25/24 04/16/24 History acetaminophen 325 mg tablet 975 mg PO QID PRN temperature 04/16/24 04/16/24 History bisacodyl 10 mg rectal suppository 10 mg ND DAILY PRN Constipation 04/16/24 04/16/24 History docusate sodium 100 mg capsule 100 mg PO DAILY PRN Constipation 04/16/24 04/16/24 History (Colace) escitalopram oxalate 10 mg tablet 10 mg PO DAILY 04/16/24 04/16/24 History (Lexapro) hydrocortisone acetate 25 mg 25 mg ND Q12 PRN rectal bleeding 04/16/24 04/16/24 History rectal suppository mineral oil-hydrophil petrolat 1 applic topical BID 04/16/24 04/16/24 History topical ointment polyethylene glycol 3350 17 gram 17 g PO DAILY PRN Constipation 04/16/24 04/16/24 History oral powder packet Patient History Medical History History of stroke listed above - pt denies hx stroke; poor historian. denies following with neurology but office visit in [facility] from 12/2020 Chronic lower back pain History of prostate cancer dx'd 2-3 years ago; s/p radiation Poor historian HTN (hypertension) no meds - PCP monitors Surgical History Hx of inguinal hernia repair History of left cataract surgery History of prostate biopsy Family History Mother , in her 60s Parkinson's disease Primary Parkinson's disease Father , in his 70's of uncertain cause No problems noted. 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 [employer] Feels Safe at Home: Yes Assistive Devices: Walker Review of Systems Review of Systems: Unobtainable due to cognitive status Physical Exam Constitutional: Resting comfortably in bed Gastrointestinal (Abdomen): normal bowel sounds, soft, nontender, no hepato splenomegaly Results & Data Vital Signs (Past 12 Hours) Vital Signs Temp Pulse Pulse Resp BP BP Pulse Ox 04/16/24 11:30 36.4 C L 91 H 19 104/66 97 04/16/24 09:20 92 H 04/16/24 04:30 37.3 C 18 116/80 96 04/16/24 03:33 110 H 24 122/81 94 04/16/24 03:15 122 H 27 H 113/82 90 04/16/24 02:55 96 H 04/16/24 02:30 94 H 16 113/85 94 04/16/24 02:03 79 15 111/81 96 04/16/24 01:54 74 17 111/81 97 04/16/24 01:30 74 15 125/81 98 04/16/24 01:15 78 16 121/66 92 04/16/24 00:48 94 H 14 95 04/16/24 00:48 36.8 C 83 15 86/71 L 96 O2 Del Method 04/16/24 11:30 Room Air 04/16/24 09:20 04/16/24 04:30 Room Air 04/16/24 03:33 04/16/24 03:15 04/16/24 02:55 04/16/24 02:30 04/16/24 02:03 04/16/24 01:54 04/16/24 01:30 04/16/24 01:15 04/16/24 00:48 Room Air 04/16/24 00:48 Room Air PG Care Time/CCT Total # of Minutes Spent Total Time Spent with Patient: Total time spent is greater than 50% in coordination of care (as documented) at patient's floor/unit and/or counseling patient: Coding Level of Care Code 29601 INT INP/OBS CARE 3/75MIN Diagnoses Stercoral colitis K52.89 Anemia D64.9 Anemia type: unspecified type Norovirus A08.11 (2) Anemia Anemia type: unspecified type Qualified Code(s): D64.9 - Anemia, unspecified
--- NOTE | 2024-04-16 14:13 | Anesthesiology Consultation ---
Date of Service April 16, 2024 Assessment & Plan (1) Encounter for pre-operative examination: Chart Review Chart Review: Acceptable Risk for Surgery, Patient NOT seen in Pre Admission Testing and data entry technician initiated Consults Requested none Proposed Anesthesia Anesthesia Type: MAC History Surgery Operation Date: 04/16/24 16:30 Proposed Procedures p Digital Rectal Exam Under Anesthesia Dr. José Luis Ordonez MD Height/Weight Height: 5 ft 7 in Weight: 80.6 kg Allergies Allergy/AdvReac Type Severity Reaction Status Date / Time No Known Allergies Allergy Verified 02/25/24 10:27 Medications Home Medications Medication Instructions Recorded Confirmed Last Taken bimatoprost 0.01 % eye drops 1 drp OPB [facility] 07/30/21 04/16/24 04/15/24 (Lumigan) brimonidine 0.1 % eye drops 1 drp OPB [facility] 07/30/21 04/16/24 04/15/24 (Alphagan P) famotidine 20 mg tablet 20 mg PO QAM 12/19/22 04/16/24 04/15/24 levothyroxine 50 mcg tablet 50 mcg PO DAILY 12/19/22 04/16/24 04/15/24 dorzolamide 22.3 mg-timolol 6.8 1 drp OPB [facility] 03/26/23 04/16/24 04/15/24 mg/mL eye drops mecobalamin (vitamin B12) 1,000 1,000 mcg PO BID 03/26/23 04/16/24 04/15/24 mcg chewable tablet (B12 Active) calcium carbonate (Tums Ultra) 400 mg PO TID 07/17/23 04/16/24 04/15/24 nitroglycerin 0.4 mg sublingual 0.4 mg sublingual Q5M PRN Chest 07/17/23 04/16/24 Unknown tablet Pain apixaban 5 mg tablet (Eliquis) 5 mg PO BID 01/25/24 04/16/24 04/15/24 cholecalciferol (vitamin D3) 1,250 1,250 mcg PO WK 01/25/24 04/16/24 Unknown mcg (50,000 unit) capsule ferrous sulfate 300 mg (60 mg See Rx Instructions PO DAILY 01/25/24 04/16/24 04/15/24 iron)/5 mL oral liquid multivitamin 1 tab PO DAILY 01/25/24 04/16/24 04/15/24 acetaminophen 325 mg tablet 975 mg PO QID PRN temperature 04/16/24 04/16/24 Unknown bisacodyl 10 mg rectal suppository 10 mg OR DAILY PRN Constipation 04/16/24 04/16/24 Unknown docusate sodium 100 mg capsule 100 mg PO DAILY PRN Constipation 04/16/24 04/16/24 Unknown (Colace) escitalopram oxalate 10 mg tablet 10 mg PO DAILY 04/16/24 04/16/24 04/15/24 (Lexapro) hydrocortisone acetate 25 mg 25 mg OR Q12 PRN rectal bleeding 04/16/24 04/16/24 Unknown rectal suppository mineral oil-hydrophil petrolat 1 applic topical BID 04/16/24 04/16/24 04/15/24 topical ointment polyethylene glycol 3350 17 gram 17 g PO DAILY PRN Constipation 04/16/24 04/16/24 Unknown oral powder packet Active Medications Generic Name Dose Route Start Last Admin Trade Name [facility] PRN Reason Stop Dose Admin Dorzolamide/Timolol 1 drops 04/16/24 09:00 04/16/24 07:39 Dorzolamide/Timolol 22.3/6.8mg/Ml 10 Ml Btl OPB 05/16/24 08:59 Not Given BID MELISSA Piperacillin Sod/Tazobactam Sod 4.5 gm in 100 mls @ 25 mls/hr 04/16/24 08:00 04/16/24 11:40 Zosyn IV 04/26/24 07:59 Infused Q8H MELISSA Infusion Protocol Sodium Chloride 1,000 mls @ 80 mls/hr 04/16/24 02:30 04/16/24 02:58 Nss IV 04/17/24 03:29 80 mls/hr .[id number] MELISSA Administration Miscellaneous 1 each 04/16/24 08:00 04/16/24 07:39 Brimonidine [Alphagan P] 0.1 % Drops--Order Awaiting Action N/A 05/16/24 07:59 Not Given QS MELISSA Ondansetron HCl 4 mg 04/16/24 05:09 04/16/24 07:36 Ondansetron Inj 2 Mg/Ml 2 Ml Vial IV 05/16/24 05:08 4 mg Q6H PRN Administration NAUSEA/VOMITING Past Medical History Medical History History of stroke listed above - pt denies hx stroke; poor historian. denies following with neurology but office visit in [facility] from 12/2020 Chronic lower back pain History of prostate cancer dx'd 2-3 years ago; s/p radiation Poor historian HTN (hypertension) no meds - PCP monitors Past Family History Family History Mother , in her 60s Parkinson's disease Primary Parkinson's disease Father , in his 70's of uncertain cause No problems noted. Past Surgical History Surgical History Hx of inguinal hernia repair History of left cataract surgery History of prostate biopsy Social History Smoking Status: Never smoker Do You Dip or Chew Tobacco: No Hx Alcohol Use: No alcohol intake frequency: holidays/special occasions only Hx Substance Use: No substance use type: does not use Physical Exam Vital Signs Last Vital Signs Temp 36.4 C L 04/16/24 11:30 Pulse 91 H 04/16/24 11:30 Resp 19 04/16/24 11:30 BP 104/66 04/16/24 11:30 Pulse Ox 97 04/16/24 11:30 O2 Del Method Room Air 04/16/24 11:30 Testing Laboratory Results 04/16/24 10:55 04/16/24 00:44 Urine Color Yellow 04/16/24 03:40 Urine Appearance Cloudy (Clear) A 04/16/24 03:40 Urine pH 5.5 (4.5-7.5) 04/16/24 03:40 Ur Specific [place] 1.034 (1.000-1.030) H 04/16/24 03:40 Urine Protein Trace (Negative) H 04/16/24 03:40 Urine Glucose (UA) Negative (Negative) 04/16/24 03:40 Urine Ketones Trace (Negative) H 04/16/24 03:40 Urine Nitrite Negative (Negative) 04/16/24 03:40 Ur Leukocyte Esterase 1+ (Negative) H 04/16/24 03:40 Urine WBC (Auto) 6-10 /hpf (0-5) H 04/16/24 03:40 Urine RBC (Auto) >20 /hpf (0-2) H 04/16/24 03:40 U Hyaline Cast (Auto) 3-5 /lpf (0-2) H 04/16/24 03:40 U Epithel Cells (Auto) 3-5 /hpf (0-2) H 04/16/24 03:40 Urine Bacteria (Auto) None Seen (None Seen) 04/16/24 03:40 Blood Type A Positive 04/16/24 03:11 Antibody Screen NEGATIVE 04/16/24 03:11 Electrocardiogram Date: 04/03/23 Test Reason : Blood Pressure : / mmHG Vent. Rate : 065 BPM Atrial Rate : 065 BPM P-R Int : 186 ms QRS Dur : 100 ms QT Int : 418 ms P-R-T Axes : 031 -13 045 degrees QTc Int : 434 ms Sinus rhythm with frequent Premature ventricular complexes Nonspecific T wave abnormality Abnormal ECG When compared with ECG of 26-MAR-2023 02:38, Premature ventricular complexes are now Present Nonspecific T wave abnormality now evident in Anterolateral leads Confirmed by Pj Mcdaniel ([id number]) on 04/03/2023 2:29:13 PM Chest X-Ray Date: 04/03/23 XR chest 1V portable HISTORY: neuro deficit, acute stroke suspected COMPARISON: Chest 07/30/2021. FINDINGS: No pneumothorax. No pleural effusions. The heart remains mildly enlarged. There is a tortuous thoracic aorta, unchanged. No focal lung consolidations to suggest a pneumonia. No evidence for pulmonary edema. No acute fractures identified. IMPRESSION: No significant change compared to the prior study. No acute process. Echocardiogram Date: 03/26/23 EF: 60-65 LV Function: normal Other Findings: + LVH (moderate) Valvular Disease: + MR (mild)
--- NOTE | 2024-04-16 15:20 | Post Operative Brief Note ---
Immediate Post Op Note Date of Surgery April 16, 2024 Pre & Post Diagnosis Operation Date: 04/16/24 16:30 Pre-Op Diagnosis: fecal impaction, for disimpaction in this uncooperative confused patient Post-Op Diagnosis: no fecal impaction found I identified the patient and participated in the time-out.: Yes Procedure Operation Date: 04/16/24 16:30 Actual Procedures p Digital Rectal Exam Under Anesthesia Dr. Ordonez - Mono Ordonez MD Surgeon Mono Ordonez MD Natural Remedy Consultant none Estimated Blood Loss 0 Findings Consistent with Post-Op Diagnosis No anal canal pathology. No stricture. Rectal vault not dilated. Soft mushy stool in the rectum no impaction to the length of the digit. Complications No immediate complications.
--- NOTE | 2024-04-16 15:39 | Anesthesiology Progress Note ---
Date of Service April 16, 2024 Anesthesia Post Procedure Vital Signs Vital Signs: Temp Pulse Pulse Resp BP BP Pulse Ox 04/16/24 15:33 80 14 84/56 L 98 04/16/24 15:24 84 16 86/63 L 97 04/16/24 15:08 87 16 93/54 L 97 04/16/24 14:48 38.4 C H 90 14 110/58 L 96 04/16/24 11:30 36.4 C L 91 H 19 104/66 97 04/16/24 09:20 92 H 04/16/24 04:30 37.3 C 18 116/80 96 04/16/24 03:33 110 H 24 122/81 94 04/16/24 03:15 122 H 27 H 113/82 90 04/16/24 02:55 96 H 04/16/24 02:30 94 H 16 113/85 94 04/16/24 02:03 79 15 111/81 96 04/16/24 01:54 74 17 111/81 97 04/16/24 01:30 74 15 125/81 98 04/16/24 01:15 78 16 121/66 92 04/16/24 00:48 94 H 14 95 04/16/24 00:48 36.8 C 83 15 86/71 L 96 O2 Del Method O2 Flow Rate 04/16/24 15:33 Room Air 04/16/24 15:24 Room Air 04/16/24 15:08 Oxymask 6 04/16/24 14:48 Room Air 04/16/24 11:30 Room Air 04/16/24 09:20 04/16/24 04:30 Room Air 04/16/24 03:33 04/16/24 03:15 04/16/24 02:55 04/16/24 02:30 04/16/24 02:03 04/16/24 01:54 04/16/24 01:30 04/16/24 01:15 04/16/24 00:48 Room Air 04/16/24 00:48 Room Air Transfer of Care Handoff Completed per policy Notes Mental Status: alert / awake / arousable and participated in evaluation Patient Amnestic to Procedure: Yes Nausea / Vomiting: adequately controlled Pain: adequately controlled Airway Patency, RR, SpO2: stable & adequate BP & HR: stable & adequate Hydration State: stable & adequate Anesthetic Complications: no major complications apparent and Pt Satisfied with anesthetic care
[2024-04-16] MEDS: LIDOCAINE 2% 2 ML VIAL/AMP(20MG/ML) INFIL ONE (16:01)
[2024-04-16] MEDS: PROPOFOL IV EMULSION 10 MG/ML 20 ML VIAL IV ONE (16:01)
[2024-04-16] MEDS: ACETAMINOPHEN 1000 MG/100 ML IV IV PRN (16:06)
[2024-04-16] MEDS: BIMATOPROST 0.01% OP SOLN 2.5 ML BTL OP SCH (21:43)
[2024-04-16] MEDS: PANTOprazole 40 MG/10 ML SYR IV SCH (21:43)
[2024-04-17 07:28] LABS: Hematocrit (blood only) 27.4 % (42.0-52.0); Hemoglobin 8.9 g/dl (14.0-18.0); Mean Corpuscular Hemoglobin 30.8 pg (25.0-34.0); Mean Corpuscular Hgb Conc 32.5 g/dL (32.0-36.0); Mean Corpuscular Volume 94.8 fL (80.0-100.0); RDW Coefficient of Variation 15.9 % (11.5-14.5); RDW Standard Deviation 55.2 fL (36.4-46.3); Red Blood Count 2.89 M/uL (4.70-6.10); White Blood Count 4.28 K/ul (4.8-10.8)
[2024-04-17 07:43] LABS: Albumin Level 2.3 gm/dl (3.4-5.0); BUN Creatinine Ratio 18.5 (10-20); Bilirubin,Total 0.4 mg/dl (0.2-1.0); Creatinine Clr Calc Pharmacy 32.9 ml/min; Globulin 2.4 gm/dl (2.5-4.0); Magnesium 1.8 mg/dl (1.7-2.4); Potassium 3.5 mmol/L (3.5-5.1); Total Protein 4.7 gm/dl (6.0-8.3)
[2024-04-17 07:51] LABS: INR 1.3 (0.9-1.1); Partial Thromboplastin Ratio 1.2; Partial Thromboplastin Time 31 Seconds (21-31); Prothrombin Time 13.5 Seconds (9.0-12.0)
[2024-04-17 08:12] LABS: Basophils # (auto) 0.01 K/uL (0.00-0.20); Basophils % (auto) 0.2 %; Eosinophils # (auto) 0.08 K/uL (0.00-0.50); Eosinophils % (auto) 1.9 %; Immature Granulocytes # (auto) 0.02 K/uL (0.01-0.20); Immature Granulocytes % (auto) 0.5 %; Lymphocytes # (auto) 0.91 K/uL (1.20-3.40); Lymphocytes % (auto) 21.3 %; Mean Platelet Volume 9.6 fL (9.4-12.4); Monocytes # (auto) 0.51 K/uL (0.11-0.59); Monocytes % (auto) 11.9 %; Neutrophils # (auto) 2.75 K/uL (1.40-6.50); Neutrophils % (auto) 64.2 %; Platelet Count 95 K/uL (130-400); Platelet Estimate Decreased (Normal)
--- NOTE | 2024-04-17 10:43 | Surgery Progress Note ---
Date of Service April 17, 2024 Assessment & Plan (1) Stercoral colitis: Plan: He has a benign abdomen and is having BM's Advance diet as tolerated Surgery will sign off at this time, please call with any questions or concerns Admission and Anticipated Discharge Date Admission Date: April 16, 2024 Subjective Pt seen and examined. No abdominal pain. Had some BM's overnight. Afebrile. Review of Systems Constitutional: no fever and no chills Eyes: no blind spots and no worsening vision Ear, Nose, Mouth, Throat: no ear pain and no hearing loss Respiratory: no cough and no dyspnea Cardiovascular: no chest pain and no dyspnea on exertion Gastrointestinal: no abdominal pain, no nausea and no vomiting Genitourinary: no dysuria or no urinary incontinence Physical Exam Constitutional: WD/WN, vitals as above Respiratory: normal respiratory effort, lungs clear to auscultation Cardiovascular: RRR, no murmur, no edema Gastrointestinal (Abdomen): Inspection/Auscultation: abdomen normal to inspection; abdomen not distended Percussion/Palpation: abdomen soft; abdomen nontender and no guarding Musculoskeletal: no cyanosis or clubbing, extremities motor strength 5/5 Skin: no rashes, warm and dry Psychiatric: A+Ox3, euthymic affect Results & Data Vital Signs (Past 12 Hours) Vital Signs Temp Pulse Pulse Resp BP Pulse Ox O2 Del Method 04/17/24 08:00 50 L 04/17/24 08:00 Room Air 04/17/24 07:13 36.7 C 71 20 110/64 04/17/24 02:49 36.8 C 69 18 94/58 L 97 Room Air 04/16/24 23:55 72 04/16/24 22:43 36.7 C 76 18 85/56 L 94 Room Air PG Care Time/CCT Total # of Minutes Spent Total Time Spent with Patient: Total time spent is greater than 50% in coordination of care (as documented) at patient's floor/unit and/or counseling patient: Coding Level of Care Code 33672 SUB INP/OBS CARE 03/29MIN Diagnoses Stercoral colitis K52.89
--- NOTE | 2024-04-17 11:24 | Gastroenterology Progress Note ---
Date of Service April 17, 2024 Assessment & Plan (1) Norovirus: (2) Stercoral colitis: Plan Patient will need to continue a good bowel regimen once recovered from his Norovirus. Fortunately, n/v/d has stopped. Currently it appears that he is ordered BID prn Dulcolax, but will plan to add Miralax to that as well as it does appear he has chronic constipation that has led to suspected stercoral colitis. He is not having any overt GI bleeding at the present time. Admission and Anticipated Discharge Date Admission Date: April 16, 2024 Subjective Patient is an 83 yo male with Norovirus. Patient is resting comfortably in bed. No overt GI bleeding. H/H 8.9/27.4. BUN 30/Cr 1.62. He was sedated for disimpaction yesterday, but did not have a fecal impaction at the time of the procedure. He has a history of radiation proctitis and also CT evidence of stercoral colitis. Review of Systems Review of Systems: Unobtainable due to cognitive status Physical Exam Constitutional: well developed Respiratory: normal respiratory effort Gastrointestinal (Abdomen): normal bowel sounds, soft, nontender, no hepatosplenomegaly Psychiatric: Orientation: alert and oriented x 3 Results & Data Results & Data Vital Signs (Past 12 Hours) Vital Signs Temp Pulse Pulse Resp BP Pulse Ox O2 Del Method 04/17/24 08:00 50 L 04/17/24 08:00 Room Air 04/17/24 07:13 36.7 C 71 20 110/64 04/17/24 02:49 36.8 C 69 18 94/58 L 97 Room Air 04/16/24 23:55 72 PG Care Time/CCT Total # of Minutes Spent Total Time Spent with Patient: Total time spent is greater than 50% in coordination of care (as documented) at patient's floor/unit and/or counseling patient: Coding Level of Care Code 99814 SUB INP/OBS CARE 2/35MIN Diagnoses Norovirus A08.11 Stercoral colitis K52.89
--- NOTE | 2024-04-17 12:31 | Hospitalist Progress Note ---
Date of Service April 17, 2024 Assessment & Plan (1) Stercoral colitis: (2) DIRK (acute kidney injury): (3) Acute upper gastrointestinal bleeding: (4) Chronic anticoagulation: (5) Dementia: (6) Nausea and vomiting: Plan The patient is a an 83-year-old male with past medical history including rapidly progressive dementia, DVT, history of encephalopathy, hypothyroidism, cerebrovascular disease/TIA, hypertension, history of hernia repair, prostate cancer, history of common migraine, gait instability, history of subdural hematoma, CKD, cerebral cavernoma, and trigeminal neuralgia.The patient presents to the emergency department via ambulance from [facility], where he was noted to have nausea, vomiting and worsening confusion on top of his baseline dementia. EMS reports that his vomit appeared to be somewhat dark, and they were concerned about the possibility of blood in his vomitus. The patient himself not able to contribute to significant HPI or ROS due to his dementia. While in the emergency department, the patient had a number of episodes of active vomiting. CT scan of abdomen pelvis did not show bowel obstruction, but did show findings suggestive of stercoral colitis. #Nausea vomiting Due to NORovirus will continue supporitve care, contact isolation Continue Protonix bolus and drip begun in the ED Hemoglobin 13.9->11 Acetaminophen 1 g IV every 8 hours as needed for mild pain or fever Consult gastroenterology Stercoral colitis Zosyn 4.5 g IV every 8 hours Suspected hematemesis small amounts Will not reverse Eliquis at this time unless persistent GI bleeding no need for GI procedure Acute kidney injury- Creatinine 1.50, with base 0.87 IV fluids as noted above repeat laboratories in the a.m. History of DVT- On chronic Eliquis, which will be held for now Chronic medical conditions: History of CVA/TIA/aphasia-n.p.o. for now Glaucoma-continue usual eyedrops Hypothyroidism-temporarily holding levothyroxine B12 deficiency-Temporarily holding supplement CODE STATUS: DNR/DNI is verified with family Hopefully d/c back to [facility] tomorrow Admission and Anticipated Discharge Date Admission Date: April 16, 2024 Subjective patient seen and examined, he appears lethargic, talking very little, lying in bed quietly Review of Systems Review of Systems: unreliable Physical Exam Physical Exam: The patient is awake, weak and lethargic HEENT--PERRL, EOMI, mucous membranes and oropharynx mildly dry Neck--supple. No JVD. No bruits. Thyroid normal, trachea midline, no adenopathy. Heart--normal S1 and S2. No murmurs, rubs or gallops. Lungs--clear bilaterally, no respiratory distress, no accessory muscle use. Abdomen--normal bowel sounds and soft. Extremities--no cyanosis or clubbing. No edema. Dermatologic--normal skin turgor, normal color, no abnormal lymph nodes, no rash. Neurologic--cranial nerves II through XII grossly intact. Rheumatologic--normal range of motion. Psychiatric--normal affect. Results & Data Results & Data Vital Signs (Past 12 Hours) Vital Signs Temp Pulse Pulse Resp BP Pulse Ox O2 Del Method 04/17/24 11:47 97.7 F 53 L 20 108/59 L 98 Room Air 04/17/24 08:00 50 L 04/17/24 08:00 Room Air 04/17/24 07:13 98.1 F 71 20 110/64 04/17/24 02:49 98.2 F 69 18 94/58 L 97 Room Air PG Care Time/CCT Total # of Minutes Spent Total Time Spent with Patient: Total time spent is greater than 50% in coordination of care (as documented) at patient's floor/unit and/or counseling patient: Coding Level of Care Code 26292 SUB INP/OBS CARE 2/35MIN Diagnoses Stercoral colitis K52.89 DIRK (acute kidney injury) N17.9 Acute upper gastrointestinal bleeding K92.2 Chronic anticoagulation Z79.01 Dementia F03.90 Nausea and vomiting R11.2 Time Spent (min) 35
[2024-04-17] MEDS: APIXABAN 5 MG TABLET PO SCH (20:21)
[2024-04-18 07:13] VITALS: PULSE 63; RESP 16; TEMP 97.9; O2SAT 98
[2024-04-18 09:11] LABS: Basophils # (auto) 0.02 K/uL (0.00-0.20); Basophils % (auto) 0.4 %; Eosinophils # (auto) 0.16 K/uL (0.00-0.50); Eosinophils % (auto) 3.2 %; Hemoglobin 9.6 g/dl (14.0-18.0); Immature Granulocytes # (auto) 0.03 K/uL (0.01-0.20); Immature Granulocytes % (auto) 0.6 %; Lymphocytes # (auto) 1.14 K/uL (1.20-3.40); Lymphocytes % (auto) 22.9 %; Mean Corpuscular Hemoglobin 30.1 pg (25.0-34.0); Mean Platelet Volume 9.2 fL (9.4-12.4); Monocytes # (auto) 0.63 K/uL (0.11-0.59); Monocytes % (auto) 12.7 %; Neutrophils # (auto) 2.99 K/uL (1.40-6.50); Neutrophils % (auto) 60.2 %; Platelet Count 93 K/uL (130-400); RDW Standard Deviation 54.6 fL (36.4-46.3); Red Blood Count 3.19 M/uL (4.70-6.10); White Blood Count 4.97 K/ul (4.8-10.8)
[2024-04-18 09:21] LABS: INR 1.2 (0.9-1.1); Partial Thromboplastin Ratio 1.2; Partial Thromboplastin Time 32 Seconds (21-31); Prothrombin Time 12.4 Seconds (9.0-12.0)
[2024-04-18 09:28] LABS: Albumin Globulin Ratio 0.9 (0.9-2); Albumin Level 2.5 gm/dl (3.4-5.0); BUN Creatinine Ratio 16.6 (10-20); Bilirubin,Total 0.4 mg/dl (0.2-1.0); Calcium 8.2 mg/dl (8.6-10.3); Creatinine Clr Calc Pharmacy 33.9 ml/min; Globulin 2.7 gm/dl (2.5-4.0); Magnesium 1.8 mg/dl (1.7-2.4); Potassium 3.3 mmol/L (3.5-5.1); Total Protein 5.2 gm/dl (6.0-8.3)
--- NOTE | 2024-04-18 10:54 | Discharge Summary ---
Date of Service April 18, 2024 Admission HPI Per Admitting Provider The patient is a an 83-year-old male with past medical history including rapidly progressive dementia, DVT, history of encephalopathy, hypothyroidism, cerebrovascular disease/TIA, hypertension, history of hernia repair, prostate cancer, history of common migraine, gait instability, history of subdural hematoma, CKD, cerebral cavernoma, and trigeminal neuralgia.The patient presents to the emergency department via ambulance from [facility], where he was noted to have nausea, vomiting and worsening confusion on top of his baseline dementia. EMS reports that his vomit appeared to be somewhat dark, and they were concerned about the possibility of blood in his vomitus. The patient himself not able to contribute to significant HPI or ROS due to his dementia. While in the emergency department, the patient had a number of episodes of active vomiting. Admission Exam (Per Admitting) Constitutional The patient is awake, alert and oriented 3, well developed and well nourished, normocephalic and atraumatic, lying in bed and in no acute distress. HEENT--PERRL, EOMI, mucous membranes and oropharynx mildly dry Neck--supple. No JVD. No bruits. Thyroid normal, trachea midline, no adenopathy. Heart--normal S1 and S2. No murmurs, rubs or gallops. Lungs--clear bilaterally, no respiratory distress, no accessory muscle use. Abdomen--normal bowel sounds and soft. Extremities--no cyanosis or clubbing. No edema. Dermatologic--normal skin turgor, normal color, no abnormal lymph nodes, no rash. Neurologic--cranial nerves II through XII grossly intact. Rheumatologic--normal range of motion. Psychiatric--normal affect. Discharge Data Consultations 04/16/24 02:02 ED Decision to Admit Stat 04/16/24 04:12 Consult Gastroenterology Routine Procedures Performed Operation Date: 04/16/24 16:30 Actual Procedures p Digital Rectal Exam Under Anesthesia Dr. José Luis Ordonez MD Hospital Course (1) Stercoral colitis: (2) DIRK (acute kidney injury): (3) Acute upper gastrointestinal bleeding: (4) Chronic anticoagulation: (5) Dementia: (6) Nausea and vomiting: Plan The patient is a an 83-year-old male with past medical history including rapidly progressive dementia, DVT, history of encephalopathy, hypothyroidism, cerebrovascular disease/TIA, hypertension, history of hernia repair, prostate cancer, history of common migraine, gait instability, history of subdural hematoma, CKD, cerebral cavernoma, and trigeminal neuralgia.The patient presents to the emergency department via ambulance from [facility], where he was noted to have nausea, vomiting and worsening confusion on top of his baseline dementia. EMS reports that his vomit appeared to be somewhat dark, and they were concerned about the possibility of blood in his vomitus. The patient himself not able to contribute to significant HPI or ROS due to his dementia. While in the emergency department, the patient had a number of episodes of active vomiting. CT scan of abdomen pelvis did not show bowel obstruction, but did show findings suggestive of stercoral colitis. #Nausea vomiting Due to NORovirus will continue supporitve care, contact isolation Continue Protonix bolus and drip begun in the ED Hemoglobin 13.9->11 Acetaminophen 1 g IV every 8 hours as needed for mild pain or fever Consult gastroenterology Stercoral colitis Zosyn 4.5 g IV every 8 hours Suspected hematemesis small amounts Will not reverse Eliquis at this time unless persistent GI bleeding no need for GI procedure Acute kidney injury- Creatinine 1.50, with base 0.87 IV fluids as noted above repeat laboratories in the a.m. History of DVT- On chronic Eliquis, which will be held for now Chronic medical conditions: History of CVA/TIA/aphasia- Glaucoma-continue usual eyedrops Hypothyroidism-temporarily holding levothyroxine B12 deficiency-Temporarily holding supplement CODE STATUS: DNR/DNI is verified with family Coding Level of Care Code 36647 INP/OBS DISCH >30 MIN Diagnoses Stercoral colitis K52.89 DIRK (acute kidney injury) N17.9 Acute upper gastrointestinal bleeding K92.2 Chronic anticoagulation Z79.01 Dementia F03.90 Nausea and vomiting R11.2 Time Spent (min) 35
[2024-04-18 15:06] VITALS: BP 101/68
== END 2024-04-18 15:05 | DRG 392 ==
LOC: ED 00:27 → SUATTDRO 02:23 → 2S 02:23 → 3N 04-17 16:33